=== PATIENT | male | born 1940 | race Caucasian/White ===

== ENCOUNTER 2016-10-03 08:15 | Inpatient (IN) | payer OTHER, MEDICARE ==
[2016-10-03 08:26] VITALS: BMI 28.1
--- NOTE | 2016-10-03 08:32 | PDOC ---
History of Present Illness - General History Source: Patient, Spouse () Exam Limitations: No Limitations - History of Present Illness Initial Comments: 10/03/16 08:43 The patient is a 75 year old male with significant past medical history of hypertension, hyperlipidemia, GERD, a-fib (on Coumadin), and alzheimer's who presents to the emergency department accompanied by his with chest pain for the last several days. Per patients he got up this morning to go to the bathroom when he suddenly felt dizzy. He denies any LOC. The patient has also been complaining of chest pain for the last several days. He describes the pain as pressure which is intermittent in nature. He currently does not have any chest pain. He reports some associated intermittent SOB. He denies any cough or runny nose. He denies palpitations. He denies any recent illness, fevers, or chills. PMD: Dr. Melchor <Savanah Lovett - Last Filed: 10/03/16 08:43> <Ashley Jensen - Last Filed: 10/03/16 13:45> - General Chief Complaint: Chest Pain Stated Complaint: CHEST PAIN Time Seen by Provider: 10/03/16 08:31 Past History <Savanah Lovett - Last Filed: 10/03/16 08:43> - Past Medical History Anemia: No Asthma: No Cancer: No Cardiac Disorders: Yes (ATRIAL FIBRILLATION) CVA: No COPD: No Dementia: (SOME MEMORY LOSS) GI Disorders: Yes (GERD; HH; HX OF SIGMOID COLON CANCER) Disorders: No (bph) HTN: Yes Hypercholesterolemia: Yes Seizures: No Thyroid Disease: No - Surgical History Abdominal Surgery: Yes (INGUINAL HERNIA) Cardiac Surgery: Yes (CARDIAC CATH.) - Psycho/Social/Smoking Cessation Hx Anxiety: No Suicidal Ideation: No Smoking History: Former smoker Have you smoked in the past 12 months: No Number of Cigarettes Smoked Daily: 5 If you are a former smoker, when did you quit?: 50 YRS Information on smoking cessation initiated: No Hx Alcohol Use: No Drug/Substance Use Hx: No Substance Use Type: None Hx Substance Use Treatment: No <Aslhey Jensen - Last Filed: 10/03/16 13:45> - Past Medical History Allergies/Adverse Reactions: Allergies Allergy/AdvReac Type Severity Reaction Status Date / Time No Known Drug Allergies Allergy Verified 06/11/16 12:02 Home Medications: Ambulatory Orders Amlodipine/Valsartan/Hcthiazid [Exforge Hct 5-160-25 mg Tab] 0 each PO ASDIR Calcium Carbonate [Calcium] 1,000 mg PO DAILY 10/03/16 Citalopram Hydrobromide [Celexa -] 40 mg PO DAILY 10/03/16 Donepezil HCl [Aricept -] 5 mg PO HS 10/03/16 Memantine HCl [Namenda Xr] 21 mg PO DAILY 10/03/16 Multivit-Min/FA/Lycopen/Lutein [Centrum Silver Tablet] 1 each PO DAILY 10/03/16 [place]-3 Acid Ethyl Esters [Lovaza] 2 gm PO BID 10/03/16 Pantoprazole Sodium [Protonix -] 40 mg PO BID 10/03/16 Pramipexole Di-HCl [Mirapex] 0.25 mg PO HS 10/03/16 Rivastigmine [Exelon Patch 9.5 mg/24 Hours] 1 each TD DAILY 10/03/16 Tamsulosin HCl [Flomax] 0.4 mg PO HS 10/03/16 Ubidecarenone [Co Q-10] 0 mg PO DAILY 10/03/16 Warfarin Na [Coumadin] 5 mg PO MOWEFR 10/03/16 Warfarin Sodium [Coumadin] 7.5 mg PO SUTUTHSA 10/03/16 Review of Systems - Review of Systems Able to Perform ROS?: Yes Comments:: 10/03/16 08:43 GENERAL/CONSTITUTIONAL: No fever or chills. No weakness. HEAD, EYES, EARS, NOSE AND THROAT: No change in vision. No ear pain or discharge. No sore throat. CARDIOVASCULAR: +Chest pain, +SOB. RESPIRATORY: No cough, wheezing, or hemoptysis. GASTROINTESTINAL: No nausea, vomiting, diarrhea or constipation. GENITOURINARY: No dysuria, frequency, or change in urination. MUSCULOSKELETAL: No joint or muscle swelling or pain. No neck or back pain. SKIN: No rash NEUROLOGIC: +Dizziness. No headache, vertigo, loss of consciousness, or change in strength/sensation. ENDOCRINE: No increased thirst. No abnormal weight change. HEMATOLOGIC/LYMPHATIC: No anemia, easy bleeding, or history of blood clots. ALLERGIC/IMMUNOLOGIC: No hives or skin allergy. <Savanah Lovett - Last Filed: 10/03/16 08:43> *Physical Exam - Vital Signs Last Vital Signs Temp Pulse Resp BP Pulse Ox 97.7 F 71 16 151/93 97 10/03/16 08:15 10/03/16 08:15 10/03/16 08:15 10/03/16 08:15 10/03/16 08:15 <Savanah Lovett - Last Filed: 10/03/16 08:43> - Vital Signs Last Vital Signs Temp Pulse Resp BP Pulse Ox 97.7 F 71 16 151/93 97 10/03/16 08:15 10/03/16 08:15 10/03/16 08:15 10/03/16 08:15 10/03/16 08:15 - Physical Exam Comments: GENERAL: Awake, alert, and fully oriented, in no acute distress HEAD: No signs of trauma EYES: PERRLA, EOMI, sclera anicteric, conjunctiva clear ENT: Auricles normal inspection, hearing grossly normal, nares patent, oropharynx clear without exudates. Moist mucosa NECK: Normal ROM, supple, no lymphadenopathy, JVD, or masses LUNGS: Breath sounds equal, clear to auscultation bilaterally. No wheezes, and no crackles HEART: Regular rate and rhythm, normal S1 and S2, no murmurs, rubs or gallops ABDOMEN: Soft, nontender, normoactive bowel sounds. No guarding, no rebound. No masses EXTREMITIES: Normal range of motion, no edema. No clubbing or cyanosis. No erythema, or tenderness. R lower leg with firm venous cord to medial surface. NEUROLOGICAL: Cranial nerves II through XII grossly intact. Normal speech, normal gait SKIN: Warm, Dry, normal turgor, no rashes. +Stasis changes to R lower leg. <Ashley Jensen - Last Filed: 10/03/16 13:45> Heart Score/ECG Review - History History: Highly suspicious - Electrocardiogram EKG: Normal - Age Age: >/= 65 - Risk Factors Risk Factors Heart Score: Yes Hx Hypercholesterolemia, Yes Hx Hypertension, Yes Positive family hx of cardiac disease Based on the list above the patient has:: >/=3 risk factors or Hx atherosclerotic disease - Troponin Troponin: </= normal limit - Score Heart Score - Total: 6 - ECG Impressions Comment:: EKG read 08:25- afib with ventricular rate 58 bpm <Ashley Jensen - Last Filed: 10/03/16 13:45> ED Treatment Course - LABORATORY CBC & Chemistry Diagram: 10/03/16 08:33 10/03/16 08:33 <Ashley Jensen - Last Filed: 10/03/16 13:45> Medical Decision Making - Medical Decision Making Pt with multiple cardiac risk factors, presenting with chest pain for past few days. Elevated CK and CK-MB. D/w Dr. Melchor, will admit to tele. <Ashley Jensen - Last Filed: 10/03/16 13:45> *DC/Admit/Observation/Transfer - Attestations Scribe Attestion: 10/03/16 08:44 Documentation prepared by Savanah Lovett, acting as medical staff director for Ashley Jensen MD. <Savanah Lovett - Last Filed: 10/03/16 08:43> - Discharge Dispostion Admit: Yes <Ashley Jensen - Last Filed: 10/03/16 13:45> Diagnosis at time of Disposition: Chest pain Qualifiers: Chest pain type: unspecified Qualified Code(s): R07.9 - Chest pain, unspecified - Discharge Dispostion Condition at time of disposition: Stable - Referrals
[2016-10-03 08:46] LABS: BASOPHIL 0.7 % (0-2.0); EOSINOPHIL 3.7 % (0-4.5); MCH 31.7 pg (25.7-33.7); MEAN CELL VOLUME 93.3 fl (80-96); MEAN PLT VOLUME 8.1 fl (7.5-11.1); NEUTROPHILS 46.3 % (42.8-82.8); PLATELET COUNT 158 K/MM3 (134-434); WHITE BLOOD COUNT 5.8 K/mm3 (4.0-10.0)
[2016-10-03 09:11] LABS: ALBUMIN 3.3 g/dl (3.4-5.0); ANION GAP 10 (8-16); BILIRUBIN,TOTAL 0.5 mg/dL (0.2-1.0); CALCIUM 8.1 mg/dL (8.5-10.1); CO2 27 mmol/L (21-32); GLUCOSE,RANDOM 80 mg/dL (74-106); SGOT/AST 45 U/L (15-37); SGPT/ALT 31 U/L (12-78); TOT PROT 6.7 g/dl (6.4-8.2)
[2016-10-03 09:14] LABS: ALK PHOS 50 U/L (45-117); TROPONIN I 0.03 ng/ml (0.00-0.05)
[2016-10-03 09:21] LABS: INR 2.5 (0.82-1.09)
[2016-10-03] MEDS ORDERED: PRAMIPEXOLE DIHYDROCHLORIDE 0.25 MG TABLET PO ONE (09:45)
[2016-10-03] MEDS ORDERED: POTASSIUM CHLORIDE TABS 20 MEQ TABLET.ER (FP) PO ONE ×2 (09:48→11:02)
--- NOTE | 2016-10-03 10:25 | EKG ---
Test Reason : Blood Pressure : / mmHG Vent. Rate : 058 BPM Atrial Rate : 072 BPM P-R Int : 000 ms QRS Dur : 098 ms QT Int : 444 ms P-R-T Axes : 000 021 -13 degrees QTc Int : 435 ms ATRIAL FIBRILLATION WITH SLOW VENTRICULAR RESPONSE ABNORMAL ECG WHEN COMPARED WITH ECG OF 11-JUN-2016 12:13, VENT. RATE HAS DECREASED Confirmed by VIKTORIA GARCIA MD ([id number]) on 10/03/2016 10:25:00 AM Referred By: Confirmed By:VIKTORIA GARCIA MD
--- NOTE | 2016-10-03 15:05 | CON.CARD ---
Consult Consult Specialty:: cardiology Reason for Consultation:: chest pain - History of Present Illness History of Present Illness: The patient is a 75 year old white male (natalie Cailin) with significant past medical history of CAD (non-obstructive coronary artery disease on coronary angiogram 08/2014), AF (on warfarin), hypertension, hyperlipidemia, inflammatory myopathy (neck extensor), GERD, and alzheimer's disease, who presents to the emergency department accompanied by his with chest pain for the last several days. Per patients , he got up this morning to go to the bathroom when he suddenly felt dizzy and held the left side of his chest. He denies any LOC. The patient has also been complaining of chest pain for the last several days. He describes the pain as pressure which is moderate and intermittent in nature. He currently does not have any chest pain. He reports some associated intermittent SOB. He denies any cough or runny nose. He denies palpitations. He denies any recent illness, fevers, or chills. PMD: Dr. Melchor Type Proof Reproducer: Dr. 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, Other (memory impairment) Cardio/Vascular: Yes: AFIB (on AC), HTN, Hyperlipdemia Pulmonary: No: COPD Renal/: No: Renal Failure Heme/Onc: No: Anemia Psych: Yes: Depression, Other (dementia) - Past Surgical History Additional Surgical History: coronary angiogram 08/2014 after positive stress MIBI: non-obstructive disease was noted (40%distal LAD) - Alcohol/Substance Use Hx Alcohol Use: No - Smoking History Smoking history: Former smoker Have you smoked in the past 12 months: No Aproximately how many cigarettes per day: 5 If you are a former smoker, when did you quit?: 50 YRS - Social History Usual Living Arrangement: With Spouse Home Medications - Allergies Allergies/Adverse Reactions: Allergies Allergy/AdvReac Type Severity Reaction Status Date / Time No Known Drug Allergies Allergy Verified 06/11/16 12:02 - Home Medications Home Medications: Ambulatory Orders Amlodipine/Valsartan/Hcthiazid [Exforge Hct 5-160-25 mg Tab] 0 each PO ASDIR Calcium Carbonate [Calcium] 1,000 mg PO DAILY 10/03/16 Citalopram Hydrobromide [Celexa -] 40 mg PO DAILY 10/03/16 Donepezil HCl [Aricept -] 5 mg PO HS 10/03/16 Memantine HCl [Namenda Xr] 21 mg PO DAILY 10/03/16 Multivit-Min/FA/Lycopen/Lutein [Centrum Silver Tablet] 1 each PO DAILY 10/03/16 [place]-3 Acid Ethyl Esters [Lovaza] 2 gm PO BID 10/03/16 Pantoprazole Sodium [Protonix -] 40 mg PO BID 10/03/16 Pramipexole Di-HCl [Mirapex] 0.25 mg PO HS 10/03/16 Rivastigmine [Exelon Patch 9.5 mg/24 Hours] 1 each TD DAILY 10/03/16 Tamsulosin HCl [Flomax] 0.4 mg PO HS 10/03/16 Ubidecarenone [Co Q-10] 0 mg PO DAILY 10/03/16 Warfarin Na [Coumadin] 5 mg PO MOWEFR 10/03/16 Warfarin Sodium [Coumadin] 7.5 mg PO SUTUTHSA 10/03/16 Family Disease History - Family Disease History Family History: Denies Review of Systems - Review of Systems Constitutional: reports: No Symptoms Eyes: reports: No Symptoms HENT: reports: No Symptoms Neck: reports: No Symptoms Cardiovascular: reports: Chest Pain, Shortness of Breath Respiratory: reports: SOB Gastrointestinal: reports: No Symptoms Genitourinary: reports: No Symptoms Breasts: reports: No Symptoms Reported Musculoskeletal: reports: Decreased ROM (neck), Muscle Weakness Integumentary: reports: No Symptoms Neurological: reports: Unsteady Gait, Other (neck) Endocrine: reports: No Symptoms Hematology/Lymphatic: reports: No Symptoms Psychiatric: reports: Other (dementia) - Risk Factors Known Risk Factors: Yes: Age, Gender, Hypercholesterolemia, Hypertension, Other (dementia) Vital Signs: Vital Signs Temperature 98.6 F 10/03/16 14:51 Pulse Rate 62 10/03/16 14:51 Respiratory Rate 18 10/03/16 14:51 Blood Pressure 91/53 10/03/16 14:51 O2 Sat by Pulse Oximetry (%) 95 10/03/16 14:51 Constitutional: Yes: Calm Eyes: Yes: WNL HENT: Yes: Other (weakness in neck) Neck: Yes: Decreased ROM Respiratory: Yes: WNL Gastrointestinal: Yes: Soft Renal/: No: Anuria Cardiovascular: Yes: Pulse Irregular JVD: No Carotid Bruit: No PMI: Non-Displaced Heart Sounds: Yes: S1 (varies in intensity), S2 Murmur: Yes: Systolic Murmur, Grade 2 Musculoskeletal: Yes: WNL Extremities: Yes: WNL, Cool Edema: No Peripheral Pulses WNL: Yes Integumentary: Yes: WNL Neurological: Yes: Alert Psychiatric: Yes: Other (dementia) - Other Data Labs, Other Data: INR, PTT INR 2.50 (0.82-1.09) H 10/03/16 08:49 Echo: Report Reviewed (2014: normal LVEF) Ejection Fraction %: LVEF > or = 40 % Imaging - Results Chest X-ray: Image Reviewed (no acute pathology) EKG: Image Reviewed (AF) Problem List - Problems (1) Chest pain Assessment/Plan: TNI negative x 1; f/u serially. EKG: AF Stress MIBI + for anterior ischemia 08/2014-->coronary angiogram, which showed non-obstructive disease (40% distal LAD). Consider ASA (though also on warfarin for AF);? statin; on triple-medication therapy for HTN. Code(s): R07.9 - CHEST PAIN, UNSPECIFIED Qualifiers: Chest pain type: unspecified Qualified Code(s): R07.9 - Chest pain, unspecified (2) Abdominal pain Code(s): R10.9 - UNSPECIFIED ABDOMINAL PAIN Qualifiers: Abdominal location: lower abdomen, unspecified Qualified Code(s): R10.30 - Lower abdominal pain, unspecified (3) Alzheimer's dementia Assessment/Plan: pt did not know why he was in hospital today; he does not know the date. His says his dementia has significantly worsened over the past 6 months. Code(s): G30.9 - ALZHEIMER'S DISEASE, UNSPECIFIED Qualifiers: Alzheimer's disease onset: unspecified onset Dementia behavioral disturbance: with behavioral disturbance Qualified Code(s): G30.8 - Other Alzheimer's disease; F02.80 - Dementia in other diseases classified elsewhere without behavioral disturbance (4) Atrial fibrillation Assessment/Plan: on wafarin (INR 2.5). He has apparently not required an AV conduction michael for HR control. He is on amlodiine/valsartan/HCTZ for HTN. Code(s): I48.91 - UNSPECIFIED ATRIAL FIBRILLATION (5) HTN (hypertension) Assessment/Plan: on ARB, HCTZ, and amlodipine. Code(s): I10 - ESSENTIAL (PRIMARY) HYPERTENSION (6) Hyperlipidemia Assessment/Plan: Was on atorvastatin in the past. Code(s): E78.5 - HYPERLIPIDEMIA, UNSPECIFIED (7) Isolated neck extensor myopathy Assessment/Plan: on Exelon. Code(s): G72.89 - OTHER SPECIFIED MYOPATHIES
[2016-10-03] MEDS ORDERED: WARFARIN NA 7.5 MG TABLET (FP) PO SCH (18:00)
[2016-10-03] MEDS: CITALOPRAM HYDROBROMIDE 20 MG TABLET (FP) PO SCH (18:12)
[2016-10-03 19:33] LABS: TROPONIN I 0.03 ng/ml (0.00-0.05)
--- NOTE | 2016-10-03 22:10 | HP ---
Admitting History and Physical - Primary Care Physician PCP: Bobby Melchor - Admission Chief Complaint: CP History of Present Illness: Pt. with left sided CP for couple of days, on and off, refused to come to ER or doctor ofiice ( per pt's ), todayagain with CP associated with dizziness, no SOB/ diaphoresis. Pt came to ER; he was admitted to Telemetry. 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) Cardiovascular: Yes: AFIB (on AC), HTN, Hyperlipdemia Psych: Yes: Depression Rheumatology: Yes: Other (Myositis- was on IVIG infusion) - Smoking History Smoking history: Former smoker Have you smoked in the past 12 months: No Aproximately how many cigarettes per day: 5 If you are a former smoker, when did you quit?: 50 YRS - Alcohol/Substance Use Hx Alcohol Use: No Home Medications - Allergies Allergies/Adverse Reactions: Allergies Allergy/AdvReac Type Severity Reaction Status Date / Time No Known Drug Allergies Allergy Verified 06/11/16 12:02 - Home Medications Home Medications: Ambulatory Orders Amlodipine/Valsartan/Hcthiazid [Exforge Hct 5-160-25 mg Tab] 0 each PO ASDIR Calcium Carbonate [Calcium] 1,000 mg PO DAILY 10/03/16 Citalopram Hydrobromide [Celexa -] 40 mg PO DAILY 10/03/16 Donepezil HCl [Aricept -] 5 mg PO HS 10/03/16 Memantine HCl [Namenda Xr] 21 mg PO DAILY 10/03/16 Multivit-Min/FA/Lycopen/Lutein [Centrum Silver Tablet] 1 each PO DAILY 10/03/16 [place]-3 Acid Ethyl Esters [Lovaza] 2 gm PO BID 10/03/16 Pantoprazole Sodium [Protonix -] 40 mg PO BID 10/03/16 Pramipexole Di-HCl [Mirapex] 0.25 mg PO HS 10/03/16 Rivastigmine [Exelon Patch 9.5 mg/24 Hours] 1 each TD DAILY 10/03/16 Tamsulosin HCl [Flomax] 0.4 mg PO HS 10/03/16 Ubidecarenone [Co Q-10] 0 mg PO DAILY 10/03/16 Warfarin Na [Coumadin] 5 mg PO MOWEFR 10/03/16 Warfarin Sodium [Coumadin] 7.5 mg PO SUTUTHSA 10/03/16 Review of Systems - Review of Systems Constitutional: denies: Chills, Fever, Loss of Appetite, Night Sweats Eyes: denies: Blurred Vision, Double Vision HENT: denies: Difficult Swallowing, Ear Discharge, Ear Pain, Nasal Congestion, Throat Pain Neck: reports: Decreased ROM (old), Pain on Movement (old) Cardiovascular: reports: Shortness of Breath. denies: Edema, Palpitations Respiratory: denies: Cough, Hemoptysis, SOB, Wheezing Gastrointestinal: denies: Abdominal Pain, Diarrhea, Nausea, Vomiting Genitourinary: denies: Burning, Discharge Musculoskeletal: denies: Back Pain, Extremity Pain Integumentary: denies: Eczema, Rash Neurological: denies: Change in LOC, Change in Speech, Numbness Endocrine: denies: Excessive Sweating, Intolerance to Cold Hematology/Lymphatic: reports: Easily Bruised, Excessive Bleeding Psychiatric: denies: Depression, Hallucinations Physical Examination Vital Signs: Vital Signs Temperature 98.0 F 10/03/16 17:00 Pulse Rate 70 10/03/16 17:00 Respiratory Rate 18 10/03/16 17:00 Blood Pressure 112/66 10/03/16 17:00 O2 Sat by Pulse Oximetry (%) 95 10/03/16 14:51 Constitutional: Yes: No Distress, Calm Eyes: Yes: Conjunctiva Clear, EOM Intact, PERRL HENT: Yes: Normocephalic. No: Hoarseness, Rhinnorhea Neck: Yes: Trachea Midline. No: Lymphadenopathy Cardiovascular: Yes: Regular Rate and Rhythm, S1, S2 Respiratory: Yes: Regular, CTA Bilaterally, Rales Gastrointestinal: Yes: Normal Bowel Sounds, Soft. No: Hepatomegaly, Tenderness ...Rectal Exam: Yes: Deferred Musculoskeletal: No: Back Pain, Joint Stiffness, Joint Swelling Extremities: Yes: Cool. No: Cold, Erythema Edema: No Integumentary: No: Erythema, Rash Neurological: Yes: Alert, Oriented, Other (motor and sensory symmetric in UE/LE/ face) Psychiatric: Yes: Alert, Oriented Labs: reviewed Imaging - Results Chest X-ray: Report Reviewed Problem List - Problems (1) Chest pain Assessment/Plan: Admit to Telemetry Cardio consult Serial CE Check TSH in AM Code(s): R07.9 - CHEST PAIN, UNSPECIFIED Qualifiers: Chest pain type: unspecified Qualified Code(s): R07.9 - Chest pain, unspecified (2) Atrial fibrillation Assessment/Plan: on AC f/u INR Code(s): I48.91 - UNSPECIFIED ATRIAL FIBRILLATION (3) HTN (hypertension) Assessment/Plan: cont meds Code(s): I10 - ESSENTIAL (PRIMARY) HYPERTENSION (4) Hyperlipidemia Assessment/Plan: check LP in AM Code(s): E78.5 - HYPERLIPIDEMIA, UNSPECIFIED
[2016-10-03] MEDS: PRAMIPEXOLE DIHYDROCHLORIDE 0.25 MG TABLET PO SCH (22:42)
[2016-10-03] MEDS: TAMSULOSIN HCL 0.4 MG CAP.ER.24H (FP) PO SCH (22:42)
[2016-10-03] MEDS: DONEPEZIL HCL 5 MG TABLET (FP) PO SCH (22:42)
[2016-10-03] MEDS: PANTOPRAZOLE 40 MG TABLET (FP) PO SCH (22:42)
[2016-10-04 07:21] LABS: MCH 31.9 pg (25.7-33.7); MCHC 34.4 g/dl (32.0-35.9); MEAN CELL VOLUME 92.8 fl (80-96); MEAN PLT VOLUME 8.8 fl (7.5-11.1); PLATELET COUNT 153 K/MM3 (134-434); WHITE BLOOD COUNT 6.1 K/mm3 (4.0-10.0)
[2016-10-04] MEDS ORDERED: AMLODIPINE PO SCH (08:00)
[2016-10-04] MEDS ORDERED: [UNRECOGNIZED DRUG - OTHER] PO SCH (08:00)
[2016-10-04] MEDS ORDERED: VALSARTAN PO SCH (08:00)
[2016-10-04] MEDS ORDERED: HCTHIAZID PO SCH (08:00)
[2016-10-04 08:21] LABS: ALK PHOS 46 U/L (45-117); ANION GAP 11 (8-16); BILIRUBIN,TOTAL 0.4 mg/dL (0.2-1.0); CALCIUM 8.3 mg/dL (8.5-10.1); CO2 26 mmol/L (21-32); CREATININE 0.9 mg/dL (0.7-1.3); GLUCOSE,RANDOM 80 mg/dL (74-106); SGOT/AST 36 U/L (15-37); SGPT/ALT 28 U/L (12-78); TOT PROT 5.9 g/dl (6.4-8.2)
[2016-10-04 09:26] LABS: CHOLESTEROL 115 mg/dL (50-200); MAGNESIUM 2.1 mg/dL (1.8-2.4)
[2016-10-04] MEDS ORDERED: PT OWN MED DRAWER 7, Y5N ONE ×2 (09:32→22:23)
[2016-10-04] MEDS ORDERED: PATIENT'S OWN MEDICATION (NON-FORMULARY) (Memantine Hcl [Namenda Xr] 21 MG) PO SCH (10:00)
[2016-10-04] MEDS: VALSARTAN 160 MG TABLET (UD) PO SCH (10:33)
[2016-10-04] MEDS: CITALOPRAM HYDROBROMIDE 20 MG TABLET (FP) PO SCH (10:34)
[2016-10-04] MEDS: CALCIUM (OYSTER SHELL) 500 MG TABLET (FP) PO SCH (10:34)
[2016-10-04] MEDS: amLODIPine BESYLATE 5 MG TABLET (FP) PO SCH (10:34)
[2016-10-04] MEDS: PANTOPRAZOLE 40 MG TABLET (FP) PO SCH ×2 (10:34→22:23)
[2016-10-04] MEDS: HYDROCHLOROTHIAZIDE 25 MG TABLET (FP) PO SCH (10:34)
--- NOTE | 2016-10-04 11:13 | PN ---
Progress Note, Physician History of Present Illness: The patient is a 75 year old white male (natalie Simeon) with significant past medical history of CAD (non-obstructive coronary artery disease on coronary angiogram 08/2014), AF (on warfarin), hypertension, hyperlipidemia, inflammatory myopathy (neck extensor), GERD, and alzheimer's disease, who presents to the emergency department accompanied by his with chest pain for the last several days. Per patients , he got up this morning to go to the bathroom when he suddenly felt dizzy and held the left side of his chest. He denies any LOC. The patient has also been complaining of chest pain for the last several days. He describes the pain as pressure which is moderate and intermittent in nature. He currently does not have any chest pain. He reports some associated intermittent SOB. He denies any cough or runny nose. He denies palpitations. He denies any recent illness, fevers, or chills. - Current Medication List Current Medications: Active Medications Amlodipine Besylate (Norvasc -) 5 mg PO DAILY [facility] Last Admin: 10/04/16 10:34 Dose: 5 mg Calcium Carbonate (Os-Surya 500mg -) 1,000 mg PO DAILY [facility] Last Admin: 10/04/16 10:34 Dose: 1,000 mg Citalopram Hydrobromide (Celexa -) 40 mg PO DAILY [facility] Last Admin: 10/04/16 10:34 Dose: 40 mg Donepezil HCl (Aricept -) 5 mg PO [facility] Last Admin: 10/03/16 22:42 Dose: 5 mg Hydrochlorothiazide (Hctz -) 25 mg PO DAILY [facility] Last Admin: 10/04/16 10:34 Dose: 25 mg Non-Formulary Medication (Memantine Hcl [Namenda Xr]) 21 mg PO DAILY [facility] Pantoprazole Sodium (Protonix -) 40 mg PO BID [facility] Last Admin: 10/04/16 10:34 Dose: 40 mg Pramipexole Dihydrochloride (Mirapex -) 0.25 mg PO [facility] Last Admin: 10/03/16 22:42 Dose: 0.25 mg Rivastigmine (Exelon Patch 9.5 Mg/24 Hours -) 1 each TD DAILY [facility] Tamsulosin HCl (Flomax -) 0.4 mg PO [facility] Last Admin: 10/03/16 22:42 Dose: 0.4 mg Valsartan (Diovan -) 160 mg PO DAILY [facility] Last Admin: 10/04/16 10:33 Dose: 160 mg Warfarin Sodium (Coumadin -) 5 mg PO [email or web address] [facility] Warfarin Sodium (Coumadin -) 7.5 mg PO [email or web address] [facility] Last Admin: 10/03/16 18:12 Dose: 7.5 mg - Objective Vital Signs: Vital Signs Temperature 98 F 10/04/16 06:06 Pulse Rate 68 10/04/16 06:06 Respiratory Rate 20 10/04/16 06:06 Blood Pressure 100/64 10/04/16 06:06 O2 Sat by Pulse Oximetry (%) 95 10/03/16 22:00 Eyes: Yes: WNL, Conjunctiva Clear, EOM Intact HENT: Yes: WNL, Atraumatic, Normocephalic Neck: Yes: WNL, Supple, Trachea Midline Cardiovascular: Yes: WNL, Regular Rate and Rhythm Respiratory: Yes: WNL, Regular, CTA Bilaterally Gastrointestinal: Yes: WNL, Normal Bowel Sounds Genitourinary: Yes: WNL Musculoskeletal: Yes: WNL Extremities: Yes: WNL Edema: No Integumentary: Yes: WNL Neurological: Yes: WNL, Alert, Oriented ...Motor Strength: WNL Psychiatric: Yes: WNL Labs: CBC, BMP 10/04/16 05:35 10/04/16 05:35 INR, PTT INR 2.50 (0.82-1.09) H 10/03/16 08:49 Assessment/Plan - Problems (1) Chest pain Assessment/Plan: TNI negative x 1; f/u serially. EKG: AF Stress MIBI + for anterior ischemia 08/2014-->coronary angiogram, which showed non-obstructive disease (40% distal LAD). Consider ASA (though also on warfarin for AF);? statin; on triple-medication therapy for HTN. Stable for discharge from cardiac point of view. Code(s): R07.9 - CHEST PAIN, UNSPECIFIED Qualifiers: Chest pain type: unspecified Qualified Code(s): R07.9 - Chest pain, unspecified (2) Abdominal pain Code(s): R10.9 - UNSPECIFIED ABDOMINAL PAIN Qualifiers: Abdominal location: lower abdomen, unspecified Qualified Code(s): R10.30 - Lower abdominal pain, unspecified (3) Alzheimer's dementia Assessment/Plan: pt did not know why he was in hospital today; he does not know the date. His says his dementia has significantly worsened over the past 6 months. Code(s): G30.9 - ALZHEIMER'S DISEASE, UNSPECIFIED Qualifiers: Alzheimer's disease onset: unspecified onset Dementia behavioral disturbance: with behavioral disturbance Qualified Code(s): G30.8 - Other Alzheimer's disease; F02.80 - Dementia in other diseases classified elsewhere without behavioral disturbance (4) Atrial fibrillation Assessment/Plan: on wafarin (INR 2.5). He has apparently not required an AV conduction michael for HR control. He is on amlodiine/valsartan/HCTZ for HTN. Code(s): I48.91 - UNSPECIFIED ATRIAL FIBRILLATION (5) HTN (hypertension) Assessment/Plan: on ARB, HCTZ, and amlodipine. Code(s): I10 - ESSENTIAL (PRIMARY) HYPERTENSION (6) Hyperlipidemia Assessment/Plan: Was on atorvastatin in the past. Code(s): E78.5 - HYPERLIPIDEMIA, UNSPECIFIED (7) Isolated neck extensor myopathy Assessment/Plan: on Exelon. Code(s): G72.89 - OTHER SPECIFIED MYOPATHIES
--- NOTE | 2016-10-04 12:23 | PN ---
Progress Note, Physician History of Present Illness: No CP, palp., SOB, dizziness since yesterday. - Current Medication List Current Medications: Active Medications Amlodipine Besylate (Norvasc -) 5 mg PO DAILY [facility] Last Admin: 10/04/16 10:34 Dose: 5 mg Calcium Carbonate (Os-Surya 500mg -) 1,000 mg PO DAILY [facility] Last Admin: 10/04/16 10:34 Dose: 1,000 mg Citalopram Hydrobromide (Celexa -) 40 mg PO DAILY [facility] Last Admin: 10/04/16 10:34 Dose: 40 mg Donepezil HCl (Aricept -) 5 mg PO HS [facility] Last Admin: 10/03/16 22:42 Dose: 5 mg Hydrochlorothiazide (Hctz -) 25 mg PO DAILY [facility] Last Admin: 10/04/16 10:34 Dose: 25 mg Non-Formulary Medication (Memantine Hcl [Namenda Xr]) 21 mg PO DAILY [facility] Pantoprazole Sodium (Protonix -) 40 mg PO BID [facility] Last Admin: 10/04/16 10:34 Dose: 40 mg Pramipexole Dihydrochloride (Mirapex -) 0.25 mg PO HS [facility] Last Admin: 10/03/16 22:42 Dose: 0.25 mg Rivastigmine (Exelon Patch 9.5 Mg/24 Hours -) 1 each TD DAILY [facility] Tamsulosin HCl (Flomax -) 0.4 mg PO HS [facility] Last Admin: 10/03/16 22:42 Dose: 0.4 mg Valsartan (Diovan -) 160 mg PO DAILY [facility] Last Admin: 10/04/16 10:33 Dose: 160 mg Warfarin Sodium (Coumadin -) 5 mg PO [email or web address] [facility] Warfarin Sodium (Coumadin -) 7.5 mg PO [email or web address] [facility] Last Admin: 10/03/16 18:12 Dose: 7.5 mg - Objective Vital Signs: Vital Signs Temperature 98 F 10/04/16 06:06 Pulse Rate 68 10/04/16 06:06 Respiratory Rate 20 10/04/16 06:06 Blood Pressure 100/64 10/04/16 06:06 O2 Sat by Pulse Oximetry (%) 95 10/03/16 22:00 Constitutional: Yes: No Distress, Calm Cardiovascular: Yes: Regular Rate and Rhythm, S1, S2 Respiratory: Yes: Regular, CTA Bilaterally. No: Rales Gastrointestinal: Yes: Normal Bowel Sounds, Soft. No: Palpable Mass, Tenderness Edema: No Neurological: Yes: Alert, Oriented, Other (symmetric motor and sensory in UE/ LE /face) Labs: CBC, BMP 10/04/16 05:35 10/04/16 05:35 INR, PTT INR 2.50 (0.82-1.09) H 10/03/16 08:49 Problem List - Problems (1) Chest pain Assessment/Plan: Admit to Telemetry Cardio consult appreciated Hx/o non-obstructive CAD, s/p cath Serial CE- negative Code(s): R07.9 - CHEST PAIN, UNSPECIFIED Qualifiers: Chest pain type: unspecified Qualified Code(s): R07.9 - Chest pain, unspecified (2) Atrial fibrillation Assessment/Plan: on AC f/u INR Code(s): I48.91 - UNSPECIFIED ATRIAL FIBRILLATION (3) HTN (hypertension) Assessment/Plan: cont meds Code(s): I10 - ESSENTIAL (PRIMARY) HYPERTENSION (4) Hyperlipidemia Assessment/Plan: check LP in AM Code(s): E78.5 - HYPERLIPIDEMIA, UNSPECIFIED Assessment/Plan To f/u with Cardio after ECHO regarding further care. Case was d/w pt.'s nurse.
[2016-10-04] MEDS: RIVASTIGMINE 9.5 MG/24 HOURS TRANSDERMAL PATCH TD SCH (12:48)
[2016-10-04 13:12] LABS: INR 2.42 (0.82-1.09); PROTHROMBIN TIME (PATIENT) 27.1 SEC (9.98-11.88)
[2016-10-04 14:52] LABS: LDL CHOLESTEROL (ONLY SJRH) 62 mg/dL (5-100)
[2016-10-04 15:03] LABS: FREE T4 1.13 ng/dl (0.76-1.16); THYROID STIMULATING HORMONE 1.97 uIU/ml (0.358-3.74)
[2016-10-04] MEDS ORDERED: WARFARIN NA 5 MG TABLET (UD) PO SCH (18:00)
[2016-10-04] MEDS: DONEPEZIL HCL 5 MG TABLET (FP) PO SCH (22:23)
[2016-10-04] MEDS: TAMSULOSIN HCL 0.4 MG CAP.ER.24H (FP) PO SCH (22:23)
[2016-10-04] MEDS: PRAMIPEXOLE DIHYDROCHLORIDE 0.25 MG TABLET PO SCH (22:23)
[2016-10-05 09:16] LABS: INR 2.69 (0.82-1.09); PROTHROMBIN TIME (PATIENT) 30.2 SEC (9.98-11.88)
[2016-10-05] MEDS: CITALOPRAM HYDROBROMIDE 20 MG TABLET (FP) PO SCH (09:38)
[2016-10-05] MEDS: VALSARTAN 160 MG TABLET (UD) PO SCH (09:39)
[2016-10-05] MEDS: CALCIUM (OYSTER SHELL) 500 MG TABLET (FP) PO SCH (09:39)
[2016-10-05] MEDS: PANTOPRAZOLE 40 MG TABLET (FP) PO SCH (09:39)
[2016-10-05] MEDS: HYDROCHLOROTHIAZIDE 25 MG TABLET (FP) PO SCH (09:39)
[2016-10-05] MEDS: amLODIPine BESYLATE 5 MG TABLET (FP) PO SCH (09:40)
[2016-10-05] MEDS: RIVASTIGMINE 9.5 MG/24 HOURS TRANSDERMAL PATCH TD SCH (09:40)
--- NOTE | 2016-10-05 09:54 | PN ---
Progress Note, Physician Chief Complaint: Pt, with at bedside, denies chest discomfort. His , however, corrects him, saying he sometimes c/o sharp chest pain, even recently. History of Present Illness: The patient is a 75 year old white male (natalie Simeon) with significant past medical history of CAD (non-obstructive coronary artery disease on coronary angiogram 08/2014), AF (on warfarin), hypertension, hyperlipidemia, inflammatory myopathy (neck extensor), GERD, and alzheimer's disease, who presents to the emergency department accompanied by his with chest pain for the last several days. Per patients , he got up this morning to go to the bathroom when he suddenly felt dizzy and held the left side of his chest. He denies any LOC. The patient has also been complaining of chest pain for the last several days. He describes the pain as pressure which is moderate and intermittent in nature. He currently does not have any chest pain. He reports some associated intermittent SOB. He denies any cough or runny nose. He denies palpitations. He denies any recent illness, fevers, or chills. PMD: Dr. Melchor Artillery Specialist: Dr. Solis - Current Medication List Current Medications: Active Medications Amlodipine Besylate (Norvasc -) 5 mg PO DAILY [facility] Last Admin: 10/05/16 09:40 Dose: 5 mg Calcium Carbonate (Os-Surya 500mg -) 1,000 mg PO DAILY [facility] Last Admin: 10/05/16 09:39 Dose: 1,000 mg Citalopram Hydrobromide (Celexa -) 40 mg PO DAILY [facility] Last Admin: 10/05/16 09:38 Dose: 40 mg Donepezil HCl (Aricept -) 5 mg PO [facility] Last Admin: 10/04/16 22:23 Dose: 5 mg Hydrochlorothiazide (Hctz -) 25 mg PO DAILY [facility] Last Admin: 10/05/16 09:39 Dose: 25 mg Non-Formulary Medication (Memantine Hcl [Namenda Xr]) 21 mg PO DAILY [facility] Pantoprazole Sodium (Protonix -) 40 mg PO BID [facility] Last Admin: 10/05/16 09:39 Dose: 40 mg Pramipexole Dihydrochloride (Mirapex -) 0.25 mg PO [facility] Last Admin: 10/04/16 22:23 Dose: 0.25 mg Rivastigmine (Exelon Patch 9.5 Mg/24 Hours -) 1 each TD DAILY [facility] Last Admin: 10/05/16 09:40 Dose: 1 each Tamsulosin HCl (Flomax -) 0.4 mg PO HS [facility] Last Admin: 10/04/16 22:23 Dose: 0.4 mg Valsartan (Diovan -) 160 mg PO DAILY [facility] Last Admin: 10/05/16 09:39 Dose: 160 mg Warfarin Sodium (Coumadin -) 5 mg PO [email or web address] [facility] Last Admin: 10/04/16 17:34 Dose: 5 mg Warfarin Sodium (Coumadin -) 7.5 mg PO [email or web address] [facility] Last Admin: 10/03/16 18:12 Dose: 7.5 mg - Objective Vital Signs: Vital Signs Temperature 98 F 10/05/16 07:01 Pulse Rate 68 10/05/16 07:01 Respiratory Rate 20 10/05/16 07:01 Blood Pressure 126/70 10/05/16 07:01 O2 Sat by Pulse Oximetry (%) 96 10/04/16 22:00 Constitutional: Yes: No Distress Eyes: Yes: WNL HENT: Yes: WNL Neck: Yes: Decreased ROM Cardiovascular: Yes: Pulse Irregular Respiratory: Yes: Regular Gastrointestinal: Yes: Soft ...Rectal Exam: Yes: Deferred Genitourinary: No: Anuria Breast(s): Yes: WNL Musculoskeletal: Yes: Muscle Weakness Extremities: Yes: Cool Edema: No Peripheral Pulses WNL: Yes Integumentary: Yes: WNL Neurological: Yes: Weakness Psychiatric: Yes: Other (dementia) Labs: CBC, BMP 10/04/16 05:35 10/04/16 05:35 INR, PTT INR 2.69 (0.82-1.09) H 10/05/16 08:53 Abnormal Lab Results 10/05/16 08:53 INR 2.69 H - ....Imaging Ultrasound: Report Reviewed (ECHO: normal LVEF; mild biatrial enlargement; mild MR; moderateTR) Problem List - Problems (1) Chest pain Assessment/Plan: Atypical presentation. TNI 0.03 x 3. EKG: AF with period of slow ventricular response. TFTs WNL; not on AV conduction blockers. Stress MIBI + for anterior ischemia 08/2014-->coronary angiogram, which showed non-obstructive disease (40% distal LAD). Consider ASA (though also on warfarin for AF);? statin; on triple-medication therapy for HTN. Code(s): R07.9 - CHEST PAIN, UNSPECIFIED Qualifiers: Chest pain type: unspecified Qualified Code(s): R07.9 - Chest pain, unspecified (2) Abdominal pain Code(s): R10.9 - UNSPECIFIED ABDOMINAL PAIN Qualifiers: Abdominal location: lower abdomen, unspecified Qualified Code(s): R10.30 - Lower abdominal pain, unspecified (3) Alzheimer's dementia Assessment/Plan: pt did not know why he was in hospital today; he does not know the date. His says his dementia has significantly worsened over the past 6 months. Code(s): G30.9 - ALZHEIMER'S DISEASE, UNSPECIFIED Qualifiers: Alzheimer's disease onset: unspecified onset Dementia behavioral disturbance: with behavioral disturbance Qualified Code(s): G30.8 - Other Alzheimer's disease; F02.80 - Dementia in other diseases classified elsewhere without behavioral disturbance (4) Atrial fibrillation Assessment/Plan: on wafarin (INR 2.5). He has apparently not required an AV conduction michael for HR control; it is noted that he has periods of slow ventricular respone (longest pause 2.8 seconds ); HR at rest today 60 bpm, with fair chronotropic response on walking in hallway. He is on amlodiine/valsartan/HCTZ for HTN. From a cardiac standpoint, pt may be followed as an outpatient. Code(s): I48.91 - UNSPECIFIED ATRIAL FIBRILLATION (5) HTN (hypertension) Code(s): I10 - ESSENTIAL (PRIMARY) HYPERTENSION (6) Hyperlipidemia Code(s): E78.5 - HYPERLIPIDEMIA, UNSPECIFIED (7) Isolated neck extensor myopathy Code(s): G72.89 - OTHER SPECIFIED MYOPATHIES
[2016-10-05 13:49] VITALS: TEMP 98.1
[2016-10-05 15:20] VITALS: BP 97/53; PULSE 75
--- NOTE | 2016-10-05 16:03 | EKG ---
Test Reason : Blood Pressure : / mmHG Vent. Rate : 060 BPM Atrial Rate : 066 BPM P-R Int : 000 ms QRS Dur : 100 ms QT Int : 430 ms P-R-T Axes : 000 028 -04 degrees QTc Int : 430 ms ATRIAL FIBRILLATION ABNORMAL ECG WHEN COMPARED WITH ECG OF 03-OCT-2016 08:19, NO SIGNIFICANT CHANGE WAS FOUND Confirmed by ABEL GIBSON MD ([id number]) on 10/05/2016 4:03:51 PM Referred By: POLA CARBAJAL Confirmed By:ABEL GIBSON MD
--- NOTE | 2016-10-05 16:08 | DS ---
Physical Examination Vital Signs: Vital Signs Temperature 98.1 F 10/05/16 08:00 Pulse Rate 75 10/05/16 14:19 Respiratory Rate 20 10/05/16 14:19 Blood Pressure 97/53 10/05/16 14:19 O2 Sat by Pulse Oximetry (%) 98 10/05/16 08:00 Findings/Remarks: Pt w/o CP, dizziness, SOB, Palp. Constitutional: Yes: No Distress, Calm Cardiovascular: Yes: Pulse Irregular, S1, S2 Respiratory: Yes: Regular, CTA Bilaterally. No: Rales Gastrointestinal: Yes: Normal Bowel Sounds, Soft. No: Palpable Mass, Tenderness Edema: No Neurological: Yes: Alert, Oriented Labs: CBC, BMP 10/04/16 05:35 10/04/16 05:35 Discharge Summary Reason For Visit: CHEST PAIN Current Active Problems Chest pain (Acute) Isolated neck extensor myopathy (Acute) Hospital Course: Pt came to ER c/o CP. Pt was admitted to Telemetry and monitored for Arrythmia. Pt TRENT by CE. Pt was seen by Cardio Dr. Solis/ [place]). It was noticed that pt has less than 3 seconds asymptomatic pauses- reviewed with Dr. Reveles. Pt to be DC'ed home with outpatient f/u. Condition: Fair - Instructions Referrals: Bobby Melchor MD [Primary Care Provider] - (next week) Noel Solis MD [Staff Physician] - (in 1-2 weeks) - Home Medications Comprehensive Discharge Medication List: Ambulatory Orders Amlodipine/Valsartan/Hcthiazid [Exforge Hct 5-160-25 mg Tab] 0 each PO [facility] Calcium Carbonate [Calcium] 1,000 mg PO DAILY 10/03/16 Citalopram Hydrobromide [Celexa -] 40 mg PO DAILY 10/03/16 Donepezil HCl [Aricept -] 5 mg PO HS 10/03/16 Memantine HCl [Namenda Xr] 21 mg PO DAILY 10/03/16 Multivit-Min/FA/Lycopen/Lutein [Centrum Silver Tablet] 1 each PO DAILY 10/03/16 [place]-3 Acid Ethyl Esters [Lovaza] 2 gm PO BID 10/03/16 Pantoprazole Sodium [Protonix -] 40 mg PO BID 10/03/16 Pramipexole Di-HCl [Mirapex] 0.25 mg PO HS 10/03/16 Rivastigmine [Exelon Patch 9.5 mg/24 Hours -] 1 each TD DAILY 10/03/16 Tamsulosin HCl [Flomax -] 0.4 mg PO HS 10/03/16 Ubidecarenone [Co Q-10] 0 mg PO DAILY 10/03/16 Warfarin Na [Coumadin -] 5 mg PO MOWEFR 10/03/16 Warfarin Sodium [Coumadin] 7.5 mg PO SUTUTHSA 10/03/16
== END 2016-10-05 17:31 | disposition home or self-care (01) | DRG 313 ==
LOC: JER 08:15 → JERBED 10:04 → J4W 14:29
PROVIDERS: ADMIT Specialist; ATTEND Specialist
DX: R07.89 Other chest pain (principal); E78.5 Hyperlipidemia, unspecified; I10 Essential (primary) hypertension; I48.91 Unspecified atrial fibrillation; K21.9 Gastro-esophageal reflux disease without esophagitis; G30.8 Other Alzheimer's disease; F02.80 Dementia in other diseases classified elsewhere, unspecified severity, without behavioral disturbance, psychotic disturbance, mood disturbance, and anxiety; Z79.01 Long term (current) use of anticoagulants; N40.0 Benign prostatic hyperplasia without lower urinary tract symptoms; K40.90 Unilateral inguinal hernia, without obstruction or gangrene, not specified as recurrent; I25.10 Atherosclerotic heart disease of native coronary artery without angina pectoris; Z95.5 Presence of coronary angioplasty implant and graft; R10.30 Lower abdominal pain, unspecified; G72.89 Other specified myopathies; Z87.891 Personal history of nicotine dependence; Z85.038 Personal history of other malignant neoplasm of large intestine
CPT/HCPCS: 36415; 71010-TC; 80053; 80061; 82550; 82553; 83721; 83735; 84439; 84443; 84484; 85025; 85027; 85610; 93005; 93010; 93306-TC; 99284-25

== ENCOUNTER 2016-10-08 13:21 | Inpatient (IN) | payer OTHER, MEDICARE ==
--- NOTE | 2016-10-08 13:39 | PDOC ---
History of Present Illness <Michael Sánchez - Last Filed: 10/08/16 16:22> - General History Source: Patient Exam Limitations: No Limitations - History of Present Illness Initial Comments: 10/08/16 14:40 The patient is a 75 year old male with significant past medical history of hypertension, hyperlipidemia, GERD, a-fib (on Coumadin), and alzheimer's who presents to the emergency department with chest pain and low BP. Patient notes that he developed left sided chest pain that radiates across entire chest. As per the patient has been having low BP with low HR. He was recently admitted for similar symptoms. As per , had an ECHO done and was seen by Dr. Reveles during his recent admission and she reports that he was told he may need a pacemaker in the near future. Patient was discharged home and was not doing well outpatient. PMD: Dr. Bobby Melchor Cardiology - Dr Solis <Nuha Jain - Last Filed: 10/08/16 16:29> - General Chief Complaint: Pain Stated Complaint: abd pain Time Seen by Provider: 10/08/16 13:37 Past History - Past Medical History Anemia: No Asthma: No Cancer: No Cardiac Disorders: Yes (ATRIAL FIBRILLATION) CVA: No COPD: No Dementia: (SOME MEMORY LOSS) GI Disorders: Yes (GERD; HH; HX OF SIGMOID COLON CANCER) Disorders: No (bph) HTN: Yes Hypercholesterolemia: Yes Seizures: No Thyroid Disease: No - Surgical History Abdominal Surgery: Yes (INGUINAL HERNIA) Cardiac Surgery: Yes (CARDIAC CATH.) - Psycho/Social/Smoking Cessation Hx Anxiety: No Suicidal Ideation: No Smoking History: Former smoker Have you smoked in the past 12 months: No Number of Cigarettes Smoked Daily: 5 If you are a former smoker, when did you quit?: 50 YRS Hx Alcohol Use: No Drug/Substance Use Hx: No Substance Use Type: None Hx Substance Use Treatment: No <Michael Sánchez - Last Filed: 10/08/16 16:22> <Nuha Jain - Last Filed: 10/08/16 16:29> - Past Medical History Allergies/Adverse Reactions: Allergies Allergy/AdvReac Type Severity Reaction Status Date / Time No Known Drug Allergies Allergy Verified 10/08/16 14:20 Home Medications: Ambulatory Orders Amlodipine/Valsartan/Hcthiazid [Exforge Hct 5-160-25 mg Tab] 1 each PO BID 10/03 Calcium Carbonate [Calcium] 1,000 mg PO DAILY 10/03/16 Citalopram Hydrobromide [Celexa -] 40 mg PO DAILY 10/03/16 Memantine HCl [Namenda Xr] 21 mg PO DAILY 10/03/16 Multivit-Min/FA/Lycopen/Lutein [Centrum Silver Tablet] 1 each PO DAILY 10/03/16 [place]-3 Acid Ethyl Esters [Lovaza] 2 gm PO BID 10/03/16 Pantoprazole Sodium [Protonix -] 40 mg PO BID 10/03/16 Pramipexole Di-HCl [Mirapex] 0.25 mg PO HS 10/03/16 Rivastigmine [Exelon Patch 9.5 mg/24 Hours -] 1 each TD DAILY 10/03/16 Tamsulosin HCl [Flomax -] 0.4 mg PO HS 10/03/16 Ubidecarenone [Co Q-10] 0 mg PO DAILY 10/03/16 Warfarin Na [Coumadin -] 5 mg PO MOWEFR 10/03/16 Warfarin Sodium [Coumadin] 7.5 mg PO SUTUTHSA 10/03/16 Review of Systems - Review of Systems Able to Perform ROS?: Yes Comments:: 10/08/16 14:41 GENERAL/CONSTITUTIONAL: No fever or chills. No weakness. HEAD, EYES, EARS, NOSE AND THROAT: No change in vision. No ear pain or discharge. No sore throat. CARDIOVASCULAR: +chest pain. No shortness of breath. RESPIRATORY: No cough, wheezing, or hemoptysis. GASTROINTESTINAL: No nausea, vomiting, diarrhea or constipation. GENITOURINARY: No dysuria, frequency, or change in urination. MUSCULOSKELETAL: No joint or muscle swelling or pain. No neck or back pain. SKIN: No rash NEUROLOGIC: No headache, vertigo, loss of consciousness, or change in strength/ sensation. ENDOCRINE: No increased thirst. No abnormal weight change. HEMATOLOGIC/LYMPHATIC: No anemia, easy bleeding, or history of blood clots. ALLERGIC/IMMUNOLOGIC: No hives or skin allergy. <Nuha Jain - Last Filed: 10/08/16 16:29> *Physical Exam - Vital Signs Last Vital Signs Temp Pulse Resp BP Pulse Ox 97.4 F L 67 18 117/79 98 10/08/16 13:31 10/08/16 13:31 10/08/16 13:31 10/08/16 13:31 10/08/16 13:31 - Physical Exam Comments: 10/08/16 14:41 GENERAL: Awake, alert, and fully oriented, in no acute distress HEAD: No signs of trauma EYES: PERRLA, EOMI, sclera anicteric, conjunctiva clear ENT: Auricles normal inspection, hearing grossly normal, nares patent, oropharynx clear without exudates. Moist mucosa NECK: Normal ROM, supple, no lymphadenopathy, JVD, or masses LUNGS: Breath sounds equal, clear to auscultation bilaterally. No wheezes, and no crackles HEART: Regular rate and rhythm, normal S1 and S2, no murmurs, rubs or gallops ABDOMEN: Soft, nontender, normoactive bowel sounds. No guarding, no rebound. No masses EXTREMITIES: Normal range of motion, no edema. No clubbing or cyanosis. No cords, erythema, or tenderness NEUROLOGICAL: Cranial nerves II through XII grossly intact. Normal speech. SKIN: Warm, Dry, normal turgor, no rashes or lesions noted. <Nuha Jain - Last Filed: 10/08/16 16:29> Heart Score/ECG Review #1 10/08/16 14:42 ECG was reviewed by Dr. Sánchez Impression: atrial fibrillation Cannot rule out anterior infarct vent rate 63 bpm <Nuha Jain - Last Filed: 10/08/16 16:29> ED Treatment Course - LABORATORY CBC & Chemistry Diagram: 10/08/16 14:10 10/08/16 14:10 <Michael Sánchez - Last Filed: 10/08/16 16:22> - LABORATORY CBC & Chemistry Diagram: 10/08/16 14:10 10/08/16 14:10 - ADDITIONAL ORDERS Additional order review: 10/08/16 14:10 RBC 4.48 MCV 93.1 MCHC 33.6 RDW 13.9 MPV 8.1 Neutrophils % 47.7 Lymphocytes % 41.2 H Monocytes % 7.6 Eosinophils % 2.5 Basophils % 1.0 <Nuha Jain - Last Filed: 10/08/16 16:29> Medical Decision Making - Medical Decision Making 10/08/16 14:44 75 year old male with significant past medical history of hypertension, hyperlipidemia, GERD, a-fib (on Coumadin), and alzheimer's who presents to the emergency department with chest pain and low BP. Will order labs and EKG. Will reassess after the results are back. 10/08/16 15:10 CRX is normal. 10/08/16 15:19 A call was placed to Dr. Reveles. Awaiting a call back. 10/08/16 15:[address] Ramirez 10/08/16 15:41 A call was placed to Dr. Bobby Melchor. Awaiting a call back. 10/08/16 16:17 A second call was placed to Dr. Bobby Melchor at his service. Awaiting a call back. 10/08/16 16:[address] Melchor. <Nuha Jain - Last Filed: 10/08/16 16:29> *DC/Admit/Observation/Transfer - Discharge Dispostion Admit: Yes - Attestations Physician Attestion: 10/08/16 13:38 I, Dr. Michael Sánchez, attest that this document has been prepared under my direction and personally reviewed by me in its entirety. I further attest, that it accurately reflects all work, treatment, procedures and medical decision -making performed by me. <Michael Sánchez - Last Filed: 10/08/16 16:22> - Attestations Scribe Attestion: 10/08/16 14:43 Documentation prepared by ANDREW Foreman, acting as director biomedical engineering for Michael Sánchez MD/DO. <Nuha Jain - Last Filed: 10/08/16 16:29> Diagnosis at time of Disposition: Bradycardia Hypotension Qualifiers: Hypotension type: unspecified hypotension type Qualified Code(s): I95.9 - Hypotension, unspecified - Discharge Dispostion Condition at time of disposition: Improved
[2016-10-08 14:21] VITALS: BMI 28.1
[2016-10-08 14:32] LABS: EOSINOPHIL 2.5 % (0-4.5); MCH 31.3 pg (25.7-33.7); MCHC 33.6 g/dl (32.0-35.9); MEAN CELL VOLUME 93.1 fl (80-96); MEAN PLT VOLUME 8.1 fl (7.5-11.1); NEUTROPHILS 47.7 % (42.8-82.8); PLATELET COUNT 161 K/MM3 (134-434); RDW 13.9 % (11.9-15.9); WHITE BLOOD COUNT 5.3 K/mm3 (4.0-10.0)
[2016-10-08 14:43] LABS: INR 2.23 (0.82-1.09); PROTHROMBIN TIME (PATIENT) 24.9 SEC (9.98-11.88)
[2016-10-08 14:52] LABS: ALBUMIN 3.3 g/dl (3.4-5.0); ANION GAP 8 (8-16); BILIRUBIN,TOTAL 0.9 mg/dL (0.2-1.0); CALCIUM 8.5 mg/dL (8.5-10.1); CO2 29 mmol/L (21-32); CREATININE 0.9 mg/dL (0.7-1.3); GLUCOSE,RANDOM 83 mg/dL (74-106); SGOT/AST 28 U/L (15-37); SGPT/ALT 28 U/L (12-78); TOT PROT 6.4 g/dl (6.4-8.2)
[2016-10-08 14:59] LABS: ALK PHOS 55 U/L (45-117); TROPONIN I 0.02 ng/ml (0.00-0.05)
[2016-10-08] MEDS ORDERED: WARFARIN NA 7.5 MG TABLET (FP) PO SCH (19:30)
[2016-10-08 21:06] LABS: TROPONIN I 0.02 ng/ml (0.00-0.05)
[2016-10-08] MEDS: PRAMIPEXOLE DIHYDROCHLORIDE 0.25 MG TABLET PO SCH (22:37)
[2016-10-08] MEDS: PANTOPRAZOLE 40 MG TABLET (FP) PO SCH (22:37)
[2016-10-08] MEDS: TAMSULOSIN HCL 0.4 MG CAP.ER.24H (FP) PO SCH (22:37)
--- NOTE | 2016-10-09 00:33 | EKG ---
Test Reason : Blood Pressure : / mmHG Vent. Rate : 063 BPM Atrial Rate : 060 BPM P-R Int : 000 ms QRS Dur : 102 ms QT Int : 422 ms P-R-T Axes : 000 021 -03 degrees QTc Int : 431 ms ATRIAL FIBRILLATION CANNOT RULE OUT ANTERIOR INFARCT , AGE UNDETERMINED ABNORMAL ECG WHEN COMPARED WITH ECG OF 05-OCT-2016 10:08, NO SIGNIFICANT CHANGE WAS FOUND Confirmed by VIKTORIA GARCIA MD ([id number]) on 10/09/2016 12:33:12 AM Referred By: Confirmed By:VIKTORIA GARCIA MD
[2016-10-09 07:28] LABS: INR 2.21 (0.82-1.09); PROTHROMBIN TIME (PATIENT) 24.7 SEC (9.98-11.88)
--- NOTE | 2016-10-09 08:18 | CON.CARD ---
Consult Consult Specialty:: Cardiology Referred by:: Dr. Melchor Reason for Consultation:: Bradycardia, chest pain, possible need for PPM - History of Present Illness Chief Complaint: lightheadedness, chest pain History of Present Illness: 75 year old man with a history of HTN, HLD, CAD-non-obs on cath 08/2014, AFib on coumadin, alzheimers, myositis, admitted with c/o bradycardia, low BP, chest pain at home. Concern was raised for possible need for PPM. Pt. seen and examined today in nad. pts at bedside. no overnight events. no new complaints. denies any chest pain since admission. no sob, palpitations, pnd, orthopnea, or LE edema. he does have intermittent lightheadedness, no syncope. 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: Yes: Dementia, Other (memory impairment) Cardio/Vascular: Yes: AFIB (on AC), CAD, HTN, Hyperlipdemia Psych: Yes: Depression, Other (dementia) Rheumatology: Yes: Other (Myositis- was on IVIG infusion) - Alcohol/Substance Use Hx Alcohol Use: No - Smoking History Smoking history: Former smoker Have you smoked in the past 12 months: No Aproximately how many cigarettes per day: 5 If you are a former smoker, when did you quit?: 50 YRS - Social History Usual Living Arrangement: With Spouse ADL: Family Assistance History of Recent Travel: No Home Medications - Allergies Allergies/Adverse Reactions: Allergies Allergy/AdvReac Type Severity Reaction Status Date / Time No Known Drug Allergies Allergy Verified 10/08/16 14:20 - Home Medications Home Medications: Ambulatory Orders Amlodipine/Valsartan/Hcthiazid [Exforge Hct 5-160-25 mg Tab] 1 each PO BID 10/03 Calcium Carbonate [Calcium] 1,000 mg PO DAILY 10/03/16 Citalopram Hydrobromide [Celexa -] 40 mg PO DAILY 10/03/16 Memantine HCl [Namenda Xr] 21 mg PO DAILY 10/03/16 Multivit-Min/FA/Lycopen/Lutein [Centrum Silver Tablet] 1 each PO DAILY 10/03/16 [place]-3 Acid Ethyl Esters [Lovaza] 2 gm PO BID 10/03/16 Pantoprazole Sodium [Protonix -] 40 mg PO BID 10/03/16 Pramipexole Di-HCl [Mirapex] 0.25 mg PO HS 10/03/16 Rivastigmine [Exelon Patch 9.5 mg/24 Hours -] 1 each TD DAILY 10/03/16 Tamsulosin HCl [Flomax -] 0.4 mg PO HS 10/03/16 Ubidecarenone [Co Q-10] 0 mg PO DAILY 10/03/16 Warfarin Na [Coumadin -] 5 mg PO MOWEFR 10/03/16 Warfarin Sodium [Coumadin] 7.5 mg PO SUTUTHSA 10/03/16 Lipitor 10 mg PO HS 10/08/16 Family Disease History - Family Disease History Family History: Denies Review of Systems - Review of Systems Constitutional: reports: Weakness. denies: No Symptoms, Chills, Diaphoresis, Fever, Lethargy, Loss of Appetite, Malaise, Night Sweats, Unintentional Wgt. Loss, Other Eyes: denies: No Symptoms, Blind Spots, Blurred Vision, Double Vision, Eye Pain , Floaters, Photophobia, Recent Change in Vision, Other HENT: denies: No Symptoms, Difficult Swallowing, Ear Discharge, Ear Pain, Epistaxis, Gingival Bleeding, Hearing Loss, Mouth Swelling, Nasal Congestion, Ocular Prosthesis, Throat Pain, Toothache, Ringing in Ears, Other Neck: denies: No Symptoms, Decreased ROM, Lumps, Pain on Movement, Stiffness, Swollen Glands, Tenderness, Other Cardiovascular: reports: Chest Pain, Shortness of Breath. denies: No Symptoms, Edema, Palpitations, Other Respiratory: reports: SOB, SOB on Exertion. denies: No Symptoms, Cough, Exercise Intolerance, Hemoptysis, Orthopnea, PND, Snoring, Wheezing, Other Gastrointestinal: denies: No Symptoms, Abdominal Pain, Bloating, Constipation, Diarrhea, Dysphagia, Indigestion, Melena, Nausea, Rectal Bleeding, Vomiting, Vomiting Blood, Other Genitourinary: denies: No Symptoms, Burning, Discharge, Dysuria, Flank Pain, Frequency, Hematuria, Incontinence, Lesions, Menses, Pain, Testicular Mass, Testicular Pain, Testicular Swelling, Urgency, Vaginal Bleeding, Other Breasts: denies: No Symptoms Reported, See HPI, Breast Implants, Discharge from Nipple, Lumps, Pain, Skin Changes, Other Musculoskeletal: reports: Muscle Weakness. denies: No Symptoms, Back Pain, Crepitus, Decreased ROM, Extremity Pain, Joint Pain, Joint Swelling, Muscle Pain , Muscle Cramps, Other Integumentary: denies: No Symptoms, Blister, Bruising, Change in Color, Eczema, Erythema, Incision, Lesions, Lump, Pallor, Pruritis, Rash, Wound, Other Neurological: reports: Dizziness, Weakness. denies: No Symptoms, Change in LOC , Change in Speech, Confusion, Headache, Incoordination, Numbness, Parasthesia, Pre-Existing Deficit, Seizure, Syncope, Tremors, Unsteady Gait, Other Endocrine: denies: No Symptoms, Excessive Sweating, Flushing, Increased Hunger, Increased Thirst, Intolerance to Cold, Intolerance to Heat, Unexplained Weight Gain, Unexplained Weight Loss, Other Hematology/Lymphatic: denies: No Symptoms, Easily Bruised, Excessive Bleeding, Swollen Glands, Other Psychiatric: denies: No Symptoms, Altered Sleep Pattern, Anxiety, Depression, Hallucinations, Panic, Paranoia, Suicidal, Other - Risk Factors Known Risk Factors: Yes: Hypercholesterolemia, Hypertension Vital Signs: Vital Signs Temperature 97.6 F 10/09/16 05:29 Pulse Rate 67 10/09/16 05:29 Respiratory Rate 18 10/09/16 05:29 Blood Pressure 126/87 10/09/16 05:29 O2 Sat by Pulse Oximetry (%) 97 10/08/16 22:20 Constitutional: Yes: Well Nourished, No Distress, Calm Eyes: Yes: WNL, Conjunctiva Clear, EOM Intact, PERRL HENT: Yes: WNL, Atraumatic, Normocephalic Neck: Yes: WNL, Supple, Trachea Midline Respiratory: Yes: WNL, Regular, CTA Bilaterally. No: Rales, Rhonchi, Wheezes Gastrointestinal: Yes: WNL, Normal Bowel Sounds, Soft. No: Distention, Tenderness Renal/: Yes: WNL Cardiovascular: Yes: Pulse Irregular. No: Bradycardia, Tachycardia, Gallop, Rub , Varicosities JVD: No Carotid Bruit: No PMI: Non-Displaced Heart Sounds: Yes: S1, S2. No: Split S2, S3, S4, Clicks, Gallop, Rub, Bruit Murmur: No: Systolic Murmur, Diastolic Murmur Musculoskeletal: Yes: Muscle Weakness Extremities: Yes: WNL Edema: No Peripheral Pulses WNL: Yes Peripheral Pulses: 2+ Left Doralis Pedis, 2+ Right Dorsalis Pedis Integumentary: Yes: WNL Neurological: Yes: Alert, Oriented Psychiatric: Yes: Alert, Oriented - Other Data Labs, Other Data: INR, PTT INR 2.21 (0.82-1.09) H 10/09/16 05:35 Troponin, BNP 10/08/16 19:30 Troponin I 0.02 Troponin, BNP 10/08/16 19:30 Troponin I 0.02 ekg-10/08 Afib 63bpm, poor R progression, nonspecific St abnl Echo: Report Reviewed Prior Cardiac Procedures: Cardiac Catheterization Imaging - Results Chest X-ray: Report Reviewed, Image Reviewed EKG: Report Reviewed, Image Reviewed Other: Report Reviewed, Image Reviewed (tele-AFib, HR 50s, short insignificant pauses) Problem List - Problems (1) Bradycardia Code(s): R00.1 - BRADYCARDIA, UNSPECIFIED (2) Hypotension Code(s): I95.9 - HYPOTENSION, UNSPECIFIED Qualifiers: Hypotension type: unspecified hypotension type Qualified Code(s): I95.9 - Hypotension, unspecified (3) Chest pain Code(s): R07.9 - CHEST PAIN, UNSPECIFIED Qualifiers: Chest pain type: unspecified Qualified Code(s): R07.9 - Chest pain, unspecified (4) Atrial fibrillation Code(s): I48.91 - UNSPECIFIED ATRIAL FIBRILLATION (5) HTN (hypertension) Code(s): I10 - ESSENTIAL (PRIMARY) HYPERTENSION (6) Hyperlipidemia Code(s): E78.5 - HYPERLIPIDEMIA, UNSPECIFIED (7) CAD (coronary artery disease) Code(s): I25.10 - ATHSCL HEART DISEASE OF [place] CORONARY ARTERY W/O ANG PCTRS Assessment/Plan 75 year old man with a history of HTN, HLD, CAD-non-obs on cath 08/2014, AFib on coumadin, alzheimers, myositis, admitted with c/o bradycardia, low BP, chest pain at home. Concern was raised for possible need for PPM. Bradycardia-admitted for concern for need for PPM -pt has not displayed significant bradycardia on telemetry overnight that would be an absolute indication for PPM -no long pauses -would cont to monitor on tele for another 24 hours -would evaluate his neurologic medications as rivastigmine and namenda may contribute to bradycardia -avoid AV kranthi blockers -Pulmonary to evaluate as pt had NATALI testing as outpatient, results unavailable currently, which may contribute to bradycardia -if possible attempt to evaluate chronotropic competency with walking in the hallway -will further evaluate during admission for need for PPM Chest pain-atypical, chronic -cardiac cath 08/2014 showed non-obstructive CAD -cardiac enzymes wnl -no ischemia on ekg -consider ASA with caution as pt on coumadin HTN-adequately controlled -cont norvasc for now
[2016-10-09] MEDS: CALCIUM (OYSTER SHELL) 500 MG TABLET (FP) PO SCH (09:58)
[2016-10-09] MEDS: CITALOPRAM HYDROBROMIDE 20 MG TABLET (FP) PO SCH (09:58)
[2016-10-09] MEDS: PANTOPRAZOLE 40 MG TABLET (FP) PO SCH ×2 (09:59→21:41)
[2016-10-09] MEDS ORDERED: amLODIPine BESYLATE 5 MG TABLET (FP) PO SCH (10:00)
[2016-10-09] MEDS ORDERED: VALSARTAN 160 MG TABLET (UD) PO SCH (10:00)
--- NOTE | 2016-10-09 12:53 | HP ---
Admitting History and Physical - Primary Care Physician PCP: Bobby Melchor - Admission Chief Complaint: CP. Dizziness History of Present Illness: Pt recently DC from Hospital (telemetry) the day before yesterday he felt weak and dizzy ( at home in PM his SBP upper 70's and lower 80's) but he didn't want to come to ER, yestrday he developed L sided CP and continued to feel dizzy, came to ER, admitted for monitoring on Telemetry. Pt. now w/o CP, dizziness. Info from Pt. and ( at bedside). History Source: Patient, Family Member - Past Medical History REPRESENTATIVE: Yes: Dementia, Other (memory impairment) Cardiovascular: Yes: AFIB (on AC), CAD (non - obstructive), HTN, Hyperlipdemia Psych: Yes: Depression, Other (dementia) Rheumatology: Yes: Other (Myositis- was on IVIG infusion) - Smoking History Smoking history: Former smoker Have you smoked in the past 12 months: No Aproximately how many cigarettes per day: 5 If you are a former smoker, when did you quit?: 50 YRS - Alcohol/Substance Use Hx Alcohol Use: No - Social History ADL: Family Assistance History of Recent Travel: No Home Medications - Allergies Allergies/Adverse Reactions: Allergies Allergy/AdvReac Type Severity Reaction Status Date / Time No Known Drug Allergies Allergy Verified 10/08/16 14:20 - Home Medications Home Medications: Ambulatory Orders RX: Amlodipine/Valsartan/Hcthiazid [Exforge Hct 5-160-25 mg Tab] 1 each PO BID 10/03/16 RX: Calcium Carbonate [Calcium] 1,000 mg PO DAILY 10/03/16 RX: Citalopram Hydrobromide [Celexa -] 40 mg PO DAILY 10/03/16 RX: Memantine HCl [Namenda Xr] 21 mg PO DAILY 10/03/16 RX: Multivit-Min/FA/Lycopen/Lutein [Centrum Silver Tablet] 1 each PO DAILY 10/03 RX: [place]-3 Acid Ethyl Esters [Lovaza] 2 gm PO BID 10/03/16 RX: Pantoprazole Sodium [Protonix -] 40 mg PO BID 10/03/16 RX: Pramipexole Di-HCl [Mirapex] 0.25 mg PO HS 10/03/16 RX: Rivastigmine [Exelon Patch 9.5 mg/24 Hours -] 1 each TD DAILY 10/03/16 RX: Tamsulosin HCl [Flomax -] 0.4 mg PO HS 10/03/16 RX: Ubidecarenone [Co Q-10] 0 mg PO DAILY 10/03/16 RX: Warfarin Na [Coumadin -] 5 mg PO MOWEFR 10/03/16 RX: Warfarin Sodium [Coumadin] 7.5 mg PO SUTUTHSA 10/03/16 Lipitor 10 mg PO HS 10/08/16 Review of Systems - Review of Systems Constitutional: denies: Chills, Fever Eyes: denies: Blurred Vision, Recent Change in Vision HENT: denies: Difficult Swallowing, Ear Discharge, Ear Pain, Throat Pain Neck: reports: Stiffness, Tenderness Cardiovascular: denies: Chest Pain (now), Edema, Palpitations, Shortness of Breath Respiratory: denies: Cough, Hemoptysis, SOB, SOB on Exertion, Wheezing Gastrointestinal: denies: Abdominal Pain, Diarrhea, Nausea, Vomiting Genitourinary: denies: Burning, Discharge, Dysuria Musculoskeletal: denies: Back Pain, Extremity Pain, Joint Swelling Integumentary: denies: Eczema, Erythema, Rash Neurological: denies: Change in LOC, Change in Speech, Confusion, Dizziness Endocrine: denies: Excessive Sweating, Intolerance to Cold Hematology/Lymphatic: denies: Easily Bruised, Excessive Bleeding Psychiatric: denies: Anxiety, Depression Physical Examination Vital Signs: Vital Signs Temperature 98.2 F 10/09/16 10:00 Pulse Rate 62 10/09/16 10:00 Respiratory Rate 20 10/09/16 10:00 Blood Pressure 99/54 10/09/16 12:23 O2 Sat by Pulse Oximetry (%) 97 10/08/16 22:20 Constitutional: Yes: No Distress, Calm Eyes: Yes: Conjunctiva Clear, EOM Intact, PERRL HENT: Yes: Normocephalic. No: Epistaxis, Hoarseness, Thrush Neck: Yes: Trachea Midline. No: Lymphadenopathy Cardiovascular: Yes: Pulse Irregular, S1, S2 Respiratory: Yes: Regular, CTA Bilaterally. No: Rales Gastrointestinal: Yes: Normal Bowel Sounds, Soft. No: Palpable Mass, Tenderness ...Rectal Exam: Yes: Deferred Musculoskeletal: No: Back Pain, Joint Swelling Extremities: No: Cold, Cool, Cyanosis Edema: No Integumentary: No: Bruising, Erythema, Rash Neurological: Yes: Other (motor and sensory symmetric in UE/ LE/ face). 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 To monitor. 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
[2016-10-09] MEDS ORDERED: VALSARTAN 80 MG TABLET (UD) PO SCH (13:03)
[2016-10-09 13:13] LABS: CALCIUM 8.3 mg/dL (8.5-10.1); CREATININE 0.9 mg/dL (0.7-1.3)
--- NOTE | 2016-10-09 15:46 | CON.PULM ---
Consult Consult Specialty:: PULM/CCM Referred by:: GERA Reason for Consultation:: OSAS / Bradycardia - History of Present Illness Chief Complaint: Left sided CP History of Present Illness: 75 M, well known from the outpatient setting. NPSG on 07/26/17 : Mild OSAS with an RDI of 5 events per hour and mild O2 desaturation to 82%. 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 His also gives a history consistent with REM Sleep Behavior D/O, but this was not noted on his NPSG. On overnight cardiac monitoring during the NPSG, there were episodes of bradycardia or pauses. Only PVCs were noted. Patient is currently being evaluated by a Neurologist at [facility] for possible Movement Disorder. 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, Other (memory impairment) Cardio/Vascular: Yes: AFIB (on AC), CAD (non - obstructive), HTN, Hyperlipdemia Psych: Yes: Depression, Other (dementia) Rheumatology: Yes: Other (Myositis- was on IVIG infusion) - Alcohol/Substance Use Hx Alcohol Use: No - Smoking History Smoking history: Former smoker Have you smoked in the past 12 months: No Aproximately how many cigarettes per day: 5 If you are a former smoker, when did you quit?: 50 YRS - Social History Usual Living Arrangement: With Spouse ADL: Family Assistance History of Recent Travel: No Home Medications - Allergies Allergies/Adverse Reactions: Allergies Allergy/AdvReac Type Severity Reaction Status Date / Time No Known Drug Allergies Allergy Verified 10/08/16 14:20 - Home Medications Home Medications: Ambulatory Orders Amlodipine/Valsartan/Hcthiazid [Exforge Hct 5-160-25 mg Tab] 1 each PO BID 10/03 Calcium Carbonate [Calcium] 1,000 mg PO DAILY 10/03/16 Citalopram Hydrobromide [Celexa -] 40 mg PO DAILY 10/03/16 Memantine HCl [Namenda Xr] 21 mg PO DAILY 10/03/16 Multivit-Min/FA/Lycopen/Lutein [Centrum Silver Tablet] 1 each PO DAILY 10/03/16 [place]-3 Acid Ethyl Esters [Lovaza] 2 gm PO BID 10/03/16 Pantoprazole Sodium [Protonix -] 40 mg PO BID 10/03/16 Pramipexole Di-HCl [Mirapex] 0.25 mg PO HS 10/03/16 Rivastigmine [Exelon Patch 9.5 mg/24 Hours -] 1 each TD DAILY 10/03/16 Tamsulosin HCl [Flomax -] 0.4 mg PO HS 10/03/16 Ubidecarenone [Co Q-10] 0 mg PO DAILY 10/03/16 Warfarin Na [Coumadin -] 5 mg PO MOWEFR 10/03/16 Warfarin Sodium [Coumadin] 7.5 mg PO SUTUTHSA 10/03/16 Lipitor 10 mg PO HS 10/08/16 Physical Exam Vital Sings: Vital Signs Temperature 98.2 F 10/09/16 10:00 Pulse Rate 77 10/09/16 14:00 Respiratory Rate 20 10/09/16 14:00 Blood Pressure 93/56 10/09/16 14:00 O2 Sat by Pulse Oximetry (%) 96 10/09/16 09:00 Constitutional: Yes: Well Nourished, No Distress, Calm Eyes: Yes: Conjunctiva Clear, EOM Intact HENT: Yes: Atraumatic, Normocephalic Neck: Yes: Supple, Trachea Midline Cardiovascular: Yes: Bradycardia Respiratory: Yes: CTA Bilaterally. No: Accessory Muscle Use, Rales, Rhonchi, Stridor, Tachypnea, Wheezes ...Inspection: Yes: WNL ...Clubbing: No Gastrointestinal: Yes: Normal Bowel Sounds, Soft Renal/: Yes: WNL Musculoskeletal: Yes: WNL Extremities: Yes: WNL Edema: No Peripheral Pulses WNL: Yes Integumentary: Yes: WNL Neurological: Yes: WNL, Alert, Oriented ...Motor Strength: WNL Psychiatric: Yes: WNL, Alert, Oriented Labs: CBC, BMP 10/09/16 12:45 Imaging - Results Chest X-ray: Report Reviewed, Image Reviewed Problem List - Problems (1) Bradycardia Code(s): R00.1 - BRADYCARDIA, UNSPECIFIED (2) Dizziness Code(s): R42 - DIZZINESS AND GIDDINESS (3) Chest pain Code(s): R07.9 - CHEST PAIN, UNSPECIFIED Qualifiers: Chest pain type: unspecified Qualified Code(s): R07.9 - Chest pain, unspecified (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 - OTHER SPECIFIED MYOPATHIES (5) Alzheimer's dementia Code(s): G30.9 - ALZHEIMER'S DISEASE, UNSPECIFIED Qualifiers: Alzheimer's disease onset: unspecified onset Dementia behavioral disturbance: with behavioral disturbance Qualified Code(s): G30.8 - Other Alzheimer's disease; F02.80 - Dementia in other diseases classified elsewhere without behavioral disturbance (6) Atrial fibrillation Code(s): I48.91 - UNSPECIFIED ATRIAL FIBRILLATION (7) HTN (hypertension) Code(s): I10 - ESSENTIAL (PRIMARY) HYPERTENSION (8) Hyperlipidemia Code(s): E78.5 - HYPERLIPIDEMIA, UNSPECIFIED (9) Sleep apnea Code(s): G47.30 - SLEEP APNEA, UNSPECIFIED Assessment/Plan There were no episodes of Bradycardia or heart blocks on overnight cardiac monitoring on NPSG. Only occasional PVCs were noted. O2 as needed Cardiac workup ongoing Patient will be scheduled for CPAP titration once stable. Would investigate other causes of Bradycardia since this was not observed on the night of Sleep testing.; Will need to address PLMD after discharge. Patient will have further Neurologic workup at [facility] once stable Will follow. Dr Bautista
[2016-10-09] MEDS: PATIENT'S OWN MEDICATION (NON-FORMULARY) (Memantine Hcl [Namenda Xr] 21 MG) PO SCH (17:40)
[2016-10-09] MEDS ORDERED: WARFARIN NA 5 MG TABLET (UD) PO SCH (18:00)
[2016-10-09] MEDS: TAMSULOSIN HCL 0.4 MG CAP.ER.24H (FP) PO SCH (21:41)
[2016-10-09] MEDS: PRAMIPEXOLE DIHYDROCHLORIDE 0.25 MG TABLET PO SCH (21:41)
[2016-10-10] MEDS ORDERED: ACETAMINOPHEN 325 MG TABLET (FP) PO PRN (00:46)
[2016-10-10 07:46] LABS: INR 2.82 (0.82-1.09); PROTHROMBIN TIME (PATIENT) 31.7 SEC (9.98-11.88)
[2016-10-10 08:11] LABS: CALCIUM 8.6 mg/dL (8.5-10.1); CREATININE 0.9 mg/dL (0.7-1.3)
[2016-10-10] MEDS ORDERED: RIVASTIGMINE 9.5 MG/24 HOURS TRANSDERMAL PATCH TD SCH (10:00)
--- NOTE | 2016-10-10 10:45 | DS ---
Physical Examination Vital Signs: Vital Signs Temperature 98 F 10/10/16 05:21 Pulse Rate 68 10/10/16 05:21 Respiratory Rate 18 10/10/16 05:21 Blood Pressure 126/78 10/10/16 05:21 O2 Sat by Pulse Oximetry (%) 96 10/09/16 21:00 Findings/Remarks: Pt w/o CP, palp, dizziness, SOB. Pt. had L leg pain, from knee down, last night , now better ( pt states that had this pain before) Constitutional: Yes: No Distress, Calm Cardiovascular: Yes: Pulse Irregular, S1, S2 Respiratory: Yes: Regular, CTA Bilaterally. No: Rales Gastrointestinal: Yes: Normal Bowel Sounds, Soft. No: Palpable Mass, Tenderness Musculoskeletal: No: Joint Swelling, Muscle Pain, Muscle Weakness Edema: No Neurological: Yes: Alert, Oriented Labs: CBC, BMP 10/10/16 05:35 Discharge Summary Reason For Visit: BRADYCARDIA/HYPOTENSION Current Active Problems Bradycardia (Acute) CAD (coronary artery disease) (Acute) Dizziness (Acute) Hypotension (Acute) Sleep apnea (Acute) Procedures: Principal: CXR Other Procedures: Knee XR. Tib/fib. XR Hospital Course: Pt came to ER with CP and dizziness. Pt. was admitted to telemetry, serial CE were negative. Pt. was seen by cardio, considered that CP was not cardiac in nature, no significant arrythmia to explained dizziness. Pt.'s BP was noticed to be low, anti HTN meds were adjusted ( decrease in dose- both pt. and pt's are aware of the change and the need to monitor BP at home three time a day.). Case was reviewed today with Dr. Reveles; no cardiac causes for CP and dizziness, pt. can be DC'ed home today with f/u in the office. Pt. to be DC 'ed pt home today. Instructions for BP monitoring and parameters were given to pt.'s , all questions were answered. Condition: Improved - Instructions Diet, Activity, Other Instructions: Low salt, Low cholesterol. To monitor BP at home three time a day. Call my office for SBP 160 or higher. Call my office for DBP 100 or higher. Referrals: Bobby Melchor MD [Staff Physician] - (This week) Noel Solis MD [Staff Physician] - (within 1 week) - Home Medications Comprehensive Discharge Medication List: Ambulatory Orders RX: Amlodipine/Valsartan/Hcthiazid [Exforge Hct 5-160-25 mg Tab] 1 each PO BID 10/03/16 RX: Calcium Carbonate [Calcium] 1,000 mg PO DAILY 10/03/16 RX: Citalopram Hydrobromide [Celexa -] 40 mg PO DAILY 10/03/16 RX: Memantine HCl [Namenda Xr] 21 mg PO DAILY 10/03/16 RX: Multivit-Min/FA/Lycopen/Lutein [Centrum Silver Tablet] 1 each PO DAILY 10/03 RX: [place]-3 Acid Ethyl Esters [Lovaza] 2 gm PO BID 10/03/16 RX: Pantoprazole Sodium [Protonix -] 40 mg PO BID 10/03/16 RX: Pramipexole Di-HCl [Mirapex] 0.25 mg PO HS 10/03/16 RX: Rivastigmine [Exelon Patch 9.5 mg/24 Hours -] 1 each TD DAILY 10/03/16 RX: Tamsulosin HCl [Flomax -] 0.4 mg PO HS 10/03/16 RX: Ubidecarenone [Co Q-10] 0 mg PO DAILY 10/03/16 RX: Warfarin Na [Coumadin -] 5 mg PO MOWEFR 10/03/16 RX: Warfarin Sodium [Coumadin] 7.5 mg PO SUTUTHSA 10/03/16 Lipitor 10 mg PO HS 10/08/16
[2016-10-10] MEDS: CITALOPRAM HYDROBROMIDE 20 MG TABLET (FP) PO SCH (10:49)
[2016-10-10] MEDS: CALCIUM (OYSTER SHELL) 500 MG TABLET (FP) PO SCH (10:50)
[2016-10-10] MEDS: PANTOPRAZOLE 40 MG TABLET (FP) PO SCH (10:51)
[2016-10-10] MEDS: PATIENT'S OWN MEDICATION (NON-FORMULARY) (Memantine Hcl [Namenda Xr] 21 MG) PO SCH (10:51)
[2016-10-10 11:06] VITALS: BP 125/73; PULSE 62; TEMP 98.2
[2016-10-10] MEDS ORDERED: ATORVASTATIN CA 10 MG TABLET (FP) PO SCH (22:00)
[2016-10-10] MEDS ORDERED: OMEGA-3 ACID ETHYL ESTERS (FATTY-ACIDS) 1 GM CAPSULE (FP) PO SCH (22:00)
[2016-10-11] MEDS ORDERED: MULTIVITAMINS THER W-MINERALS COMBO TABLET (FP) PO SCH (10:00)
== END 2016-10-10 11:41 | disposition home or self-care (01) | DRG 310 ==
LOC: JER 13:21 → JERBED 16:23 → UNDOADMIN 16:49 → JERBED 16:49 → J4W 19:02 → JERBED 19:02
PROVIDERS: ADMIT Specialist; ATTEND Specialist
DX: R00.1 Bradycardia, unspecified (principal); I10 Essential (primary) hypertension; E78.5 Hyperlipidemia, unspecified; K21.9 Gastro-esophageal reflux disease without esophagitis; I48.91 Unspecified atrial fibrillation; N40.0 Benign prostatic hyperplasia without lower urinary tract symptoms; K40.90 Unilateral inguinal hernia, without obstruction or gangrene, not specified as recurrent; I25.10 Atherosclerotic heart disease of native coronary artery without angina pectoris; G30.9 Alzheimer's disease, unspecified; F02.80 Dementia in other diseases classified elsewhere, unspecified severity, without behavioral disturbance, psychotic disturbance, mood disturbance, and anxiety; F32.89 Other specified depressive episodes; M60.88 Other myositis, other site; G72.89 Other specified myopathies; G47.30 Sleep apnea, unspecified; R42 Dizziness and giddiness; Z79.01 Long term (current) use of anticoagulants; Z87.891 Personal history of nicotine dependence
CPT/HCPCS: 36415; 71010-TC; 73560-TC-LT; 73590-TC-LT; 80048; 80053; 82550; 82553; 83690; 83735; 84484; 85025; 85610; 93005; 93010; 99285-25

== ENCOUNTER 2016-11-21 08:20 | Emergency (ER) | payer OTHER, MEDICARE ==
[2016-11-21 08:31] VITALS: BP 122/76; PULSE 91; TEMP 97.5; BMI 28.1
--- NOTE | 2016-11-21 09:12 | PDOC ---
History of Present Illness - General Chief Complaint: Pain Stated Complaint: FALL/ RT SHOUDER MILD PAIN Time Seen by Provider: 11/21/16 09:09 History Source: Patient Exam Limitations: No Limitations - History of Present Illness Initial Comments: CHIEF COMPLAINT: 76 y/o male on coumadin c/o right shoulder/chest wall pain s/ p fall this morning. HISTORY OF PRESENT ILLNESS: Patient's states he was getting into a cab this morning when he slipped and fell. She states she watched him land on his right side/arm. The patient states he has some right sided pain. The patient denies head trauma, LOC, neck pain, n/v/d, CP, SOB, cough, hemoptysis, decreased ROM of right arm, numbness/tingling in right arm. Vital signs on arrival are within normal limits. REVIEW OF SYSTEMS: GENERAL/CONSTITUTIONAL: No fever/chills. No weakness. No weight change. HEAD, EYES, EARS, NOSE AND THROAT: No change in vision. No ear pain or discharge. No sore throat. MUSCULOSKELETAL: +right shoulder and chest wall pain. SKIN: No rash or easy bruising. NEUROLOGIC: No headache, vertigo, loss of consciousness, or loss of sensation. PHYSICAL EXAM: VITAL_SIGNS: within normal limits GENERAL_APPEARANCE: alert, cooperative, no obvious discomfort. HEAD: No hematomas. No signs of trauma. No abrasions. No battles signs. EYES: No raccoon eyes. CHEST WALL: No reproducible pain with palpation of chest wall. No obvious contusions or abrasions. No deformities or crepitus to ribs. No flail chest. MENTAL_STATUS: speech clear, oriented X 3, responds appropriately to questions. NEURO: motor intact and sensory intact in injured extremity. EXTREMITIES: good pulse in injured extremity. Full flexion, extension, internal and external rotation of right arm/shoulder without pain. No TTP of right AC joint. No deformities, TTP or tenting of right scapula. SKIN: warm, dry, good color. Past History - Past Medical History Allergies/Adverse Reactions: Allergies Allergy/AdvReac Type Severity Reaction Status Date / Time No Known Drug Allergies Allergy Verified 11/21/16 08:25 Home Medications: Ambulatory Orders Calcium Carbonate [Calcium] 1,000 mg PO DAILY 10/03/16 Citalopram Hydrobromide [Celexa -] 40 mg PO DAILY 10/03/16 Memantine HCl [Namenda Xr] 21 mg PO DAILY 10/03/16 Multivit-Min/FA/Lycopen/Lutein [Centrum Silver Tablet] 1 each PO DAILY 10/03/16 [place]-3 Acid Ethyl Esters [Lovaza] 2 gm PO BID 10/03/16 Pantoprazole Sodium [Protonix -] 40 mg PO BID 10/03/16 Pramipexole Di-HCl [Mirapex] 0.25 mg PO HS 10/03/16 Rivastigmine [Exelon Patch 9.5 mg/24 Hours -] 1 each TD DAILY 10/03/16 Tamsulosin HCl [Flomax -] 0.4 mg PO HS 10/03/16 Ubidecarenone [Co Q-10] 0 mg PO DAILY 10/03/16 Warfarin Na [Coumadin -] 5 mg PO MOWEFR 10/03/16 Warfarin Sodium [Coumadin] 7.5 mg PO SUTUTHSA 10/03/16 Lipitor 10 mg PO HS 10/08/16 Acetaminophen [Tylenol .Regular Strength -] 650 mg PO Q6H PRN #0 tablet Valsartan [Diovan] 80 mg PO DAILY #30 tablet 10/10/16 Anemia: No Asthma: No Cancer: No Cardiac Disorders: Yes (ATRIAL FIBRILLATION) CVA: No COPD: No Dementia: (SOME MEMORY LOSS) GI Disorders: Yes (GERD; HH; HX OF SIGMOID COLON CANCER) Disorders: (bph) HTN: Yes Hypercholesterolemia: Yes Seizures: No Thyroid Disease: No - Surgical History Abdominal Surgery: Yes (INGUINAL HERNIA) Cardiac Surgery: Yes (CARDIAC CATH.) - Psycho/Social/Smoking Cessation Hx Anxiety: No Suicidal Ideation: No Smoking History: Former smoker Have you smoked in the past 12 months: No Number of Cigarettes Smoked Daily: 5 If you are a former smoker, when did you quit?: 50 YRS Information on smoking cessation initiated: No Hx Alcohol Use: No Drug/Substance Use Hx: No Substance Use Type: None Hx Substance Use Treatment: No *Physical Exam - Vital Signs Last Vital Signs Temp Pulse Resp BP Pulse Ox 97.5 F L 91 H 19 122/76 95 11/21/16 08:25 11/21/16 08:25 11/21/16 08:25 11/21/16 08:25 11/21/16 08:25 Medical Decision Making - Medical Decision Making A/P: 76 y/o male with right shoulder pain s/p slip and fall this morning. No obvious injury to arm, shoulder or ribs. The patient is refusing all pain medication, stating he feels well. Will discharge to home with instructions to take tylenol for pain and ice the affected area. Instructed the aptient to return to the ER immediately with any worsening or concerning symptoms, including chest pain or shortness of breath. The patient verbalizes understanding of all instructions, has no further questions and is awaiting discharge. *DC/Admit/Observation/Transfer Diagnosis at time of Disposition: Shoulder pain, right Qualifiers: Chronicity: acute Qualified Code(s): M25.511 - Pain in right shoulder Fall Qualifiers: Encounter type: initial encounter Qualified Code(s): W19.XXXA - Unspecified fall, initial encounter - Discharge Dispostion Disposition: HOME Condition at time of disposition: Good - Referrals Referrals: Bobby Melchor MD [Primary Care Provider] - Call tomorrow - Patient Instructions Printed Discharge Instructions: How to Prevent Falls, DI for Shoulder Pain, How To Perform RICE (Rest, Ice, Compress, Elevate) Additional Instructions: Discharge Instructions: -Take tylenol for pain if needed -Follow RICE instructions -Return to the ER with any worsening or concerning symptoms, including SOB or chest pain
== END 2016-11-21 16:35 | disposition home or self-care (01) ==
LOC: JERFT 08:20
DX: S49.81XA Other specified injuries of right shoulder and upper arm, initial encounter (principal); V48.4XXA Person boarding or alighting a car injured in noncollision transport accident, initial encounter; Y92.414 Local residential or business street as the place of occurrence of the external cause; Y93.89 Activity, other specified; Y99.8 Other external cause status; I48.91 Unspecified atrial fibrillation; Z79.01 Long term (current) use of anticoagulants; I10 Essential (primary) hypertension; E78.00 Pure hypercholesterolemia, unspecified; F03.90 Unspecified dementia, unspecified severity, without behavioral disturbance, psychotic disturbance, mood disturbance, and anxiety; F06.8 Other specified mental disorders due to known physiological condition; N40.0 Benign prostatic hyperplasia without lower urinary tract symptoms
CPT/HCPCS: 99281-25

== ENCOUNTER 2018-06-28 10:50 | Inpatient (IN) | payer OTHER, MEDICARE ==
--- NOTE | 2018-06-28 10:59 | PDOC ---
History of Present Illness - General Stated Complaint: Urinary Problem Time Seen by Provider: 06/28/18 10:58 History Source: Patient, Family () Exam Limitations: Dementia - History of Present Illness Initial Comments: 06/28/18 12:25 Mr. Dawkins is a 77 yo M with a hx of Alzheimer's, newly diagnosed ALS ([address] Cr), HLD, HTN, afib (on warfarin), and dysphagia presents to the emergency department with urinary retention for the past 3 days with associative LLQ and LUQ pain. The patient has dementia and most of the history was derived from the . Per the , the patient has had difficulty voiding with "less than one cup of urine over the last 24 hours". The patient complains of pain in the suprapubic region that comes and goes. Currently, the patient is asymptomatic. The states that his urine has been foul smelling, but denies seeing blood. She endorses him having constipation over the course of the 3 days. He had circumcision procedure in 2014 and right inguinal hernia repair in 2004. Pmhx: Refer to above Shx: Refer to above Meds: warfarin, tamsulosin, exelon, losartan, pantoprazole, citalopram, prampexole Allergies: NKDA Social: Denies tobacco, alcohol, and substance abuse PMD: Dr. Melchor Past History - Past Medical History Allergies/Adverse Reactions: Allergies Allergy/AdvReac Type Severity Reaction Status Date / Time No Known Drug Allergies Allergy Verified 06/28/18 11:19 Home Medications: Ambulatory Orders Calcium Carbonate [Calcium] 1,000 mg PO DAILY 10/03/16 Memantine HCl [Namenda Xr] 21 mg PO DAILY 10/03/16 Multivit-Min/FA/Lycopen/Lutein [Centrum Silver Tablet] 1 each PO DAILY 10/03/16 [place]-3 Acid Ethyl Esters [Lovaza] 2 gm PO BID 10/03/16 Pantoprazole Sodium [Protonix -] 40 mg PO BID 10/03/16 Pramipexole Di-HCl [Mirapex] 0.25 mg PO HS 10/03/16 Tamsulosin HCl [Flomax -] 0.4 mg PO HS 10/03/16 Lipitor 10 mg PO HS 10/08/16 Citalopram Hydrobromide [Celexa -] 40 mg PO DAILY tablet 03/22/18 Losartan Potassium [Cozaar -] 50 mg PO DAILY tablet 03/22/18 Nystatin/Triamcinolone Top Cr [Mycolog II -] 1 applic TP BID 14 Days applic MDD 2 03/22/18 Fluticasone Prop 0.05% Nasal [Flonase -] 1 - 2 spray NS BID 06/28/18 Rivastigmine [Exelon] 1 each TD DAILY 06/28/18 Warfarin Na [Coumadin -] 7.5 mg PO SUTUTHFRSA 06/28/18 Anemia: No Asthma: No Cancer: No Cardiac Disorders: Yes (ATRIAL FIBRILLATION) CVA: No COPD: No Dementia: (SOME MEMORY LOSS) GI Disorders: Yes (GERD; HH; HX OF SIGMOID COLON CANCER) Disorders: (bph) HTN: Yes Hypercholesterolemia: Yes Seizures: No Thyroid Disease: No - Surgical History Abdominal Surgery: Yes (INGUINAL HERNIA) Cardiac Surgery: Yes (CARDIAC CATH.) - Suicide/Smoking/Psychosocial Hx Smoking History: Former smoker Have you smoked in the past 12 months: No Number of Cigarettes Smoked Daily: 5 If you are a former smoker, when did you quit?: 50 years ago Hx Alcohol Use: No Drug/Substance Use Hx: No Substance Use Type: None Hx Substance Use Treatment: No Review of Systems - Review of Systems Able to Perform ROS?: No (dementia) Comments:: 06/28/18 21:10 Patient has dementia, thus ROS was limited. Patient denied the following: fever , chills, nausea, vomiting, visual changes, nausea, vomiting, chest pain, SOB, abdominal pain, dysuria, hematuria, melena, diarrhea, leg pain/swelling, unexpected weight loss/gain. Endorses constipation. Is the patient limited Lithuanian proficient: No *Physical Exam - Physical Exam General Appearance: Yes: Nourished, Appropriately Dressed, Thin. No: Apparent Distress HEENT: positive: EOMI, SANIYA Neck: positive: Trachea midline. negative: Tender Respiratory/Chest: positive: Lungs Clear, Normal Breath Sounds. negative: Chest Tender, Respiratory Distress, Accessory Muscle Use, Rhonchi, Stridor, Wheezing Cardiovascular: positive: Regular Rate, S1, S2, Systolic Murmur (grade 1), Irregularly Irregular Gastrointestinal/Abdominal: positive: Normal Bowel Sounds, Tender (epigastric region), Flat, Soft. negative: Pulsatile Mass, Guarding, Rebound, Hernia, Mass Male Genitalia: positive: normal genitalia. negative: discharge, testicular tenderness, testicular mass, epididymus tender, inguinal hernia Lymphatic: negative: Adenopathy Musculoskeletal: positive: Normal Inspection. negative: CVA Tenderness Extremity: positive: Normal Capillary Refill, Normal Inspection, Normal Range of Motion. negative: Tender Integumentary: positive: Normal Color, Dry, Warm Neurologic: positive: Alert, Normal Mood/Affect Heart Score/ECG Review - History History: Moderately suspicious - Electrocardiogram EKG: Non specific repolarization disturbance - Age Age: >/= 65 - Risk Factors Risk Factors Heart Score: Yes Hx Hypercholesterolemia, Yes Hx Hypertension Based on the list above the patient has:: 1-2 risk factors - Troponin Troponin: </= normal limit - Score Heart Score - Total: 5 - ECG Intrepretation Comment:: Initial EKG was done at 11:21 AM. It showed the followin bpm, QRS of 90 ms , QTc of 442 ms. Atrial fibrillation with PVC. No ST elevations or depressions. Inverted T wave in lead III. he patient began experiencing chest pain at approximately 12:30 pm. Likely Q wave in lead III. The 2nd EKG read as the following: ventricular rate: 84 bpm, QRS 90 ms, QTc 451 ms. New T wave inversion in V2 and V3 that was not present in the previous EKG. ED Treatment Course - LABORATORY CBC & Chemistry Diagram: 06/28/18 11:50 06/28/18 11:50 Medical Decision Making - Medical Decision Making Mr. Dawkins is a 77 yo M with a hx of Alzheimer's, newly diagnosed ALS ([address] Cr), HLD, HTN, afib (on warfarin), and dysphagia presents to the emergency department with urinary retention for the past 3 days with associative LLQ and LUQ pain. Initial vitals: Initial Vital Signs Pulse Resp BP Pulse Ox 88 18 138/82 97 06/28/18 11:20 06/28/18 11:20 06/28/18 11:20 06/28/18 11:20 ddx: neurogenic bladder vs BPH vs obstructive oliguria vs cystitis Work up: Laboratory Results - last 24 hr 06/28/18 06/28/18 06/28/18 11:50 11:50 11:50 WBC 5.3 RBC 4.61 Hgb 15.3 Hct 44.4 MCV 96.3 H MCH 33.2 MCHC 34.5 RDW 13.6 Plt Count 155 MPV 9.0 Absolute Neuts (auto) 3.3 Neutrophils % 61.8 Lymphocytes % 28.4 Monocytes % 7.5 Eosinophils % 1.8 Basophils % 0.5 Nucleated RBC % 0 PT with INR 25.60 H INR 2.15 H PTT (Actin FS) 34.3 Sodium 140 Potassium 3.7 Chloride 98 Carbon Dioxide 34 H Anion Gap 8 BUN 19 H Creatinine 0.7 Creat Clearance w eGFR > 60 Random Glucose 80 Calcium 8.7 Total Bilirubin 0.7 AST 18 ALT 18 Alkaline Phosphatase 50 Creatine Kinase Troponin I Total Protein 6.1 L Albumin 3.3 L 06/28/18 12:33 WBC RBC Hgb Hct MCV MCH MCHC RDW Plt Count MPV Absolute Neuts (auto) Neutrophils % Lymphocytes % Monocytes % Eosinophils % Basophils % Nucleated RBC % PT with INR INR PTT (Actin FS) Sodium Potassium Chloride Carbon Dioxide Anion Gap BUN Creatinine Creat Clearance w eGFR Random Glucose Calcium Total Bilirubin AST ALT Alkaline Phosphatase Creatine Kinase 95 Troponin I < 0.02 Total Protein Albumin A POCUS was done to assess volume status of the bladder. It was approximated to be 300 cc with dimensions of 8.6 cm x 8 cm x 6.4 cm. A naik was placed and it was shown to have a total of approximately 300 cc in the naik bladder. The patient tolerated the naik procedure well. Given that he has recent dx of ALS with early urine retention, possibly a neurogenic bladder. 06/28/18 12:56 At approximately 12:30 pm, the patient's stated the patient started having left chest wall pain. An EKG was performed and showed new T wave inversions in V2 and V3 that were not present on initial EKG at 11:21 am. Patient was given 300 mg of aspirin suppository (has previous dysphagia) and now on tele monitoring. Dr. Melchor (Bobby) was called and agreed to admit the patient to tele. Dr. Reveles was called and awaiting call back. Dr. Solis called back and sees the patient regularly on outpatient basis. He is aware of the admission. Dr. Melchor was paged for admission. Patient was accepted for admission. 2nd troponin was negative. Patient was reassessed and did not have active chest pain. He was started on maintenance fluids of 122 cc/hr of 0.9% NS. Dispo: Admit to tele 06/28/18 21:22 *DC/Admit/Observation/Transfer Diagnosis at time of Disposition: ACS (acute coronary syndrome) Chest pain Qualifiers: Chest pain type: unspecified Qualified Code(s): R07.9 - Chest pain, unspecified - Referrals - Patient Instructions - Post Discharge Activity
[2018-06-28 11:23] VITALS: BMI 28.1
[2018-06-28 12:19] LABS: BASO % 0.5 % (0-2.0); EOS % 1.8 % (0-4.5); HEMATOCRIT 44.4 % (35.4-49); HEMOGLOBIN 15.3 GM/dL (11.7-16.9); LYMPH % 28.4 % (8-40); MCH 33.2 pg (25.7-33.7); MCHC 34.5 g/dl (32.0-35.9); MEAN CELL VOLUME 96.3 fl (80-96); MONO % 7.5 % (3.8-10.2); NEUT % 61.8 % (42.8-82.8); PLATELET COUNT 155 K/MM3 (134-434); RBC 4.61 M/mm3 (4.00-5.60); RDW 13.6 % (11.9-15.9); WHITE BLOOD COUNT 5.3 K/mm3 (4.0-10.0)
[2018-06-28 12:35] LABS: INR 2.15 (0.83-1.09); PROTHROMBIN TIME (PATIENT) 25.6 SEC (9.7-13.0)
[2018-06-28 12:37] LABS: ACTIVATED PTT 34.3 SECONDS (25.2-36.5)
[2018-06-28] MEDS ORDERED: ASPIRIN 300 MG SUPP.RECT PR ONE (12:41)
[2018-06-28 12:52] LABS: ALBUMIN 3.3 g/dl (3.4-5.0); ALK PHOS 50 U/L (45-117); ANION GAP 8 MMOL/L (8-16); BILIRUBIN,TOTAL 0.7 mg/dL (0.2-1); BLOOD UREA NITROGEN 19 mg/dL (7-18); CALCIUM 8.7 mg/dL (8.5-10.1); CHLORIDE 98 mmol/L (98-107); CO2 34 mmol/L (21-32); CREATININE 0.7 mg/dL (0.55-1.3); GLUCOSE,RANDOM 80 mg/dL (74-106); POTASSIUM 3.7 mmol/L (3.5-5.1); SGOT/AST 18 U/L (15-37); SGPT/ALT 18 U/L (13-61); SODIUM 140 mmol/L (136-145); TOT PROT 6.1 g/dl (6.4-8.2)
[2018-06-28] MEDS ORDERED: ASPIRIN 325 MG TABLET ONE (12:54)
[2018-06-28] MEDS ORDERED: ASPIRIN 300 MG SUPP.RECT RC ONE (13:00)
--- NOTE | 2018-06-28 13:04 | PDOC ---
Attending Attestation - HPI HPI: 06/28/18 13:19 The patient is a 77 year old female, with a significant past medical history of recent diagnosis of ALS (Dr. Cr), Alzheimer, AFib (on warfarin), dyslipidemia, hypertension, who presents to the emergency department with new onset of decreased urinary output and a few days of suprapubic pain with urination. He reports his last urination was 7PM yesterday. The patients also reports his LBM was small and hard yesterday. The patient denies chest pain, shortness of breath, headache and dizziness. The patient denies fever, chills, nausea, vomit, diarrhea. The patient denies hematuria. Allergies: NKDA Surgical Hx; R inguinal hernia repair (2004), circumcision Social history: Denies ETOH and Tobacco - Physicial Exam PE: 06/28/18 13:19 A complete review of 10 out of 10 review of systems is taken and is negative apart from what is previously mentioned below and in the HPI. Vitals: Triage vital signs reviewed General Appearance: No acute distress, well nourished, well developed Head: Atraumatic Eyes: Pupils equal reactive round, extraocular movement intact Neck: Supple; No nuchal rigidity Chest Wall: Nontender Cardiac: Regular rate and rhythm, no murmurs, no rubs, no gallops Lungs: Clear to auscultation bilateral, good air movement bilaterally Abdomen: Soft, nondistended, normal bowel sounds, nontender to palpation Genitourinary: Deferred to Dr. Singh Rectal: Exam deferred Extremities: Full range of motion to all extremities, no cyanosis, clubbing, or edema Skin: Warm and dry, no rashes or lesions, no rash, no petechiae Neuro: AOX3; Cranial Nerves 2-12 grossly intact, Strength intact to all extremities, Sensation intact to all extremities, gait normal Psych: Normal mood, normal affect - Medical Decision Making 06/28/18 13:19 Documentation prepared by Katt Guerrero, acting as medical clerk for Waylon Santacruz MD <Katt Guerrero - Last Filed: 06/28/18 13:19> - Resident Resident Name: Negro Singh - ED Attending Attestation I have performed the following: I have examined & evaluated the patient, The case was reviewed & discussed with the resident, I agree w/resident's findings & plan, Exceptions are as noted - Medical Decision Making 77 years old past medical history significant for Alzheimer's dementia new diagnosis of ALS presents emergency Department with urinary retention. History Limited by dementia While here in the emergency department began complaining of very nonspecific chest discomfort which quickly resolved EKG ordered patient denied any diaphoresis radiation or dyspnea EKG after chest pain demonstrates new T-wave inversions V2 V3 Aspirin ordered Troponin pending Given new acute EKG changes T-wave inversions in the context of chest pain and new acute urinary retention likely progression of patient's ALS we'll admit to medicine with cardiology consultation for further management. 06/28/18 15:04 <Waylon Santacruz - Last Filed: 06/28/18 15:05> Heart Score/ECG Review - History History: Slightly suspicious - Electrocardiogram EKG: Non specific repolarization disturbance - Age Age: >/= 65 - Risk Factors Based on the list above the patient has:: No risk factors known - ECG Impressions Comment:: 06/28/18 14:06 EKG performed at 1121 and 1237 EKG at 1237 demonstrates septal T-wave inversions no ST elevations new from EKG performed at 1121 which demonstrated A. fib with upright T waves. <Waylon Santacruz - Last Filed: 06/28/18 15:05>
--- NOTE | 2018-06-28 13:39 | EKG ---
Test Reason : Blood Pressure : / mmHG Vent. Rate : 084 BPM Atrial Rate : 107 BPM P-R Int : 000 ms QRS Dur : 090 ms QT Int : 382 ms P-R-T Axes : 000 -14 -08 degrees QTc Int : 451 ms ATRIAL FIBRILLATION INFERIOR INFARCT (CITED ON OR BEFORE 28-JUN-2018) T WAVE ABNORMALITY, CONSIDER ANTERIOR ISCHEMIA ABNORMAL ECG WHEN COMPARED WITH ECG OF 28-JUN-2018 11:20, NO SIGNIFICANT CHANGE WAS FOUND Confirmed by KENZIE TAVERAS MD ([id number]) on 06/28/2018 1:39:23 PM Referred By: Confirmed By:KENZIE TAVERAS MD
[2018-06-28 14:27] LABS: URINE APPEARANCE SLCLOUDY; URINE BILIRUBIN NEGATIVE (<2.0 mg/dL); URINE COLOR AMBER; URINE GLUCOSE (UA) NEGATIVE (NEGATIVE); URINE KETONE TRACE (NEGATIVE); URINE LEUK ESTERASE NEGATIVE (NEGATIVE); URINE NITRITE NEGATIVE (NEGATIVE); URINE PROTEIN NEGATIVE (NEGATIVE); URINE UROBILINOGEN NEGATIVE mg/dL (0.2-1.0)
--- NOTE | 2018-06-28 19:02 | CON.CARD ---
Consult Consult Specialty:: cardiology Reason for Consultation:: EKG changes; r/o acute coronary syndrome - History of Present Illness Chief Complaint: Pt is smiling (his , at bedside, says this is because he is nervous); he is disoriented x 3 History of Present Illness: Mr. Dawkins is a 77 yo white man with a hx of advanced Alzheimer's disease, newly diagnosed ALS ([address] Cr), HLD (LDL 153 mg/dL in 2018), HTN, AF (on warfarin), and dysphagia presents to the emergency department with urinary retention for the past 3 days with associative LLQ and LUQ pain. The patient has dementia and most of the history was derived from the . 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 Esophageal dysmotility), Other (colon polyp excised 2004) Hepatobiliary: Yes: Other (fatty liver) Renal/: Yes: BPH Psych: Yes: Depression, Other (dementia) Musculoskeletal: Yes: Chronic low back pain (required epidural injections) Rheumatology: Yes: Other (Myositis- was on IVIG infusion) - Past Surgical History Past Surgical History: Yes: Colectomy (sigmoid colectomy for intramucosal cancer 2001), Colonoscopy, Hernia Repair (recurrent RIH repair), Upper Endoscopy - Alcohol/Substance Use Hx Alcohol Use: No History of Substance Use: reports: None - Smoking History Smoking history: Former smoker Have you smoked in the past 12 months: No Aproximately how many cigarettes per day: 5 If you are a former smoker, when did you quit?: 50 years ago - Social History Usual Living Arrangement: With Spouse ADL: Family Assistance History of Recent Travel: No Home Medications - Allergies Allergies/Adverse Reactions: Allergies Allergy/AdvReac Type Severity Reaction Status Date / Time No Known Drug Allergies Allergy Verified 06/28/18 11:19 - Home Medications Home Medications: Ambulatory Orders Calcium Carbonate [Calcium] 1,000 mg PO DAILY 10/03/16 Memantine HCl [Namenda Xr] 21 mg PO DAILY 10/03/16 Multivit-Min/FA/Lycopen/Lutein [Centrum Silver Tablet] 1 each PO DAILY 10/03/16 [place]-3 Acid Ethyl Esters [Lovaza] 2 gm PO BID 10/03/16 Pantoprazole Sodium [Protonix -] 40 mg PO BID 10/03/16 Pramipexole Di-HCl [Mirapex] 0.25 mg PO HS 10/03/16 Tamsulosin HCl [Flomax -] 0.4 mg PO HS 10/03/16 Ubidecarenone [Co Q-10] 0 mg PO DAILY 10/03/16 Lipitor 10 mg PO HS 10/08/16 Citalopram Hydrobromide [Celexa -] 40 mg PO DAILY tablet 03/22/18 Cyclobenzaprine HCl [Flexeril -] 5 mg PO DAILY tablet 03/22/18 Losartan Potassium [Cozaar -] 50 mg PO DAILY tablet 03/22/18 Nystatin/Triamcinolone Top Cr [Mycolog II -] 1 applic TP BID 14 Days applic MDD 2 03/22/18 Polyethylene Glycol 3350 [Miralax 119 gm Btl -] 17 gm PO BID bottle 03/22/18 Warfarin Na [Coumadin -] 7.5 mg PO DAILY@1800 tablet 03/22/18 Family Disease History - Family Disease History Family Disease History: Heart Disease: Father ( [place]), Other: Mother ( in a fire) Review of Systems Unable to obtain ROS, reason: dementia - Risk Factors Known Risk Factors: Yes: Age, Hypercholesterolemia, Hypertension, Physical Inactivity, Other (AF; diastolic CHF) Vital Signs: Vital Signs Temperature 98.4 F 06/28/18 18:00 Pulse Rate 93 H 06/28/18 18:00 Respiratory Rate 20 06/28/18 18:00 Blood Pressure 153/77 06/28/18 18:00 O2 Sat by Pulse Oximetry (%) 97 06/28/18 17:03 Constitutional: Yes: Anxious Eyes: Yes: WNL HENT: Yes: WNL Respiratory: Yes: Regular, Diminished (Left base) Gastrointestinal: Yes: WNL Renal/: Yes: Anuria JVD: No Carotid Bruit: No PMI: Non-Displaced Heart Sounds: Yes: S1 (varies in intensity), S2 Murmur: Yes: Systolic Murmur, Grade 1 Musculoskeletal: Yes: Muscle Weakness Extremities: Yes: WNL Edema: No Peripheral Pulses WNL: Yes Integumentary: Yes: WNL Neurological: Yes: Confusion, Weakness Psychiatric: Yes: Other (dementia) - Other Data Labs, Other Data: CBC, BMP 06/28/18 11:50 06/28/18 11:50 INR, PTT INR 2.15 (0.83-1.09) H 06/28/18 11:50 Troponin, BNP 06/28/18 06/28/18 12:33 16:20 Troponin I < 0.02 < 0.02 Troponin, BNP 06/28/18 06/28/18 12:33 16:20 Troponin I < 0.02 < 0.02 Abnormal Lab Results 06/28/18 06/28/18 06/28/18 11:50 11:50 11:50 MCV 96.3 H PT with INR 25.60 H INR 2.15 H Carbon Dioxide 34 H BUN 19 H Total Protein 6.1 L Albumin 3.3 L Urine Ketones 06/28/18 14:00 MCV PT with INR INR Carbon Dioxide BUN Total Protein Albumin Urine Ketones Trace H Echo: Report Reviewed (normal LVEF; moderate LVH; moderate LAE) Ejection Fraction %: LVEF > or = 40 % Imaging - Results Chest X-ray: Image Reviewed (left basal pleural fluid) Problem List - Problems (1) EKG abnormalities Assessment/Plan: R/o anterior wall ischemia vs lead misplacement. TNI < 0.02; f/u serially. Start statin (LDL 153 mg/dL earlier this year). 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 AV conduction michael for HR control (beta michael may be used, unless hx bronchial asthma, in which case diltiazem may be started). Code(s): I48.91 - UNSPECIFIED ATRIAL FIBRILLATION (4) HTN (hypertension) Assessment/Plan: On losartan. Consider starting AV conduction michael (e.g. metoprolol or diltiazem) for BP and HR (AF) control. Code(s): I10 - ESSENTIAL (PRIMARY) HYPERTENSION (5) Hyperlipidemia Assessment/Plan: LDL 153 mg/dL; start statin. Code(s): E78.5 - HYPERLIPIDEMIA, UNSPECIFIED (6) Dementia Assessment/Plan: On Namenda. Code(s): F03.90 - UNSPECIFIED DEMENTIA WITHOUT BEHAVIORAL DISTURBANCE
--- NOTE | 2018-06-28 20:06 | HP ---
Admitting History and Physical - Primary Care Physician PCP: Bobby Melchor - Admission Chief Complaint: Not able to urinate. History of Present Illness: Pt with significant Hx/o Alzheimer Dementia, ALS (recent diagnosis) was brought to ER by his secondary to low UO and no output since yesterday. Pt's states that she is giving him plenty of fluids. In ER Schultz was palced ( 300 ml urine was drained) While in ER pt c/o CP; ECG showed new T wave inversion in V2 and V3. Pt was admitted to Telemetry for cardioac monitoring. 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 Esophageal dysmotility), Other (colon polyp excised 2004) Hepatobiliary: Yes: Other (fatty liver) Renal/: Yes: BPH Psych: Yes: Depression, Other (dementia) Musculoskeletal: Yes: Chronic low back pain (required epidural injections) Rheumatology: Yes: Other (myositis, s/p IVIG infusion) - Past Surgical History Past Surgical History: Yes: Colectomy (sigmoid colectomy for intramucosal cancer 2001), Colonoscopy, Hernia Repair (recurrent RIH repair), Upper Endoscopy - Smoking History Smoking history: Former smoker Have you smoked in the past 12 months: No Aproximately how many cigarettes per day: 5 If you are a former smoker, when did you quit?: 50 years ago - Alcohol/Substance Use Hx Alcohol Use: No History of Substance Use: reports: None - Social History ADL: Family Assistance History of Recent Travel: No Home Medications - Allergies Allergies/Adverse Reactions: Allergies Allergy/AdvReac Type Severity Reaction Status Date / Time No Known Drug Allergies Allergy Verified 06/28/18 11:19 - Home Medications Home Medications: Ambulatory Orders Calcium Carbonate [Calcium] 1,000 mg PO DAILY 10/03/16 Memantine HCl [Namenda Xr] 21 mg PO DAILY 10/03/16 Multivit-Min/FA/Lycopen/Lutein [Centrum Silver Tablet] 1 each PO DAILY 10/03/16 [place]-3 Acid Ethyl Esters [Lovaza] 2 gm PO BID 10/03/16 Pantoprazole Sodium [Protonix -] 40 mg PO BID 10/03/16 Pramipexole Di-HCl [Mirapex] 0.25 mg PO HS 10/03/16 Tamsulosin HCl [Flomax -] 0.4 mg PO HS 10/03/16 Lipitor 10 mg PO HS 10/08/16 Citalopram Hydrobromide [Celexa -] 40 mg PO DAILY tablet 03/22/18 Losartan Potassium [Cozaar -] 50 mg PO DAILY tablet 03/22/18 Nystatin/Triamcinolone Top Cr [Mycolog II -] 1 applic TP BID 14 Days applic MDD 2 03/22/18 Fluticasone Prop 0.05% Nasal [Flonase -] 1 - 2 spray NS BID 06/28/18 Rivastigmine [Exelon] 1 each TD DAILY 06/28/18 Warfarin Na [Coumadin -] 7.5 mg PO SUTUTHFRSA 06/28/18 Family Disease History - Family Disease History Family Disease History: Heart Disease: Father ( [place]), Other: Mother ( in a fire) Review of Systems - Review of Systems Constitutional: denies: Chills, Fever Eyes: denies: Blurred Vision, Double Vision HENT: denies: Difficult Swallowing, Ear Discharge, Ear Pain, Mouth Swelling, Nasal Congestion, Throat Pain Neck: denies: Decreased ROM, Pain on Movement Cardiovascular: denies: Chest Pain, Edema Respiratory: denies: Cough, SOB Gastrointestinal: denies: Abdominal Pain, Diarrhea, Vomiting Genitourinary: denies: Burning, Discharge Neurological: denies: Change in Speech, Numbness, Tremors Endocrine: denies: Excessive Sweating, Intolerance to Cold Hematology/Lymphatic: denies: Easily Bruised, Excessive Bleeding Psychiatric: denies: Anxiety, Depression Physical Examination Vital Signs: Vital Signs Temperature 98.4 F 06/28/18 18:00 Pulse Rate 93 H 06/28/18 18:00 Respiratory Rate 20 06/28/18 18:00 Blood Pressure 153/77 06/28/18 18:00 O2 Sat by Pulse Oximetry (%) 97 06/28/18 17:03 Constitutional: Yes: No Distress, Calm Eyes: Yes: Conjunctiva Clear, EOM Intact, PERRL HENT: Yes: Normocephalic, Thrush. No: Drooling Neck: Yes: Trachea Midline. No: Lymphadenopathy Cardiovascular: Yes: Regular Rate and Rhythm, S1, S2 Respiratory: Yes: Regular, CTA Bilaterally. No: Rales Gastrointestinal: Yes: Normal Bowel Sounds, Soft. No: Hepatomegaly ...Rectal Exam: Yes: Deferred Renal/: No: CVA Tenderness - Left, CVA Tenderness - Right Musculoskeletal: No: Back Pain, Joint Swelling Edema: Yes Neurological: Yes: Alert, Oriented, Other (symmetric sensory exam is symmmetric in UE/LE/fave) Psychiatric: Yes: Alert, Oriented Labs: CBC, BMP 06/28/18 11:50 06/28/18 11:50 Imaging - Results Chest X-ray: Report Reviewed EKG: Report Reviewed Problem List - Problems (1) ALS (amyotrophic lateral sclerosis) Code(s): G12.21 - AMYOTROPHIC LATERAL SCLEROSIS (2) Chest pain Code(s): R07.9 - CHEST PAIN, UNSPECIFIED Qualifiers: Chest pain type: unspecified Qualified Code(s): R07.9 - Chest pain, unspecified (3) Dementia Code(s): F03.90 - UNSPECIFIED DEMENTIA WITHOUT BEHAVIORAL DISTURBANCE (4) EKG abnormalities Code(s): R94.31 - ABNORMAL ELECTROCARDIOGRAM [ECG] [EKG] Assessment/Plan admit to [facility] Cardio consult Pt's care was reviewed with pt's ; all questions were answered. AM labs
[2018-06-28] MEDS: PANTOPRAZOLE 40 MG TABLET (FP) PO SCH (22:21)
[2018-06-28] MEDS: WARFARIN NA 7.5 MG TABLET (FP) PO SCH (22:21)
[2018-06-28] MEDS: PRAMIPEXOLE DIHYDROCHLORIDE 0.25 MG TABLET PO SCH (22:22)
[2018-06-28] MEDS: TAMSULOSIN HCL 0.4 MG CAP PO SCH (22:22)
[2018-06-28] MEDS: OMEGA-3 ACID ETHYL ESTERS (FATTY-ACIDS) 1 GM CAPSULE (FP) PO SCH (22:22)
[2018-06-28] MEDS: FLUTICASONE PROP 0.05% 16 GM NASAL SPRAY NS SCH (22:22)
[2018-06-28] MEDS: ATORVASTATIN CA 40 MG TABLET (FP) PO SCH (22:22)
[2018-06-28] MEDS: SODIUM CHLORIDE 1,000 ML IV SCH (22:43)
[2018-06-29 07:48] LABS: HEMATOCRIT 43.8 % (35.4-49); HEMOGLOBIN 14.5 GM/dL (11.7-16.9); MCH 31.9 pg (25.7-33.7); MCHC 33.1 g/dl (32.0-35.9); MEAN CELL VOLUME 96.3 fl (80-96); MEAN PLT VOLUME 8.9 fl (7.5-11.1); PLATELET COUNT 135 K/MM3 (134-434); RBC 4.55 M/mm3 (4.00-5.60); RDW 13.6 % (11.9-15.9); WHITE BLOOD COUNT 6.5 K/mm3 (4.0-10.0)
[2018-06-29 08:00] LABS: INR 2.78 (0.83-1.09); PROTHROMBIN TIME (PATIENT) 33.1 SEC (9.7-13.0)
[2018-06-29 08:32] LABS: ANION GAP 9 MMOL/L (8-16); BLOOD UREA NITROGEN 12 mg/dL (7-18); CALCIUM 8.1 mg/dL (8.5-10.1); CHLORIDE 101 mmol/L (98-107); CO2 33 mmol/L (21-32); CREATININE 0.5 mg/dL (0.55-1.3); GLUCOSE,RANDOM 73 mg/dL (74-106); MAGNESIUM 1.9 mg/dL (1.8-2.4); POTASSIUM 3.2 mmol/L (3.5-5.1); SODIUM 143 mmol/L (136-145)
--- NOTE | 2018-06-29 09:03 | PN ---
Progress Note, Physician History of Present Illness: Mr. Dawkins is a 77 yo white man with a hx of advanced Alzheimer's disease, newly diagnosed ALS ([address] Cr), HLD (LDL 153 mg/dL in 2018), HTN, AF (on warfarin), and dysphagia presents to the emergency department with urinary retention for the past 3 days with associative LLQ and LUQ pain. The patient has dementia and most of the history was derived from the . - Current Medication List Current Medications: Active Medications Atorvastatin Calcium (Lipitor -) 40 mg PO HS [facility] Last Admin: 06/28/18 22:22 Dose: 40 mg Calcium Carbonate (Os-Surya 500mg -) 1,000 mg PO DAILY [facility] Citalopram Hydrobromide (Celexa -) 40 mg PO DAILY [facility] Fluticasone Propionate (Flonase -) 1 spray NS BID [facility] Last Admin: 06/28/18 22:22 Dose: 1 spray Sodium Chloride (Normal Saline -) 1,000 mls @ 122 mls/hr IV ASDIR [facility] Last Admin: 06/28/18 22:43 Dose: 122 mls/hr Losartan Potassium (Cozaar -) 50 mg PO DAILY [facility] Non-Formulary Medication (Rivastigmine [Exelon]) 1 each TD DAILY [facility] Non-Formulary Medication (Memantine Hcl [Namenda Xr]) 21 mg PO DAILY [facility] [id number] Ethyl Esters (Lovaza -) 2 gm PO BID [facility] Last Admin: 06/28/18 22:22 Dose: 2 gm Pantoprazole Sodium (Protonix -) 40 mg PO BID [facility] Last Admin: 06/28/18 22:21 Dose: 40 mg Pramipexole Dihydrochloride (Mirapex -) 0.25 mg PO HS [facility] Last Admin: 06/28/18 22:22 Dose: 0.25 mg Tamsulosin HCl (Flomax -) 0.4 mg PO HS [facility] Last Admin: 06/28/18 22:22 Dose: 0.4 mg Warfarin Sodium (Coumadin -) 7.5 mg PO [email or web address] [facility] Last Admin: 06/28/18 22:21 Dose: 7.5 mg - Objective Vital Signs: Vital Signs Temperature 98.6 F 06/28/18 22:00 Pulse Rate 77 06/29/18 06:00 Respiratory Rate 20 06/29/18 06:00 Blood Pressure 142/95 06/29/18 06:00 O2 Sat by Pulse Oximetry (%) 96 06/28/18 21:00 Eyes: Yes: WNL, Conjunctiva Clear, EOM Intact HENT: Yes: WNL, Atraumatic, Normocephalic Neck: Yes: WNL, Supple, Trachea Midline Cardiovascular: Yes: WNL, Regular Rate and Rhythm Respiratory: Yes: WNL, Regular, CTA Bilaterally Gastrointestinal: Yes: WNL, Normal Bowel Sounds Genitourinary: Yes: WNL Musculoskeletal: Yes: WNL Extremities: Yes: WNL Edema: No Integumentary: Yes: WNL Neurological: Yes: WNL, Alert, Oriented ...Motor Strength: WNL Psychiatric: Yes: WNL Labs: CBC, BMP 06/29/18 06:50 06/29/18 06:50 INR, PTT INR 2.78 (0.83-1.09) H 06/29/18 06:50 Problem List - Problems (1) ACS (acute coronary syndrome) Code(s): I24.9 - ACUTE ISCHEMIC HEART DISEASE, UNSPECIFIED (2) ALS (amyotrophic lateral sclerosis) Code(s): G12.21 - AMYOTROPHIC LATERAL SCLEROSIS (3) Chest pain Code(s): R07.9 - CHEST PAIN, UNSPECIFIED Qualifiers: Chest pain type: unspecified Qualified Code(s): R07.9 - Chest pain, unspecified (4) Dementia Code(s): F03.90 - UNSPECIFIED DEMENTIA WITHOUT BEHAVIORAL DISTURBANCE (5) EKG abnormalities Code(s): R94.31 - ABNORMAL ELECTROCARDIOGRAM [ECG] [EKG] (6) Abdominal pain Code(s): R10.9 - UNSPECIFIED ABDOMINAL PAIN Qualifiers: Abdominal location: lower abdomen, unspecified Qualified Code(s): R10.30 - Lower abdominal pain, unspecified (7) Abnormal cardiac enzyme level Code(s): R74.8 - ABNORMAL LEVELS OF OTHER SERUM ENZYMES (8) Abnormal head CT Code(s): R93.0 - ABNORMAL FINDINGS ON DX IMAGING OF SKULL AND HEAD, NEC (9) Abnormal liver function tests Code(s): R94.5 - ABNORMAL RESULTS OF LIVER FUNCTION STUDIES (10) Altered mental status Code(s): R41.82 - ALTERED MENTAL STATUS, UNSPECIFIED (11) Barretts esophagus Code(s): K22.70 - REGALADO'S ESOPHAGUS WITHOUT DYSPLASIA Qualifiers: Regalado's esophagus type: without dysplasia Qualified Code(s): K22.70 - Regalado's esophagus without dysplasia (12) Bradycardia Code(s): R00.1 - BRADYCARDIA, UNSPECIFIED (13) CAD (coronary artery disease) Code(s): I25.10 - ATHSCL HEART DISEASE OF [place] CORONARY ARTERY W/O ANG PCTRS (14) Colon polyp Code(s): K63.5 - POLYP OF COLON (15) Confusion Code(s): R41.0 - DISORIENTATION, UNSPECIFIED (16) Constipation Code(s): K59.00 - CONSTIPATION, UNSPECIFIED Qualifiers: Constipation type: slow transit constipation Qualified Code(s): K59.01 - Slow transit constipation (17) Dizziness Code(s): R42 - DIZZINESS AND GIDDINESS (18) Dysphagia Code(s): R13.10 - DYSPHAGIA, UNSPECIFIED Qualifiers: Dysphagia type: oropharyngeal phase Qualified Code(s): R13.12 - Dysphagia, oropharyngeal phase (19) Fall Code(s): W19.XXXA - UNSPECIFIED FALL, INITIAL ENCOUNTER Qualifiers: Encounter type: initial encounter Qualified Code(s): W19.XXXA - Unspecified fall, initial encounter (20) Fatty liver Code(s): K76.0 - FATTY (CHANGE OF) LIVER, NOT ELSEWHERE CLASSIFIED (21) Gallbladder dilatation Code(s): K82.8 - OTHER SPECIFIED DISEASES OF GALLBLADDER (22) Hiatal hernia with GERD and esophagitis Code(s): K44.9 - DIAPHRAGMATIC HERNIA WITHOUT OBSTRUCTION OR GANGRENE; K21.0 - GASTRO-ESOPHAGEAL REFLUX DISEASE WITH ESOPHAGITIS (23) History of colon cancer Code(s): Z85.038 - PERSONAL HISTORY OF MALIGNANT NEOPLASM OF LARGE INTESTINE (24) Hypokalemia Code(s): E87.6 - HYPOKALEMIA (25) Hypotension Code(s): I95.9 - HYPOTENSION, UNSPECIFIED Qualifiers: Hypotension type: unspecified hypotension type Qualified Code(s): I95.9 - Hypotension, unspecified (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): 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 - OTHER SPECIFIED MYOPATHIES (27) Myositis Code(s): M60.9 - MYOSITIS, UNSPECIFIED Qualifiers: Myositis type: other type Laterality: unspecified laterality (28) Polymyositis Code(s): M33.20 - POLYMYOSITIS, ORGAN INVOLVEMENT UNSPECIFIED (29) Shoulder pain, right Code(s): M25.511 - PAIN IN RIGHT SHOULDER Qualifiers: Chronicity: acute Qualified Code(s): M25.511 - Pain in right shoulder (30) Sleep apnea Code(s): G47.30 - SLEEP APNEA, UNSPECIFIED (31) Subtherapeutic anticoagulation Code(s): Z51.81 - ENCOUNTER FOR THERAPEUTIC DRUG LEVEL MONITORING; Z79.01 - BET TAKER (CURRENT) USE OF ANTICOAGULANTS (32) Tremor Code(s): R25.1 - TREMOR, UNSPECIFIED (33) Weakness generalized Code(s): R53.1 - WEAKNESS (34) Atrial fibrillation Code(s): I48.91 - UNSPECIFIED ATRIAL FIBRILLATION (35) HTN (hypertension) Code(s): I10 - ESSENTIAL (PRIMARY) HYPERTENSION (36) Hyperlipidemia Code(s): E78.5 - HYPERLIPIDEMIA, UNSPECIFIED Assessment/Plan - Problems (1) EKG abnormalities Assessment/Plan: R/o anterior wall ischemia vs lead misplacement. TNI < 0.02; f/u serially. Start statin (LDL 153 mg/dL earlier this year). 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 AV conduction michael for HR control (beta michael may be used, unless hx bronchial asthma, in which case diltiazem may be started). Code(s): I48.91 - UNSPECIFIED ATRIAL FIBRILLATION (4) HTN (hypertension) Assessment/Plan: On losartan. Consider starting AV conduction michael (e.g. metoprolol or diltiazem) for BP and HR (AF) control. Code(s): I10 - ESSENTIAL (PRIMARY) HYPERTENSION (5) Hyperlipidemia Assessment/Plan: LDL 153 mg/dL; start statin. Code(s): E78.5 - HYPERLIPIDEMIA, UNSPECIFIED (6) Dementia Assessment/Plan: On Namenda. Code(s): F03.90 - UNSPECIFIED DEMENTIA WITHOUT BEHAVIORAL DISTURBANCE
[2018-06-29] MEDS: OMEGA-3 ACID ETHYL ESTERS (FATTY-ACIDS) 1 GM CAPSULE (FP) PO SCH ×2 (09:31→22:13)
[2018-06-29] MEDS: CALCIUM (OYSTER SHELL) 500 MG TABLET (FP) PO SCH (09:32)
[2018-06-29] MEDS: PANTOPRAZOLE 40 MG TABLET (FP) PO SCH ×2 (09:32→22:13)
[2018-06-29] MEDS: FLUTICASONE PROP 0.05% 16 GM NASAL SPRAY NS SCH ×2 (09:32→22:13)
[2018-06-29] MEDS: LOSARTAN POTASSIUM 50 MG TABLET (FP) PO SCH (09:32)
[2018-06-29] MEDS: CITALOPRAM HYDROBROMIDE 20 MG TABLET (FP) PO SCH (09:32)
[2018-06-29] MEDS ORDERED: PATIENT'S OWN MEDICATION (NON-FORMULARY) (Memantine Hcl [Namenda Xr] 21 MG) PO SCH ×2 (10:00→14:30)
[2018-06-29] MEDS ORDERED: POTASSIUM CHLORIDE TABS 20 MEQ TABLET.ER (FP) PO ONE (12:30)
[2018-06-29] MEDS ORDERED: BISACODYL 10 MG SUPP.RECT RC ONE (15:06)
--- NOTE | 2018-06-29 15:10 | PN ---
Progress Note, Physician History of Present Illness: Pt w/o SOB, CP, palpitations, abd pain + constipation - Current Medication List Current Medications: Active Medications Atorvastatin Calcium (Lipitor -) 40 mg PO HS [facility] Last Admin: 06/28/18 22:22 Dose: 40 mg Calcium Carbonate (Os-Surya 500mg -) 1,000 mg PO DAILY [facility] Last Admin: 06/29/18 09:32 Dose: 1,000 mg Citalopram Hydrobromide (Celexa -) 40 mg PO DAILY [facility] Last Admin: 06/29/18 09:32 Dose: 40 mg Fluticasone Propionate (Flonase -) 1 spray NS BID [facility] Last Admin: 06/29/18 09:32 Dose: 1 spray Sodium Chloride (Normal Saline -) 1,000 mls @ 122 mls/hr IV ASDIR [facility] Last Admin: 06/28/18 22:43 Dose: 122 mls/hr Losartan Potassium (Cozaar -) 50 mg PO DAILY [facility] Last Admin: 06/29/18 09:32 Dose: 50 mg Patient's Own Medication ( Rivastigmine [Exelon ] 13.3mg/24hr Patch) 1 each TD DAILY [facility] Non-Formulary Medication (Memantine Hcl [Namenda Xr]) 0 mg PO DAILY [facility] [id number] Ethyl Esters (Lovaza -) 2 gm PO BID [facility] Last Admin: 06/29/18 09:31 Dose: 2 gm Pantoprazole Sodium (Protonix -) 40 mg PO BID [facility] Last Admin: 06/29/18 09:32 Dose: 40 mg Pramipexole Dihydrochloride (Mirapex -) 0.25 mg PO [facility] Last Admin: 06/28/18 22:22 Dose: 0.25 mg Tamsulosin HCl (Flomax -) 0.4 mg PO [facility] Last Admin: 06/28/18 22:22 Dose: 0.4 mg Warfarin Sodium (Coumadin -) 7.5 mg PO [email or web address] [facility] Last Admin: 06/28/18 22:21 Dose: 7.5 mg - Objective Vital Signs: Vital Signs Temperature 98.2 F 06/29/18 14:53 Pulse Rate 92 H 06/29/18 14:53 Respiratory Rate 18 06/29/18 14:53 Blood Pressure 138/67 06/29/18 14:53 O2 Sat by Pulse Oximetry (%) 96 06/29/18 09:00 Constitutional: Yes: No Distress, Calm Cardiovascular: Yes: Regular Rate and Rhythm, S1, S2 Respiratory: Yes: Regular, CTA Bilaterally. No: Rales Gastrointestinal: Yes: Normal Bowel Sounds, Soft. No: Tenderness Edema: No Neurological: Yes: Alert, Oriented Labs: CBC, BMP 06/29/18 06:50 06/29/18 06:50 INR, PTT INR 2.78 (0.83-1.09) H 06/29/18 06:50 Problem List - Problems (1) ALS (amyotrophic lateral sclerosis) Code(s): G12.21 - AMYOTROPHIC LATERAL SCLEROSIS (2) Chest pain Code(s): R07.9 - CHEST PAIN, UNSPECIFIED Qualifiers: Chest pain type: unspecified Qualified Code(s): R07.9 - Chest pain, unspecified (3) Dementia Code(s): F03.90 - UNSPECIFIED DEMENTIA WITHOUT BEHAVIORAL DISTURBANCE (4) EKG abnormalities Code(s): R94.31 - ABNORMAL ELECTROCARDIOGRAM [ECG] [EKG] (5) CAD (coronary artery disease) Code(s): I25.10 - ATHSCL HEART DISEASE OF [place] CORONARY ARTERY W/O ANG PCTRS (6) Hypokalemia Code(s): E87.6 - HYPOKALEMIA Assessment/Plan Pt is admitted to Telemetry Cardio consult is appreciated Replete K; monitor K and Mg Dulcolax suppository; start Colace AM labs
[2018-06-29] MEDS: PATIENT'S OWN MEDICATION (NON-FORMULARY) (Memantine Hcl [Namenda Xr] 0 MG) PO SCH (15:15)
[2018-06-29] MEDS: RIVASTIGMINE 13.3 MG/24 HR TD SCH (15:16)
[2018-06-29] MEDS ORDERED: PT OWN MED DRAWER 7, Y5N ONE (15:34)
[2018-06-29] MEDS: SODIUM CHLORIDE 1,000 ML IV SCH (17:03)
[2018-06-29] MEDS: WARFARIN NA 7.5 MG TABLET (FP) PO SCH (17:04)
[2018-06-29] MEDS: ATORVASTATIN CA 40 MG TABLET (FP) PO SCH (22:13)
[2018-06-29] MEDS: PRAMIPEXOLE DIHYDROCHLORIDE 0.25 MG TABLET PO SCH (22:13)
[2018-06-29] MEDS: TAMSULOSIN HCL 0.4 MG CAP PO SCH (22:13)
[2018-06-30 07:41] LABS: ANION GAP 8 MMOL/L (8-16); BLOOD UREA NITROGEN 7 mg/dL (7-18); CALCIUM 7.6 mg/dL (8.5-10.1); CHLORIDE 104 mmol/L (98-107); CO2 32 mmol/L (21-32); CREATININE 0.4 mg/dL (0.55-1.3); GLUCOSE,RANDOM 85 mg/dL (74-106); MAGNESIUM 1.6 mg/dL (1.8-2.4); PHOSPHOROUS 2.5 mg/dL (2.5-4.9); POTASSIUM 3.2 mmol/L (3.5-5.1); SODIUM 145 mmol/L (136-145)
--- NOTE | 2018-06-30 08:58 | PN ---
Progress Note, Physician History of Present Illness: Mr. Dawkins is a 77 yo white man with a hx of advanced Alzheimer's disease, newly diagnosed ALS ([address] Cr), HLD (LDL 153 mg/dL in 2018), HTN, AF (on warfarin), and dysphagia presents to the emergency department with urinary retention for the past 3 days with associative LLQ and LUQ pain. The patient has dementia and most of the history was derived from the . - Current Medication List Current Medications: Active Medications Atorvastatin Calcium (Lipitor -) 40 mg PO HS [facility] Last Admin: 06/29/18 22:13 Dose: 40 mg Calcium Carbonate (Os-Surya 500mg -) 1,000 mg PO DAILY [facility] Last Admin: 06/29/18 09:32 Dose: 1,000 mg Citalopram Hydrobromide (Celexa -) 40 mg PO DAILY [facility] Last Admin: 06/29/18 09:32 Dose: 40 mg Docusate Sodium (Colace -) 200 mg PO DAILY [facility] Fluticasone Propionate (Flonase -) 1 spray NS BID [facility] Last Admin: 06/29/18 22:13 Dose: 1 spray Sodium Chloride (Normal Saline -) 1,000 mls @ 122 mls/hr IV ASDIR [facility] Last Admin: 06/29/18 17:03 Dose: 122 mls/hr Losartan Potassium (Cozaar -) 50 mg PO DAILY [facility] Last Admin: 06/29/18 09:32 Dose: 50 mg Patient's Own Medication ( Rivastigmine [Exelon ] 13.3mg/24hr Patch) 1 each TD DAILY [facility] Last Admin: 06/29/18 15:16 Dose: 1 each Non-Formulary Medication (Memantine Hcl [Namenda Xr]) 0 mg PO DAILY [facility] Last Admin: 06/29/18 15:15 Dose: 21 mg [id number] Ethyl Esters (Lovaza -) 2 gm PO BID [facility] Last Admin: 06/29/18 22:13 Dose: 2 gm Pantoprazole Sodium (Protonix -) 40 mg PO BID [facility] Last Admin: 06/29/18 22:13 Dose: 40 mg Pramipexole Dihydrochloride (Mirapex -) 0.25 mg PO HS [facility] Last Admin: 06/29/18 22:13 Dose: 0.25 mg Tamsulosin HCl (Flomax -) 0.4 mg PO HS [facility] Last Admin: 06/29/18 22:13 Dose: 0.4 mg Warfarin Sodium (Coumadin -) 7.5 mg PO [email or web address] [facility] Last Admin: 06/29/18 17:04 Dose: 7.5 mg - Objective Vital Signs: Vital Signs Temperature 98.0 F 06/30/18 06:39 Pulse Rate 90 06/30/18 06:39 Respiratory Rate 20 06/30/18 06:39 Blood Pressure 161/96 06/30/18 06:39 O2 Sat by Pulse Oximetry (%) 98 06/29/18 21:00 Eyes: Yes: WNL, Conjunctiva Clear, EOM Intact HENT: Yes: WNL, Atraumatic, Normocephalic Neck: Yes: WNL, Supple, Trachea Midline Cardiovascular: Yes: Pulse Irregular, S1, S2 Respiratory: Yes: WNL, Regular, CTA Bilaterally Gastrointestinal: Yes: WNL, Normal Bowel Sounds Genitourinary: Yes: WNL Musculoskeletal: Yes: WNL Extremities: Yes: WNL Edema: No Integumentary: Yes: WNL Neurological: Yes: WNL, Alert, Oriented ...Motor Strength: WNL Psychiatric: Yes: WNL Labs: CBC, BMP 06/29/18 06:50 06/30/18 05:20 INR, PTT INR 2.78 (0.83-1.09) H 06/29/18 06:50 Problem List - Problems (1) ACS (acute coronary syndrome) Code(s): I24.9 - ACUTE ISCHEMIC HEART DISEASE, UNSPECIFIED (2) ALS (amyotrophic lateral sclerosis) Code(s): G12.21 - AMYOTROPHIC LATERAL SCLEROSIS (3) Chest pain Code(s): R07.9 - CHEST PAIN, UNSPECIFIED Qualifiers: Chest pain type: unspecified Qualified Code(s): R07.9 - Chest pain, unspecified (4) Dementia Code(s): F03.90 - UNSPECIFIED DEMENTIA WITHOUT BEHAVIORAL DISTURBANCE (5) EKG abnormalities Code(s): R94.31 - ABNORMAL ELECTROCARDIOGRAM [ECG] [EKG] (6) Abdominal pain Code(s): R10.9 - UNSPECIFIED ABDOMINAL PAIN Qualifiers: Abdominal location: lower abdomen, unspecified Qualified Code(s): R10.30 - Lower abdominal pain, unspecified (7) Abnormal cardiac enzyme level Code(s): R74.8 - ABNORMAL LEVELS OF OTHER SERUM ENZYMES (8) Abnormal head CT Code(s): R93.0 - ABNORMAL FINDINGS ON DX IMAGING OF SKULL AND HEAD, NEC (9) Abnormal liver function tests Code(s): R94.5 - ABNORMAL RESULTS OF LIVER FUNCTION STUDIES (10) Altered mental status Code(s): R41.82 - ALTERED MENTAL STATUS, UNSPECIFIED (11) Barretts esophagus Code(s): K22.70 - REGALADO'S ESOPHAGUS WITHOUT DYSPLASIA Qualifiers: Regalado's esophagus type: without dysplasia Qualified Code(s): K22.70 - Regalado's esophagus without dysplasia (12) Bradycardia Code(s): R00.1 - BRADYCARDIA, UNSPECIFIED (13) CAD (coronary artery disease) Code(s): I25.10 - ATHSCL HEART DISEASE OF [place] CORONARY ARTERY W/O ANG PCTRS (14) Colon polyp Code(s): K63.5 - POLYP OF COLON (15) Confusion Code(s): R41.0 - DISORIENTATION, UNSPECIFIED (16) Constipation Code(s): K59.00 - CONSTIPATION, UNSPECIFIED Qualifiers: Constipation type: slow transit constipation Qualified Code(s): K59.01 - Slow transit constipation (17) Dizziness Code(s): R42 - DIZZINESS AND GIDDINESS (18) Dysphagia Code(s): R13.10 - DYSPHAGIA, UNSPECIFIED Qualifiers: Dysphagia type: oropharyngeal phase Qualified Code(s): R13.12 - Dysphagia, oropharyngeal phase (19) Fall Code(s): W19.XXXA - UNSPECIFIED FALL, INITIAL ENCOUNTER Qualifiers: Encounter type: initial encounter Qualified Code(s): W19.XXXA - Unspecified fall, initial encounter (20) Fatty liver Code(s): K76.0 - FATTY (CHANGE OF) LIVER, NOT ELSEWHERE CLASSIFIED (21) Gallbladder dilatation Code(s): K82.8 - OTHER SPECIFIED DISEASES OF GALLBLADDER (22) Hiatal hernia with GERD and esophagitis Code(s): K44.9 - DIAPHRAGMATIC HERNIA WITHOUT OBSTRUCTION OR GANGRENE; K21.0 - GASTRO-ESOPHAGEAL REFLUX DISEASE WITH ESOPHAGITIS (23) History of colon cancer Code(s): Z85.038 - PERSONAL HISTORY OF MALIGNANT NEOPLASM OF LARGE INTESTINE (24) Hypokalemia Code(s): E87.6 - HYPOKALEMIA (25) Hypotension Code(s): I95.9 - HYPOTENSION, UNSPECIFIED Qualifiers: Hypotension type: unspecified hypotension type Qualified Code(s): I95.9 - Hypotension, unspecified (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): G72.89 - OTHER SPECIFIED MYOPATHIES (27) Myositis Code(s): M60.9 - MYOSITIS, UNSPECIFIED Qualifiers: Myositis type: other type Laterality: unspecified laterality (28) Polymyositis Code(s): M33.20 - POLYMYOSITIS, ORGAN INVOLVEMENT UNSPECIFIED (29) Shoulder pain, right Code(s): M25.511 - PAIN IN RIGHT SHOULDER Qualifiers: Chronicity: acute Qualified Code(s): M25.511 - Pain in right shoulder (30) Sleep apnea Code(s): G47.30 - SLEEP APNEA, UNSPECIFIED (31) Subtherapeutic anticoagulation Code(s): Z51.81 - ENCOUNTER FOR THERAPEUTIC DRUG LEVEL MONITORING; Z79.01 - HASH SLINGER (CURRENT) USE OF ANTICOAGULANTS (32) Tremor Code(s): R25.1 - TREMOR, UNSPECIFIED (33) Weakness generalized Code(s): R53.1 - WEAKNESS (34) Atrial fibrillation Code(s): I48.91 - UNSPECIFIED ATRIAL FIBRILLATION (35) HTN (hypertension) Code(s): I10 - ESSENTIAL (PRIMARY) HYPERTENSION (36) Hyperlipidemia Code(s): E78.5 - HYPERLIPIDEMIA, UNSPECIFIED Assessment/Plan - Problems (1) EKG abnormalities Assessment/Plan: ekg stable - r/o mi neg no cp will d/c telemetry Start statin (LDL 153 mg/dL earlier this year). 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 AV conduction michael for HR control (beta michael may be used, unless hx bronchial asthma, in which case diltiazem may be started). Code(s): I48.91 - UNSPECIFIED ATRIAL FIBRILLATION (4) HTN (hypertension) Assessment/Plan: On losartan. Consider starting AV conduction michael (e.g. metoprolol or diltiazem) for BP and HR (AF) control. Code(s): I10 - ESSENTIAL (PRIMARY) HYPERTENSION (5) Hyperlipidemia Assessment/Plan: LDL 153 mg/dL; start statin. Code(s): E78.5 - HYPERLIPIDEMIA, UNSPECIFIED (6) Dementia Assessment/Plan: On Namenda. Code(s): F03.90 - UNSPECIFIED DEMENTIA WITHOUT BEHAVIORAL DISTURBANCE
[2018-06-30] MEDS: PATIENT'S OWN MEDICATION (NON-FORMULARY) (Memantine Hcl [Namenda Xr] 0 MG) PO SCH (10:19)
[2018-06-30] MEDS: RIVASTIGMINE 13.3 MG/24 HR TD SCH (10:19)
[2018-06-30] MEDS: CALCIUM (OYSTER SHELL) 500 MG TABLET (FP) PO SCH (10:20)
[2018-06-30] MEDS: DOCUSATE SODIUM 100 MG CAPSULE (FP) PO SCH (10:20)
[2018-06-30] MEDS: OMEGA-3 ACID ETHYL ESTERS (FATTY-ACIDS) 1 GM CAPSULE (FP) PO SCH ×2 (10:20→22:08)
[2018-06-30] MEDS: FLUTICASONE PROP 0.05% 16 GM NASAL SPRAY NS SCH ×2 (10:20→22:07)
[2018-06-30] MEDS: PANTOPRAZOLE 40 MG TABLET (FP) PO SCH ×2 (10:20→22:07)
[2018-06-30] MEDS: LOSARTAN POTASSIUM 50 MG TABLET (FP) PO SCH (10:21)
[2018-06-30] MEDS: CITALOPRAM HYDROBROMIDE 20 MG TABLET (FP) PO SCH (10:21)
[2018-06-30] MEDS ORDERED: SODIUM CHLORIDE 1,000 ML IV SCH (10:57)
--- NOTE | 2018-06-30 10:57 | PN ---
Progress Note, Physician History of Present Illness: Pt w/o SOB, CP, palpitations, abd pain Pt had BM yesterday, after Dulcolax suppository - Current Medication List Current Medications: Active Medications Atorvastatin Calcium (Lipitor -) 40 mg PO HS [facility] Last Admin: 06/29/18 22:13 Dose: 40 mg Calcium Carbonate (Os-Surya 500mg -) 1,000 mg PO DAILY [facility] Last Admin: 06/30/18 10:20 Dose: 1,000 mg Citalopram Hydrobromide (Celexa -) 40 mg PO DAILY [facility] Last Admin: 06/30/18 10:21 Dose: 40 mg Docusate Sodium (Colace -) 200 mg PO DAILY [facility] Last Admin: 06/30/18 10:20 Dose: 200 mg Fluticasone Propionate (Flonase -) 1 spray NS BID [facility] Last Admin: 06/30/18 10:20 Dose: 1 spray Sodium Chloride (Normal Saline -) 1,000 mls @ 122 mls/hr IV ASDIR [facility] Last Admin: 06/29/18 17:03 Dose: 122 mls/hr Losartan Potassium (Cozaar -) 50 mg PO DAILY [facility] Last Admin: 06/30/18 10:21 Dose: 50 mg Magnesium Sulfate (Magnesium Sulfate) 2 gm IVPB ONCE ONE Stop: 06/30/18 10:55 Patient's Own Medication ( Rivastigmine [Exelon ] 13.3mg/24hr Patch) 1 each TD DAILY [facility] Last Admin: 06/30/18 10:19 Dose: 1 each Non-Formulary Medication (Memantine Hcl [Namenda Xr]) 0 mg PO DAILY [facility] Last Admin: 06/30/18 10:19 Dose: 21 mg Unfgf-2-Hzvf Ethyl Esters (Lovaza -) 2 gm PO BID [facility] Last Admin: 06/30/18 10:20 Dose: 2 gm Pantoprazole Sodium (Protonix -) 40 mg PO BID [facility] Last Admin: 06/30/18 10:20 Dose: 40 mg Potassium Chloride (K-Dur -) 40 meq PO ONCE ONE Stop: 06/30/18 10:55 Pramipexole Dihydrochloride (Mirapex -) 0.25 mg PO HS [facility] Last Admin: 06/29/18 22:13 Dose: 0.25 mg Tamsulosin HCl (Flomax -) 0.4 mg PO HS [facility] Last Admin: 06/29/18 22:13 Dose: 0.4 mg Warfarin Sodium (Coumadin -) 7.5 mg PO SuTuThFrSa@1800 [facility] Last Admin: 06/29/18 17:04 Dose: 7.5 mg - Objective Vital Signs: Vital Signs Temperature 98 F 06/30/18 10:08 Pulse Rate 92 H 06/30/18 10:08 Respiratory Rate 18 06/30/18 10:08 Blood Pressure 146/94 06/30/18 10:08 O2 Sat by Pulse Oximetry (%) 98 06/29/18 21:00 Constitutional: Yes: No Distress, Calm Cardiovascular: Yes: Regular Rate and Rhythm, S1, S2 Respiratory: Yes: Regular, CTA Bilaterally. No: Rales Gastrointestinal: Yes: Normal Bowel Sounds, Soft. No: Tenderness Edema: No Neurological: Yes: Alert, Oriented Labs: CBC, BMP 06/29/18 06:50 06/30/18 05:20 INR, PTT INR 2.78 (0.83-1.09) H 06/29/18 06:50 Problem List - Problems (1) ALS (amyotrophic lateral sclerosis) Code(s): G12.21 - AMYOTROPHIC LATERAL SCLEROSIS (2) Chest pain Code(s): R07.9 - CHEST PAIN, UNSPECIFIED Qualifiers: Chest pain type: unspecified Qualified Code(s): R07.9 - Chest pain, unspecified (3) Dementia Code(s): F03.90 - UNSPECIFIED DEMENTIA WITHOUT BEHAVIORAL DISTURBANCE (4) EKG abnormalities Code(s): R94.31 - ABNORMAL ELECTROCARDIOGRAM [ECG] [EKG] (5) CAD (coronary artery disease) Code(s): I25.10 - ATHSCL HEART DISEASE OF [place] CORONARY ARTERY W/O ANG PCTRS (6) Hypokalemia Code(s): E87.6 - HYPOKALEMIA (7) Hypomagnesemia Code(s): E83.42 - HYPOMAGNESEMIA Assessment/Plan Pt is admitted to Telemetry Cardio consult is appreciated Replete K; replete Mg; to monitor K and Mg started on Colace AM labs Decrease IVF DC Schultz and monitor UO. Case was d/w pt's and his nurse.
[2018-06-30] MEDS ORDERED: MAGNESIUM SULF 50% (8.12 MEQ/2 ML-1 GM VIAL) IVPB ONE (11:00)
[2018-06-30] MEDS ORDERED: POTASSIUM CHLORIDE TABS 20 MEQ TABLET.ER (FP) PO ONE (11:15)
[2018-06-30] MEDS ORDERED: PT OWN MED DRAWER 7, Y5N ONE ×2 (11:55→21:22)
[2018-06-30 12:01] LABS: PROTHROMBIN TIME (PATIENT) 56.9 SEC (9.7-13.0)
[2018-06-30 12:19] LABS: INR 4.75 (0.83-1.09)
[2018-06-30] MEDS: WARFARIN NA 7.5 MG TABLET (FP) PO SCH (17:23)
--- NOTE | 2018-06-30 19:06 | EKG ---
Test Reason : Blood Pressure : / mmHG Vent. Rate : 090 BPM Atrial Rate : 136 BPM P-R Int : 000 ms QRS Dur : 098 ms QT Int : 366 ms P-R-T Axes : 000 -17 -08 degrees QTc Int : 447 ms ATRIAL FIBRILLATION WITH PREMATURE VENTRICULAR OR ABERRANTLY CONDUCTED COMPLEXES INFERIOR INFARCT (CITED ON OR BEFORE 28-JUN-2018) ABNORMAL ECG WHEN COMPARED WITH ECG OF 28-JUN-2018 12:37, NO SIGNIFICANT CHANGE WAS FOUND Confirmed by VIKTORIA GARCIA MD ([id number]) on 06/30/2018 7:06:06 PM Referred By: Richard PARKINSON Confirmed By:VIKTORIA GARCIA MD
[2018-06-30] MEDS: TAMSULOSIN HCL 0.4 MG CAP PO SCH (22:07)
[2018-06-30] MEDS: ATORVASTATIN CA 40 MG TABLET (FP) PO SCH (22:07)
[2018-06-30] MEDS: PRAMIPEXOLE DIHYDROCHLORIDE 0.25 MG TABLET PO SCH (22:08)
[2018-07-01 06:52] LABS: ANION GAP 6 MMOL/L (8-16); BLOOD UREA NITROGEN 7 mg/dL (7-18); CALCIUM 8.2 mg/dL (8.5-10.1); CHLORIDE 100 mmol/L (98-107); CO2 34 mmol/L (21-32); CREATININE 0.5 mg/dL (0.55-1.3); GLUCOSE,RANDOM 92 mg/dL (74-106); MAGNESIUM 2.2 mg/dL (1.8-2.4); POTASSIUM 3.6 mmol/L (3.5-5.1); SODIUM 140 mmol/L (136-145)
[2018-07-01 06:57] LABS: HEMATOCRIT 44.6 % (35.4-49); HEMOGLOBIN 14.9 GM/dL (11.7-16.9); MCH 32.3 pg (25.7-33.7); MCHC 33.4 g/dl (32.0-35.9); MEAN CELL VOLUME 96.8 fl (80-96); MEAN PLT VOLUME 9.7 fl (7.5-11.1); PLATELET COUNT 130 K/MM3 (134-434); RBC 4.61 M/mm3 (4.00-5.60); RDW 13.9 % (11.9-15.9); WHITE BLOOD COUNT 7.8 K/mm3 (4.0-10.0)
[2018-07-01 07:40] LABS: INR 3.54 (0.83-1.09); PROTHROMBIN TIME (PATIENT) 42.3 SEC (9.7-13.0)
[2018-07-01] MEDS ORDERED: PT OWN MED DRAWER 7, Y5N ONE ×2 (09:09→15:13)
[2018-07-01] MEDS: FLUTICASONE PROP 0.05% 16 GM NASAL SPRAY NS SCH ×2 (09:46→21:38)
[2018-07-01] MEDS: PANTOPRAZOLE 40 MG TABLET (FP) PO SCH ×2 (09:46→21:36)
[2018-07-01] MEDS: DOCUSATE SODIUM 100 MG CAPSULE (FP) PO SCH (09:47)
[2018-07-01] MEDS: OMEGA-3 ACID ETHYL ESTERS (FATTY-ACIDS) 1 GM CAPSULE (FP) PO SCH ×2 (09:47→21:37)
[2018-07-01] MEDS: CALCIUM (OYSTER SHELL) 500 MG TABLET (FP) PO SCH (09:47)
[2018-07-01] MEDS: CITALOPRAM HYDROBROMIDE 20 MG TABLET (FP) PO SCH (09:47)
[2018-07-01] MEDS: LOSARTAN POTASSIUM 50 MG TABLET (FP) PO SCH (09:47)
[2018-07-01] MEDS: PATIENT'S OWN MEDICATION (NON-FORMULARY) (Memantine Hcl [Namenda Xr] 0 MG) PO SCH (09:48)
[2018-07-01] MEDS: RIVASTIGMINE 13.3 MG/24 HR TD SCH (09:49)
--- NOTE | 2018-07-01 13:28 | PN ---
Progress Note, Physician History of Present Illness: Mr. Dawkins is a 77 yo white man with a hx of advanced Alzheimer's disease, newly diagnosed ALS ([address] Cr), HLD (LDL 153 mg/dL in 2018), HTN, AF (on warfarin), and dysphagia presents to the emergency department with urinary retention for the past 3 days with associative LLQ and LUQ pain. The patient has dementia and most of the history was derived from the . - Current Medication List Current Medications: Active Medications Atorvastatin Calcium (Lipitor -) 40 mg PO HS [facility] Last Admin: 06/30/18 22:07 Dose: 40 mg Calcium Carbonate (Os-Surya 500mg -) 1,000 mg PO DAILY [facility] Last Admin: 07/01/18 09:47 Dose: 1,000 mg Citalopram Hydrobromide (Celexa -) 40 mg PO DAILY [facility] Last Admin: 07/01/18 09:47 Dose: 40 mg Docusate Sodium (Colace -) 200 mg PO DAILY [facility] Last Admin: 07/01/18 09:47 Dose: 200 mg Fluticasone Propionate (Flonase -) 1 spray NS BID [facility] Last Admin: 07/01/18 09:46 Dose: 1 spray Sodium Chloride (Normal Saline -) 1,000 mls @ 50 mls/hr IV ASDIR [facility] Last Admin: 06/30/18 11:38 Dose: 50 mls/hr Losartan Potassium (Cozaar -) 50 mg PO DAILY [facility] Last Admin: 07/01/18 09:47 Dose: 50 mg Patient's Own Medication ( Rivastigmine [Exelon ] 13.3mg/24hr Patch) 1 each TD DAILY [facility] Last Admin: 07/01/18 09:49 Dose: 1 each Non-Formulary Medication (Memantine Hcl [Namenda Xr]) 0 mg PO DAILY [facility] Last Admin: 07/01/18 09:48 Dose: 21 mg Rhxht-4-Rvms Ethyl Esters (Lovaza -) 2 gm PO BID [facility] Last Admin: 07/01/18 09:47 Dose: 2 gm Pantoprazole Sodium (Protonix -) 40 mg PO BID [facility] Last Admin: 07/01/18 09:46 Dose: 40 mg Pramipexole Dihydrochloride (Mirapex -) 0.25 mg PO HS [facility] Last Admin: 06/30/18 22:08 Dose: 0.25 mg Tamsulosin HCl (Flomax -) 0.4 mg PO HS [facility] Last Admin: 06/30/18 22:07 Dose: 0.4 mg Warfarin Sodium (Coumadin -) 7.5 mg PO SuTuThFrSa@1800 [facility] Last Admin: 06/30/18 17:23 Dose: Not Given - Objective Vital Signs: Vital Signs Temperature 97.4 F L 07/01/18 06:00 Pulse Rate 89 07/01/18 06:00 Respiratory Rate 20 07/01/18 09:00 Blood Pressure 125/76 07/01/18 06:00 O2 Sat by Pulse Oximetry (%) 93 L 07/01/18 09:00 Eyes: Yes: WNL, Conjunctiva Clear, EOM Intact HENT: Yes: WNL, Atraumatic, Normocephalic Neck: Yes: WNL, Supple, Trachea Midline Cardiovascular: Yes: WNL, Regular Rate and Rhythm Respiratory: Yes: WNL, Regular, CTA Bilaterally Gastrointestinal: Yes: WNL, Normal Bowel Sounds Genitourinary: Yes: WNL Musculoskeletal: Yes: WNL Extremities: Yes: WNL Edema: No Integumentary: Yes: WNL Neurological: Yes: WNL, Alert, Oriented ...Motor Strength: WNL Psychiatric: Yes: WNL Labs: CBC, BMP 07/01/18 05:30 07/01/18 05:30 INR, PTT INR 3.54 (0.83-1.09) H 07/01/18 05:30 Problem List - Problems (1) ACS (acute coronary syndrome) Code(s): I24.9 - ACUTE ISCHEMIC HEART DISEASE, UNSPECIFIED (2) ALS (amyotrophic lateral sclerosis) Code(s): G12.21 - AMYOTROPHIC LATERAL SCLEROSIS (3) Chest pain Code(s): R07.9 - CHEST PAIN, UNSPECIFIED Qualifiers: Chest pain type: unspecified Qualified Code(s): R07.9 - Chest pain, unspecified (4) Dementia Code(s): F03.90 - UNSPECIFIED DEMENTIA WITHOUT BEHAVIORAL DISTURBANCE (5) EKG abnormalities Code(s): R94.31 - ABNORMAL ELECTROCARDIOGRAM [ECG] [EKG] (6) Abdominal pain Code(s): R10.9 - UNSPECIFIED ABDOMINAL PAIN Qualifiers: Abdominal location: lower abdomen, unspecified Qualified Code(s): R10.30 - Lower abdominal pain, unspecified (7) Abnormal cardiac enzyme level Code(s): R74.8 - ABNORMAL LEVELS OF OTHER SERUM ENZYMES (8) Abnormal head CT Code(s): R93.0 - ABNORMAL FINDINGS ON DX IMAGING OF SKULL AND HEAD, NEC (9) Abnormal liver function tests Code(s): R94.5 - ABNORMAL RESULTS OF LIVER FUNCTION STUDIES (10) Altered mental status Code(s): R41.82 - ALTERED MENTAL STATUS, UNSPECIFIED (11) Barretts esophagus Code(s): K22.70 - REGALADO'S ESOPHAGUS WITHOUT DYSPLASIA Qualifiers: Regalado's esophagus type: without dysplasia Qualified Code(s): K22.70 - Regalado's esophagus without dysplasia (12) Bradycardia Code(s): R00.1 - BRADYCARDIA, UNSPECIFIED (13) CAD (coronary artery disease) Code(s): I25.10 - ATHSCL HEART DISEASE OF [place] CORONARY ARTERY W/O ANG PCTRS (14) Colon polyp Code(s): K63.5 - POLYP OF COLON (15) Confusion Code(s): R41.0 - DISORIENTATION, UNSPECIFIED (16) Constipation Code(s): K59.00 - CONSTIPATION, UNSPECIFIED Qualifiers: Constipation type: slow transit constipation Qualified Code(s): K59.01 - Slow transit constipation (17) Dizziness Code(s): R42 - DIZZINESS AND GIDDINESS (18) Dysphagia Code(s): R13.10 - DYSPHAGIA, UNSPECIFIED Qualifiers: Dysphagia type: oropharyngeal phase Qualified Code(s): R13.12 - Dysphagia, oropharyngeal phase (19) Fall Code(s): W19.XXXA - UNSPECIFIED FALL, INITIAL ENCOUNTER Qualifiers: Encounter type: initial encounter Qualified Code(s): W19.XXXA - Unspecified fall, initial encounter (20) Fatty liver Code(s): K76.0 - FATTY (CHANGE OF) LIVER, NOT ELSEWHERE CLASSIFIED (21) Gallbladder dilatation Code(s): K82.8 - OTHER SPECIFIED DISEASES OF [place]ALL[place] (22) Hiatal hernia with GERD and esophagitis Code(s): K44.9 - DIAPHRAGMATIC HERNIA WITHOUT OBSTRUCTION OR GANGRENE; K21.0 - GASTRO-ESOPHAGEAL REFLUX DISEASE WITH ESOPHAGITIS (23) History of colon cancer Code(s): Z85.038 - PERSONAL HISTORY OF MALIGNANT NEOPLASM OF LARGE INTESTINE (24) Hypokalemia Code(s): E87.6 - HYPOKALEMIA (25) Hypotension Code(s): I95.9 - HYPOTENSION, UNSPECIFIED Qualifiers: Hypotension type: unspecified hypotension type Qualified Code(s): I95.9 - Hypotension, unspecified (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): 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 - OTHER SPECIFIED MYOPATHIES (27) Myositis Code(s): M60.9 - MYOSITIS, UNSPECIFIED Qualifiers: Myositis type: other type Laterality: unspecified laterality (28) Polymyositis Code(s): M33.20 - POLYMYOSITIS, ORGAN INVOLVEMENT UNSPECIFIED (29) Shoulder pain, right Code(s): M25.511 - PAIN IN RIGHT SHOULDER Qualifiers: Chronicity: acute Qualified Code(s): M25.511 - Pain in right shoulder (30) Sleep apnea Code(s): G47.30 - SLEEP APNEA, UNSPECIFIED (31) Subtherapeutic anticoagulation Code(s): Z51.81 - ENCOUNTER FOR THERAPEUTIC DRUG LEVEL MONITORING; Z79.01 - ENROBING MACHINE CORDER (CURRENT) USE OF ANTICOAGULANTS (32) Tremor Code(s): R25.1 - TREMOR, UNSPECIFIED (33) Weakness generalized Code(s): R53.1 - WEAKNESS (34) Atrial fibrillation Code(s): I48.91 - UNSPECIFIED ATRIAL FIBRILLATION (35) HTN (hypertension) Code(s): I10 - ESSENTIAL (PRIMARY) HYPERTENSION (36) Hyperlipidemia Code(s): E78.5 - HYPERLIPIDEMIA, UNSPECIFIED Assessment/Plan - Problems (1) EKG abnormalities Assessment/Plan: ekg stable - r/o mi neg no cp will d/c telemetry Start statin (LDL 153 mg/dL earlier this year). Code(s): R94.31 - ABNORMAL ELECTROCARDIOGRAM [ECG] [EKG] (2) Isolated neck extensor myopathy Code(s): G72.89 - OTHER SPECIFIED MYOPATHIES (3) Atrial fibrillation Assessment/Plan: On warfarin; INR level elevated AV conduction michael for HR control (beta michael may be used, unless hx bronchial asthma, in which case diltiazem may be started). Code(s): I48.91 - UNSPECIFIED ATRIAL FIBRILLATION (4) HTN (hypertension) Assessment/Plan: On losartan. Consider starting AV conduction michael (e.g. metoprolol or diltiazem) for BP and HR (AF) control. Code(s): I10 - ESSENTIAL (PRIMARY) HYPERTENSION (5) Hyperlipidemia Assessment/Plan: LDL 153 mg/dL; start statin. Code(s): E78.5 - HYPERLIPIDEMIA, UNSPECIFIED (6) Dementia Assessment/Plan: On Namenda. Code(s): F03.90 - UNSPECIFIED DEMENTIA WITHOUT BEHAVIORAL DISTURBANCE
[2018-07-01] MEDS: PRAMIPEXOLE DIHYDROCHLORIDE 0.25 MG TABLET PO SCH (21:37)
[2018-07-01] MEDS: ATORVASTATIN CA 40 MG TABLET (FP) PO SCH (21:37)
[2018-07-01] MEDS: TAMSULOSIN HCL 0.4 MG CAP PO SCH (21:41)
--- NOTE | 2018-07-01 23:07 | PN ---
Progress Note, Physician History of Present Illness: Pt with AMS, able to stay awake to 5-10 seconds, weak, decrease voice stregth; his is at bedside , states that he is the best from the whole morning; Pt w/o SOB, CP, palpitations, abd pain - Current Medication List Current Medications: Active Medications Atorvastatin Calcium (Lipitor -) 40 mg PO HS [facility] Last Admin: 07/01/18 21:37 Dose: 40 mg Calcium Carbonate (Os-Surya 500mg -) 1,000 mg PO DAILY [facility] Last Admin: 07/01/18 09:47 Dose: 1,000 mg Citalopram Hydrobromide (Celexa -) 40 mg PO DAILY [facility] Last Admin: 07/01/18 09:47 Dose: 40 mg Docusate Sodium (Colace -) 200 mg PO DAILY [facility] Last Admin: 07/01/18 09:47 Dose: 200 mg Fluticasone Propionate (Flonase -) 1 spray NS BID [facility] Last Admin: 07/01/18 21:38 Dose: 1 spray Losartan Potassium (Cozaar -) 50 mg PO DAILY [facility] Last Admin: 07/01/18 09:47 Dose: 50 mg Patient's Own Medication ( Rivastigmine [Exelon ] 13.3mg/24hr Patch) 1 each TD DAILY [facility] Last Admin: 07/01/18 09:49 Dose: 1 each Non-Formulary Medication (Memantine Hcl [Namenda Xr]) 0 mg PO DAILY [facility] Last Admin: 07/01/18 09:48 Dose: 21 mg Uwelo-0-Bymx Ethyl Esters (Lovaza -) 2 gm PO BID [facility] Last Admin: 07/01/18 21:37 Dose: 2 gm Pantoprazole Sodium (Protonix -) 40 mg PO BID [facility] Last Admin: 07/01/18 21:36 Dose: 40 mg Pramipexole Dihydrochloride (Mirapex -) 0.25 mg PO HS [facility] Last Admin: 07/01/18 21:37 Dose: 0.25 mg Tamsulosin HCl (Flomax -) 0.4 mg PO HS [facility] Last Admin: 07/01/18 21:41 Dose: 0.4 mg Warfarin Sodium (Coumadin -) 7.5 mg PO SuTuThFrSa@1800 [facility] Last Admin: 06/30/18 17:23 Dose: Not Given - Objective Vital Signs: Vital Signs Temperature 98.1 F 07/01/18 21:27 Pulse Rate 86 07/01/18 21:27 Respiratory Rate 20 07/01/18 21:27 Blood Pressure 151/86 07/01/18 21:27 O2 Sat by Pulse Oximetry (%) 93 L 07/01/18 21:00 Constitutional: Yes: No Distress, Calm Cardiovascular: Yes: Regular Rate and Rhythm, S1, S2 Respiratory: Yes: Regular, CTA Bilaterally. No: Rales Gastrointestinal: Yes: Normal Bowel Sounds, Soft. No: Tenderness Edema: No Neurological: Yes: Alert, Oriented, Other (motor ans senbsory examination is symmetric in UE/ LE/ face.) Labs: CBC, BMP 07/01/18 05:30 07/01/18 05:30 INR, PTT INR 3.54 (0.83-1.09) H 07/01/18 05:30 Problem List - Problems (1) ALS (amyotrophic lateral sclerosis) Code(s): G12.21 - AMYOTROPHIC LATERAL SCLEROSIS (2) Chest pain Code(s): R07.9 - CHEST PAIN, UNSPECIFIED Qualifiers: Chest pain type: unspecified Qualified Code(s): R07.9 - Chest pain, unspecified (3) Dementia Code(s): F03.90 - UNSPECIFIED DEMENTIA WITHOUT BEHAVIORAL DISTURBANCE (4) EKG abnormalities Code(s): R94.31 - ABNORMAL ELECTROCARDIOGRAM [ECG] [EKG] (5) CAD (coronary artery disease) Code(s): I25.10 - ATHSCL HEART DISEASE OF [place] CORONARY ARTERY W/O ANG PCTRS (6) Hypokalemia Code(s): E87.6 - HYPOKALEMIA (7) Hypomagnesemia Code(s): E83.42 - HYPOMAGNESEMIA (8) Altered mental status Assessment/Plan: unclear if this is secondary to pt's decreased sleep to r/o stroke; Neoro examination or neuro event; to obtain Head CT scan Code(s): R41.82 - ALTERED MENTAL STATUS, UNSPECIFIED Assessment/Plan Pt is admitted to Telemetry Cardio consult is appreciated K and Mgwere repleted; to monitor K and Mg started on Colace AM labs Decrease IVF DC Schultz and monitor UO. Case was d/w his nurse Case was d/w pt's .
[2018-07-02 06:43] LABS: HEMATOCRIT 43.6 % (35.4-49); HEMOGLOBIN 14.3 GM/dL (11.7-16.9); MCH 31.5 pg (25.7-33.7); MCHC 32.8 g/dl (32.0-35.9); MEAN PLT VOLUME 9.2 fl (7.5-11.1); PLATELET COUNT 130 K/MM3 (134-434); RBC 4.54 M/mm3 (4.00-5.60); RDW 13.6 % (11.9-15.9); WHITE BLOOD COUNT 5.9 K/mm3 (4.0-10.0)
[2018-07-02 06:45] LABS: INR 2.59 (0.83-1.09); PROTHROMBIN TIME (PATIENT) 30.9 SEC (9.7-13.0)
[2018-07-02 06:58] LABS: ANION GAP 5 MMOL/L (8-16); BLOOD UREA NITROGEN 12 mg/dL (7-18); CALCIUM 8.3 mg/dL (8.5-10.1); CHLORIDE 99 mmol/L (98-107); CO2 36 mmol/L (21-32); CREATININE 0.5 mg/dL (0.55-1.3); GLUCOSE,RANDOM 83 mg/dL (74-106); MAGNESIUM 2.1 mg/dL (1.8-2.4); POTASSIUM 3.8 mmol/L (3.5-5.1); SODIUM 140 mmol/L (136-145)
[2018-07-02] MEDS ORDERED: PT OWN MED DRAWER 7, Y5N ONE ×4 (09:38→15:15)
[2018-07-02] MEDS ORDERED: BISACODYL 10 MG SUPP.RECT RC ONE (09:45)
[2018-07-02] MEDS: LOSARTAN POTASSIUM 50 MG TABLET (FP) PO SCH (09:53)
[2018-07-02] MEDS: CALCIUM (OYSTER SHELL) 500 MG TABLET (FP) PO SCH (09:53)
[2018-07-02] MEDS: CITALOPRAM HYDROBROMIDE 20 MG TABLET (FP) PO SCH (09:53)
[2018-07-02] MEDS: OMEGA-3 ACID ETHYL ESTERS (FATTY-ACIDS) 1 GM CAPSULE (FP) PO SCH (09:53)
[2018-07-02] MEDS: PATIENT'S OWN MEDICATION (NON-FORMULARY) (Memantine Hcl [Namenda Xr] 0 MG) PO SCH (09:54)
[2018-07-02] MEDS: DOCUSATE SODIUM 100 MG CAPSULE (FP) PO SCH (09:54)
[2018-07-02] MEDS: FLUTICASONE PROP 0.05% 16 GM NASAL SPRAY NS SCH (09:54)
[2018-07-02] MEDS: RIVASTIGMINE 13.3 MG/24 HR TD SCH (09:55)
[2018-07-02] MEDS: PANTOPRAZOLE 40 MG TABLET (FP) PO SCH (09:55)
--- NOTE | 2018-07-02 11:17 | PN ---
Progress Note, Physician History of Present Illness: Pt is back to himself, his (at bedside) states that the previous night pt didn't sleep at all and fell a sleep around 6 AM and slept most part of the day yesterday; last night pt had a good night sleep. Pt w/o SOB, CP, palpitations, abd pain, no motor weakness. - Current Medication List Current Medications: Active Medications Atorvastatin Calcium (Lipitor -) 40 mg PO HS [facility] Last Admin: 07/01/18 21:37 Dose: 40 mg Calcium Carbonate (Os-Surya 500mg -) 1,000 mg PO DAILY [facility] Last Admin: 07/02/18 09:53 Dose: 1,000 mg Citalopram Hydrobromide (Celexa -) 40 mg PO DAILY [facility] Last Admin: 07/02/18 09:53 Dose: 40 mg Docusate Sodium (Colace -) 200 mg PO DAILY [facility] Last Admin: 07/02/18 09:54 Dose: 200 mg Fluticasone Propionate (Flonase -) 1 spray NS BID [facility] Last Admin: 07/02/18 09:54 Dose: 1 spray Losartan Potassium (Cozaar -) 50 mg PO DAILY [facility] Last Admin: 07/02/18 09:53 Dose: 50 mg Patient's Own Medication ( Rivastigmine [Exelon ] 13.3mg/24hr Patch) 1 each TD DAILY [facility] Last Admin: 07/02/18 09:55 Dose: 1 each Non-Formulary Medication (Memantine Hcl [Namenda Xr]) 0 mg PO DAILY [facility] Last Admin: 07/02/18 09:54 Dose: 21 mg Fekej-3-Grun Ethyl Esters (Lovaza -) 2 gm PO BID [facility] Last Admin: 07/02/18 09:53 Dose: 2 gm Pantoprazole Sodium (Protonix -) 40 mg PO BID [facility] Last Admin: 07/02/18 09:55 Dose: 40 mg Pramipexole Dihydrochloride (Mirapex -) 0.25 mg PO HS [facility] Last Admin: 07/01/18 21:37 Dose: 0.25 mg Tamsulosin HCl (Flomax -) 0.4 mg PO HS [facility] Last Admin: 07/01/18 21:41 Dose: 0.4 mg Warfarin Sodium (Coumadin -) 7.5 mg PO SuTuThFrSa@1800 [facility] Last Admin: 11/11/18 17:23 Dose: Not Given - Objective Vital Signs: Vital Signs Temperature 97.5 F L 07/02/18 05:36 Pulse Rate 94 H 07/02/18 05:36 Respiratory Rate 18 07/02/18 09:00 Blood Pressure 135/85 07/02/18 05:36 O2 Sat by Pulse Oximetry (%) 94 L 07/02/18 09:00 Constitutional: Yes: No Distress, Calm Cardiovascular: Yes: Regular Rate and Rhythm, S1, S2 Respiratory: Yes: Regular, CTA Bilaterally. No: Rales Gastrointestinal: Yes: Normal Bowel Sounds, Soft. No: Tenderness Edema: No Neurological: Yes: Alert, Oriented, Other (symmettric motor ansd sensory evaluation of UE, LE, face.) Psychiatric: Yes: Alert, Oriented Labs: CBC, BMP 07/02/18 05:30 07/02/18 05:30 INR, PTT INR 2.59 (0.83-1.09) H 07/02/18 05:30 Problem List - Problems (1) ALS (amyotrophic lateral sclerosis) Code(s): G12.21 - AMYOTROPHIC LATERAL SCLEROSIS (2) Chest pain Code(s): R07.9 - CHEST PAIN, UNSPECIFIED Qualifiers: Chest pain type: unspecified Qualified Code(s): R07.9 - Chest pain, unspecified (3) Dementia Code(s): F03.90 - UNSPECIFIED DEMENTIA WITHOUT BEHAVIORAL DISTURBANCE (4) EKG abnormalities Code(s): R94.31 - ABNORMAL ELECTROCARDIOGRAM [ECG] [EKG] (5) CAD (coronary artery disease) Code(s): I25.10 - ATHSCL HEART DISEASE OF [place] CORONARY ARTERY W/O ANG PCTRS (6) Hypokalemia Code(s): E87.6 - HYPOKALEMIA (7) Hypomagnesemia Code(s): E83.42 - HYPOMAGNESEMIA (8) Altered mental status Code(s): R41.82 - ALTERED MENTAL STATUS, UNSPECIFIED Assessment/Plan Pt is admitted to Telemetry Cardio consult and f/u is appreciated; case was d/w Dr. Reveles: pt is stable form cardiac point of view and can be transfered to regular floor or DC. K and Mg were repleted, now normal. To DC pt home with office f/u. Case was d/w his nurse Case was d/w pt's .
--- NOTE | 2018-07-02 13:52 | PN ---
Progress Note, Physician Chief Complaint: Pt's is at beside; he is smiling, and denies having any problems. History of Present Illness: Mr. Dawkins is a 77 yo white man with a hx of advanced Alzheimer's disease, newly diagnosed ALS ([address] Cr), HLD (LDL 153 mg/dL in 2018), HTN, AF (on warfarin), and dysphagia presents to the emergency department with urinary retention for the past 3 days with associative LLQ and LUQ pain. The patient has dementia and most of the history was derived from the . - Current Medication List Current Medications: Active Medications Atorvastatin Calcium (Lipitor -) 40 mg PO HS [facility] Last Admin: 07/01/18 21:37 Dose: 40 mg Calcium Carbonate (Os-Surya 500mg -) 1,000 mg PO DAILY [facility] Last Admin: 07/02/18 09:53 Dose: 1,000 mg Citalopram Hydrobromide (Celexa -) 40 mg PO DAILY [facility] Last Admin: 07/02/18 09:53 Dose: 40 mg Docusate Sodium (Colace -) 200 mg PO DAILY [facility] Last Admin: 07/02/18 09:54 Dose: 200 mg Fluticasone Propionate (Flonase -) 1 spray NS BID [facility] Last Admin: 07/02/18 09:54 Dose: 1 spray Losartan Potassium (Cozaar -) 50 mg PO DAILY [facility] Last Admin: 07/02/18 09:53 Dose: 50 mg Patient's Own Medication ( Rivastigmine [Exelon ] 13.3mg/24hr Patch) 1 each TD DAILY [facility] Last Admin: 07/02/18 09:55 Dose: 1 each Non-Formulary Medication (Memantine Hcl [Namenda Xr]) 0 mg PO DAILY [facility] Last Admin: 07/02/18 09:54 Dose: 21 mg Ocrzb-0-Cysc Ethyl Esters (Lovaza -) 2 gm PO BID [facility] Last Admin: 07/02/18 09:53 Dose: 2 gm Pantoprazole Sodium (Protonix -) 40 mg PO BID [facility] Last Admin: 07/02/18 09:55 Dose: 40 mg Pramipexole Dihydrochloride (Mirapex -) 0.25 mg PO HS [facility] Last Admin: 07/01/18 21:37 Dose: 0.25 mg Tamsulosin HCl (Flomax -) 0.4 mg PO HS [facility] Last Admin: 07/01/18 21:41 Dose: 0.4 mg Warfarin Sodium (Coumadin -) 7.5 mg PO SuTuThFrSa@1800 [facility] Last Admin: 06/30/18 17:23 Dose: Not Given - Objective Vital Signs: Vital Signs Temperature 97.5 F L 07/02/18 05:36 Pulse Rate 94 H 07/02/18 05:36 Respiratory Rate 18 07/02/18 09:00 Blood Pressure 135/85 07/02/18 05:36 O2 Sat by Pulse Oximetry (%) 94 L 07/02/18 09:00 Labs: CBC, BMP 07/02/18 05:30 07/02/18 05:30 INR, PTT INR 2.59 (0.83-1.09) H 07/02/18 05:30 Problem List - Problems (1) EKG abnormalities Assessment/Plan: R/o anterior wall ischemia vs lead misplacement. TNI < 0.02; f/u serially. Started statin (LDL 153 mg/dL earlier this year). 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 AV conduction michael for HR control (beta michael may be used, unless hx bronchial asthma, in which case diltiazem may be started). From cardiac standpoint, pt may be followed as an outpatient. Code(s): I48.91 - UNSPECIFIED ATRIAL FIBRILLATION (4) HTN (hypertension) Assessment/Plan: On losartan. Consider starting AV conduction michael (e.g. metoprolol or diltiazem) for BP and HR (AF) control. Code(s): I10 - ESSENTIAL (PRIMARY) HYPERTENSION (5) Hyperlipidemia Code(s): E78.5 - HYPERLIPIDEMIA, UNSPECIFIED (6) Dementia Code(s): F03.90 - UNSPECIFIED DEMENTIA WITHOUT BEHAVIORAL DISTURBANCE
--- NOTE | 2018-07-02 14:41 | DS ---
Physical Examination Vital Signs: Vital Signs Temperature 97.5 F L 07/02/18 05:36 Pulse Rate 94 H 07/02/18 05:36 Respiratory Rate 18 07/02/18 09:00 Blood Pressure 135/85 07/02/18 05:36 O2 Sat by Pulse Oximetry (%) 94 L 07/02/18 09:00 Findings/Remarks: See today progress note for HPI , PE. Labs: CBC, BMP 07/02/18 05:30 07/02/18 05:30 Discharge Summary Reason For Visit: RETENTION OF URINE Current Active Problems ACS (acute coronary syndrome) (Acute) ALS (amyotrophic lateral sclerosis) (Acute) Chest pain (Acute) Dementia (Acute) EKG abnormalities (Acute) Hypomagnesemia (Acute) Procedures: Principal: Head CT scan Hospital Course: Pr came to ER for lack of urination,Schultz was placed, drained 300 ml; while in ER he c/o CP, Ekg showed changes; pt was admitted to Telemetry, R/O HI. Pt with low K andMg, both replaced; pt also with constipation, resolved with Dulcolax suppositorey; pt also with episode of sleepiness (probable due to lack of night sleep), had negative for acute event Head CT scan. Pt was seen by cardiology, Dr. Reveles/ [place], was cleared for DC. Pt to go home with outpatient f /u. Condition: Improved - Instructions Referrals: Bobby Melchor MD [Primary Care Provider] - (within a week) Kvng Reveles MD [Staff Physician] - (1-2 weeks) Disposition: HOME - Home Medications Comprehensive Discharge Medication List: Ambulatory Orders see DC instructions
[2018-07-02 15:11] VITALS: BP 132/64; PULSE 102; TEMP 97.8
== END 2018-07-02 17:38 | disposition home or self-care (01) | DRG 313 ==
LOC: JER 10:50 → JERBED 12:46 → J4W 15:35
PROVIDERS: ADMIT Specialist; ATTEND Specialist
DX: R07.9 Chest pain, unspecified (principal); G12.21 Amyotrophic lateral sclerosis; I48.91 Unspecified atrial fibrillation; Z79.01 Long term (current) use of anticoagulants; I10 Essential (primary) hypertension; R13.10 Dysphagia, unspecified; G30.9 Alzheimer's disease, unspecified; F02.80 Dementia in other diseases classified elsewhere, unspecified severity, without behavioral disturbance, psychotic disturbance, mood disturbance, and anxiety; R94.31 Abnormal electrocardiogram [ECG] [EKG]; K76.0 Fatty (change of) liver, not elsewhere classified; E78.5 Hyperlipidemia, unspecified; K59.00 Constipation, unspecified; E87.6 Hypokalemia; E83.42 Hypomagnesemia; R41.82 Altered mental status, unspecified
CPT/HCPCS: 36415; 70450-TC; 71045-TC-FY; 80048; 80053; 81003; 82550; 83735; 84100; 84484; 85025; 85027; 85610; 85730; 87086; 93005; 93010; 99285-25; J7030

== ENCOUNTER 2018-07-04 14:08 | Inpatient (IN) | payer OTHER, MEDICARE ==
--- NOTE | 2018-07-04 14:37 | PDOC ---
History of Present Illness - General Chief Complaint: Pain Stated Complaint: ABD PAIN Time Seen by Provider: 07/04/18 14:33 History Source: Patient, Spouse () Exam Limitations: Dementia (history from ) - History of Present Illness Initial Comments: Pt is a 77 yo M, with PMH of Alzheimer's ds, ALS, A-fib (on coumadin), HTN ( controlled with losartan 25 mg) and HLD, who is presenting with complaints of LUQ abdominal pain since this AM. Pt states he awoke from sleep with LUQ pain, and attempted to relieve the pain with a BM, which did not help. Pt was recently admitted earlier in the week for urinary retention, which was relieved with Schultz catheter placement. Pt has baseline dementia, but can answer questions appropriately, and his is also at bedside. He has been having 1 normal BM per day since his last admission. Pt denies any fevers/chills, headache, vision changes, chest pain, palpitations, SOB, nausea/vomiting, urinary symptoms, diarrhea/constipation, or leg swelling. Pt denies any cigarette, alcohol, or drug use. Pt denies any recent travel or sick contacts. 07/11/18 17:01 Past History - Travel Traveled outside of the country in the last 30 days: No Close contact w/someone who was outside of country & ill: No - Past Medical History Allergies/Adverse Reactions: Allergies Allergy/AdvReac Type Severity Reaction Status Date / Time No Known Drug Allergies Allergy Verified 07/04/18 14:34 Home Medications: Ambulatory Orders Calcium Carbonate [Calcium] 1,000 mg PO DAILY 10/03/16 Memantine HCl [Namenda Xr] 21 mg PO DAILY 10/03/16 Multivit-Min/FA/Lycopen/Lutein [Centrum Silver Tablet] 1 each PO DAILY 10/03/16 [place]-3 Acid Ethyl Esters [Lovaza] 2 gm PO BID 10/03/16 Pantoprazole Sodium [Protonix -] 40 mg PO BID 10/03/16 Pramipexole Di-HCl [Mirapex] 0.25 mg PO HS 10/03/16 Tamsulosin HCl [Flomax -] 0.4 mg PO HS 10/03/16 Citalopram Hydrobromide [Celexa -] 40 mg PO DAILY tablet 03/22/18 Losartan Potassium [Cozaar -] 50 mg PO DAILY tablet 03/22/18 Nystatin/Triamcinolone Top Cr [Mycolog II -] 1 applic TP BID 14 Days applic MDD 2 03/22/18 Fluticasone Prop 0.05% Nasal [Flonase -] 1 - 2 spray NS BID 06/28/18 Rivastigmine [Exelon] 1 each TD DAILY 06/28/18 Warfarin Na [Coumadin -] 7.5 mg PO SUTUTHFRSA 06/28/18 Bisacodyl Suppository [Dulcolax Suppository -] 10 mg RC DAILY PRN 30 Days #30 supp.rect MDD 1 07/02/18 Atorvastatin Ca [Lipitor] 10 mg PO HS 07/05/18 Docusate Sodium [Colace] 200 mg PO PRN 07/05/18 Anemia: No Asthma: No Cancer: No Cardiac Disorders: Yes (ATRIAL FIBRILLATION) CVA: No COPD: No CHF: No Dementia: (SOME MEMORY LOSS) GI Disorders: Yes (GERD; HH; HX OF SIGMOID COLON CANCER) Disorders: (bph) HTN: Yes Hypercholesterolemia: Yes Seizures: No Thyroid Disease: No - Surgical History Abdominal Surgery: Yes (INGUINAL HERNIA) Cardiac Surgery: Yes (CARDIAC CATH.) - Suicide/Smoking/Psychosocial Hx Smoking History: Never smoked Have you smoked in the past 12 months: No Number of Cigarettes Smoked Daily: 5 If you are a former smoker, when did you quit?: 50 years ago Information on smoking cessation initiated: No Hx Alcohol Use: No Drug/Substance Use Hx: No Substance Use Type: None Hx Substance Use Treatment: No Review of Systems - Review of Systems Able to Perform ROS?: Yes (dementia) Is the patient limited Estonian proficient: Yes Constitutional: Yes: Weight Stable. No: Chills, Diaphoresis, Fever, Loss of Appetite, Weakness HEENTM: No: Blurred Vision, Double Vision, Throat Pain, Throat Swelling, Difficulty Swallowing Respiratory: No: Cough, Orthopnea, Shortness of Breath Cardiac (ROS): No: Chest Pain, Edema, Irregular Heart Rate, Lightheadedness, Palpitations, Syncope, Chest Tightness ABD/GI: Yes: Abdominal cramping. No: Abdominal Distended, Blood Streaked Bowels , Constipated, Diarrhea, Nausea, Poor Appetite, Poor Fluid Intake, Rectal Bleeding, Vomiting : No: Burning, Dysuria, Frequency, Hematuria, Incontinence, Pain, Urgency Musculoskeletal: No: Back Pain, Joint Pain Integumentary: No: Bruising, Rash Neurological: No: Headache, Numbness, Tremors, Weakness, Unsteady Gait, Ataxia, Dizziness Psychiatric: No: Sleep Pattern Change, Change in Appetite Endocrine: No: Increased Urine, Change in Weight Hematologic/Lymphatic: No: Anemia, Blood Clots, Easy Bleeding, Easy Bruising All Other Systems: Reviewed and Negative *Physical Exam - Vital Signs Last Vital Signs Temp Pulse Resp BP Pulse Ox 99.1 F 86 16 151/90 100 07/04/18 14:28 07/04/18 14:28 07/04/18 14:28 07/04/18 14:28 07/04/18 14:28 - Physical Exam General Appearance: Yes: Nourished, Appropriately Dressed. No: Apparent Distress (pt appears in mild discomfort, but NAD, vitals stable) HEENT: positive: EOMI, SANIYA, Normal ENT Inspection, Normal Voice, Symmetrical, Pharynx Normal, Hearing Grossly Normal. negative: Scleral Icterus (R), Scleral Icterus (L), Pharyngeal Erythema, Tonsillar Exudate, Tonsillar Erythema, Rhinorrhea Neck: positive: Trachea midline, Normal Thyroid, Supple. negative: Tender, Rigid, Lymphadenopathy (R), Lymphadenopathy (L) Respiratory/Chest: positive: Lungs Clear, Normal Breath Sounds. negative: Chest Tender, Respiratory Distress, Accessory Muscle Use, Crackles, Wheezing Cardiovascular: positive: Regular Rate, S1, S2. negative: Regular Rhythm (A-fib , rate controlled), Edema, JVD, Murmur Gastrointestinal/Abdominal: positive: Normal Bowel Sounds, Tender (LUQ tenderness to palpation), Flat, Soft. negative: Organomegaly, Pulsatile Mass, Distended, Guarding, Rebound Rectal Exam: positive: deferred Lymphatic: negative: Adenopathy, Tenderness Musculoskeletal: positive: Normal Inspection. negative: CVA Tenderness Extremity: positive: Normal Capillary Refill, Normal Inspection, Normal Range of Motion, Pelvis Stable. negative: Tender, Pedal Edema Integumentary: positive: Normal Color, Dry, Warm. 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 negative: Fully Oriented (oriented to person only , pt at baseline) Heart Score/ECG Review - History History: Slightly suspicious - Electrocardiogram EKG: Non specific repolarization disturbance (A-fib, rate controlled) - Age Age: >/= 65 - Risk Factors Risk Factors Heart Score: Yes Hx Hypercholesterolemia, Yes Hx Hypertension Based on the list above the patient has:: 1-2 risk factors - Troponin Troponin: </= normal limit - Score Heart Score - Total: 4 ED Treatment Course - LABORATORY CBC & Chemistry Diagram: 07/07/18 07:30 07/11/18 07:30 Medical Decision Making - Medical Decision Making Pt was seen at bedside, also will be seen by attending Dr. Corral. Pt presenting with complaints of LUQ abdominal pain since this AM. Pt states he awoke from sleep with LUQ pain, and attempted to relieve the pain with a BM, which did not help. Pt was recently admitted earlier in the week for urinary retention, which was relieved with Schultz catheter placement. Pt has PMH of Alzheimer's ds, ALS, A-fib (on coumadin), HTN (controlled with losartan 25 mg) and HLD. Pt has baseline dementia, but can answer questions appropriately, and his is also at bedside. He has been having 1 normal BM per day since his last admission. Pt denies any fevers/chills, headache, vision changes, chest pain, palpitations, SOB, nausea/vomiting, urinary symptoms, diarrhea/ constipation, or leg swelling. PE showed mild LUQ tenderness on exam, no rebound no guarding. No CVA tenderness. Considering ischemic colitis vs diverticulitis/colitis vs pancreatitis. Low suspicion for AAA as pt has stable vitals, no radiation of pain to back. Ordered work-up including CBC, CMP, troponin, ECG, lactic. Provided 1 g IV ofirmev and 1 L NS bolus for improvement of dehydration and pain. Will continue to reassess pt and monitor for symptomatic improvement. 07/04/18 15:04 CBC and CMP generally WNL for pt. Trop =.02 Lactic = 0.9 ECG showed active A-fib (pt on anti-coagulation), HR 89, no ST segment changes 07/04/18 17:06 INR 2.48 (therapeutic, w/n pt baseline) Will send pt for CT abd/pelvis with IV contrast only, to r/o colitis/ diverticulitis. Providing 2 mg IV morphine for pain, as 1 g ofirmev did not relieve pain. 07/04/18 17:07 Chest x-ray read: Single AP view the chest is been submitted. Since 06/28/2018, there are increased atelectatic changes at the right base with some atelectatic change and fluid at the right base. No free air is visualized. Correlation recommended. 07/04/18 17:28 Pt provided urine, UA sent. 07/04/18 17:30 UA: urobilinogen 4.0, trace ketones. 07/04/18 17:57 [id number] CT/ABDOMEN & PELVIS CT WITH CONTR Abdomen and pelvis CT (with contrast) Clinical information left upper quadrant pain; evaluate for colitis/ diverticulitis Multiplanar imaging was performed following the intravenous administration of nonionic contrast. As requested enteric contrast was not administered. No evidence of pneumoperitoneum, abscess, free intraperitoneal fluid or bowel obstruction. A small amount of air is seen within the urinary bladder lumen. The remainder of the abdomen and pelvis demonstrate no definite interval change in comparison to a prior CT study of 03/17/2018. A surgical anastomosis is seen within the sigmoid colon. Mild gallbladder overdistention is noted without associated wall edema or pericholecystic fluid which could be on the basis of biliary dyskinesia. No obvious radiopaque gallbladder calculus is noted. There is no definite biliary tract dilatation. The liver, spleen, pancreas, adrenal glands and kidneys demonstrate no discrete abnormality. No aortic aneurysm is seen. There is no obvious lymphadenopathy. No CT evidence of acute colitis, diverticulitis or appendicitis. Evaluation of the stomach is limited due to lack of distention an intraluminal contrast. No gross noncontrast small bowel pathology is seen. Mild to moderate prostate enlargement. The visualized osseous structures appear diffusely demineralized. Impression: A small amount of air is seen within the urinary bladder lumen - ? recent catheterization. This appearance may also be noted in the setting of fistula formation or gas- forming infection. Correlate clinically. The remainder of the abdomen/pelvis demonstrates no obvious interval change in comparison to a prior study of 03/17/2018. No CT evidence of acute diverticulitis or colitis. A surgical anastomosis is seen along the sigmoid colon. Mild gallbladder overdistention. The exam partially imaged lower chest. Note is again made of bibasilar consolidation, left more than right, which is probably on the basis of atelectasis. Superimposed infiltrate would be difficult to exclude on the basis of imaging only. Correlate clinically. Note is again made of a small left pleural effusion. 07/04/18 18:57 Pt IV infiltrated and did not receive morphine administration. Ordered 2 mg IV morphine, as pt states pain is not improved. Will reassess for pain. 07/04/18 19:17 Placed additional IV line, pt receiving morphine. Will reassess pain level. 07/04/18 19:44 Pt states "pain about the same," but is easily consoled by his . No focal tenderness on abdominal exam. Will try GI cocktail (30 mg PO maalox and viscous lidocaine) and have pt eat to see if pain improves. 07/04/18 20:29 Pt pain did not improve after GI cocktail. Paging Dr. Melchor team to see if they can admit pt at this time. Also spoke to hospitalist team who will admit if [facility] team is not accepting at this time. 07/04/18 22:03 Dr. Melchor will admit pt. Admission order placed. Pt vitals remained stable while in the department, and pt and pts agreeable with the plan for admission. 07/04/18 22:08 07/11/18 14:18 07/11/18 16:51 *DC/Admit/Observation/Transfer Diagnosis at time of Disposition: LUQ abdominal pain, Gallbladder dilatation, ALS (amyotrophic lateral sclerosis) Atrial fibrillation Qualifiers: Atrial fibrillation type: chronic Qualified Code(s): I48.2 - Chronic atrial fibrillation - Discharge Dispostion Condition at time of disposition: Stable Decision to Admit order: Yes - Referrals - Patient Instructions - Post Discharge Activity
--- NOTE | 2018-07-04 14:39 | PDOC ---
Attending Attestation - Resident Resident Name: Grace Dee - HPI HPI: 07/08/18 22:32 Pt presents to the ED complaining of L sided abdominal pain that started two days ago. Denies nausea, vomiting or fever. Able to take PO. - Physicial Exam PE: 07/08/18 22:34 agree with resident exam. Abdomen is soft and non distended with mild diffuse left sided tenderness without guarding or rebound 07/08/18 22:36 - Medical Decision Making 07/08/18 22:36 Pt presents to the eD complaining of abdominal pain of uncertain etiology. Will check labs and CT abdomen pelvis to evaluate for intraabdominal pathology.
[2018-07-04] MEDS ORDERED: SODIUM CHLORIDE 1,000 ML IV STA (15:01)
[2018-07-04] MEDS ORDERED: ACETAMINOPHEN 1000 MG/100 ML VIAL (NON FORMULARY) IVPB ONE ×2 (15:01→23:26)
[2018-07-04] MEDS ORDERED: ACETAMINOPHEN INJECTION 100 ML IVPB ONE ×2 (15:31→23:34)
[2018-07-04 15:55] LABS: BASO % 0.4 % (0-2.0); EOS % 0.9 % (0-4.5); HEMATOCRIT 44.2 % (35.4-49); HEMOGLOBIN 15.1 GM/dL (11.7-16.9); MCH 32.6 pg (25.7-33.7); MCHC 34.1 g/dl (32.0-35.9); MEAN CELL VOLUME 95.4 fl (80-96); MEAN PLT VOLUME 9.3 fl (7.5-11.1); MONO % 7.4 % (3.8-10.2); NEUT % 67.3 % (42.8-82.8); PLATELET COUNT 150 K/MM3 (134-434); RBC 4.64 M/mm3 (4.00-5.60); RDW 13.8 % (11.9-15.9); WHITE BLOOD COUNT 5.4 K/mm3 (4.0-10.0)
[2018-07-04 16:50] LABS: ALBUMIN 3.3 g/dl (3.4-5.0); ALK PHOS 52 U/L (45-117); ANION GAP 7 MMOL/L (8-16); BILIRUBIN,TOTAL 0.6 mg/dL (0.2-1); BLOOD UREA NITROGEN 11 mg/dL (7-18); CALCIUM 8.6 mg/dL (8.5-10.1); CHLORIDE 101 mmol/L (98-107); CO2 34 mmol/L (21-32); CREATININE 0.5 mg/dL (0.55-1.3); GLUCOSE,RANDOM 82 mg/dL (74-106); LIPASE 128 U/L (73-393); MAGNESIUM 1.9 mg/dL (1.8-2.4); SGOT/AST 28 U/L (15-37); SGPT/ALT 21 U/L (13-61); SODIUM 143 mmol/L (136-145); TOT PROT 6.3 g/dl (6.4-8.2)
[2018-07-04 16:53] LABS: POTASSIUM 4.1 mmol/L (3.5-5.1)
[2018-07-04 17:03] LABS: INR 2.48 (0.83-1.09); PROTHROMBIN TIME (PATIENT) 29.5 SEC (9.7-13.0)
[2018-07-04] MEDS ORDERED: morphine CARPU-JECT 4 MG/1 ML DISP.SYRIN IVPUSH ONE ×2 (17:05→19:17)
[2018-07-04 17:06] LABS: ACTIVATED PTT 37.8 SECONDS (25.2-36.5)
[2018-07-04 17:38] LABS: URINE APPEARANCE SLCLOUDY; URINE BILIRUBIN NEGATIVE (<2.0 mg/dL); URINE COLOR YELLOW; URINE GLUCOSE (UA) NEGATIVE (NEGATIVE); URINE KETONE TRACE (NEGATIVE); URINE LEUK ESTERASE NEGATIVE (NEGATIVE); URINE NITRITE NEGATIVE (NEGATIVE); URINE PROTEIN NEGATIVE (NEGATIVE); URINE UROBILINOGEN 4.0 E.U/dl mg/dL (0.2-1.0)
[2018-07-04] MEDS ORDERED: morphine SULFATE 4 MG/ML VIAL ONE ×2 (18:55→19:47)
[2018-07-04] MEDS ORDERED: LIDOCAINE VISCOUS 2% ORAL/TOP 20 ML UNIT-DOSE CUP MM ONE (20:32)
[2018-07-04] MEDS ORDERED: MAG HYDROX/AL HYDROX/SIMETH 30 ML UNIT-DOSE CUP PO ONE (20:37)
[2018-07-04] MEDS ORDERED: LIDOCAINE VISCOUS 2% ORAL/TOP 20 ML UNIT-DOSE CUP ONE (20:46)
[2018-07-04] MEDS ORDERED: MAG HYDROX/AL HYDROX/SIMETH 30 ML UNIT-DOSE CUP ONE (20:46)
[2018-07-05 07:07] LABS: HEMATOCRIT 47.5 % (35.4-49); HEMOGLOBIN 15.5 GM/dL (11.7-16.9); MCH 31.5 pg (25.7-33.7); MCHC 32.7 g/dl (32.0-35.9); MEAN CELL VOLUME 96.1 fl (80-96); PLATELET COUNT 138 K/MM3 (134-434); RBC 4.94 M/mm3 (4.00-5.60); RDW 13.9 % (11.9-15.9)
[2018-07-05 07:11] LABS: INR 2.97 (0.83-1.09); PROTHROMBIN TIME (PATIENT) 35.4 SEC (9.7-13.0)
[2018-07-05 07:28] LABS: ALBUMIN 3.3 g/dl (3.4-5.0); ALK PHOS 55 U/L (45-117); ANION GAP 7 MMOL/L (8-16); BILIRUBIN,TOTAL 0.6 mg/dL (0.2-1); BLOOD UREA NITROGEN 9 mg/dL (7-18); CALCIUM 8.6 mg/dL (8.5-10.1); CHLORIDE 101 mmol/L (98-107); CO2 33 mmol/L (21-32); CREATININE 0.5 mg/dL (0.55-1.3); GLUCOSE,RANDOM 82 mg/dL (74-106); SGOT/AST 23 U/L (15-37); SGPT/ALT 21 U/L (13-61); SODIUM 140 mmol/L (136-145); TOT PROT 6.3 g/dl (6.4-8.2)
--- NOTE | 2018-07-05 08:48 | EKG ---
Test Reason : Blood Pressure : / mmHG Vent. Rate : 091 BPM Atrial Rate : 102 BPM P-R Int : 000 ms QRS Dur : 098 ms QT Int : 388 ms P-R-T Axes : 000 -05 003 degrees QTc Int : 477 ms ATRIAL FIBRILLATION CANNOT RULE OUT ANTERIOR INFARCT , AGE UNDETERMINED NONSPECIFIC ST ABNORMALITY ABNORMAL ECG WHEN COMPARED WITH ECG OF 04-JUL-2018 15:32, NO SIGNIFICANT CHANGE WAS FOUND Confirmed by KENZIE TAVERAS MD ([id number]) on 07/05/2018 8:47:42 AM Referred By: Confirmed By:KENZIE TAVERAS MD
--- NOTE | 2018-07-05 08:51 | EKG ---
Test Reason : Blood Pressure : / mmHG Vent. Rate : 082 BPM Atrial Rate : 078 BPM P-R Int : 000 ms QRS Dur : 092 ms QT Int : 390 ms P-R-T Axes : 000 -14 000 degrees QTc Int : 455 ms POOR DATA QUALITY, INTERPRETATION MAY BE ADVERSELY AFFECTED ATRIAL FIBRILLATION NONSPECIFIC ST ABNORMALITY Confirmed by KENZIE TAVERAS MD ([id number]) on 07/05/2018 8:51:16 AM Referred By: Confirmed By:KENZIE TAVERAS MD
[2018-07-05] MEDS ORDERED: morphine CARPU-JECT 2 MG/1 ML DISP.SYRIN IVPUSH ONE (09:37)
[2018-07-05] MEDS ORDERED: morphine SULFATE 4 MG/ML VIAL ONE (09:39)
[2018-07-05] MEDS ORDERED: POTASSIUM CHLORIDE TABS 20 MEQ TABLET.ER (FP) PO ONE ×2 (11:15→11:27)
[2018-07-05] MEDS: FLUTICASONE PROP 0.05% 16 GM NASAL SPRAY NS SCH ×2 (11:26→21:46)
[2018-07-05] MEDS: LOSARTAN POTASSIUM 50 MG TABLET (FP) PO SCH (11:26)
[2018-07-05] MEDS: CITALOPRAM HYDROBROMIDE 20 MG TABLET (FP) PO SCH (11:26)
[2018-07-05] MEDS ORDERED: KCL 10 MEQ IVPB 10 MEQ/100 ML INFUS.BAG IVPB ONE ×2 (11:47→13:28)
[2018-07-05] MEDS: KCL 10 MEQ IVPB 10 MEQ/100 ML INFUS.BAG IVPB SCH ×2 (11:54→14:10)
[2018-07-05] MEDS ORDERED: MORPHINE SULFATE 2 MG/ML VIAL IVPUSH PRN (14:25)
[2018-07-05 15:24] VITALS: BMI 24.7
--- NOTE | 2018-07-05 15:50 | CON.GI ---
Consult Consult Specialty:: Gastroenterology Referred by:: Dr Melchor Reason for Consultation:: Abdominal pain - History of Present Illness Chief Complaint: Abdominal pain History of Present Illness: 77M with ALS and OMS has been writing with pain and c/o left sided abdominal discomfort according to his and safety admin assistant,Shirin. He was hospitalized on with urinary retention managed with a temporary Schultz catheter. He was having this pain at that time but it was not as severe as it became yesterday. She describes having to manually extract hard jagged stools despite giving him Colace. She has been chopping his foods and has been trying to feed him vegetables. I last saw him during a consultation in 03/06 when a PEG was being considered. At that time he carried a diagnosis of polymyositis diagnosed at [place] and was being maintained in IVIG and steroids. He was previously followed by Dr Tequila Garcia She last performed an EGD in 10/06 for Regalado's esophagus with GERD, a hiatal hernia and gastritis. She last performed a colonoscopy in 06/03 when a small transverse colon polyp was removed. 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 Esophageal dysmotility), Other (colon polyp excised 2004) Hepatobiliary: Yes: Other (fatty liver) Renal/: Yes: BPH Psych: Yes: Depression, Other (dementia) Musculoskeletal: Yes: Chronic low back pain (required epidural injections) Rheumatology: Yes: Other (myositis, s/p IVIG infusion) - Past Surgical History Past Surgical History: Yes: Colectomy (sigmoid colectomy for intramucosal cancer 2001), Colonoscopy, Hernia Repair (recurrent RIH repair), Upper Endoscopy - Alcohol/Substance Use Hx Alcohol Use: Yes (drank alcohol liberally in the past) History of Substance Use: reports: None - Smoking History Smoking history: Former smoker Have you smoked in the past 12 months: No Aproximately how many cigarettes per day: 5 If you are a former smoker, when did you quit?: 50 years ago - Social History Usual Living Arrangement: With Spouse ADL: Family Assistance Place of : Other ([place]) History of Recent Travel: No Home Medications - Allergies Allergies/Adverse Reactions: Allergies Allergy/AdvReac Type Severity Reaction Status Date / Time No Known Drug Allergies Allergy Verified 07/04/18 14:34 - Home Medications Home Medications: Ambulatory Orders Calcium Carbonate [Calcium] 1,000 mg PO DAILY 10/03/16 Memantine HCl [Namenda Xr] 21 mg PO DAILY 10/03/16 Multivit-Min/FA/Lycopen/Lutein [Centrum Silver Tablet] 1 each PO DAILY 10/03/16 [place]-3 Acid Ethyl Esters [Lovaza] 2 gm PO BID 10/03/16 Pantoprazole Sodium [Protonix -] 40 mg PO BID 10/03/16 Pramipexole Di-HCl [Mirapex] 0.25 mg PO HS 10/03/16 Tamsulosin HCl [Flomax -] 0.4 mg PO HS 10/03/16 Citalopram Hydrobromide [Celexa -] 40 mg PO DAILY tablet 03/22/18 Losartan Potassium [Cozaar -] 50 mg PO DAILY tablet 03/22/18 Nystatin/Triamcinolone Top Cr [Mycolog II -] 1 applic TP BID 14 Days applic MDD 2 03/22/18 Fluticasone Prop 0.05% Nasal [Flonase -] 1 - 2 spray NS BID 06/28/18 Rivastigmine [Exelon] 1 each TD DAILY 06/28/18 Warfarin Na [Coumadin -] 7.5 mg PO SUTUTHFRSA 06/28/18 Bisacodyl Suppository [Dulcolax Suppository -] 10 mg RC DAILY PRN 30 Days #30 supp.rect MDD 1 07/02/18 Atorvastatin Ca [Lipitor] 10 mg PO HS 07/05/18 Docusate Sodium [Colace] 200 mg PO PRN 07/05/18 Family Disease History - Family Disease History Family Disease History: Heart Disease: Father ( [place]), Other: Mother ( in a fire) Review of Systems Unable to obtain ROS, reason: OMS Physical Exam-GI Vital Signs: Vital Signs Temperature 98.0 F 07/05/18 14:00 Pulse Rate 87 07/05/18 14:00 Respiratory Rate 18 07/05/18 14:00 Blood Pressure 138/87 07/05/18 14:00 O2 Sat by Pulse Oximetry (%) 96 07/05/18 15:10 CBC,CMP WBC 6.0 K/mm3 (4.0-10.0) 07/05/18 06:30 RBC 4.94 M/mm3 (4.00-5.60) 07/05/18 06:30 Hgb 15.5 GM/dL (11.7-16.9) 07/05/18 06:30 Hct 47.5 % (35.4-49) 07/05/18 06:30 MCV 96.1 fl (80-96) H 07/05/18 06:30 MCH 31.5 pg (25.7-33.7) 07/05/18 06:30 MCHC 32.7 g/dl (32.0-35.9) 07/05/18 06:30 RDW 13.9 % (11.9-15.9) 07/05/18 06:30 Plt Count 138 K/MM3 (134-434) 07/05/18 06:30 MPV 9.0 fl (7.5-11.1) 07/05/18 06:30 Absolute Neuts (auto) 3.6 K/mm3 (1.5-8.0) 07/04/18 15:45 Neutrophils % 67.3 % (42.8-82.8) 07/04/18 15:45 Lymphocytes % 24.0 % (8-40) 07/04/18 15:45 Monocytes % 7.4 % (3.8-10.2) 07/04/18 15:45 Eosinophils % 0.9 % (0-4.5) 07/04/18 15:45 Basophils % 0.4 % (0-2.0) 07/04/18 15:45 Nucleated RBC % 0 % (0-0) 07/04/18 15:45 Sodium 140 mmol/L (136-145) 07/05/18 06:30 Potassium 3.0 mmol/L (3.5-5.1) L 07/05/18 06:30 Chloride 101 mmol/L (98-107) 07/05/18 06:30 Carbon Dioxide 33 mmol/L (21-32) H 07/05/18 06:30 Anion Gap 7 MMOL/L (8-16) L 07/05/18 06:30 BUN 9 mg/dL (7-18) 07/05/18 06:30 Creatinine 0.5 mg/dL (0.55-1.3) L 07/05/18 06:30 Creat Clearance w eGFR > 60 (>60) 07/05/18 06:30 Random Glucose 82 mg/dL (74-106) 07/05/18 06:30 Lactic Acid 0.9 mmol/L (0.4-2.0) 07/04/18 15:47 Calcium 8.6 mg/dL (8.5-10.1) 07/05/18 06:30 Magnesium 1.9 mg/dL (1.8-2.4) 07/04/18 15:05 Total Bilirubin 0.6 mg/dL (0.2-1) 07/05/18 06:30 AST 23 U/L (15-37) 07/05/18 06:30 ALT 21 U/L (13-61) 07/05/18 06:30 Alkaline Phosphatase 55 U/L (45-117) 07/05/18 06:30 Troponin I 0.02 ng/ml (0.00-0.05) 07/04/18 15:05 Total Protein 6.3 g/dl (6.4-8.2) L 07/05/18 06:30 Albumin 3.3 g/dl (3.4-5.0) L 07/05/18 06:30 Lipase 128 U/L (73-393) 07/04/18 15:05 Current Medications Generic Name Dose Route Start Last Admin Trade Name Freq PRN Reason Stop Dose Admin Citalopram Hydrobromide 40 mg 07/05/18 10:00 07/05/18 11:26 Celexa - PO 40 mg DAILY ENRICO Administration Fluticasone Propionate 1 spray 07/05/18 10:00 07/05/18 11:26 Flonase - NS 1 spr BID ENRICO Administration Sodium Chloride 1,000 mls @ 75 mls/hr 07/05/18 14:30 Normal Saline - IV ASDIR ENRICO Losartan Potassium 50 mg 07/05/18 10:00 07/05/18 11:26 Cozaar - PO 50 mg DAILY ENRICO Administration Morphine Sulfate 2 mg 07/05/18 14:25 Morphine Sulfate IVPUSH Q4H PRN PAIN LEVEL 4 - 6 Constitutional: Yes: Calm Eyes: Yes: Conjunctiva Clear HENT: Yes: Atraumatic Neck: Yes: Supple Cardiovascular: Yes: Regular Rate and Rhythm Respiratory: Yes: CTA Bilaterally Gastrointestinal Inspection: Yes: Scars (healed oblique LLQ and RIH inicsions) ...Auscultate: Yes: Hypoactive Bowel Sounds ...Palpate: Yes: Soft, Other (stool filled bowels loops LLQ) ...Rectal Exam: Yes: Deferred, Guaiac Negative (high hard fecal impaction, g neg , no masses) Edema: No Neurological: Yes: Confusion Labs: CBC, BMP 07/05/18 06:30 07/05/18 06:30 INR, PTT INR 2.97 (0.83-1.09) H 07/05/18 06:30 Imaging - Results Cat Scan: Report Reviewed (Ike Trejo Name: [facility] DEPARTMENT OF RADIOLOGY Phys: Grace Fabian RESIDENT : 1940 Age: 77 Sex: M [facility] Acct: [id number] Loc: [address] Exam Date: 07/04/18 Status: ELINA [place]aut[place] [id number] Unit Number: [id number] EXAM#: TYPE/EXAM: RESULT: [id number] CT/ABDOMEN PELVIS CT WITH CONTR Abdomen and pelvis CT (with contrast) Clinical information left upper quadrant pain; evaluate for colitis/diverticulitis Multiplanar imaging was performed following the intravenous administration of nonionic contrast. As requested enteric contrast was not administered. No evidence of pneumoperitoneum, abscess, free intraperitoneal fluid or bowel obstruction. A small amount of air is seen within the urinary bladder lumen. The remainder of the abdomen and pelvis demonstrate no definite interval change in comparison to a prior CT study of . A surgical anastomosis is seen within the sigmoid colon. Mild gallbladder overdistention is noted without associated wall edema or pericholecystic fluid which could be on the basis of biliary dyskinesia. No obvious radiopaque gallbladder calculus is noted. There is no definite biliary tract dilatation. The liver, spleen, pancreas, adrenal glands and kidneys demonstrate no discrete abnormality. No aortic aneurysm is seen. There is no obvious lymphadenopathy. No CT evidence of acute colitis, diverticulitis or appendicitis. Evaluation of the stomach is limited due to lack of distention an intraluminal contrast. No gross noncontrast small bowel pathology is seen. Mild to moderate prostate enlargement. The visualized osseous structures appear diffusely demineralized. Impression: A small amount of air is seen within the urinary bladder lumen - ? recent catheterization. This appearance may also be noted in the setting of fistula formation or gas-forming infection. Correlate clinically. The remainder of the abdomen/pelvis demonstrates no obvious interval change in comparison to a prior study of 03/17/2018. No CT evidence of acute diverticulitis or colitis. A surgical anastomosis is seen along the sigmoid colon. Mild gallbladder overdistention. The exam partially imaged lower chest. Note is again made of bibasilar consolidation, left more than right, which is probably on the basis of atelectasis. Superimposed infiltrate would be difficult to exclude on the basis of imaging only. Correlate clinically. Note is again made of a small left pleural effusion. Reported By: Richardson Cisneros MD 07/04/181852 GRACE FABIAN Technologist: Antonia Leslie Transcribed Date/Time: 07/04/181852 Cargoman: Richardson Cisneros Printed Date/Time: By: Signed by: Richardson Cisneros Signed on: 2017 18:55) Problem List - Problems (1) LUQ abdominal pain Assessment/Plan: I believe that Leo's pain is intestinal colic related to passage of hard fecaliths. I will order Miralax RTID to lavage his impaction. I have discussed a Miralax regimen at home with his Shirin. I do not believe that his GB is the source of pain Code(s): R10.12 - LEFT UPPER QUADRANT PAIN (2) Fecal impaction of colon Code(s): K56.41 - FECAL IMPACTION (3) ALS (amyotrophic lateral sclerosis) Code(s): G12.21 - AMYOTROPHIC LATERAL SCLEROSIS (4) Gallbladder dilatation Code(s): K82.8 - OTHER SPECIFIED DISEASES OF GALLBLADDER (5) Atrial fibrillation Code(s): I48.91 - UNSPECIFIED ATRIAL FIBRILLATION Qualifiers: Atrial fibrillation type: chronic Qualified Code(s): I48.2 - Chronic atrial fibrillation (6) Barretts esophagus Code(s): K22.70 - REGALADO'S ESOPHAGUS WITHOUT DYSPLASIA Qualifiers: Regalado's esophagus type: without dysplasia Qualified Code(s): K22.70 - Regalado's esophagus without dysplasia (7) Dementia Code(s): F03.90 - UNSPECIFIED DEMENTIA WITHOUT BEHAVIORAL DISTURBANCE (8) History of colon cancer Code(s): Z85.038 - PERSONAL HISTORY OF MALIGNANT NEOPLASM OF LARGE INTESTINE Assessment/Plan Pain due to fecal impaction Miralax TID Dr Mcgill will be covering this weekend
[2018-07-05] MEDS: SODIUM CHLORIDE 1,000 ML IV SCH (16:43)
--- NOTE | 2018-07-05 19:08 | HP ---
Admitting History and Physical - Primary Care Physician PCP: Bobby Melchor - Admission Chief Complaint: Left side abdominal pain History of Present Illness: Pt c/o left side abdominal pain for 1-2 days, getting worse. 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 Pt was seen in AM in ER. 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 Esophageal dysmotility), Other (colon polyp excised 2004) Hepatobiliary: Yes: Other (fatty liver) Renal/: Yes: BPH Psych: Yes: Depression, Other (dementia) Musculoskeletal: Yes: Chronic low back pain (required epidural injections) Rheumatology: Yes: Other (myositis, s/p IVIG infusion) - Past Surgical History Past Surgical History: Yes: Colectomy (sigmoid colectomy for intramucosal cancer 2001), Colonoscopy, Hernia Repair (recurrent RIH repair), Upper Endoscopy - Smoking History Smoking history: Former smoker Have you smoked in the past 12 months: No Aproximately how many cigarettes per day: 5 If you are a former smoker, when did you quit?: 50 years ago - Alcohol/Substance Use Hx Alcohol Use: Yes (drank alcohol liberally in the past) History of Substance Use: reports: None - Social History ADL: Family Assistance History of Recent Travel: No Home Medications - Allergies Allergies/Adverse Reactions: Allergies Allergy/AdvReac Type Severity Reaction Status Date / Time No Known Drug Allergies Allergy Verified 07/04/18 14:34 - Home Medications Home Medications: Ambulatory Orders Calcium Carbonate [Calcium] 1,000 mg PO DAILY 10/03/16 Memantine HCl [Namenda Xr] 21 mg PO DAILY 10/03/16 Multivit-Min/FA/Lycopen/Lutein [Centrum Silver Tablet] 1 each PO DAILY 10/03/16 [place]-3 Acid Ethyl Esters [Lovaza] 2 gm PO BID 10/03/16 Pantoprazole Sodium [Protonix -] 40 mg PO BID 10/03/16 Pramipexole Di-HCl [Mirapex] 0.25 mg PO HS 10/03/16 Tamsulosin HCl [Flomax -] 0.4 mg PO HS 10/03/16 Citalopram Hydrobromide [Celexa -] 40 mg PO DAILY tablet 03/22/18 Losartan Potassium [Cozaar -] 50 mg PO DAILY tablet 03/22/18 Nystatin/Triamcinolone Top Cr [Mycolog II -] 1 applic TP BID 14 Days applic MDD 2 03/22/18 Fluticasone Prop 0.05% Nasal [Flonase -] 1 - 2 spray NS BID 06/28/18 Rivastigmine [Exelon] 1 each TD DAILY 06/28/18 Warfarin Na [Coumadin -] 7.5 mg PO SUTUTHFRSA 06/28/18 Bisacodyl Suppository [Dulcolax Suppository -] 10 mg RC DAILY PRN 30 Days #30 supp.rect MDD 1 07/02/18 Atorvastatin Ca [Lipitor] 10 mg PO HS 07/05/18 Docusate Sodium [Colace] 200 mg PO PRN 07/05/18 Family Disease History - Family Disease History Family Disease History: Heart Disease: Father ( [place]), Other: Mother ( in a fire) Review of Systems - Review of Systems Constitutional: denies: Chills, Fever Eyes: denies: Blurred Vision, Double Vision HENT: denies: Difficult Swallowing, Ear Discharge, Ear Pain, Nasal Congestion, Throat Pain Neck: reports: Pain on Movement (old), Stiffness (old) Cardiovascular: denies: Chest Pain, Edema, Palpitations Respiratory: denies: Cough, SOB Gastrointestinal: denies: Constipation, Diarrhea, Nausea, Vomiting Genitourinary: denies: Burning, Discharge Musculoskeletal: denies: Back Pain, Extremity Pain Integumentary: denies: Bruising, Rash Neurological: denies: Change in LOC, Change in Speech, Confusion, Dizziness Endocrine: denies: Excessive Sweating, Intolerance to Cold Hematology/Lymphatic: denies: Easily Bruised, Excessive Bleeding Psychiatric: denies: Anxiety, Depression Physical Examination Vital Signs: Vital Signs Temperature 98.7 F 07/05/18 15:10 Pulse Rate 92 H 07/05/18 15:10 Respiratory Rate 20 07/05/18 15:10 Blood Pressure 160/103 H 07/05/18 15:10 O2 Sat by Pulse Oximetry (%) 96 07/05/18 15:10 Constitutional: Yes: No Distress, Calm Eyes: Yes: Conjunctiva Clear, EOM Intact HENT: No: Drooling, Epistaxis, Rhinnorhea Neck: Yes: Trachea Midline. No: Lymphadenopathy Cardiovascular: Yes: Regular Rate and Rhythm, S1, S2 Respiratory: Yes: Regular, CTA Bilaterally. No: Rales Gastrointestinal: Yes: Normal Bowel Sounds, Soft, Tenderness, Epigastrium, Other (no LLQ or lower abdominal pain with palpation). No: Ascites, Distention , Palpable Mass, Pulsatile Mass, Tenderness, Rebound ...Rectal Exam: Yes: Deferred Edema: No Neurological: Yes: Alert, Oriented, Other (symmetric motor and sensory examination of UE, LE, face) Psychiatric: Yes: Alert, Oriented Labs: CBC, BMP 07/05/18 06:30 07/05/18 06:30 Imaging - Results X-ray: Report Reviewed Cat Scan: Report Reviewed Problem List - Problems (1) Abdominal pain Code(s): R10.9 - UNSPECIFIED ABDOMINAL PAIN Qualifiers: Abdominal location: lower abdomen, unspecified Qualified Code(s): R10.30 - Lower abdominal pain, unspecified (2) Gallbladder dilatation Code(s): K82.8 - OTHER SPECIFIED DISEASES OF GALLBLADDER (3) Hypokalemia Code(s): E87.6 - HYPOKALEMIA (4) History of colon cancer Code(s): Z85.038 - PERSONAL HISTORY OF MALIGNANT NEOPLASM OF LARGE INTESTINE (5) ALS (amyotrophic lateral sclerosis) Code(s): G12.21 - AMYOTROPHIC LATERAL SCLEROSIS (6) Atrial fibrillation Code(s): I48.91 - UNSPECIFIED ATRIAL FIBRILLATION Qualifiers: Atrial fibrillation type: chronic Qualified Code(s): I48.2 - Chronic atrial fibrillation (7) Dementia Code(s): F03.90 - UNSPECIFIED DEMENTIA WITHOUT BEHAVIORAL DISTURBANCE (8) Hyperlipidemia Code(s): E78.5 - HYPERLIPIDEMIA, UNSPECIFIED Assessment/Plan Unclear etiology of abd pain (regular BM per his , with epigastric pain and no LLQ pain per my examination). PPI GI consult Replete K; f/u K and Magnesium level IVF AM labs. DVT proph
[2018-07-05] MEDS: WARFARIN NA 7.5 MG TABLET (FP) PO SCH (20:15)
[2018-07-05] MEDS ORDERED: PT OWN MED DRAWER 7, Y5N ONE (21:30)
[2018-07-05] MEDS: OMEGA-3 ACID ETHYL ESTERS (FATTY-ACIDS) 1 GM CAPSULE (FP) PO SCH (21:43)
[2018-07-05] MEDS: ATORVASTATIN CA 10 MG TABLET (FP) PO SCH (21:43)
[2018-07-05] MEDS: TAMSULOSIN HCL 0.4 MG CAP PO SCH (21:43)
[2018-07-05] MEDS: PRAMIPEXOLE DIHYDROCHLORIDE 0.25 MG TABLET PO SCH (21:43)
[2018-07-05] MEDS: PANTOPRAZOLE 40 MG TABLET (FP) PO SCH (21:43)
[2018-07-05] MEDS: POLYETHYLENE GLYCOL 3350 119 GM BTL PO SCH (21:45)
[2018-07-06] MEDS: POLYETHYLENE GLYCOL 3350 119 GM BTL PO SCH ×4 (06:12→21:18)
[2018-07-06] MEDS: SODIUM CHLORIDE 1,000 ML IV SCH ×3 (07:12→21:17)
[2018-07-06 07:51] LABS: BASO % 0.6 % (0-2.0); EOS % 3.4 % (0-4.5); HEMATOCRIT 46.6 % (35.4-49); HEMOGLOBIN 15.2 GM/dL (11.7-16.9); LYMPH % 29.4 % (8-40); MCH 31.2 pg (25.7-33.7); MCHC 32.7 g/dl (32.0-35.9); MEAN CELL VOLUME 95.5 fl (80-96); MEAN PLT VOLUME 9.1 fl (7.5-11.1); NEUT % 59.6 % (42.8-82.8); PLATELET COUNT 129 K/MM3 (134-434); RBC 4.88 M/mm3 (4.00-5.60); RDW 13.8 % (11.9-15.9); WHITE BLOOD COUNT 5.7 K/mm3 (4.0-10.0)
[2018-07-06 08:10] LABS: ANION GAP 6 MMOL/L (8-16); BLOOD UREA NITROGEN 8 mg/dL (7-18); CALCIUM 8.3 mg/dL (8.5-10.1); CHLORIDE 101 mmol/L (98-107); CO2 33 mmol/L (21-32); CREATININE 0.5 mg/dL (0.55-1.3); GLUCOSE,RANDOM 88 mg/dL (74-106); POTASSIUM 3.3 mmol/L (3.5-5.1); SODIUM 141 mmol/L (136-145)
[2018-07-06 08:43] LABS: MAGNESIUM 1.9 mg/dL (1.8-2.4)
[2018-07-06] MEDS ORDERED: PT OWN MED DRAWER 7, Y5N ONE ×2 (09:17→20:56)
[2018-07-06] MEDS: PANTOPRAZOLE 40 MG TABLET (FP) PO SCH ×2 (09:22→21:18)
[2018-07-06] MEDS: CITALOPRAM HYDROBROMIDE 20 MG TABLET (FP) PO SCH (09:22)
[2018-07-06] MEDS: RIVASTIGMINE TD SCH (09:22)
[2018-07-06] MEDS: PATIENT'S OWN MEDICATION (NON-FORMULARY) (Memantine Hcl [Namenda Xr] 0 MG) PO SCH (09:23)
[2018-07-06] MEDS: LOSARTAN POTASSIUM 50 MG TABLET (FP) PO SCH (09:23)
[2018-07-06] MEDS: DOCUSATE SODIUM 100 MG CAPSULE (FP) PO SCH (09:23)
[2018-07-06] MEDS: OMEGA-3 ACID ETHYL ESTERS (FATTY-ACIDS) 1 GM CAPSULE (FP) PO SCH ×2 (09:23→21:18)
[2018-07-06] MEDS: FLUTICASONE PROP 0.05% 16 GM NASAL SPRAY NS SCH ×2 (09:25→21:18)
--- NOTE | 2018-07-06 14:36 | PN ---
Progress Note, Physician History of Present Illness: Pt w/o abd pain now but had left side abd pain earlier; no nausea, no vomitting , no BM. His (at bedside) tells me that his pain is coming back after couples of hours of morphine; she also states that pt didn't drink much fluid so far. Pt w/on SOB, CP, palpitations - Current Medication List Current Medications: Active Medications Atorvastatin Calcium (Lipitor -) 10 mg PO HS [facility] Last Admin: 07/05/18 21:43 Dose: 10 mg Citalopram Hydrobromide (Celexa -) 40 mg PO DAILY [facility] Last Admin: 07/06/18 09:22 Dose: 40 mg Docusate Sodium (Colace -) 200 mg PO DAILY [facility] Last Admin: 07/06/18 09:23 Dose: 200 mg Fluticasone Propionate (Flonase -) 1 spray NS BID [facility] Last Admin: 07/06/18 09:25 Dose: 1 spr Sodium Chloride (Normal Saline -) 1,000 mls @ 75 mls/hr IV ASDIR [facility] Last Admin: 07/06/18 07:12 Dose: 75 mls/hr Losartan Potassium (Cozaar -) 50 mg PO DAILY [facility] Last Admin: 07/06/18 09:23 Dose: 50 mg Morphine Sulfate (Morphine Sulfate) 2 mg IVPUSH Q4H PRN PRN Reason: PAIN LEVEL 4 - 6 Non-Formulary Medication (Memantine Hcl [Namenda Xr]) 0 mg PO DAILY [facility] Last Admin: 07/06/18 09:23 Dose: 21 mg Patient's Own Medication ( Rivastigmine [Exelon ] 13.3mg Pach 1 each TD DAILY [facility] Last Admin: 07/06/18 09:22 Dose: 1 each [id number] Ethyl Esters (Lovaza -) 2 gm PO BID [facility] Last Admin: 07/06/18 09:23 Dose: 2 gm Pantoprazole Sodium (Protonix -) 40 mg PO BID [facility] Last Admin: 07/06/18 09:22 Dose: 40 mg Polyethylene Glycol (Miralax (For Daily Use) -) 17 gm PO TID [facility] Last Admin: 07/06/18 14:19 Dose: Not Given Potassium Chloride (K-Dur -) 40 meq PO ONCE ONE Stop: 07/06/18 15:01 Pramipexole Dihydrochloride (Mirapex -) 0.[address] [facility] Last Admin: 07/05/18 21:43 Dose: 0.25 mg Tamsulosin HCl (Flomax -) 0.[address] [facility] Last Admin: 07/05/18 21:43 Dose: 0.4 mg Warfarin Sodium (Coumadin -) 7.5 mg PO [id number] [facility] Last Admin: 07/05/18 20:15 Dose: 7.5 mg - Objective Vital Signs: Vital Signs Temperature 97.9 F 07/06/18 09:50 Pulse Rate 88 07/06/18 09:50 Respiratory Rate 21 H 07/06/18 09:50 Blood Pressure 162/89 07/06/18 09:50 O2 Sat by Pulse Oximetry (%) 94 L 07/05/18 21:00 Constitutional: Yes: No Distress, Calm Cardiovascular: Yes: Pulse Irregular, S1, S2 Respiratory: Yes: Regular, CTA Bilaterally. No: Rales Gastrointestinal: Yes: Normal Bowel Sounds, Soft. No: Tenderness Edema: No Neurological: Yes: Alert, Oriented Labs: CBC, BMP 07/06/18 06:30 07/06/18 06:30 INR, PTT INR 2.97 (0.83-1.09) H 07/05/18 06:30 Problem List - Problems (1) Abdominal pain Code(s): R10.9 - UNSPECIFIED ABDOMINAL PAIN Qualifiers: Abdominal location: lower abdomen, unspecified Qualified Code(s): R10.30 - Lower abdominal pain, unspecified (2) Gallbladder dilatation Code(s): K82.8 - OTHER SPECIFIED DISEASES OF GALLBLADDER (3) Hypokalemia Code(s): E87.6 - HYPOKALEMIA (4) History of colon cancer Code(s): Z85.038 - PERSONAL HISTORY OF MALIGNANT NEOPLASM OF LARGE INTESTINE (5) ALS (amyotrophic lateral sclerosis) Code(s): G12.21 - AMYOTROPHIC LATERAL SCLEROSIS (6) Atrial fibrillation Code(s): I48.91 - UNSPECIFIED ATRIAL FIBRILLATION Qualifiers: Atrial fibrillation type: chronic Qualified Code(s): I48.2 - Chronic atrial fibrillation (7) Dementia Code(s): F03.90 - UNSPECIFIED DEMENTIA WITHOUT BEHAVIORAL DISTURBANCE (8) Hyperlipidemia Code(s): E78.5 - HYPERLIPIDEMIA, UNSPECIFIED Assessment/Plan Pt on MIralax TID, so far no BM. PPI GI consult is appreciated Replete K; f/u K and Magnesium level IVF AM labs. DVT proph -pt on chronic AC; to f/u INR. Case was d/w his nurse.
[2018-07-06] MEDS ORDERED: BISACODYL 10 MG SUPP.RECT PR PRN (14:53)
[2018-07-06] MEDS ORDERED: POTASSIUM CHLORIDE TABS 20 MEQ TABLET.ER (FP) PO ONE (15:00)
[2018-07-06] MEDS ORDERED: LOSARTAN POTASSIUM 25 MG TABLET PO ONE (15:03)
[2018-07-06 16:37] LABS: PROTHROMBIN TIME (PATIENT) 51.7 SEC (9.7-13.0)
[2018-07-06 16:44] LABS: INR 4.32 (0.83-1.09)
[2018-07-06] MEDS: WARFARIN NA 7.5 MG TABLET (FP) PO SCH (17:02)
[2018-07-06] MEDS: TAMSULOSIN HCL 0.4 MG CAP PO SCH (21:17)
[2018-07-06] MEDS: PRAMIPEXOLE DIHYDROCHLORIDE 0.25 MG TABLET PO SCH (21:17)
[2018-07-06] MEDS: ATORVASTATIN CA 10 MG TABLET (FP) PO SCH (21:18)
[2018-07-07] MEDS: POLYETHYLENE GLYCOL 3350 119 GM BTL PO SCH ×3 (06:17→21:03)
[2018-07-07 08:05] LABS: HEMATOCRIT 46.1 % (35.4-49); MCH 31.4 pg (25.7-33.7); MCHC 32.5 g/dl (32.0-35.9); MEAN CELL VOLUME 96.5 fl (80-96); PLATELET COUNT 144 K/MM3 (134-434); RBC 4.78 M/mm3 (4.00-5.60); WHITE BLOOD COUNT 4.9 K/mm3 (4.0-10.0)
[2018-07-07 08:41] LABS: PROTHROMBIN TIME (PATIENT) 49.6 SEC (9.7-13.0)
[2018-07-07 08:48] LABS: ALBUMIN 3.1 g/dl (3.4-5.0); ALK PHOS 51 U/L (45-117); ANION GAP 8 MMOL/L (8-16); BILIRUBIN,TOTAL 0.5 mg/dL (0.2-1); BLOOD UREA NITROGEN 8 mg/dL (7-18); CALCIUM 8.5 mg/dL (8.5-10.1); CHLORIDE 104 mmol/L (98-107); CO2 32 mmol/L (21-32); CREATININE 0.5 mg/dL (0.55-1.3); GLUCOSE,RANDOM 106 mg/dL (74-106); POTASSIUM 3.4 mmol/L (3.5-5.1); SGOT/AST 26 U/L (15-37); SGPT/ALT 22 U/L (13-61); SODIUM 143 mmol/L (136-145); TOT PROT 6.1 g/dl (6.4-8.2)
[2018-07-07 09:00] LABS: INR 4.14 (0.83-1.09)
[2018-07-07] MEDS ORDERED: PT OWN MED DRAWER 7, Y5N ONE (09:45)
[2018-07-07] MEDS: PATIENT'S OWN MEDICATION (NON-FORMULARY) (Memantine Hcl [Namenda Xr] 0 MG) PO SCH (09:46)
[2018-07-07] MEDS: RIVASTIGMINE TD SCH (09:47)
[2018-07-07] MEDS: FLUTICASONE PROP 0.05% 16 GM NASAL SPRAY NS SCH ×2 (09:48→21:03)
[2018-07-07] MEDS: LOSARTAN POTASSIUM 50 MG TABLET (FP) PO SCH (09:49)
[2018-07-07] MEDS: CITALOPRAM HYDROBROMIDE 20 MG TABLET (FP) PO SCH (09:49)
[2018-07-07] MEDS: DOCUSATE SODIUM 100 MG CAPSULE (FP) PO SCH (09:49)
[2018-07-07] MEDS: OMEGA-3 ACID ETHYL ESTERS (FATTY-ACIDS) 1 GM CAPSULE (FP) PO SCH ×2 (09:49→21:03)
[2018-07-07] MEDS: PANTOPRAZOLE 40 MG TABLET (FP) PO SCH ×2 (09:49→21:03)
[2018-07-07] MEDS ORDERED: POTASSIUM CHLORIDE TABS 20 MEQ TABLET.ER (FP) PO ONE (12:02)
--- NOTE | 2018-07-07 12:02 | PN ---
Progress Note, Physician History of Present Illness: Pt w/o abd pain on and off; no nausea, no vomitting; pt had 3 BMs since last night. Pt's refused to allow Morphine per pain because she is affraid that pt would become constipated (I spoke with her yesterday, at bedside, about the role of Miralax and Morphine). Pt's nephew is at bedside. Pt w/on SOB, CP, palpitations, dizziness. - Current Medication List Current Medications: Active Medications Atorvastatin Calcium (Lipitor -) 10 mg PO HS [facility] Last Admin: 07/06/18 21:18 Dose: 10 mg Bisacodyl (Dulcolax Suppository -) 10 mg ME PRN PRN PRN Reason: CONSTIPATION Citalopram Hydrobromide (Celexa -) 40 mg PO DAILY [facility] Last Admin: 07/07/18 09:49 Dose: 40 mg Docusate Sodium (Colace -) 200 mg PO DAILY [facility] Last Admin: 07/07/18 09:49 Dose: 200 mg Fluticasone Propionate (Flonase -) 1 spray NS BID [facility] Last Admin: 07/07/18 09:48 Dose: 1 spr Sodium Chloride (Normal Saline -) 1,000 mls @ 50 mls/hr IV ASDIR [facility] Last Admin: 07/06/18 21:17 Dose: 50 mls/hr Losartan Potassium (Cozaar -) 50 mg PO DAILY [facility] Last Admin: 07/07/18 09:49 Dose: 50 mg Morphine Sulfate (Morphine Sulfate) 2 mg IVPUSH Q3H PRN PRN Reason: PAIN LEVEL 4 - 6 Non-Formulary Medication (Memantine Hcl [Namenda Xr]) 0 mg PO DAILY [facility] Last Admin: 07/07/18 09:46 Dose: 1 mg Patient's Own Medication ( Rivastigmine [Exelon ] 13.3mg Pach 1 each TD DAILY [facility] Last Admin: 07/07/18 09:47 Dose: 1 each Arfwm-9-Odoc Ethyl Esters (Lovaza -) 2 gm PO BID [facility] Last Admin: 07/07/18 09:49 Dose: 2 gm Pantoprazole Sodium (Protonix -) 40 mg PO BID [facility] Last Admin: 07/07/18 09:49 Dose: 40 mg Polyethylene Glycol (Miralax (For Daily Use) -) 17 gm PO TID [facility] Last Admin: 11/18/18 06:17 Dose: 17 gm Pramipexole Dihydrochloride (Mirapex -) 0.25 mg PO [facility] Last Admin: 07/06/18 21:17 Dose: 0.25 mg Tamsulosin HCl (Flomax -) 0.4 mg PO [facility] Last Admin: 07/06/18 21:17 Dose: 0.4 mg Warfarin Sodium (Coumadin -) 7.5 mg PO [email or web address] [facility] Last Admin: 07/06/18 17:02 Dose: Not Given - Objective Vital Signs: Vital Signs Temperature 98.3 F 07/06/18 18:00 Pulse Rate 74 07/06/18 18:00 Respiratory Rate 20 07/06/18 18:00 Blood Pressure 118/74 07/06/18 18:00 O2 Sat by Pulse Oximetry (%) 95 07/06/18 22:00 Constitutional: Yes: No Distress, Calm Cardiovascular: Yes: Regular Rate and Rhythm, S1, S2 Respiratory: Yes: Regular, CTA Bilaterally. No: Rales Gastrointestinal: Yes: Normal Bowel Sounds, Soft, Tenderness (in lower abdomen) . No: Tenderness, Rebound Edema: No Neurological: Yes: Alert, Oriented (to persones) Labs: CBC, BMP 07/07/18 07:30 07/07/18 07:30 INR, PTT INR 4.14 (0.83-1.09) H* 07/07/18 07:30 Problem List - Problems (1) Abdominal pain Code(s): R10.9 - UNSPECIFIED ABDOMINAL PAIN Qualifiers: Abdominal location: lower abdomen, unspecified Qualified Code(s): R10.30 - Lower abdominal pain, unspecified (2) Gallbladder dilatation Code(s): K82.8 - OTHER SPECIFIED DISEASES OF GALLBLADDER (3) Hypokalemia Code(s): E87.6 - HYPOKALEMIA (4) History of colon cancer Code(s): Z85.038 - PERSONAL HISTORY OF MALIGNANT NEOPLASM OF LARGE INTESTINE (5) ALS (amyotrophic lateral sclerosis) Code(s): G12.21 - AMYOTROPHIC LATERAL SCLEROSIS (6) Atrial fibrillation Code(s): I48.91 - UNSPECIFIED ATRIAL FIBRILLATION Qualifiers: Atrial fibrillation type: chronic Qualified Code(s): I48.2 - Chronic atrial fibrillation (7) Dementia Code(s): F03.90 - UNSPECIFIED DEMENTIA WITHOUT BEHAVIORAL DISTURBANCE (8) Hyperlipidemia Code(s): E78.5 - HYPERLIPIDEMIA, UNSPECIFIED (9) Fecal impaction of colon Code(s): K56.41 - FECAL IMPACTION (10) Supratherapeutic INR Code(s): R79.1 - ABNORMAL COAGULATION PROFILE Assessment/Plan Pt on MIralax TID. Tylenol ( for mild pain) or Morphine ( for moderate to severe pain) for pain; it was reviewed with pt's and nephew; all questions were answered. PPI GI consult is appreciated Mariano murphy. To f/u K and Magnesium level AM labs. DVT proph -pt on chronic AC. Supratherapeutic INR, Coumadin is on hold; to f/u INR. Case was d/w his nurse.
[2018-07-07] MEDS: MORPHINE SULFATE 2 MG/ML VIAL IVPUSH PRN ×2 (14:21→21:02)
[2018-07-07] MEDS: WARFARIN NA 7.5 MG TABLET (FP) PO SCH (17:11)
[2018-07-07] MEDS: SODIUM CHLORIDE 1,000 ML IV SCH ×2 (20:00→20:29)
[2018-07-07] MEDS: PRAMIPEXOLE DIHYDROCHLORIDE 0.25 MG TABLET PO SCH (21:03)
[2018-07-07] MEDS: TAMSULOSIN HCL 0.4 MG CAP PO SCH (21:03)
[2018-07-07] MEDS: ATORVASTATIN CA 10 MG TABLET (FP) PO SCH (21:03)
[2018-07-08] MEDS: POLYETHYLENE GLYCOL 3350 119 GM BTL PO SCH ×2 (05:39→14:33)
[2018-07-08 07:53] LABS: INR 2.51 (0.83-1.09); PROTHROMBIN TIME (PATIENT) 29.9 SEC (9.7-13.0)
[2018-07-08 09:00] LABS: ANION GAP 8 MMOL/L (8-16); BLOOD UREA NITROGEN 8 mg/dL (7-18); CALCIUM 8.6 mg/dL (8.5-10.1); CHLORIDE 104 mmol/L (98-107); CO2 30 mmol/L (21-32); CREATININE 0.5 mg/dL (0.55-1.3); GLUCOSE,RANDOM 81 mg/dL (74-106); MAGNESIUM 1.9 mg/dL (1.8-2.4); POTASSIUM 3.5 mmol/L (3.5-5.1); SODIUM 142 mmol/L (136-145)
[2018-07-08] MEDS: MORPHINE SULFATE 2 MG/ML VIAL IVPUSH PRN (10:37)
[2018-07-08] MEDS: PATIENT'S OWN MEDICATION (NON-FORMULARY) (Memantine Hcl [Namenda Xr] 0 MG) PO SCH (10:40)
[2018-07-08] MEDS: OMEGA-3 ACID ETHYL ESTERS (FATTY-ACIDS) 1 GM CAPSULE (FP) PO SCH ×2 (10:46→21:24)
[2018-07-08] MEDS: PANTOPRAZOLE 40 MG TABLET (FP) PO SCH ×2 (10:46→21:24)
[2018-07-08] MEDS: DOCUSATE SODIUM 100 MG CAPSULE (FP) PO SCH (10:46)
[2018-07-08] MEDS: CITALOPRAM HYDROBROMIDE 20 MG TABLET (FP) PO SCH (10:46)
[2018-07-08] MEDS: LOSARTAN POTASSIUM 50 MG TABLET (FP) PO SCH (10:46)
[2018-07-08] MEDS: RIVASTIGMINE TD SCH (10:46)
[2018-07-08] MEDS: FLUTICASONE PROP 0.05% 16 GM NASAL SPRAY NS SCH ×2 (10:47→21:25)
--- NOTE | 2018-07-08 14:35 | PN ---
GI Progress Note Subjective: GI Peter : Having loose BMs with Miralax but continues to have intermittent abdominal pain. NO pain at present - Objective Vital Signs: Vital Signs Temperature 97.2 F L 07/08/18 14:09 Pulse Rate 87 07/08/18 14:09 Respiratory Rate 20 07/08/18 10:00 Blood Pressure 106/59 L 07/08/18 14:09 O2 Sat by Pulse Oximetry (%) 95 07/06/18 22:00 Laboratory Tests 07/06/18 07/07/18 07/07/18 06:30 07:30 07:30 Hgb 15.0 BUN Creatinine C-Reactive Protein 0.4 H Albumin 3.1 L 07/08/18 06:30 Hgb BUN 8 Creatinine 0.5 L C-Reactive Protein Albumin Constitutional: Calm Eyes: Yes: Conjunctiva Clear ...Auscultate: Yes: Hypoactive Bowel Sounds ...Palpate: Yes: Soft, Other (nontender) Labs: CBC, BMP 07/07/18 07:30 07/08/18 06:30 INR, PTT INR 2.51 (0.83-1.09) H 07/08/18 06:30 Assessment/Plan Fecal impaction resolved but pain persists. No clear cut etiology. CRP is normal Decrease Miralax to once a day Problem List - Problems (1) LUQ abdominal pain Code(s): R10.12 - LEFT UPPER QUADRANT PAIN (2) Fecal impaction of colon Code(s): K56.41 - FECAL IMPACTION (3) ALS (amyotrophic lateral sclerosis) Code(s): G12.21 - AMYOTROPHIC LATERAL SCLEROSIS (4) Gallbladder dilatation Code(s): K82.8 - OTHER SPECIFIED DISEASES OF GALLBLADDER (5) Atrial fibrillation Code(s): I48.91 - UNSPECIFIED ATRIAL FIBRILLATION Qualifiers: Atrial fibrillation type: chronic Qualified Code(s): I48.2 - Chronic atrial fibrillation (6) Barretts esophagus Code(s): K22.70 - REGALADO'S ESOPHAGUS WITHOUT DYSPLASIA Qualifiers: Regalado's esophagus type: without dysplasia Qualified Code(s): K22.70 - Regalado's esophagus without dysplasia (7) Dementia Code(s): F03.90 - UNSPECIFIED DEMENTIA WITHOUT BEHAVIORAL DISTURBANCE (8) History of colon cancer Code(s): Z85.038 - PERSONAL HISTORY OF MALIGNANT NEOPLASM OF LARGE INTESTINE
[2018-07-08] MEDS: SODIUM CHLORIDE 1,000 ML IV SCH (15:16)
--- NOTE | 2018-07-08 18:37 | PN ---
Progress Note, Physician History of Present Illness: Pt w/o abd pain on and off; no nausea, no vomiting. Pt w/on SOB, CP, palpitations, dizziness. - Current Medication List Current Medications: Active Medications Atorvastatin Calcium (Lipitor -) 10 mg PO HS [facility] Last Admin: 07/07/18 21:03 Dose: 10 mg Bisacodyl (Dulcolax Suppository -) 10 mg ID PRN PRN PRN Reason: CONSTIPATION Citalopram Hydrobromide (Celexa -) 40 mg PO DAILY [facility] Last Admin: 07/08/18 10:46 Dose: 40 mg Docusate Sodium (Colace -) 200 mg PO DAILY [facility] Last Admin: 07/08/18 10:46 Dose: 200 mg Fluticasone Propionate (Flonase -) 1 spray NS BID [facility] Last Admin: 07/08/18 10:47 Dose: 1 spr Sodium Chloride (Normal Saline -) 1,000 mls @ 50 mls/hr IV ASDIR [facility] Last Admin: 07/08/18 15:16 Dose: 50 mls/hr Losartan Potassium (Cozaar -) 50 mg PO DAILY [facility] Last Admin: 07/08/18 10:46 Dose: 50 mg Morphine Sulfate (Morphine Sulfate) 2 mg IVPUSH Q3H PRN PRN Reason: PAIN LEVEL 4 - 6 Last Admin: 07/08/18 10:37 Dose: 2 mg Non-Formulary Medication (Memantine Hcl [Namenda Xr]) 0 mg PO DAILY [facility] Last Admin: 07/08/18 10:40 Dose: 1 mg Patient's Own Medication ( Rivastigmine [Exelon ] 13.3mg Pach 1 each TD DAILY [facility] Last Admin: 07/08/18 10:46 Dose: 1 each Sdsrh-3-Mfmg Ethyl Esters (Lovaza -) 2 gm PO BID [facility] Last Admin: 07/08/18 10:46 Dose: 2 gm Pantoprazole Sodium (Protonix -) 40 mg PO BID [facility] Last Admin: 07/08/18 10:46 Dose: 40 mg Polyethylene Glycol (Miralax (For Daily Use) -) 17 gm PO DAILY [facility] Pramipexole Dihydrochloride (Mirapex -) 0.25 mg PO HS [facility] Last Admin: 07/07/18 21:03 Dose: 0.25 mg Tamsulosin HCl (Flomax -) 0.4 mg PO HS [facility] Last Admin: 07/07/18 21:03 Dose: 0.4 mg Warfarin Sodium (Coumadin -) 7.5 mg PO [email or web address] [facility] Last Admin: 07/07/18 17:11 Dose: Not Given - Objective Vital Signs: Vital Signs Temperature 97.2 F L 07/08/18 14:09 Pulse Rate 87 07/08/18 14:09 Respiratory Rate 20 07/08/18 10:00 Blood Pressure 106/59 L 07/08/18 14:09 O2 Sat by Pulse Oximetry (%) 95 07/06/18 22:00 Constitutional: Yes: No Distress, Calm Cardiovascular: Yes: Regular Rate and Rhythm, S1, S2 Respiratory: Yes: Regular, CTA Bilaterally. No: Rales Gastrointestinal: Yes: Normal Bowel Sounds, Soft, Tenderness (mild in left) Edema: No Neurological: Yes: Alert, Oriented Labs: CBC, BMP 07/07/18 07:30 07/08/18 06:30 INR, PTT INR 2.51 (0.83-1.09) H 07/08/18 06:30 Problem List - Problems (1) Abdominal pain Code(s): R10.9 - UNSPECIFIED ABDOMINAL PAIN Qualifiers: Abdominal location: lower abdomen, unspecified Qualified Code(s): R10.30 - Lower abdominal pain, unspecified (2) Gallbladder dilatation Code(s): K82.8 - OTHER SPECIFIED DISEASES OF GALLBLADDER (3) Hypokalemia Code(s): E87.6 - HYPOKALEMIA (4) History of colon cancer Code(s): Z85.038 - PERSONAL HISTORY OF MALIGNANT NEOPLASM OF LARGE INTESTINE (5) ALS (amyotrophic lateral sclerosis) Code(s): G12.21 - AMYOTROPHIC LATERAL SCLEROSIS (6) Atrial fibrillation Code(s): I48.91 - UNSPECIFIED ATRIAL FIBRILLATION Qualifiers: Atrial fibrillation type: chronic Qualified Code(s): I48.2 - Chronic atrial fibrillation (7) Dementia Code(s): F03.90 - UNSPECIFIED DEMENTIA WITHOUT BEHAVIORAL DISTURBANCE (8) Hyperlipidemia Code(s): E78.5 - HYPERLIPIDEMIA, UNSPECIFIED (9) Fecal impaction of colon Code(s): K56.41 - FECAL IMPACTION (10) Supratherapeutic INR Code(s): R79.1 - ABNORMAL COAGULATION PROFILE Assessment/Plan Pt on Miralax QD- changed today Tylenol ( for mild pain) or Morphine ( for moderate to severe pain) for pain; it was reviewed with pt's ; all questions were answered. PPI GI consult and f/u is appreciated To f/u K and Magnesium level AM labs. DVT proph -pt on chronic AC. Case was d/w his nurse.
[2018-07-08] MEDS ORDERED: PT OWN MED DRAWER 7, Y5N ONE (21:03)
[2018-07-08] MEDS: ATORVASTATIN CA 10 MG TABLET (FP) PO SCH (21:25)
[2018-07-08] MEDS: TAMSULOSIN HCL 0.4 MG CAP PO SCH (21:25)
[2018-07-08] MEDS: PRAMIPEXOLE DIHYDROCHLORIDE 0.25 MG TABLET PO SCH (21:30)
[2018-07-09] MEDS: MORPHINE SULFATE 2 MG/ML VIAL IVPUSH PRN ×2 (07:27→16:44)
[2018-07-09 08:04] LABS: ANION GAP 10 MMOL/L (8-16); BLOOD UREA NITROGEN 9 mg/dL (7-18); CALCIUM 8.3 mg/dL (8.5-10.1); CHLORIDE 101 mmol/L (98-107); CO2 31 mmol/L (21-32); CREATININE 0.6 mg/dL (0.55-1.3); GLUCOSE,RANDOM 77 mg/dL (74-106); MAGNESIUM 1.8 mg/dL (1.8-2.4); POTASSIUM 3.5 mmol/L (3.5-5.1); SODIUM 142 mmol/L (136-145)
[2018-07-09] MEDS: PANTOPRAZOLE 40 MG TABLET (FP) PO SCH ×2 (10:25→21:08)
[2018-07-09] MEDS: RIVASTIGMINE TD SCH (10:25)
[2018-07-09] MEDS: FLUTICASONE PROP 0.05% 16 GM NASAL SPRAY NS SCH ×2 (10:25→21:08)
[2018-07-09] MEDS: OMEGA-3 ACID ETHYL ESTERS (FATTY-ACIDS) 1 GM CAPSULE (FP) PO SCH ×2 (10:25→21:08)
[2018-07-09] MEDS: LOSARTAN POTASSIUM 50 MG TABLET (FP) PO SCH (10:25)
[2018-07-09] MEDS: CITALOPRAM HYDROBROMIDE 20 MG TABLET (FP) PO SCH (10:25)
[2018-07-09] MEDS: DOCUSATE SODIUM 100 MG CAPSULE (FP) PO SCH (10:25)
[2018-07-09] MEDS: PATIENT'S OWN MEDICATION (NON-FORMULARY) (Memantine Hcl [Namenda Xr] 0 MG) PO SCH (10:26)
[2018-07-09] MEDS: POLYETHYLENE GLYCOL 3350 119 GM BTL PO SCH (10:26)
[2018-07-09] MEDS: SODIUM CHLORIDE 1,000 ML IV SCH (11:51)
[2018-07-09] MEDS ORDERED: POTASSIUM CHLORIDE TABS 20 MEQ TABLET.ER (FP) PO ONE (13:10)
[2018-07-09 14:09] LABS: INR 1.5 (0.83-1.09); PROTHROMBIN TIME (PATIENT) 17.8 SEC (9.7-13.0)
[2018-07-09] MEDS: MAGNESIUM OXIDE 400 MG TABLET (FP) PO SCH (14:11)
[2018-07-09] MEDS ORDERED: PT OWN MED DRAWER 7, Y5N ONE ×2 (15:36→20:43)
[2018-07-09] MEDS: WARFARIN NA 7.5 MG TABLET (FP) PO SCH (17:19)
[2018-07-09] MEDS ORDERED: WARFARIN NA 2.5 MG TABLET (FP) PO ONE (18:07)
--- NOTE | 2018-07-09 18:11 | PN ---
Progress Note, Physician History of Present Illness: Pt w/o abd pain on and off, better today; no nausea, no vomiting. Pt w/on SOB, CP, palpitations, dizziness. Per his pt is eating better, had two BMs today. - Current Medication List Current Medications: Active Medications Atorvastatin Calcium (Lipitor -) 10 mg PO HS [facility] Last Admin: 07/08/18 21:25 Dose: 10 mg Bisacodyl (Dulcolax Suppository -) 10 mg [place] PRN PRN PRN Reason: CONSTIPATION Citalopram Hydrobromide (Celexa -) 40 mg PO DAILY [facility] Last Admin: 07/09/18 10:25 Dose: 40 mg Docusate Sodium (Colace -) 200 mg PO DAILY [facility] Last Admin: 07/09/18 10:25 Dose: 200 mg Fluticasone Propionate (Flonase -) 1 spray NS BID [facility] Last Admin: 07/09/18 10:25 Dose: 1 spr Sodium Chloride (Normal Saline -) 1,000 mls @ 50 mls/hr IV ASDIR [facility] Last Admin: 07/09/18 11:51 Dose: 50 mls/hr Losartan Potassium (Cozaar -) 50 mg PO DAILY [facility] Last Admin: 07/09/18 10:25 Dose: 50 mg Magnesium Oxide (Mag-Ox -) 400 mg PO DAILY [facility] Last Admin: 07/09/18 14:11 Dose: 400 mg Morphine Sulfate (Morphine Sulfate) 2 mg IVPUSH Q3H PRN PRN Reason: PAIN LEVEL 4 - 6 Last Admin: 07/09/18 16:44 Dose: 2 mg Non-Formulary Medication (Memantine Hcl [Namenda Xr]) 0 mg PO DAILY [facility] Last Admin: 07/09/18 10:26 Dose: 1 mg Patient's Own Medication ( Rivastigmine [Exelon ] 13.3mg Pach 1 each TD DAILY [facility] Last Admin: 07/09/18 10:25 Dose: 1 each Gfzwj-5-Hqsj Ethyl Esters (Lovaza -) 2 gm PO BID [facility] Last Admin: 07/09/18 10:25 Dose: 2 gm Pantoprazole Sodium (Protonix -) 40 mg PO BID [facility] Last Admin: 07/09/18 10:25 Dose: 40 mg Polyethylene Glycol (Miralax (For Daily Use) -) 17 gm PO DAILY [facility] Last Admin: 07/09/18 10:26 Dose: 17 gm Pramipexole Dihydrochloride (Mirapex -) 0.25 mg PO [facility] Last Admin: 07/08/18 21:30 Dose: 0.25 mg Tamsulosin HCl (Flomax -) 0.4 mg PO HS [facility] Last Admin: 07/08/18 21:25 Dose: 0.4 mg Warfarin Sodium (Coumadin -) 7.5 mg PO [email or web address] [facility] Last Admin: 07/09/18 17:19 Dose: 7.5 mg Warfarin Sodium (Coumadin -) 2.5 mg PO NOW ONE Stop: 07/09/18 18:08 - Objective Vital Signs: Vital Signs Temperature 98.3 F 07/09/18 14:20 Pulse Rate 85 07/09/18 14:20 Respiratory Rate 20 07/09/18 10:00 Blood Pressure 143/78 07/09/18 14:20 O2 Sat by Pulse Oximetry (%) 95 07/06/18 22:00 Constitutional: Yes: No Distress, Calm Cardiovascular: Yes: Regular Rate and Rhythm, S1, S2 Respiratory: Yes: Regular, CTA Bilaterally. No: Rales Gastrointestinal: Yes: Normal Bowel Sounds, Soft. No: Tenderness Edema: No Neurological: Yes: Alert, Oriented Labs: CBC, BMP 07/07/18 07:30 07/09/18 06:30 INR, PTT INR 1.50 (0.83-1.09) H 07/09/18 13:20 Problem List - Problems (1) Abdominal pain Code(s): R10.9 - UNSPECIFIED ABDOMINAL PAIN Qualifiers: Abdominal location: lower abdomen, unspecified Qualified Code(s): R10.30 - Lower abdominal pain, unspecified (2) Gallbladder dilatation Code(s): K82.8 - OTHER SPECIFIED DISEASES OF GALLBLADDER (3) Hypokalemia Code(s): E87.6 - HYPOKALEMIA (4) History of colon cancer Code(s): Z85.038 - PERSONAL HISTORY OF MALIGNANT NEOPLASM OF LARGE INTESTINE (5) ALS (amyotrophic lateral sclerosis) Code(s): G12.21 - AMYOTROPHIC LATERAL SCLEROSIS (6) Atrial fibrillation Code(s): I48.91 - UNSPECIFIED ATRIAL FIBRILLATION Qualifiers: Atrial fibrillation type: chronic Qualified Code(s): I48.2 - Chronic atrial fibrillation (7) Dementia Code(s): F03.90 - UNSPECIFIED DEMENTIA WITHOUT BEHAVIORAL DISTURBANCE (8) Hyperlipidemia Code(s): E78.5 - HYPERLIPIDEMIA, UNSPECIFIED (9) Fecal impaction of colon Code(s): K56.41 - FECAL IMPACTION (10) Supratherapeutic INR Code(s): R79.1 - ABNORMAL COAGULATION PROFILE (11) Subtherapeutic international normalized ratio (INR) Assessment/Plan: extra Coumadin tonight; INR in AM. Code(s): R79.1 - ABNORMAL COAGULATION PROFILE Assessment/Plan Pt on Miralax QD Tylenol ( for mild pain) or Morphine ( for moderate to severe pain) for pain; it was reviewed with pt's ; all questions were answered. PPI GI consult and f/u is appreciated To f/u K and Magnesium level; K-Dur and Mag oxide was added AM labs. DVT proph -pt on chronic AC. Case was d/w his nurse.
[2018-07-09] MEDS: PRAMIPEXOLE DIHYDROCHLORIDE 0.25 MG TABLET PO SCH (21:08)
[2018-07-09] MEDS: TAMSULOSIN HCL 0.4 MG CAP PO SCH (21:08)
[2018-07-09] MEDS: ATORVASTATIN CA 10 MG TABLET (FP) PO SCH (21:08)
--- NOTE | 2018-07-09 22:48 | PN ---
GI Progress Note Subjective: Gi NOte: Lenny is asleep and I didn't wake him. Shirin reports that he required morphine for pain twice today. He did have a BM and did eat for her - Objective Vital Signs: Vital Signs Temperature 98.1 F 07/09/18 18:00 Pulse Rate 86 07/09/18 18:00 Respiratory Rate 18 07/09/18 18:00 Blood Pressure 157/83 07/09/18 18:00 O2 Sat by Pulse Oximetry (%) 95 07/06/18 22:00 Labs: CBC, BMP 07/07/18 07:30 07/09/18 06:30 INR, PTT INR 1.50 (0.83-1.09) H 07/09/18 13:20 Assessment/Plan Fecal impaction resolved. Continue Miralax Source of pain unclear. Would consider pain consultation or perhaps a mood elevator Problem List - Problems (1) LUQ abdominal pain Code(s): R10.12 - LEFT UPPER QUADRANT PAIN (2) Fecal impaction of colon Code(s): K56.41 - FECAL IMPACTION (3) ALS (amyotrophic lateral sclerosis) Code(s): G12.21 - AMYOTROPHIC LATERAL SCLEROSIS (4) Gallbladder dilatation Code(s): K82.8 - OTHER SPECIFIED DISEASES OF GALLBLADDER (5) Atrial fibrillation Code(s): I48.91 - UNSPECIFIED ATRIAL FIBRILLATION Qualifiers: Atrial fibrillation type: chronic Qualified Code(s): I48.2 - Chronic atrial fibrillation (6) Barretts esophagus Code(s): K22.70 - REGALADO'S ESOPHAGUS WITHOUT DYSPLASIA Qualifiers: Regalado's esophagus type: without dysplasia Qualified Code(s): K22.70 - Regalado's esophagus without dysplasia (7) Dementia Code(s): F03.90 - UNSPECIFIED DEMENTIA WITHOUT BEHAVIORAL DISTURBANCE (8) History of colon cancer Code(s): Z85.038 - PERSONAL HISTORY OF MALIGNANT NEOPLASM OF LARGE INTESTINE
[2018-07-10] MEDS: SODIUM CHLORIDE 1,000 ML IV SCH (06:42)
[2018-07-10 09:22] LABS: ANION GAP 8 MMOL/L (8-16); BLOOD UREA NITROGEN 8 mg/dL (7-18); CALCIUM 8.4 mg/dL (8.5-10.1); CHLORIDE 101 mmol/L (98-107); CO2 31 mmol/L (21-32); CREATININE 0.4 mg/dL (0.55-1.3); GLUCOSE,RANDOM 80 mg/dL (74-106); POTASSIUM 3.4 mmol/L (3.5-5.1); SODIUM 140 mmol/L (136-145)
[2018-07-10 10:05] LABS: INR 1.6 (0.83-1.09)
[2018-07-10] MEDS: MAGNESIUM OXIDE 400 MG TABLET (FP) PO SCH (10:24)
[2018-07-10] MEDS: FLUTICASONE PROP 0.05% 16 GM NASAL SPRAY NS SCH ×2 (10:24→21:22)
[2018-07-10] MEDS: CITALOPRAM HYDROBROMIDE 20 MG TABLET (FP) PO SCH (10:24)
[2018-07-10] MEDS: PANTOPRAZOLE 40 MG TABLET (FP) PO SCH ×2 (10:25→21:22)
[2018-07-10] MEDS: RIVASTIGMINE TD SCH (10:25)
[2018-07-10] MEDS: OMEGA-3 ACID ETHYL ESTERS (FATTY-ACIDS) 1 GM CAPSULE (FP) PO SCH ×2 (10:25→21:22)
[2018-07-10] MEDS: LOSARTAN POTASSIUM 50 MG TABLET (FP) PO SCH (10:25)
[2018-07-10] MEDS: DOCUSATE SODIUM 100 MG CAPSULE (FP) PO SCH (10:25)
[2018-07-10] MEDS: PATIENT'S OWN MEDICATION (NON-FORMULARY) (Memantine Hcl [Namenda Xr] 0 MG) PO SCH (10:26)
[2018-07-10] MEDS: POLYETHYLENE GLYCOL 3350 119 GM BTL PO SCH (10:40)
[2018-07-10] MEDS ORDERED: POTASSIUM CHLORIDE TABS 20 MEQ TABLET.ER (FP) PO ONE (11:35)
--- NOTE | 2018-07-10 11:37 | PN ---
Progress Note, Physician History of Present Illness: Pt w/o abd pain on and off, better today; no nausea, no vomiting. Pt w/on SOB, CP, palpitations, dizziness. Per his pt is eating better; pt had to liquid BM today, Miralax was held this AM - Current Medication List Current Medications: Active Medications Atorvastatin Calcium (Lipitor -) 10 mg PO HS [facility] Last Admin: 07/09/18 21:08 Dose: 10 mg Bisacodyl (Dulcolax Suppository -) 10 mg [place] PRN PRN PRN Reason: CONSTIPATION Citalopram Hydrobromide (Celexa -) 40 mg PO DAILY [facility] Last Admin: 07/10/18 10:24 Dose: 40 mg Docusate Sodium (Colace -) 200 mg PO DAILY [facility] Last Admin: 07/10/18 10:25 Dose: 200 mg Fluticasone Propionate (Flonase -) 1 spray NS BID [facility] Last Admin: 07/10/18 10:24 Dose: 1 spr Sodium Chloride (Normal Saline -) 1,000 mls @ 50 mls/hr IV ASDIR [facility] Last Admin: 07/10/18 06:42 Dose: 50 mls/hr Losartan Potassium (Cozaar -) 50 mg PO DAILY [facility] Last Admin: 07/10/18 10:25 Dose: 50 mg Magnesium Oxide (Mag-Ox -) 400 mg PO DAILY [facility] Last Admin: 07/10/18 10:24 Dose: 400 mg Morphine Sulfate (Morphine Sulfate) 2 mg IVPUSH Q3H PRN PRN Reason: PAIN LEVEL 4 - 6 Last Admin: 07/09/18 16:44 Dose: 2 mg Non-Formulary Medication (Memantine Hcl [Namenda Xr]) 0 mg PO DAILY [facility] Last Admin: 07/10/18 10:26 Dose: 1 mg Patient's Own Medication ( Rivastigmine [Exelon ] 13.3mg Pach 1 each TD DAILY [facility] Last Admin: 07/10/18 10:25 Dose: 1 each Ryioz-9-Wltr Ethyl Esters (Lovaza -) 2 gm PO BID [facility] Last Admin: 07/10/18 10:25 Dose: 2 gm Pantoprazole Sodium (Protonix -) 40 mg PO BID [facility] Last Admin: 07/10/18 10:25 Dose: 40 mg Polyethylene Glycol (Miralax (For Daily Use) -) 17 gm PO DAILY [facility] Last Admin: 07/10/18 10:40 Dose: Not Given Potassium Chloride (K-Dur -) 20 meq PO ONCE ONE Stop: 07/10/18 11:36 Pramipexole Dihydrochloride (Mirapex -) 0.25 mg PO [facility] Last Admin: 07/09/18 21:08 Dose: 0.25 mg Tamsulosin HCl (Flomax -) 0.4 mg PO [facility] Last Admin: 07/09/18 21:08 Dose: 0.4 mg Warfarin Sodium (Coumadin -) 7.5 mg PO [email or web address] [facility] Last Admin: 07/09/18 17:19 Dose: 7.5 mg Warfarin Sodium (Coumadin -) 2 mg PO ONCE@1800 ONE Stop: 07/10/18 18:01 - Objective Vital Signs: Vital Signs Temperature 97.6 F 07/10/18 09:07 Pulse Rate 96 H 07/10/18 09:07 Respiratory Rate 20 07/10/18 09:07 Blood Pressure 105/66 07/10/18 09:07 O2 Sat by Pulse Oximetry (%) 97 07/09/18 22:00 Constitutional: Yes: No Distress, Calm Cardiovascular: Yes: Regular Rate and Rhythm, S1, S2 Respiratory: Yes: Regular, CTA Bilaterally Gastrointestinal: Yes: Normal Bowel Sounds, Soft, Tenderness (mild in lower abd) Edema: No Neurological: Yes: Alert, Oriented Labs: CBC, BMP 07/07/18 07:30 07/10/18 06:50 INR, PTT INR 1.60 (0.83-1.09) H 07/10/18 09:00 Problem List - Problems (1) Abdominal pain Code(s): R10.9 - UNSPECIFIED ABDOMINAL PAIN Qualifiers: Abdominal location: lower abdomen, unspecified Qualified Code(s): R10.30 - Lower abdominal pain, unspecified (2) Gallbladder dilatation Code(s): K82.8 - OTHER SPECIFIED DISEASES OF GALLBLADDER (3) Hypokalemia Code(s): E87.6 - HYPOKALEMIA (4) History of colon cancer Code(s): Z85.038 - PERSONAL HISTORY OF MALIGNANT NEOPLASM OF LARGE INTESTINE (5) ALS (amyotrophic lateral sclerosis) Code(s): G12.21 - AMYOTROPHIC LATERAL SCLEROSIS (6) Atrial fibrillation Code(s): I48.91 - UNSPECIFIED ATRIAL FIBRILLATION Qualifiers: Atrial fibrillation type: chronic Qualified Code(s): I48.2 - Chronic atrial fibrillation (7) Dementia Code(s): F03.90 - UNSPECIFIED DEMENTIA WITHOUT BEHAVIORAL DISTURBANCE (8) Hyperlipidemia Code(s): E78.5 - HYPERLIPIDEMIA, UNSPECIFIED (9) Fecal impaction of colon Code(s): K56.41 - FECAL IMPACTION (10) Supratherapeutic INR Code(s): R79.1 - ABNORMAL COAGULATION PROFILE (11) Subtherapeutic international normalized ratio (INR) Code(s): R79.1 - ABNORMAL COAGULATION PROFILE Assessment/Plan Pt on Miralax QD -held today Tylenol ( for mild pain) or Morphine ( for moderate to severe pain) for pain; it was reviewed with pt's ; all questions were answered. PPI. Trial of Simethicone. GI consult and f/u is appreciated K is low today, to give extra K-Dur To f/u K and Magnesium level; pt is on daily K-Dur and Mag oxide. INR still low; extra Coumadin tonight; to monitor INR AM labs. DVT proph -pt on chronic AC. Case was d/w his nurse.
[2018-07-10] MEDS ORDERED: SIMETHICONE 80 MG TAB.CHEW (FP) PO SCH (14:00)
[2018-07-10] MEDS: ALPRAZolam 0.25 MG TABLET PO PRN (15:45)
[2018-07-10] MEDS: SIMETHICONE 80 MG TAB.CHEW (FP) PO SCH (16:47)
[2018-07-10] MEDS ORDERED: WARFARIN NA 2 MG TABLET (UD) PO ONE (18:00)
[2018-07-10] MEDS ORDERED: PT OWN MED DRAWER 7, Y5N ONE (21:02)
[2018-07-10] MEDS: PRAMIPEXOLE DIHYDROCHLORIDE 0.25 MG TABLET PO SCH (21:22)
[2018-07-10] MEDS: ATORVASTATIN CA 10 MG TABLET (FP) PO SCH (21:22)
[2018-07-10] MEDS: TAMSULOSIN HCL 0.4 MG CAP PO SCH (21:22)
[2018-07-10] MEDS ORDERED: ALPRAZolam 0.25 MG TABLET PO SCH (22:00)
[2018-07-11] MEDS: SODIUM CHLORIDE 1,000 ML IV SCH (04:20)
[2018-07-11] MEDS: SIMETHICONE 80 MG TAB.CHEW (FP) PO SCH ×3 (06:18→17:04)
[2018-07-11] MEDS ORDERED: INSULIN (NOVOLOG) ASPART 100 UNITS/ML 10ML VIAL ONE (07:00)
[2018-07-11 08:33] LABS: ANION GAP 5 MMOL/L (8-16); BLOOD UREA NITROGEN 9 mg/dL (7-18); CHLORIDE 100 mmol/L (98-107); CO2 37 mmol/L (21-32); CREATININE 0.5 mg/dL (0.55-1.3); GLUCOSE,RANDOM 82 mg/dL (74-106); MAGNESIUM 1.8 mg/dL (1.8-2.4); POTASSIUM 3.6 mmol/L (3.5-5.1); SODIUM 142 mmol/L (136-145)
[2018-07-11 08:36] LABS: INR 2.04 (0.83-1.09); PROTHROMBIN TIME (PATIENT) 24.2 SEC (9.7-13.0)
[2018-07-11] MEDS: PATIENT'S OWN MEDICATION (NON-FORMULARY) (Memantine Hcl [Namenda Xr] 0 MG) PO SCH (11:02)
[2018-07-11] MEDS: FLUTICASONE PROP 0.05% 16 GM NASAL SPRAY NS SCH ×2 (11:02→21:22)
[2018-07-11] MEDS: DOCUSATE SODIUM 100 MG CAPSULE (FP) PO SCH (11:03)
[2018-07-11] MEDS: PANTOPRAZOLE 40 MG TABLET (FP) PO SCH ×2 (11:03→21:21)
[2018-07-11] MEDS: LOSARTAN POTASSIUM 50 MG TABLET (FP) PO SCH (11:03)
[2018-07-11] MEDS: MAGNESIUM OXIDE 400 MG TABLET (FP) PO SCH (11:03)
[2018-07-11] MEDS: RIVASTIGMINE TD SCH (11:03)
[2018-07-11] MEDS: CITALOPRAM HYDROBROMIDE 20 MG TABLET (FP) PO SCH (11:03)
[2018-07-11] MEDS: OMEGA-3 ACID ETHYL ESTERS (FATTY-ACIDS) 1 GM CAPSULE (FP) PO SCH ×2 (11:04→21:21)
[2018-07-11] MEDS: POLYETHYLENE GLYCOL 3350 119 GM BTL PO SCH (11:04)
--- NOTE | 2018-07-11 11:11 | PN ---
Progress Note, Physician History of Present Illness: Pt w/o abd pain today; no nausea, no vomiting, no BM today. Pt w/on SOB, CP, palpitations, dizziness. Pt with nose bleed this AM, after picking at it; now stopped. - Current Medication List Current Medications: Active Medications Alprazolam (Xanax -) 0.25 mg PO BID PRN PRN Reason: ANIXETY Last Admin: 07/10/18 15:45 Dose: 0.25 mg Atorvastatin Calcium (Lipitor -) 10 mg PO HS [facility] Last Admin: 07/10/18 21:22 Dose: 10 mg Bisacodyl (Dulcolax Suppository -) 10 mg [place] PRN PRN PRN Reason: CONSTIPATION Citalopram Hydrobromide (Celexa -) 40 mg PO DAILY [facility] Last Admin: 07/10/18 10:24 Dose: 40 mg Docusate Sodium (Colace -) 200 mg PO DAILY [facility] Last Admin: 07/10/18 10:25 Dose: 200 mg Fluticasone Propionate (Flonase -) 1 spray NS BID [facility] Last Admin: 07/10/18 21:22 Dose: 1 spr Sodium Chloride (Normal Saline -) 1,000 mls @ 50 mls/hr IV ASDIR [facility] Last Admin: 07/11/18 04:20 Dose: 50 mls/hr Losartan Potassium (Cozaar -) 50 mg PO DAILY [facility] Last Admin: 07/10/18 10:25 Dose: 50 mg Magnesium Oxide (Mag-Ox -) 400 mg PO DAILY [facility] Last Admin: 07/10/18 10:24 Dose: 400 mg Non-Formulary Medication (Memantine Hcl [Namenda Xr]) 0 mg PO DAILY [facility] Last Admin: 07/10/18 10:26 Dose: 1 mg Patient's Own Medication ( Rivastigmine [Exelon ] 13.3mg Pach 1 each TD DAILY [facility] Last Admin: 07/10/18 10:25 Dose: 1 each Iussk-9-Ubkq Ethyl Esters (Lovaza -) 2 gm PO BID [facility] Last Admin: 07/10/18 21:22 Dose: 2 gm Pantoprazole Sodium (Protonix -) 40 mg PO BID [facility] Last Admin: 07/10/18 21:22 Dose: 40 mg Polyethylene Glycol (Miralax (For Daily Use) -) 17 gm PO DAILY [facility] Last Admin: 07/10/18 10:40 Dose: Not Given Pramipexole Dihydrochloride (Mirapex -) 0.25 mg PO [facility] Last Admin: 07/10/18 21:22 Dose: 0.25 mg Simethicone (Mylicon -) 80 mg PO TIDAC [facility] Last Admin: 07/11/18 06:18 Dose: 80 mg Tamsulosin HCl (Flomax -) 0.4 mg PO [facility] Last Admin: 07/10/18 21:22 Dose: 0.4 mg - Objective Vital Signs: Vital Signs Temperature 97.6 F 07/11/18 07:47 Pulse Rate 61 07/11/18 07:47 Respiratory Rate 20 07/11/18 07:47 Blood Pressure 154/89 07/11/18 07:47 O2 Sat by Pulse Oximetry (%) 96 07/10/18 22:00 Constitutional: Yes: No Distress, Calm Cardiovascular: Yes: Regular Rate and Rhythm, S1, S2 Respiratory: Yes: Regular, CTA Bilaterally. No: Rales Gastrointestinal: Yes: Normal Bowel Sounds, Soft. No: Tenderness Integumentary: Yes: Other (maculo-papular rash on the back, no erythema, no calor, no oozing, no bleeding.) Neurological: Yes: Alert, Oriented Labs: CBC, BMP 07/07/18 07:30 07/11/18 07:30 INR, PTT INR 2.04 (0.83-1.09) H 07/11/18 07:30 Problem List - Problems (1) Abdominal pain Code(s): R10.9 - UNSPECIFIED ABDOMINAL PAIN Qualifiers: Abdominal location: lower abdomen, unspecified Qualified Code(s): R10.30 - Lower abdominal pain, unspecified (2) Gallbladder dilatation Code(s): K82.8 - OTHER SPECIFIED DISEASES OF GALLBLADDER (3) Hypokalemia Code(s): E87.6 - HYPOKALEMIA (4) History of colon cancer Code(s): Z85.038 - PERSONAL HISTORY OF MALIGNANT NEOPLASM OF LARGE INTESTINE (5) ALS (amyotrophic lateral sclerosis) Code(s): G12.21 - AMYOTROPHIC LATERAL SCLEROSIS (6) Atrial fibrillation Code(s): I48.91 - UNSPECIFIED ATRIAL FIBRILLATION Qualifiers: Atrial fibrillation type: chronic Qualified Code(s): I48.2 - Chronic atrial fibrillation (7) Dementia Code(s): F03.90 - UNSPECIFIED DEMENTIA WITHOUT BEHAVIORAL DISTURBANCE (8) Hyperlipidemia Code(s): E78.5 - HYPERLIPIDEMIA, UNSPECIFIED (9) Fecal impaction of colon Code(s): K56.41 - FECAL IMPACTION (10) Supratherapeutic INR Code(s): R79.1 - ABNORMAL COAGULATION PROFILE (11) Subtherapeutic international normalized ratio (INR) Code(s): R79.1 - ABNORMAL COAGULATION PROFILE (12) Nasal bleeding Assessment/Plan: likely mecanical. Code(s): R04.0 - EPISTAXIS Assessment/Plan Pt on Miralax QD Tylenol ( for mild pain) or Morphine ( for moderate to severe pain) for pain; it was reviewed with pt's ; all questions were answered. PPI. Trial of Simethicone. Start Nystatin powder. GI consult and f/u is appreciated K is better today; to monitor. To f/u K and Magnesium level; pt is on daily K-Dur and Mag oxide. INR w/io 2-3 range; to monitor INR. AM labs. DVT proph -pt on chronic AC. Case was d/w his nurse. Case was d/w pt's ; DC planning for tomorrow
--- NOTE | 2018-07-11 11:33 | PN ---
GI Progress Note Subjective: GI NOte: Pain free today. Eating better. Stools are loose so will stop colace and miralax temporarily - Objective Vital Signs: Vital Signs Temperature 97.6 F 07/11/18 07:47 Pulse Rate 61 07/11/18 07:47 Respiratory Rate 20 07/11/18 07:47 Blood Pressure 154/89 07/11/18 07:47 O2 Sat by Pulse Oximetry (%) 96 07/10/18 22:00 Constitutional: Calm ...Auscultate: Yes: Normoactive Bowel Sounds ...Palpate: Yes: Soft, Other (nontender) Labs: CBC, BMP 07/07/18 07:30 07/11/18 07:30 INR, PTT INR 2.04 (0.83-1.09) H 07/11/18 07:30 Assessment/Plan Fecal impaction resolved, now with diarrhea Hold miralax anbd colace Case discussed with Dr Melchor Problem List - Problems (1) LUQ abdominal pain Code(s): R10.12 - LEFT UPPER QUADRANT PAIN (2) Fecal impaction of colon Code(s): K56.41 - FECAL IMPACTION (3) ALS (amyotrophic lateral sclerosis) Code(s): G12.21 - AMYOTROPHIC LATERAL SCLEROSIS (4) Gallbladder dilatation Code(s): K82.8 - OTHER SPECIFIED DISEASES OF GALLBLADDER (5) Atrial fibrillation Code(s): I48.91 - UNSPECIFIED ATRIAL FIBRILLATION Qualifiers: Atrial fibrillation type: chronic Qualified Code(s): I48.2 - Chronic atrial fibrillation (6) Barretts esophagus Code(s): K22.70 - BOSWELL'S ESOPHAGUS WITHOUT DYSPLASIA Qualifiers: Boswell's esophagus type: without dysplasia Qualified Code(s): K22.70 - Boswell's esophagus without dysplasia (7) Dementia Code(s): F03.90 - UNSPECIFIED DEMENTIA WITHOUT BEHAVIORAL DISTURBANCE (8) History of colon cancer Code(s): Z85.038 - PERSONAL HISTORY OF MALIGNANT NEOPLASM OF LARGE INTESTINE
[2018-07-11] MEDS ORDERED: morphine CARPU-JECT 4 MG/1 ML DISP.SYRIN IVPUSH PRN (15:01)
[2018-07-11] MEDS ORDERED: morphine SULFATE 4 MG/ML VIAL IVPUSH PRN (15:03)
[2018-07-11] MEDS: ALPRAZolam 0.25 MG TABLET PO PRN (17:04)
[2018-07-11] MEDS: METOPROLOL TARTRATE 25 MG TABLET (FP) PO SCH (18:11)
[2018-07-11] MEDS: WARFARIN NA 7.5 MG TABLET (FP) PO SCH (18:24)
[2018-07-11] MEDS ORDERED: PT OWN MED DRAWER 7, Y5N ONE ×2 (20:53→22:07)
[2018-07-11] MEDS: PRAMIPEXOLE DIHYDROCHLORIDE 0.25 MG TABLET PO SCH (21:21)
[2018-07-11] MEDS: ATORVASTATIN CA 10 MG TABLET (FP) PO SCH (21:21)
[2018-07-11] MEDS: TAMSULOSIN HCL 0.4 MG CAP PO SCH (21:21)
[2018-07-12] MEDS: SODIUM CHLORIDE 1,000 ML IV SCH (00:06)
[2018-07-12] MEDS: SIMETHICONE 80 MG TAB.CHEW (FP) PO SCH ×3 (06:46→17:12)
[2018-07-12 08:37] LABS: ANION GAP 4 MMOL/L (8-16); BLOOD UREA NITROGEN 10 mg/dL (7-18); CHLORIDE 102 mmol/L (98-107); CO2 36 mmol/L (21-32); CREATININE 0.5 mg/dL (0.55-1.3); GLUCOSE,RANDOM 83 mg/dL (74-106); POTASSIUM 3.6 mmol/L (3.5-5.1); SODIUM 143 mmol/L (136-145)
[2018-07-12] MEDS: OMEGA-3 ACID ETHYL ESTERS (FATTY-ACIDS) 1 GM CAPSULE (FP) PO SCH ×2 (09:26→21:11)
[2018-07-12] MEDS: MAGNESIUM OXIDE 400 MG TABLET (FP) PO SCH (09:26)
[2018-07-12] MEDS: LACTOBACILLUS ACIDOPHILUS 1 TABLET PO SCH (09:26)
[2018-07-12] MEDS: METOPROLOL TARTRATE 25 MG TABLET (FP) PO SCH ×2 (09:26→21:11)
[2018-07-12] MEDS: LOSARTAN POTASSIUM 50 MG TABLET (FP) PO SCH (09:26)
[2018-07-12] MEDS: CITALOPRAM HYDROBROMIDE 20 MG TABLET (FP) PO SCH (09:26)
[2018-07-12] MEDS: PANTOPRAZOLE 40 MG TABLET (FP) PO SCH ×2 (09:26→21:11)
[2018-07-12] MEDS: FLUTICASONE PROP 0.05% 16 GM NASAL SPRAY NS SCH ×2 (09:27→21:11)
[2018-07-12] MEDS: PATIENT'S OWN MEDICATION (NON-FORMULARY) (Memantine Hcl [Namenda Xr] 0 MG) PO SCH (09:27)
[2018-07-12] MEDS: RIVASTIGMINE TD SCH (09:28)
[2018-07-12 09:50] LABS: INR 1.83 (0.83-1.09); PROTHROMBIN TIME (PATIENT) 21.7 SEC (9.7-13.0)
--- NOTE | 2018-07-12 10:01 | EKG ---
Test Reason : Blood Pressure : / mmHG Vent. Rate : 089 BPM Atrial Rate : 075 BPM P-R Int : 000 ms QRS Dur : 096 ms QT Int : 376 ms P-R-T Axes : 000 -17 -02 degrees QTc Int : 457 ms ATRIAL FIBRILLATION ABNORMAL ECG WHEN COMPARED WITH ECG OF 04-JUL-2018 23:32, NONSPECIFIC T WAVE ABNORMALITY HAS REPLACED INVERTED T WAVES IN ANTERIOR LEADS Confirmed by KENZIE TAVERAS MD ([id number]) on 07/12/2018 10:00:37 AM Referred By: Confirmed By:KENZIE TAVERAS MD
--- NOTE | 2018-07-12 10:04 | PN ---
GI Progress Note Subjective: GI NOte: No BM so far today. Ate breakfast. Required morphine for pain again yesterday. - Objective Vital Signs: Vital Signs Temperature 97.7 F 07/12/18 06:00 Pulse Rate 69 07/12/18 06:00 Respiratory Rate 20 07/11/18 21:00 Blood Pressure 120/81 07/12/18 06:00 O2 Sat by Pulse Oximetry (%) 96 07/11/18 21:00 Constitutional: No Distress ...Auscultate: Yes: Hypoactive Bowel Sounds ...Palpate: Yes: Soft, Other (nontender) Labs: CBC, BMP 07/12/18 07:00 INR, PTT INR 1.83 (0.83-1.09) H 07/12/18 07:00 Assessment/Plan Fecal impaction and diarrhea resolved Holding miralax and colace No GI objections to discharge Problem List - Problems (1) LUQ abdominal pain Code(s): R10.12 - LEFT UPPER QUADRANT PAIN (2) Fecal impaction of colon Code(s): K56.41 - FECAL IMPACTION (3) ALS (amyotrophic lateral sclerosis) Code(s): G12.21 - AMYOTROPHIC LATERAL SCLEROSIS (4) Gallbladder dilatation Code(s): K82.8 - OTHER SPECIFIED DISEASES OF GALLBLADDER (5) Atrial fibrillation Code(s): I48.91 - UNSPECIFIED ATRIAL FIBRILLATION Qualifiers: Atrial fibrillation type: chronic Qualified Code(s): I48.2 - Chronic atrial fibrillation (6) Barretts esophagus Code(s): K22.70 - REGALADO'S ESOPHAGUS WITHOUT DYSPLASIA Qualifiers: Regalado's esophagus type: without dysplasia Qualified Code(s): K22.70 - Regalado's esophagus without dysplasia (7) Dementia Code(s): F03.90 - UNSPECIFIED DEMENTIA WITHOUT BEHAVIORAL DISTURBANCE (8) History of colon cancer Code(s): Z85.038 - PERSONAL HISTORY OF MALIGNANT NEOPLASM OF LARGE INTESTINE
[2018-07-12 11:37] LABS: HEMOGLOBIN 14.3 GM/dL (11.7-16.9); MCHC 35.8 g/dl (32.0-35.9); MEAN CELL VOLUME 94.9 fl (80-96); MEAN PLT VOLUME 9.6 fl (7.5-11.1); PLATELET COUNT 134 K/MM3 (134-434); RBC 4.21 M/mm3 (4.00-5.60); RDW 14.5 % (11.9-15.9); WHITE BLOOD COUNT 5.1 K/mm3 (4.0-10.0)
--- NOTE | 2018-07-12 11:42 | PN ---
Progress Note, Physician History of Present Illness: Pt still c/o abd pain on and off; no nausea, no vomiting, no BM today; pt had soft BM yesterday. Pt w/o SOB, CP -now, palpitations, dizziness. Last night event was noticed (pt c'ed/o CP). Pt is anxious throughout the day, per his . - Current Medication List Current Medications: Active Medications Alprazolam (Xanax -) 0.25 mg PO BID PRN PRN Reason: ANIXETY Last Admin: 07/11/18 17:04 Dose: 0.25 mg Atorvastatin Calcium (Lipitor -) 10 mg PO HS [facility] Last Admin: 07/11/18 21:21 Dose: 10 mg Bisacodyl (Dulcolax Suppository -) 10 mg [place] PRN PRN PRN Reason: CONSTIPATION Citalopram Hydrobromide (Celexa -) 40 mg PO DAILY [facility] Last Admin: 07/12/18 09:26 Dose: 40 mg Fluticasone Propionate (Flonase -) 1 spray NS BID [facility] Last Admin: 07/12/18 09:27 Dose: 1 spr Sodium Chloride (Normal Saline -) 1,000 mls @ 50 mls/hr IV ASDIR [facility] Last Admin: 07/12/18 00:06 Dose: 50 mls/hr Lactobacillus Acidophilus (Bacid -) 1 tab PO DAILY [facility] Last Admin: 07/12/18 09:26 Dose: 1 tab Losartan Potassium (Cozaar -) 50 mg PO DAILY [facility] Last Admin: 07/12/18 09:26 Dose: 50 mg Magnesium Oxide (Mag-Ox -) 400 mg PO DAILY [facility] Last Admin: 07/12/18 09:26 Dose: 400 mg Metoprolol Tartrate (Lopressor -) 25 mg PO BID [facility] Last Admin: 07/12/18 09:26 Dose: 25 mg Morphine Sulfate (Morphine Sulfate) 2 mg IVPUSH Q3H PRN PRN Reason: PAIN LEVEL 5-10 Last Admin: 07/11/18 15:10 Dose: 2 mg Non-Formulary Medication (Memantine Hcl [Namenda Xr]) 0 mg PO DAILY [facility] Last Admin: 07/12/18 09:27 Dose: 1 mg Patient's Own Medication ( Rivastigmine [Exelon ] 13.3mg Pach 1 each TD DAILY [facility] Last Admin: 07/12/18 09:28 Dose: 1 each Emzcd-5-[id number] Ethyl Esters (Lovaza -) 2 gm PO BID [facility] Last Admin: 07/12/18 09:26 Dose: 2 gm Pantoprazole Sodium (Protonix -) 40 mg PO BID [facility] Last Admin: 07/12/18 09:26 Dose: 40 mg Pramipexole Dihydrochloride (Mirapex -) 0.25 mg PO HS [facility] Last Admin: 07/11/18 21:21 Dose: 0.25 mg Simethicone (Mylicon -) 80 mg PO TIDAC [facility] Last Admin: 07/12/18 10:37 Dose: 80 mg Tamsulosin HCl (Flomax -) 0.4 mg PO HS [facility] Last Admin: 07/11/18 21:21 Dose: 0.4 mg Warfarin Sodium (Coumadin -) 7.5 mg PO [email or web address]@1800 [facility] Last Admin: 07/11/18 18:24 Dose: 7.5 mg Warfarin Sodium (Coumadin -) 2.5 mg PO ONCE@1800 [facility] Stop: 07/12/18 18:01 - Objective Vital Signs: Vital Signs Temperature 97.7 F 07/12/18 06:00 Pulse Rate 69 07/12/18 06:00 Respiratory Rate 20 07/11/18 21:00 Blood Pressure 120/81 07/12/18 06:00 O2 Sat by Pulse Oximetry (%) 96 07/11/18 21:00 Constitutional: Yes: No Distress, Calm Cardiovascular: Yes: Regular Rate and Rhythm, S1, S2 Respiratory: Yes: Regular, CTA Bilaterally. No: Rales Gastrointestinal: Yes: Normal Bowel Sounds, Soft. No: Tenderness Edema: No Neurological: Yes: Alert, Oriented Labs: CBC, BMP 07/12/18 07:00 INR, PTT INR 1.83 (0.83-1.09) H 07/12/18 07:00 Problem List - Problems (1) Abdominal pain Code(s): R10.9 - UNSPECIFIED ABDOMINAL PAIN Qualifiers: Abdominal location: lower abdomen, unspecified Qualified Code(s): R10.30 - Lower abdominal pain, unspecified (2) Gallbladder dilatation Code(s): K82.8 - OTHER SPECIFIED DISEASES OF GALLBLADDER (3) Hypokalemia Code(s): E87.6 - HYPOKALEMIA (4) History of colon cancer Code(s): Z85.038 - PERSONAL HISTORY OF MALIGNANT NEOPLASM OF LARGE INTESTINE (5) ALS (amyotrophic lateral sclerosis) Code(s): G12.21 - AMYOTROPHIC LATERAL SCLEROSIS (6) Atrial fibrillation Code(s): I48.91 - UNSPECIFIED ATRIAL FIBRILLATION Qualifiers: Atrial fibrillation type: chronic Qualified Code(s): I48.2 - Chronic atrial fibrillation (7) Dementia Code(s): F03.90 - UNSPECIFIED DEMENTIA WITHOUT BEHAVIORAL DISTURBANCE (8) Hyperlipidemia Code(s): E78.5 - HYPERLIPIDEMIA, UNSPECIFIED (9) Fecal impaction of colon Code(s): K56.41 - FECAL IMPACTION (10) Supratherapeutic INR Code(s): R79.1 - ABNORMAL COAGULATION PROFILE (11) Subtherapeutic international normalized ratio (INR) Code(s): R79.1 - ABNORMAL COAGULATION PROFILE (12) Nasal bleeding Code(s): R04.0 - EPISTAXIS (13) Skin rash Assessment/Plan: on Nystatin powder Code(s): R21 - RASH AND OTHER NONSPECIFIC SKIN ERUPTION (14) Anxiety Code(s): F41.9 - ANXIETY DISORDER, UNSPECIFIED Assessment/Plan Pt on Miralax QD Tylenol ( for mild pain) or Morphine ( for moderate to severe pain) for pain; it was reviewed with pt's ; all questions were answered. PPI. Pt on Nystatin powder fro skin rash. Trial of Clonazepam 0.25 mg BID, for anxiety GI consult and f/u is appreciated K is better today; to monitor. To f/u K and Magnesium level; pt is on daily K-Dur and Mag oxide. INR w/io 2-3 range; to monitor INR. AM labs. DVT proph -pt on chronic AC. Case was d/w his nurse. Case was d/w pt's ; DC planning for tomorrow
[2018-07-12] MEDS: clonazePAM 0.5 MG TABLET PO PRN (11:46)
--- NOTE | 2018-07-12 13:29 | CON.CARD ---
Cardiology Consult (text) - Consultation Consultation Note: Cardiology Consult for [facility] Dictated IMP: Permanent AF Alzheimer's Dz ?ALS? Fecal Impaction Nonspecific epigastric pain, possible chest pain without sig ECG changes and negative TnIs REC: Do not suspect angina: symptoms probably referrable to anxiety and/or referred discomfort from constipation. 1. Check 3rd cardiac enzyme 4pm 2. To repeat echo and c/w previous 3. INR 2-3 for AF Do not anticipate any further diagnostic studies in this gentleman with advanced neurological illness. Thank you.
--- NOTE | 2018-07-12 14:09 | CONS ---
DATE OF CONSULTATION: 07/12/2018 HISTORY OF PRESENT ILLNESS: A consultation is requested by Dr. Melchor for evaluation of epigastric pain. Briefly the patient is a 77-year-old gentleman with advanced neurological illness including a diagnosis of Alzheimer disease and possible ALS made in February. The patient was admitted several days ago for fecal impaction and was seen by GI after presenting with nonspecific abdominal pain. Yesterday there was an episode of reported epigastric discomfort with radiation down on to the right side of the abdomen and also upwards towards the right side of the chest. The patient is a poor historian and cannot provide full history. When I ask him if he had chest pain he states, "Isn't that a shame?" His is at the bedside and states that she helps him walk with physical therapy in the home and with his limited activity he has never complained of anginal symptoms, shortness of breath or substernal chest pressure. Since that episode he has had 2 sets of cardiac enzymes, 1 last evening and 1 this morning, both of which are negative. His ECGs show atrial fibrillation with minor nonspecific T-wave changes that are nondiagnostic and nonspecific. He is comfortable in bed at this time with no acute distress. PAST MEDICAL HISTORY: Is as outlined above and includes permanent atrial fibrillation for which he is maintained on warfarin, hyperlipidemia, hypertension. ALLERGIES: He has no known drug allergies. MEDICATIONS: His active medications were reviewed and include alprazolam 0.25 mg p.o. b.i.d. p.r.n.; atorvastatin 10 mg p.o. at bedtime; bisacodyl 10 mg per rectum p.r.n.; citalopram 40 mg p.o. daily; clonazepam 0.25 p.o. b.i.d. p.r.n.; fluticasone nasal spray b.i.d.; losartan 50 mg p.o. daily; magnesium oxide 400 mg p.o. daily; metoprolol tartrate 25 mg p.o. b.i.d.; morphine sulfate 2 mg IV q.3 p.r.n.; memantine; [place]-3 fatty acids; pantoprazole 40 mg p.o. b.i.d.; pramipexole 0.25 mg p.o. at bedtime; tamsulosin 0.5 mg p.o. at bedtime; warfarin 7.5 mg p.o. Sunday, Sunday, , Sunday and Sunday. FAMILY HISTORY: Noncontributory. SOCIAL HISTORY: Nonsmoker. Lives with . PHYSICAL EXAMINATION:Vital Signs: Afebrile, 98.0, pulse 75 in atrial fibrillation, blood pressure 128/79, O2 saturation 97 on 2 L. Neck: No carotid bruits. Heart: S1, 2 are regular without murmurs. Chest: Clear without wheezing or rales. Abdomen: Soft, nontender. Extremities: With no pitting edema. Multiple ECGs were reviewed from July 04 showing atrial fibrillation with nonspecific minor T-wave variation which is nondiagnostic and nonspecific. LABORATORIES: White count 5.1, hematocrit 40, platelets 134. INR 1.8. Sodium 143, potassium 3.6, creatinine 0.5. CK and troponin are negative x2 sets with 1st set 93, down to 63 and TNI is 0.02 x2 sets. Chest x-ray on admission from July 04 showed atelectatic changes but no infiltrate and an abdominal CT scan from July 04 at 5:04 p.m. showed no diverticulitis, no evidence of pneumoperitoneum or abscess, previous surgical anastomosis in the sigmoid colon. IMPRESSION: 1. Permanent atrial fibrillation. 2. Alzheimer disease. 3. ? amyotrophic lateral sclerosis. 4. Fecal impaction. 5. Nonspecific episode of epigastric pain - possible chest pain without significant/ diagnostic electrocardiogram changes and negative troponins. RECOMMENDATION: I do not suspect that this was an anginal episode: His symptoms are probably referable to anxiety and/or referred discomfort from his chronic constipation issues. 1. Will check 3rd cardiac enzyme today at 4 p.m. to fully rule out OR. 2. To repeat echocardiogram and compare with previous from February. 3. Continue Coumadin for INR 2 to 3 for atrial fibrillation. I do not anticipate any further diagnostic cardiac studies in this pleasant gentleman with advanced neurological illness. Thank you for the consultation. KENZIE TAVERAS M.D. [id number]
[2018-07-12] MEDS: WARFARIN NA 7.5 MG TABLET (FP) PO SCH (17:13)
[2018-07-12] MEDS ORDERED: WARFARIN NA 2.5 MG TABLET (FP) PO ONE (18:00)
[2018-07-12] MEDS: ATORVASTATIN CA 10 MG TABLET (FP) PO SCH (21:11)
[2018-07-12] MEDS: TAMSULOSIN HCL 0.4 MG CAP PO SCH (21:11)
[2018-07-12] MEDS: PRAMIPEXOLE DIHYDROCHLORIDE 0.25 MG TABLET PO SCH (21:11)
[2018-07-13] MEDS: SIMETHICONE 80 MG TAB.CHEW (FP) PO SCH ×2 (06:25→10:27)
[2018-07-13 07:57] LABS: HEMATOCRIT 42.8 % (35.4-49); MCH 31.1 pg (25.7-33.7); MCHC 32.6 g/dl (32.0-35.9); MEAN CELL VOLUME 95.5 fl (80-96); MEAN PLT VOLUME 9.2 fl (7.5-11.1); PLATELET COUNT 141 K/MM3 (134-434); RBC 4.48 M/mm3 (4.00-5.60); RDW 14.1 % (11.9-15.9); WHITE BLOOD COUNT 6.2 K/mm3 (4.0-10.0)
[2018-07-13 08:19] LABS: INR 3.37 (0.83-1.09); PROTHROMBIN TIME (PATIENT) 40.3 SEC (9.7-13.0)
[2018-07-13 08:57] LABS: ANION GAP 7 MMOL/L (8-16); BLOOD UREA NITROGEN 12 mg/dL (7-18); CALCIUM 8.4 mg/dL (8.5-10.1); CHLORIDE 100 mmol/L (98-107); CO2 34 mmol/L (21-32); CREATININE 0.5 mg/dL (0.55-1.3); GLUCOSE,RANDOM 81 mg/dL (74-106); POTASSIUM 3.8 mmol/L (3.5-5.1); SODIUM 141 mmol/L (136-145)
[2018-07-13] MEDS: PATIENT'S OWN MEDICATION (NON-FORMULARY) (Memantine Hcl [Namenda Xr] 0 MG) PO SCH (09:57)
[2018-07-13] MEDS: RIVASTIGMINE TD SCH (09:57)
[2018-07-13] MEDS: OMEGA-3 ACID ETHYL ESTERS (FATTY-ACIDS) 1 GM CAPSULE (FP) PO SCH (09:57)
[2018-07-13] MEDS: FLUTICASONE PROP 0.05% 16 GM NASAL SPRAY NS SCH (09:57)
[2018-07-13] MEDS: LACTOBACILLUS ACIDOPHILUS 1 TABLET PO SCH (09:58)
[2018-07-13] MEDS: PANTOPRAZOLE 40 MG TABLET (FP) PO SCH (09:58)
[2018-07-13] MEDS: LOSARTAN POTASSIUM 50 MG TABLET (FP) PO SCH (09:58)
[2018-07-13] MEDS: MAGNESIUM OXIDE 400 MG TABLET (FP) PO SCH (09:58)
[2018-07-13] MEDS: CITALOPRAM HYDROBROMIDE 20 MG TABLET (FP) PO SCH (09:58)
[2018-07-13] MEDS: clonazePAM 0.5 MG TABLET PO PRN (09:58)
[2018-07-13] MEDS: METOPROLOL TARTRATE 25 MG TABLET (FP) PO SCH (09:58)
--- NOTE | 2018-07-13 10:05 | PN ---
Progress Note, Physician Chief Complaint: seen and examined at bedside- with him No further reports of chest pain Echo ordered, but could not be performed yesterday as it was after closure of cardiology lab. History of Present Illness: INR is slightly elevated today - Current Medication List Current Medications: Active Medications Alprazolam (Xanax -) 0.25 mg PO BID PRN PRN Reason: ANIXETY Last Admin: 07/11/18 17:04 Dose: 0.25 mg Atorvastatin Calcium (Lipitor -) 10 mg PO HS [facility] Last Admin: 07/12/18 21:11 Dose: 10 mg Bisacodyl (Dulcolax Suppository -) 10 mg [place] PRN PRN PRN Reason: CONSTIPATION Citalopram Hydrobromide (Celexa -) 40 mg PO DAILY [facility] Last Admin: 07/13/18 09:58 Dose: 40 mg Clonazepam (Klonopin -) 0.25 mg PO BID PRN PRN Reason: ANXIETY Last Admin: 07/13/18 09:58 Dose: 0.25 mg Fluticasone Propionate (Flonase -) 1 spray NS BID [facility] Last Admin: 07/13/18 09:57 Dose: 1 spr Lactobacillus Acidophilus (Bacid -) 1 tab PO DAILY [facility] Last Admin: 07/13/18 09:58 Dose: 1 tab Losartan Potassium (Cozaar -) 50 mg PO DAILY [facility] Last Admin: 07/13/18 09:58 Dose: 50 mg Magnesium Oxide (Mag-Ox -) 400 mg PO DAILY [facility] Last Admin: 07/13/18 09:58 Dose: 400 mg Metoprolol Tartrate (Lopressor -) 25 mg PO BID [facility] Last Admin: 07/13/18 09:58 Dose: 25 mg Morphine Sulfate (Morphine Sulfate) 2 mg IVPUSH Q3H PRN PRN Reason: PAIN LEVEL 5-10 Last Admin: 07/11/18 15:10 Dose: 2 mg Non-Formulary Medication (Memantine Hcl [Namenda Xr]) 0 mg PO DAILY [facility] Last Admin: 07/13/18 09:57 Dose: 1 mg Patient's Own Medication ( Rivastigmine [Exelon ] 13.3mg Pach 1 each TD DAILY [facility] Last Admin: 07/13/18 09:57 Dose: 1 each [id number]-7-[id number] Ethyl Esters (Lovaza -) 2 gm PO BID [facility] Last Admin: 11/24/18 09:57 Dose: 2 gm Pantoprazole Sodium (Protonix -) 40 mg PO BID [facility] Last Admin: 07/13/18 09:58 Dose: 40 mg Pramipexole Dihydrochloride (Mirapex -) 0.25 mg PO [facility] Last Admin: 07/12/18 21:11 Dose: 0.25 mg Simethicone (Mylicon -) 80 mg PO TIDAC [facility] Last Admin: 07/13/18 06:25 Dose: 80 mg Tamsulosin HCl (Flomax -) 0.4 mg PO [facility] Last Admin: 07/12/18 21:11 Dose: 0.4 mg Warfarin Sodium (Coumadin -) 7.5 mg PO [email or web address]@1800 [facility] Last Admin: 07/12/18 17:13 Dose: 7.5 mg - Objective Vital Signs: Vital Signs Temperature 98.2 F 07/12/18 19:27 Pulse Rate 63 07/12/18 19:27 Respiratory Rate 18 07/12/18 21:00 Blood Pressure 127/51 L 07/12/18 19:27 O2 Sat by Pulse Oximetry (%) 97 07/12/18 21:00 Constitutional: Yes: Calm Cardiovascular: Yes: Regular Rate and Rhythm Respiratory: Yes: CTA Bilaterally Gastrointestinal: Yes: Soft (nontender) Edema: No Labs: CBC, BMP 07/13/18 07:15 07/13/18 07:15 INR, PTT INR 3.37 (0.83-1.09) H 07/13/18 07:15 Laboratory Tests 07/11/18 07/12/18 07/12/18 18:40 07:00 16:15 WBC Hct Plt Count INR Potassium Creatine Kinase 93 63 68 Troponin I 0.02 0.02 0.02 07/13/18 07/13/18 07/13/18 07:15 07:15 07:15 WBC 6.2 Hct 42.8 Plt Count 141 INR 3.37 H Potassium 3.8 Creatine Kinase Troponin I Assessment/Plan IMP: Permanent AF Alzheimer's Dz ?ALS? Fecal Impaction Nonspecific epigastric pain, possible chest pain without sig ECG changes and negative TnIs REC: Do not suspect angina: symptoms probably referrable to anxiety and/or referred discomfort from constipation. 1. Serial cardiac enzymes negative. 2. To repeat echo and c/w previous: this can be done as an outpatient. 3. INR 2-3 for AF: needs dose adjusted, as per PMD. Do not plan any further inpatient diagnostic studies in this gentleman with advanced neurological illness.
[2018-07-13 11:11] VITALS: BP 136/95; PULSE 82; TEMP 97.9
--- NOTE | 2018-07-13 11:23 | DS ---
Physical Examination Vital Signs: Vital Signs Temperature 97.9 F 07/13/18 11:10 Pulse Rate 82 07/13/18 11:10 Respiratory Rate 20 07/13/18 11:10 Blood Pressure 136/95 07/13/18 11:10 O2 Sat by Pulse Oximetry (%) 94 L 07/13/18 10:00 Findings/Remarks: Pt w/o fever, CP, SOB, abd pain, nausea, vomitting. Pt had 1 BM today. Per his pt is relaxed, comfortable ( on Clonazepam), not sleepy. Constitutional: Yes: No Distress, Calm Cardiovascular: Yes: Regular Rate and Rhythm, S1, S2 Respiratory: Yes: Regular, CTA Bilaterally. No: Rales Gastrointestinal: Yes: Normal Bowel Sounds, Soft. No: Tenderness Edema: No Neurological: Yes: Alert, Oriented Labs: CBC, BMP 07/13/18 07:15 07/13/18 07:15 Discharge Summary Reason For Visit: LUQ PAIN Current Active Problems ALS (amyotrophic lateral sclerosis) (Acute) Anxiety (Acute) Fecal impaction of colon (Acute) Gallbladder dilatation (Acute) LUQ abdominal pain (Acute) Nasal bleeding (Acute) Skin rash (Acute) Subtherapeutic international normalized ratio (INR) (Acute) Supratherapeutic INR (Acute) Atrial fibrillation (Chronic) Hospital Course: Pt came to ER c/o abd pain. Pt was seen by GI (Dr. Raines), started on MIralax TID for fecal retention; pt with improvement in BM. Pt had on epispode of CP, seen by Cardio (Dr. Osborne, covering for Dr Woodson), negative CE, not consired to have ACS. Pt was still c/o abd pain on and off, later his told us that pt is very anxious; pt was started on Clonazepam with improvement in anxiety and abd pain. Pt to be DC'ed home on current meds and office f/u. Condition: Stable - Instructions Diet, Activity, Other Instructions: You were seen in the ER today for left upper abdominal pain. The results of your labs and imaging today were generally unchanged from your last visit. Please follow-up with your primary care doctor and GI doctor within 1-2 days to discuss your visit and make sure your symptoms have improved. Please return to the ER if you have any worsening pain, development of fevers or chills, loss of consciousness, inability to tolerate food or fluids, or any other concerns. Referrals: Bobby Melchor MD [Primary Care Provider] - (within one week) Noel Solis MD [Staff Physician] - (in 1-2 weeks) Fady Raines MD [Staff Physician] - (as needed) Disposition: HOME - Home Medications Comprehensive Discharge Medication List: Ambulatory Orders see Discharge instructions
--- NOTE | 2018-07-13 12:05 | EKG ---
Test Reason : Blood Pressure : / mmHG Vent. Rate : 063 BPM Atrial Rate : 071 BPM P-R Int : 000 ms QRS Dur : 094 ms QT Int : 402 ms P-R-T Axes : 000 028 041 degrees QTc Int : 411 ms ATRIAL FIBRILLATION ABNORMAL ECG WHEN COMPARED WITH ECG OF 11-JUL-2018 17:52, T WAVE INVERSION NO LONGER EVIDENT IN INFERIOR LEADS Confirmed by FELIX HAYES MD ([id number]) on 07/13/2018 12:05:00 PM Referred By: Confirmed By:FELIX HAYES MD
== END 2018-07-13 13:30 | disposition home or self-care (01) | DRG 389 ==
LOC: JER 14:08 → JERBED 07-05 00:12 → J6S 07-05 14:37
PROVIDERS: ADMIT Specialist; ATTEND Specialist
DX: K56.41 Fecal impaction (principal); J98.11 Atelectasis; G12.21 Amyotrophic lateral sclerosis; E46 Unspecified protein-calorie malnutrition; I10 Essential (primary) hypertension; G30.9 Alzheimer's disease, unspecified; F02.80 Dementia in other diseases classified elsewhere, unspecified severity, without behavioral disturbance, psychotic disturbance, mood disturbance, and anxiety; K21.9 Gastro-esophageal reflux disease without esophagitis; N40.0 Benign prostatic hyperplasia without lower urinary tract symptoms; E78.5 Hyperlipidemia, unspecified; K40.90 Unilateral inguinal hernia, without obstruction or gangrene, not specified as recurrent; K22.70 Barrett's esophagus without dysplasia; E87.6 Hypokalemia; M54.5 Low back pain; F32.9 Major depressive disorder, single episode, unspecified; K76.0 Fatty (change of) liver, not elsewhere classified; M60.9 Myositis, unspecified; K44.9 Diaphragmatic hernia without obstruction or gangrene; I25.10 Atherosclerotic heart disease of native coronary artery without angina pectoris; K82.8 Other specified diseases of gallbladder; I48.2 Chronic atrial fibrillation; R79.1 Abnormal coagulation profile; R10.30 Lower abdominal pain, unspecified; R04.0 Epistaxis; R21 Rash and other nonspecific skin eruption; F41.9 Anxiety disorder, unspecified; Z85.038 Personal history of other malignant neoplasm of large intestine; Z87.891 Personal history of nicotine dependence; Z79.01 Long term (current) use of anticoagulants; Z68.24 Body mass index [BMI] 24.0-24.9, adult
CPT/HCPCS: 36415; 71045-TC-FY; 74177-TC; 80048; 80053; 81003; 82550; 82962; 83605; 83690; 83735; 84484; 85025; 85027; 85610; 85730; 86140; 87086; 93005; 93010; 99285-25; J0131; J7030

== ENCOUNTER 2018-07-25 18:16 | Inpatient (IN) | payer OTHER, MEDICARE ==
--- NOTE | 2018-07-25 22:15 | PDOC ---
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 Yesterday, reports she was transferring him to his walker after dinner when he lost his footing and fell backwards onto his head and neck. No LOC. He was able to tolerate the pain last night in his neck and did not want to come to the ED. This morning the neck pain was worse and pt went to see Dr. Melchor. Dr. Melchor ordered a CTH and CT neck which revealed an acute C5 fracture. Dr. Melchor recommended pt come to the ED and requests G c/s Dr. Guan. The patient has no other complaints at the time other than neck pain. C-collar placed on evaluation. The patient denies chest pain, shortness of breath, headache and dizziness, palpitations prior to the fall or recently. Denies fevers, chills, abd pain, LE edema, weakness or numbness. Allergies: None Past surgical history: Cardiac cath, inguinal hernia Social History: No alcohol, tobacco or drug use reported PMD: Dr Bobby Melchor Past History - Past Medical History Allergies/Adverse Reactions: Allergies Allergy/AdvReac Type Severity Reaction Status Date / Time No Known Drug Allergies Allergy Verified 07/25/18 19:22 Home Medications: Ambulatory Orders Calcium Carbonate [Calcium] 1,000 mg PO DAILY 10/03/16 Memantine HCl [Namenda Xr] 21 mg PO DAILY 10/03/16 Multivit-Min/FA/Lycopen/Lutein [Centrum Silver Tablet] 1 each PO DAILY 10/03/16 [place]-3 Acid Ethyl Esters [Lovaza] 2 gm PO BID 10/03/16 Pantoprazole Sodium [Protonix -] 40 mg PO BID 10/03/16 Pramipexole Di-HCl [Mirapex] 0.25 mg PO HS 10/03/16 Tamsulosin HCl [Flomax -] 0.4 mg PO HS 10/03/16 Citalopram Hydrobromide [Celexa -] 40 mg PO DAILY tablet 03/22/18 Fluticasone Prop 0.05% Nasal [Flonase -] 1 - 2 spray NS BID 06/28/18 Rivastigmine [Exelon] 1 each TD DAILY 06/28/18 Warfarin Na [Coumadin -] 7.5 mg PO SUTUTHFRSA 06/28/18 Bisacodyl Suppository [Dulcolax Suppository -] 10 mg RC DAILY PRN 30 Days #30 supp.rect MDD 1 07/02/18 Atorvastatin Ca [Lipitor] 10 mg PO HS 07/05/18 Docusate Sodium [Colace] 200 mg PO PRN 07/05/18 Magnesium Oxide [Mag-Ox -] 400 mg PO DAILY #90 tablet MDD 1 07/13/18 Metoprolol Tartrate [Lopressor -] 25 mg PO BID #180 tablet MDD 2 07/13/18 clonazePAM [Klonopin -] 0.25 mg PO BID #30 tablet MDD 2 07/13/18 Losartan Potassium [Cozaar -] 25 mg PO DAILY 07/25/18 Anemia: No Asthma: No Cancer: No Cardiac Disorders: Yes (ATRIAL FIBRILLATION) CVA: No COPD: No CHF: No Dementia: (SOME MEMORY LOSS) GI Disorders: Yes (GERD; HH; HX OF SIGMOID COLON CANCER) Disorders: (bph) HTN: Yes Hypercholesterolemia: Yes Seizures: No Thyroid Disease: No - Surgical History Abdominal Surgery: Yes (INGUINAL HERNIA) Cardiac Surgery: Yes (CARDIAC CATH.) - Suicide/Smoking/Psychosocial Hx Smoking History: Never smoked Have you smoked in the past 12 months: No Number of Cigarettes Smoked Daily: 5 If you are a former smoker, when did you quit?: 50 years ago Hx Alcohol Use: No Drug/Substance Use Hx: No Substance Use Type: None Hx Substance Use Treatment: No Review of Systems - Review of Systems Comments:: 07/25/18 22:27 GENERAL/CONSTITUTIONAL: No fever or chills. No weakness. HEAD, EYES, EARS, NOSE AND THROAT: No change in vision. No ear pain or discharge. No sore throat. GASTROINTESTINAL: No nausea, vomiting, diarrhea or constipation. GENITOURINARY: No dysuria, frequency, or change in urination. CARDIOVASCULAR: No chest pain or shortness of breath. RESPIRATORY: No cough, wheezing, or hemoptysis. MUSCULOSKELETAL: (+) neck pain. No joint or muscle swelling or pain. SKIN: No rash NEUROLOGIC: No headache, vertigo, loss of consciousness, or change in strength/ sensation. ENDOCRINE: No increased thirst. No abnormal weight change. HEMATOLOGIC/LYMPHATIC: No anemia, easy bleeding, or history of blood clots. ALLERGIC/IMMUNOLOGIC: No hives or skin allergy. *Physical Exam - Vital Signs Last Vital Signs Temp Pulse Resp BP Pulse Ox 98.7 F 74 18 132/99 93 L 07/25/18 19:18 07/25/18 19:18 07/25/18 19:18 07/25/18 19:18 07/25/18 19:18 - Physical Exam Comments: 07/25/18 22:28 GENERAL: Awake, alert, oriented to name, in no acute distress HEAD: No signs of trauma EYES: PERRLA, EOMI, sclera anicteric, conjunctiva clear ENT: Auricles normal inspection, hearing grossly normal, nares patent, oropharynx clear without exudates. Moist mucosa NECK: c-collar in place LUNGS: Breath sounds equal, clear to auscultation bilaterally. No wheezes, and no crackles HEART: Regular rate and rhythm, normal S1 and S2, no murmurs, rubs or gallops ABDOMEN: Soft, nontender, normoactive bowel sounds. No guarding, no rebound. No masses EXTREMITIES: FROM, no edema. No cords, erythema, deformities or tenderness BACK: diffuse tenderness along thoracic and lumbar spine, although pt uncomfortable due to neck pain NEUROLOGICAL: Muted speech, cranial nerves intact. Global weakness 4/5 in all extremities SKIN: Warm, Dry, normal turgor, no rashes or lesions noted. Moderate Sedation - Procedure Monitoring Vital Signs: Procedure Monitoring Vital Signs Temperature 98.7 F 07/25/18 19:18 Pulse Rate 74 07/25/18 19:18 Respiratory Rate 18 07/25/18 19:18 Blood Pressure 132/99 07/25/18 19:18 O2 Sat by Pulse Oximetry (%) 93 L 07/25/18 19:18 Heart Score/ECG Review #1 07/25/18 22:18 Twelve-lead EKG was performed and reviewed by me. Atrial fibrillation, rate 76. Normal axis. No ST elevations. ED Treatment Course - LABORATORY CBC & Chemistry Diagram: 07/25/18 22:27 07/25/18 21:45 - RADIOLOGY Radiology Studies Ordered: Category Date Time Status CHEST PA & LAT [RAD] Stat Radiology 07/25/18 20:45 Ordered Medical Decision Making - Medical Decision Making 07/25/18 22:31 77yo M hx MMP including ALS, Afib on coumadin presents to the ED with acute C5 fracture on outpt CT. Pt in c-collar. No new neuro deficits. Labs also concerning for INR of 11. Will give vitamin K 2.5mg PO per ACCP guidelines. Diffuse throracic and lumbar back pain maybe due to neck pain, or due to other acute injury, will get CT spine imaging as well. Plan -labs -pain control -CT t/l spine -NSG c/s -vit k -admit 07/26/18 00:[address] Sheba Melchor, pt admitted to m/s Case discussed in detail with admitting physician including history, physical exam and ancillary studies. Admitting physician has assumed care for the patient, will follow all pending diagnostics and will complete the evaluation and treatment. *DC/Admit/Observation/Transfer Diagnosis at time of Disposition: Fall, Cervical spine fracture, Neck pain - Discharge Dispostion Condition at time of disposition: Stable Decision to Admit order: Yes - Referrals Referrals: Bobby Melchor MD [Primary Care Provider] - - Patient Instructions - Post Discharge Activity - Attestations Physician Attestion: 07/26/18 00:01 I, Dr. Cecilio Barroso MD, attest that this document has been prepared under my direction and personally reviewed by me in its entirety. I further attest, that it accurately reflects all work, treatment, procedures and medical decision -making performed by me.
[2018-07-25] MEDS ORDERED: ACETAMINOPHEN 1000 MG/100 ML VIAL (NON FORMULARY) IVPB ONE (22:17)
[2018-07-25] MEDS ORDERED: PHYTONADIONE 5 MG TABLET PO ONE (22:17)
[2018-07-25] MEDS ORDERED: PHYTONADIONE 5 MG TABLET ONE (22:20)
[2018-07-25] MEDS ORDERED: ACETAMINOPHEN INJECTION 100 ML IVPB ONE (22:21)
[2018-07-25 22:41] LABS: BASO % 0.5 % (0-2.0); EOS % 1.5 % (0-4.5); HEMATOCRIT 40.7 % (35.4-49); HEMOGLOBIN 14.2 GM/dL (11.7-16.9); LYMPH % 20.6 % (8-40); MCHC 34.9 g/dl (32.0-35.9); MEAN CELL VOLUME 94.5 fl (80-96); MEAN PLT VOLUME 9.4 fl (7.5-11.1); MONO % 9.1 % (3.8-10.2); NEUT % 68.3 % (42.8-82.8); PLATELET COUNT 147 K/MM3 (134-434); RBC 4.31 M/mm3 (4.00-5.60); RDW 14.7 % (11.9-15.9); WHITE BLOOD COUNT 6.8 K/mm3 (4.0-10.0)
[2018-07-25 22:57] LABS: ACTIVATED PTT 54.4 SECONDS (25.2-36.5)
[2018-07-25 23:05] LABS: PROTHROMBIN TIME (PATIENT) 132.8 SEC (9.7-13.0)
[2018-07-25 23:06] LABS: INR 10.9 (0.83-1.09)
[2018-07-25 23:27] LABS: ALBUMIN 3.2 g/dl (3.4-5.0); ALK PHOS 53 U/L (45-117); ANION GAP 6 MMOL/L (8-16); BILIRUBIN,TOTAL 0.4 mg/dL (0.2-1); BLOOD UREA NITROGEN 13 mg/dL (7-18); CALCIUM 8.6 mg/dL (8.5-10.1); CHLORIDE 96 mmol/L (98-107); CO2 37 mmol/L (21-32); CREATININE 0.7 mg/dL (0.55-1.3); GLUCOSE,RANDOM 85 mg/dL (74-106); POTASSIUM 3.6 mmol/L (3.5-5.1); SGOT/AST 24 U/L (15-37); SGPT/ALT 23 U/L (13-61); SODIUM 139 mmol/L (136-145); TOT PROT 5.9 g/dl (6.4-8.2)
[2018-07-25] MEDS ORDERED: SODIUM CHLORIDE 1,000 ML IV STA (23:57)
[2018-07-25] MEDS ORDERED: SODIUM CHLORIDE 0.9% 1000 ML INFUS.BAG IV ONE (23:59)
[2018-07-26] MEDS ORDERED: BISACODYL 10 MG SUPP.RECT RC PRN (00:02)
[2018-07-26] MEDS ORDERED: DOCUSATE SODIUM 100 MG CAPSULE (FP) PO PRN (00:15)
[2018-07-26] MEDS ORDERED: SODIUM CHLORIDE 500 ML IV ONE (04:00)
[2018-07-26] MEDS: MORPHINE SULFATE 2 MG/ML VIAL IVPUSH PRN ×2 (04:25→20:08)
[2018-07-26] MEDS: METOPROLOL TARTRATE 25 MG TABLET (FP) PO SCH ×2 (06:57→23:40)
[2018-07-26] MEDS: LOSARTAN POTASSIUM 25 MG TABLET PO SCH (06:57)
[2018-07-26] MEDS ORDERED: MORPHINE SULFATE 2 MG/ML VIAL IVPUSH ONE (07:00)
[2018-07-26 08:22] LABS: HEMATOCRIT 42.4 % (35.4-49); HEMOGLOBIN 13.9 GM/dL (11.7-16.9); MCH 31.1 pg (25.7-33.7); MCHC 32.8 g/dl (32.0-35.9); MEAN CELL VOLUME 94.9 fl (80-96); MEAN PLT VOLUME 9.4 fl (7.5-11.1); PLATELET COUNT 136 K/MM3 (134-434); RBC 4.47 M/mm3 (4.00-5.60); RDW 14.7 % (11.9-15.9); WHITE BLOOD COUNT 8.2 K/mm3 (4.0-10.0)
[2018-07-26 09:02] LABS: PROTHROMBIN TIME (PATIENT) 85.1 SEC (9.7-13.0)
[2018-07-26 09:11] LABS: ALBUMIN 3.4 g/dl (3.4-5.0); ALK PHOS 54 U/L (45-117); ANION GAP 10 MMOL/L (8-16); BILIRUBIN,TOTAL 0.8 mg/dL (0.2-1); BLOOD UREA NITROGEN 10 mg/dL (7-18); CALCIUM 8.4 mg/dL (8.5-10.1); CHLORIDE 99 mmol/L (98-107); CO2 33 mmol/L (21-32); CREATININE 0.6 mg/dL (0.55-1.3); GLUCOSE,RANDOM 68 mg/dL (74-106); POTASSIUM 3.5 mmol/L (3.5-5.1); SGOT/AST 23 U/L (15-37); SGPT/ALT 22 U/L (13-61); SODIUM 141 mmol/L (136-145)
--- NOTE | 2018-07-26 09:13 | PN ---
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 Fell backwards onto his head and neck. No LOC. c/o neck and R shoulder, and R forearm pain. PE; AF, VSS HEENT- NC/At; Neck- in [place] collar, uncomfortable, worse with extension ; Cor- Irreg; Lungs- CTA; Abd- benign; Ext- no sign of DVT CN- non-focal; Motor- weak B prox UE Deltoids/supraspinatus 2/5; distal UR 4/5; B LE 4 prox 4+ distal; Sensation- intact LT; DTR- hyporeflexic CT Head- moderate atrophy with moderate periventricular small vessel dz; no fx, no bleed CT C spine- extensive spondylosis and bridging osteophytes C4,5,6; fracture through anterior body/osteophyte C5 and slight widening of C5-6 disc space; no marked canal compromise C spine injury s/p mechanical fall MRI to assess canal better and to assess soft tissue/disc/ligamentous injury Rx for [place] collar or [place] collar
[2018-07-26] MEDS ORDERED: PT OWN MED DRAWER 7, Y5N ONE ×2 (09:22→21:19)
[2018-07-26] MEDS: CALCIUM (OYSTER SHELL) 500 MG TABLET (FP) PO SCH (09:24)
[2018-07-26] MEDS: clonazePAM 0.5 MG TABLET PO SCH ×2 (09:24→23:42)
[2018-07-26] MEDS: MAGNESIUM OXIDE 400 MG TABLET (FP) PO SCH (09:24)
[2018-07-26] MEDS: PANTOPRAZOLE 40 MG TABLET (FP) PO SCH ×2 (09:25→23:42)
[2018-07-26] MEDS: CITALOPRAM HYDROBROMIDE 20 MG TABLET (FP) PO SCH (09:25)
[2018-07-26] MEDS: FLUTICASONE PROP 0.05% 16 GM NASAL SPRAY NS SCH ×2 (09:25→23:40)
[2018-07-26] MEDS: OMEGA-3 ACID ETHYL ESTERS (FATTY-ACIDS) 1 GM CAPSULE (FP) PO SCH ×2 (09:26→23:40)
--- NOTE | 2018-07-26 09:32 | CONSULT ---
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 Day prior to admission, reported she was transferring him to his walker after dinner when he lost his footing and fell backwards onto his head and neck. No LOC. Next morning the neck pain was worse and pt went to see Dr. Melchor. Dr. Melchor ordered a CTH and CT neck which revealed reported acute C5 fracture. Dr. Melchor recommended pt come to the ED and requests NSG c/s Dr. Guan. NSGY note reviewed, recommended MRI. Patient in collar and looks stable. T and L spine CT reviewed. Some bulging in L spine with arthropathy but no significant pathology otherwise. Past History - Past Medical History Allergies/Adverse Reactions: Allergies Allergy/AdvReac Type Severity Reaction Status Date / Time No Known Drug Allergies Allergy Verified 07/25/18 19:22 Home Medications: Ambulatory Orders Calcium Carbonate [Calcium] 1,000 mg PO DAILY 10/03/16 Memantine HCl [Namenda Xr] 21 mg PO DAILY 10/03/16 Multivit-Min/FA/Lycopen/Lutein [Centrum Silver Tablet] 1 each PO DAILY 10/03/16 [place]-3 Acid Ethyl Esters [Lovaza] 2 gm PO BID 10/03/16 Pantoprazole Sodium [Protonix -] 40 mg PO BID 10/03/16 Pramipexole Di-HCl [Mirapex] 0.25 mg PO HS 10/03/16 Tamsulosin HCl [Flomax -] 0.4 mg PO HS 10/03/16 Citalopram Hydrobromide [Celexa -] 40 mg PO DAILY tablet 03/22/18 Fluticasone Prop 0.05% Nasal [Flonase -] 1 - 2 spray NS BID 06/28/18 Rivastigmine [Exelon] 1 each TD DAILY 06/28/18 Warfarin Na [Coumadin -] 7.5 mg PO SUTUTHFRSA 06/28/18 Bisacodyl Suppository [Dulcolax Suppository -] 10 mg RC DAILY PRN 30 Days #30 supp.rect MDD 1 07/02/18 Atorvastatin Ca [Lipitor] 10 mg PO HS 07/05/18 Docusate Sodium [Colace] 200 mg PO PRN 07/05/18 Magnesium Oxide [Mag-Ox -] 400 mg PO DAILY #90 tablet MDD 1 07/13/18 Metoprolol Tartrate [Lopressor -] 25 mg PO BID #180 tablet MDD 2 07/13/18 clonazePAM [Klonopin -] 0.25 mg PO BID #30 tablet MDD 2 07/13/18 Losartan Potassium [Cozaar -] 25 mg PO DAILY 07/25/18 Anemia: No Asthma: No Cancer: No Cardiac Disorders: Yes (ATRIAL FIBRILLATION) CVA: No COPD: No CHF: No Dementia: (SOME MEMORY LOSS) GI Disorders: Yes (GERD; HH; HX OF SIGMOID COLON CANCER) Disorders: (bph) HTN: Yes Hypercholesterolemia: Yes Seizures: No Thyroid Disease: No - Surgical History Abdominal Surgery: Yes (INGUINAL HERNIA) Cardiac Surgery: Yes (CARDIAC CATH.) - Suicide/Smoking/Psychosocial Hx Smoking History: Never smoked Have you smoked in the past 12 months: No Number of Cigarettes Smoked Daily: 5 If you are a former smoker, when did you quit?: 50 years ago Hx Alcohol Use: No Drug/Substance Use Hx: No Substance Use Type: None Hx Substance Use Treatment: No Review of Systems GENERAL/CONSTITUTIONAL: No fever or chills. No weakness. HEAD, EYES, EARS, NOSE AND THROAT: No change in vision. No ear pain or discharge. No sore throat. GASTROINTESTINAL: No nausea, vomiting, diarrhea or constipation. GENITOURINARY: No dysuria, frequency, or change in urination. CARDIOVASCULAR: No chest pain or shortness of breath. RESPIRATORY: No cough, wheezing, or hemoptysis. MUSCULOSKELETAL: (+) neck pain. No joint or muscle swelling or pain. SKIN: No rash NEUROLOGIC: No headache, vertigo, loss of consciousness, or change in strength/ sensation. ENDOCRINE: No increased thirst. No abnormal weight change. HEMATOLOGIC/LYMPHATIC: No anemia, easy bleeding, or history of blood clots. ALLERGIC/IMMUNOLOGIC: No hives or skin allergy. *Physical Exam Vital Signs Period Temp Pulse Resp BP Sys/Arguelles Pulse Ox Last 24 Hr 98.2 F-98.7 F 72-106 17-20 130-192/76-106 93-98 GENERAL: Awake, alert, oriented to name, in no acute distress HEAD: No signs of trauma EYES: PERRLA, EOMI, sclera anicteric, conjunctiva clear ENT: Auricles normal inspection, hearing grossly normal, nares patent, oropharynx clear without exudates. Moist mucosa NECK: c-collar in place LUNGS: Breath sounds equal, clear to auscultation bilaterally. No wheezes, and no crackles HEART: Regular rate and rhythm, normal S1 and S2, no murmurs, rubs or gallops ABDOMEN: Soft, nontender, normoactive bowel sounds. No guarding, no rebound. No masses EXTREMITIES: FROM, no edema. No cords, erythema, deformities or tenderness BACK: diffuse tenderness along thoracic and lumbar spine, although pt uncomfortable due to neck pain NEUROLOGICAL: Limited speech, cranial nerves intact. 4+/5 in UE, 5-/5 in LE, sensory intact diffusely, gait deferred SKIN: Warm, Dry, normal turgor, no rashes or lesions noted. CBCD WBC 8.2 K/mm3 (4.0-10.0) 07/26/18 06:15 RBC 4.47 M/mm3 (4.00-5.60) 07/26/18 06:15 Hgb 13.9 GM/dL (11.7-16.9) 07/26/18 06:15 Hct 42.4 % (35.4-49) 07/26/18 06:15 MCV 94.9 fl (80-96) 07/26/18 06:15 MCHC 32.8 g/dl (32.0-35.9) 07/26/18 06:15 RDW 14.7 % (11.9-15.9) 07/26/18 06:15 Plt Count 136 K/MM3 (134-434) 07/26/18 06:15 MPV 9.4 fl (7.5-11.1) 07/26/18 06:15 CMP Sodium 141 mmol/L (136-145) 07/26/18 06:15 Potassium 3.5 mmol/L (3.5-5.1) 07/26/18 06:15 Chloride 99 mmol/L (98-107) 07/26/18 06:15 Carbon Dioxide 33 mmol/L (21-32) H 07/26/18 06:15 Anion Gap 10 MMOL/L (8-16) 07/26/18 06:15 BUN 10 mg/dL (7-18) 07/26/18 06:15 Creatinine 0.6 mg/dL (0.55-1.3) 07/26/18 06:15 Creat Clearance w eGFR > 60 (>60) 07/26/18 06:15 Random Glucose 68 mg/dL (74-106) L 07/26/18 06:15 Calcium 8.4 mg/dL (8.5-10.1) L 07/26/18 06:15 Total Bilirubin 0.8 mg/dL (0.2-1) 07/26/18 06:15 AST 23 U/L (15-37) 07/26/18 06:15 ALT 22 U/L (13-61) 07/26/18 06:15 Alkaline Phosphatase 54 U/L (45-117) 07/26/18 06:15 Total Protein 6.0 g/dl (6.4-8.2) L 07/26/18 06:15 Albumin 3.4 g/dl (3.4-5.0) 07/26/18 06:15 Medical Decision Making 77 year old male presenting with family, with a significant past medical history of Alzheimer's dementia, 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 Day prior to admission, reported she was transferring him to his walker after dinner when he lost his footing and fell backwards onto his head and neck. No LOC. Next morning the neck pain was worse and pt went to see Dr. Melchor. Dr. Melchor ordered a CTH and CT neck which revealed reported acute C5 fracture. Dr. Melchor recommended pt come to the ED and requests NSG c/s Dr. Guan. NSGY note reviewed, recommended MRI. Patient in collar and looks stable. T and L spine CT reviewed. Some bulging in L spine with arthropathy but no significant pathology otherwise. Follow up Dr. Guan recommendation, continue collar. Defer to NSGY regarding risk/benefit of surgical intervention. No new focal deficits. Neurologically stable as compared to prior accident. Fall precautions needed, DVT ppx. Physical therapy, likely to require short term rehab.
[2018-07-26] MEDS ORDERED: PATIENT'S OWN MEDICATION (NON-FORMULARY) (Rivastigmine [Exelon] 1 EACH) TD SCH (10:00)
[2018-07-26] MEDS ORDERED: PATIENT'S OWN MEDICATION (NON-FORMULARY) (Memantine Hcl [Namenda Xr] 21 MG) PO SCH (10:00)
[2018-07-26 10:30] LABS: INR 7.07 (0.83-1.09)
[2018-07-26] MEDS ORDERED: ACETAMINOPHEN 500 MG TABLET (FP) PO PRN (10:56)
--- NOTE | 2018-07-26 10:59 | HP ---
Admitting History and Physical - Primary Care Physician PCP: Bobby Melchor - Admission Chief Complaint: Fall. Neck pain History of Present Illness: Pt with extremities weakness, arms more than legs, myosistis s/i IVIG infusions , new diagnosis of ALS, dementia, fell yesterday at home when tried to stand up on its own and his legs couldn't support him; later he came to my office for a scheduled visit and I sent his head and neck CT scan and INR. His neck CTscan was c/w C5 vertebral Fx and INR was evelated; pt received PO vit K in ER and was admitted fro further testing. This AM his is unhappy with that the neck collar bother the patient and couldn't sleep much. 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 Esophageal dysmotility), Other (colon polyp excised 2004) Hepatobiliary: Yes: Other (fatty liver) Renal/: Yes: BPH Psych: Yes: Depression, Other (dementia) Musculoskeletal: Yes: Chronic low back pain (required epidural injections) Rheumatology: Yes: Other (myositis, s/p IVIG infusion) - Past Surgical History Past Surgical History: Yes: Colectomy (sigmoid colectomy for intramucosal cancer 2001), Colonoscopy, Hernia Repair (recurrent RIH repair), Upper Endoscopy - Smoking History Smoking history: Never smoked Have you smoked in the past 12 months: No Aproximately how many cigarettes per day: 5 If you are a former smoker, when did you quit?: 50 years ago - Alcohol/Substance Use Hx Alcohol Use: No History of Substance Use: reports: None - Social History ADL: Family Assistance History of Recent Travel: No Home Medications - Allergies Allergies/Adverse Reactions: Allergies Allergy/AdvReac Type Severity Reaction Status Date / Time No Known Drug Allergies Allergy Verified 07/25/18 19:22 - Home Medications Home Medications: Ambulatory Orders Calcium Carbonate [Calcium] 1,000 mg PO DAILY 10/03/16 Memantine HCl [Namenda Xr] 21 mg PO DAILY 10/03/16 Multivit-Min/FA/Lycopen/Lutein [Centrum Silver Tablet] 1 each PO DAILY 10/03/16 [place]-3 Acid Ethyl Esters [Lovaza] 2 gm PO BID 10/03/16 Pantoprazole Sodium [Protonix -] 40 mg PO BID 10/03/16 Pramipexole Di-HCl [Mirapex] 0.25 mg PO HS 10/03/16 Tamsulosin HCl [Flomax -] 0.4 mg PO HS 10/03/16 Citalopram Hydrobromide [Celexa -] 40 mg PO DAILY tablet 03/22/18 Fluticasone Prop 0.05% Nasal [Flonase -] 1 - 2 spray NS BID 06/28/18 Rivastigmine [Exelon] 1 each TD DAILY 06/28/18 Warfarin Na [Coumadin -] 7.5 mg PO SUTUTHFRSA 06/28/18 Bisacodyl Suppository [Dulcolax Suppository -] 10 mg RC DAILY PRN 30 Days #30 supp.rect MDD 1 07/02/18 Atorvastatin Ca [Lipitor] 10 mg PO HS 07/05/18 Docusate Sodium [Colace] 200 mg PO PRN 07/05/18 Magnesium Oxide [Mag-Ox -] 400 mg PO DAILY #90 tablet MDD 1 07/13/18 Metoprolol Tartrate [Lopressor -] 25 mg PO BID #180 tablet MDD 2 07/13/18 clonazePAM [Klonopin -] 0.25 mg PO BID #30 tablet MDD 2 07/13/18 Losartan Potassium [Cozaar -] 25 mg PO DAILY 07/25/18 Family Disease History - Family Disease History Family Disease History: Heart Disease: Father ( [place]), Other: Mother ( in a fire) Review of Systems - Review of Systems Constitutional: denies: Chills, Fever Eyes: denies: Blurred Vision, Eye Pain HENT: denies: Nasal Congestion, Throat Pain Neck: reports: Pain on Movement, Tenderness Cardiovascular: denies: Chest Pain, Edema, Palpitations Respiratory: denies: Cough, SOB, Wheezing Gastrointestinal: denies: Abdominal Pain, Nausea, Vomiting Genitourinary: denies: Burning, Dysuria, Flank Pain Musculoskeletal: reports: Muscle Weakness (unchanged). denies: Back Pain Integumentary: denies: Bruising, Rash Neurological: denies: Change in Speech, Confusion (per his ), Weakness (new motor weakness -per his ) Hematology/Lymphatic: denies: Easily Bruised, Excessive Bleeding Psychiatric: reports: Anxiety (occasionally). denies: Altered Sleep Pattern Physical Examination Vital Signs: Vital Signs Temperature 98.2 F 07/26/18 02:55 Pulse Rate 106 H 07/26/18 06:25 Respiratory Rate 20 07/26/18 06:25 Blood Pressure 192/92 H 07/26/18 06:25 O2 Sat by Pulse Oximetry (%) 98 07/26/18 03:37 Findings/Remarks: pt at baseline Constitutional: Yes: No Distress, Calm, Other (pt with neck collar in place) Eyes: Yes: Conjunctiva Clear, EOM Intact HENT: No: Epistaxis, Rhinnorhea Neck: Yes: Trachea Midline. No: Lymphadenopathy Cardiovascular: Yes: Regular Rate and Rhythm, S1, S2 Respiratory: Yes: Regular, CTA Bilaterally. No: Rales Gastrointestinal: Yes: Normal Bowel Sounds, Soft. No: Tenderness ...Rectal Exam: Yes: Deferred Edema: No Neurological: Yes: Alert, Oriented (persons), Other (sensory and motor examination is symmetric, unchanged in UE/ LE/ face. Motor 4/5 in UE, 4-5/5 in LE) Labs: CBC, BMP 07/26/18 06:15 07/26/18 06:15 Imaging - Results Cat Scan: Report Reviewed Problem List - Problems (1) Cervical spine fracture Code(s): S12.9XXA - FRACTURE OF NECK, UNSPECIFIED, INITIAL ENCOUNTER (2) Fall Code(s): W19.XXXA - UNSPECIFIED FALL, INITIAL ENCOUNTER (3) Subtherapeutic anticoagulation Code(s): Z51.81 - ENCOUNTER FOR THERAPEUTIC DRUG LEVEL MONITORING; Z79.01 - [facility] (CURRENT) USE OF ANTICOAGULANTS (4) Myositis Code(s): M60.9 - MYOSITIS, UNSPECIFIED Qualifiers: Myositis type: other type Laterality: unspecified laterality (5) Weakness generalized Code(s): R53.1 - WEAKNESS (6) HTN (hypertension) Code(s): I10 - ESSENTIAL (PRIMARY) HYPERTENSION (7) Hyperlipidemia Code(s): E78.5 - HYPERLIPIDEMIA, UNSPECIFIED (8) Fecal impaction of colon Code(s): K56.41 - FECAL IMPACTION Assessment/Plan Neuro SX consult is appreciated; to order [place] or [place] collar Neck MRI Neuro consult Pain control; his is OK with Morphine (PRN) No Coumadin tonight AM labs Pt's condition and tratment was reviewed with his nurse
--- NOTE | 2018-07-26 11:39 | EKG ---
Test Reason : Blood Pressure : / mmHG Vent. Rate : 076 BPM Atrial Rate : 156 BPM P-R Int : 000 ms QRS Dur : 092 ms QT Int : 400 ms P-R-T Axes : 000 -04 -06 degrees QTc Int : 450 ms ATRIAL FIBRILLATION ABNORMAL ECG WHEN COMPARED WITH ECG OF 12-JUL-2018 12:56, T WAVE INVERSION NOW EVIDENT IN INFERIOR LEADS Confirmed by PALMIRA FOX, NIDHI ([id number]) on 07/26/2018 11:39:17 AM Referred By: Confirmed By:NIDHI CHAVIS MD
--- NOTE | 2018-07-26 12:43 | CON.CARD ---
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 Yesterday, reports she was transferring him to his walker after dinner when he lost his footing and fell backwards onto his head and neck. No LOC. He was able to tolerate the pain last night in his neck and did not want to come to the ED. This morning the neck pain was worse and pt went to see Dr. Melchor. Dr. Melchor ordered a CTH and CT neck which revealed an acute C5 fracture. Dr. Melchor recommended pt come to the ED and requests NSG c/s Dr. Guan. The patient has no other complaints at the time other than neck pain. C-collar placed on evaluation. The patient denies chest pain, shortness of breath, headache and dizziness, palpitations prior to the fall or recently. Denies fevers, chills, abd pain, LE edema, weakness or numbness. 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 Esophageal dysmotility), Other (colon polyp excised 2004) Hepatobiliary: Yes: Other (fatty liver) Renal/: Yes: BPH Psych: Yes: Depression, Other (dementia) Musculoskeletal: Yes: Chronic low back pain (required epidural injections) Rheumatology: Yes: Other (myositis, s/p IVIG infusion) - Past Surgical History Past Surgical History: Yes: Colectomy (sigmoid colectomy for intramucosal cancer 2001), Colonoscopy, Hernia Repair (recurrent RIH repair), Upper Endoscopy - Alcohol/Substance Use Hx Alcohol Use: No History of Substance Use: reports: None - Smoking History Smoking history: Never smoked Have you smoked in the past 12 months: No Aproximately how many cigarettes per day: 5 If you are a former smoker, when did you quit?: 50 years ago - Social History Usual Living Arrangement: With Spouse ADL: Family Assistance History of Recent Travel: No Home Medications - Allergies Allergies/Adverse Reactions: Allergies Allergy/AdvReac Type Severity Reaction Status Date / Time No Known Drug Allergies Allergy Verified 07/25/18 19:22 - Home Medications Home Medications: Ambulatory Orders Calcium Carbonate [Calcium] 1,000 mg PO DAILY 10/03/16 Memantine HCl [Namenda Xr] 21 mg PO DAILY 10/03/16 Multivit-Min/FA/Lycopen/Lutein [Centrum Silver Tablet] 1 each PO DAILY 10/03/16 [place]-3 Acid Ethyl Esters [Lovaza] 2 gm PO BID 10/03/16 Pantoprazole Sodium [Protonix -] 40 mg PO BID 10/03/16 Pramipexole Di-HCl [Mirapex] 0.25 mg PO HS 10/03/16 Tamsulosin HCl [Flomax -] 0.4 mg PO HS 10/03/16 Citalopram Hydrobromide [Celexa -] 40 mg PO DAILY tablet 03/22/18 Fluticasone Prop 0.05% Nasal [Flonase -] 1 - 2 spray NS BID 06/28/18 Rivastigmine [Exelon] 1 each TD DAILY 06/28/18 Warfarin Na [Coumadin -] 7.5 mg PO SUTUTHFRSA 06/28/18 Bisacodyl Suppository [Dulcolax Suppository -] 10 mg RC DAILY PRN 30 Days #30 supp.rect MDD 1 07/02/18 Atorvastatin Ca [Lipitor] 10 mg PO HS 07/05/18 Docusate Sodium [Colace] 200 mg PO PRN 07/05/18 Magnesium Oxide [Mag-Ox -] 400 mg PO DAILY #90 tablet MDD 1 07/13/18 Metoprolol Tartrate [Lopressor -] 25 mg PO BID #180 tablet MDD 2 07/13/18 clonazePAM [Klonopin -] 0.25 mg PO BID #30 tablet MDD 2 07/13/18 Losartan Potassium [Cozaar -] 25 mg PO DAILY 07/25/18 Family Disease History - Family Disease History Family Disease History: Heart Disease: Father ( [place]), Other: Mother ( in a fire) Review of Systems - Review of Systems Constitutional: reports: No Symptoms Eyes: reports: No Symptoms HENT: reports: No Symptoms Neck: reports: No Symptoms Cardiovascular: reports: No Symptoms Gastrointestinal: reports: No Symptoms Genitourinary: reports: No Symptoms Breasts: reports: No Symptoms Reported Musculoskeletal: reports: No Symptoms Integumentary: reports: No Symptoms Neurological: reports: No Symptoms Endocrine: reports: No Symptoms Hematology/Lymphatic: reports: No Symptoms Psychiatric: reports: No Symptoms Vital Signs: Vital Signs Temperature 97.9 F 07/26/18 10:00 Pulse Rate 100 H 07/26/18 10:00 Respiratory Rate 20 07/26/18 10:00 Blood Pressure 174/51 H 07/26/18 10:00 O2 Sat by Pulse Oximetry (%) 98 07/26/18 03:37 Constitutional: Yes: Well Nourished, No Distress, Calm Eyes: Yes: WNL, Conjunctiva Clear, EOM Intact HENT: Yes: WNL, Atraumatic, Normocephalic Neck: Yes: WNL, Supple, Trachea Midline Respiratory: Yes: WNL, Regular, CTA Bilaterally Gastrointestinal: Yes: WNL, Normal Bowel Sounds Renal/: Yes: WNL Cardiovascular: Yes: Pulse Irregular Musculoskeletal: Yes: WNL Extremities: Yes: WNL Integumentary: Yes: WNL Neurological: Yes: WNL, Alert, Oriented ...Motor Strength: WNL Psychiatric: Yes: WNL, Alert, Oriented - Other Data Labs, Other Data: CBC, BMP 07/26/18 06:15 07/26/18 06:15 INR, PTT INR 7.07 (0.83-1.09) H* 07/26/18 06:15 Imaging - Results Chest X-ray: Image Reviewed (no i/e) EKG: Image Reviewed (af rep abn) Problem List - Problems (1) Cervical spine fracture Code(s): S12.9XXA - FRACTURE OF NECK, UNSPECIFIED, INITIAL ENCOUNTER (2) Fall Code(s): W19.XXXA - UNSPECIFIED FALL, INITIAL ENCOUNTER (3) Neck pain Code(s): M54.2 - CERVICALGIA (4) ACS (acute coronary syndrome) Code(s): I24.9 - ACUTE ISCHEMIC HEART DISEASE, UNSPECIFIED (5) ALS (amyotrophic lateral sclerosis) Code(s): G12.21 - AMYOTROPHIC LATERAL SCLEROSIS (6) Abdominal pain Code(s): R10.9 - UNSPECIFIED ABDOMINAL PAIN Qualifiers: Abdominal location: lower abdomen, unspecified Qualified Code(s): R10.30 - Lower abdominal pain, unspecified (7) Abnormal cardiac enzyme level Code(s): R74.8 - ABNORMAL LEVELS OF OTHER SERUM ENZYMES (8) Abnormal head CT Code(s): R93.0 - ABNORMAL FINDINGS ON DX IMAGING OF SKULL AND HEAD, NEC (9) Abnormal liver function tests Code(s): R94.5 - ABNORMAL RESULTS OF LIVER FUNCTION STUDIES (10) Altered mental status Code(s): R41.82 - ALTERED MENTAL STATUS, UNSPECIFIED (11) Anxiety Code(s): F41.9 - ANXIETY DISORDER, UNSPECIFIED (12) Barretts esophagus Code(s): K22.70 - REGALADO'S ESOPHAGUS WITHOUT DYSPLASIA Qualifiers: Regalado's esophagus type: without dysplasia Qualified Code(s): K22.70 - Regalado's esophagus without dysplasia (13) Bradycardia Code(s): R00.1 - BRADYCARDIA, UNSPECIFIED (14) CAD (coronary artery disease) Code(s): I25.10 - ATHSCL HEART DISEASE OF [place] CORONARY ARTERY W/O ANG PCTRS (15) Chest pain Code(s): R07.9 - CHEST PAIN, UNSPECIFIED Qualifiers: Chest pain type: unspecified Qualified Code(s): R07.9 - Chest pain, unspecified (16) Colon polyp Code(s): K63.5 - POLYP OF COLON (17) Confusion Code(s): R41.0 - DISORIENTATION, UNSPECIFIED (18) Constipation Code(s): K59.00 - CONSTIPATION, UNSPECIFIED Qualifiers: Constipation type: slow transit constipation Qualified Code(s): K59.01 - Slow transit constipation (19) Dementia Code(s): F03.90 - UNSPECIFIED DEMENTIA WITHOUT BEHAVIORAL DISTURBANCE (20) Dizziness Code(s): R42 - DIZZINESS AND GIDDINESS (21) Dysphagia Code(s): R13.10 - DYSPHAGIA, UNSPECIFIED Qualifiers: Dysphagia type: oropharyngeal phase Qualified Code(s): R13.12 - Dysphagia, oropharyngeal phase (22) EKG abnormalities Code(s): R94.31 - ABNORMAL ELECTROCARDIOGRAM [ECG] [EKG] (23) Fatty liver Code(s): K76.0 - FATTY (CHANGE OF) LIVER, NOT ELSEWHERE CLASSIFIED (24) Fecal impaction of colon Code(s): K56.41 - FECAL IMPACTION (25) Gallbladder dilatation Code(s): K82.8 - OTHER SPECIFIED DISEASES OF GALLBLADDER (26) Hiatal hernia with GERD and esophagitis Code(s): K44.9 - DIAPHRAGMATIC HERNIA WITHOUT OBSTRUCTION OR GANGRENE; K21.0 - GASTRO-ESOPHAGEAL REFLUX DISEASE WITH ESOPHAGITIS (27) History of colon cancer Code(s): Z85.038 - PERSONAL HISTORY OF MALIGNANT NEOPLASM OF LARGE INTESTINE (28) Hypokalemia Code(s): E87.6 - HYPOKALEMIA (29) Hypomagnesemia Code(s): E83.42 - HYPOMAGNESEMIA (30) Hypotension Code(s): I95.9 - HYPOTENSION, UNSPECIFIED Qualifiers: Hypotension type: unspecified hypotension type Qualified Code(s): I95.9 - Hypotension, unspecified (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 - OTHER SPECIFIED MYOPATHIES (32) LUQ abdominal pain Code(s): R10.12 - LEFT UPPER QUADRANT PAIN (33) Myositis Code(s): M60.9 - MYOSITIS, UNSPECIFIED Qualifiers: Myositis type: other type Laterality: unspecified laterality (34) Nasal bleeding Code(s): R04.0 - EPISTAXIS (35) Polymyositis Code(s): M33.20 - POLYMYOSITIS, ORGAN INVOLVEMENT UNSPECIFIED (36) Shoulder pain, right Code(s): M25.511 - PAIN IN RIGHT SHOULDER Qualifiers: Chronicity: acute Qualified Code(s): M25.511 - Pain in right shoulder (37) Skin rash Code(s): R21 - RASH AND OTHER NONSPECIFIC SKIN ERUPTION (38) Sleep apnea Code(s): G47.30 - SLEEP APNEA, UNSPECIFIED (39) Subtherapeutic anticoagulation Code(s): Z51.81 - ENCOUNTER FOR THERAPEUTIC DRUG LEVEL MONITORING; Z79.01 - CROSSING WATCHMAN (CURRENT) USE OF ANTICOAGULANTS (40) Subtherapeutic international normalized ratio (INR) Code(s): R79.1 - ABNORMAL COAGULATION PROFILE (41) Supratherapeutic INR Code(s): R79.1 - ABNORMAL COAGULATION PROFILE (42) Tremor Code(s): R25.1 - TREMOR, UNSPECIFIED (43) Weakness generalized Code(s): R53.1 - WEAKNESS (44) Atrial fibrillation Code(s): I48.91 - UNSPECIFIED ATRIAL FIBRILLATION Qualifiers: Atrial fibrillation type: chronic Qualified Code(s): I48.2 - Chronic atrial fibrillation (45) HTN (hypertension) Code(s): I10 - ESSENTIAL (PRIMARY) HYPERTENSION (46) Hyperlipidemia Code(s): E78.5 - HYPERLIPIDEMIA, UNSPECIFIED Assessment/Plan Alzheimer's dementia, 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 elevated INR Plan r/o cervical spine fx hold coumadin until INR decreases bp control - restart meds will f/u
--- NOTE | 2018-07-26 21:51 | PN ---
Progress Note (short form) - Note Progress Note: Rapid response called at ~9:40 for a desaturation to 58%. Pt.s BP at that time was 190s/100s per covering nurse. Pt. had just come back form MRI and was unable to complete MRI. Pt. was placed on non-rebreather to good effect of 100% saturation and BP was rechecked and found to be 160/80s. On physical exam Pt. was found to be minimally responsive, opened eyes to command with right pupil reactive to light and left pupil sluggish in reactivity. Breath sounds equal b/l , nml s1, s2, RRR. 2+ dorsal pedal pulses and left radial. Pt. able to squeeze right hand however unable to squeeze left hand. Pt. able to wiggle toes, right more than left. CBC, BMP, cardiac profile, UA, EKG, troponins, Head CT, CXR and Telemetry orders were placed to rule out cardiac etiology vs. hemorragic stroke.
[2018-07-26 21:55] LABS: ARTERIAL BLOOD GAS pH 7.38 (7.35-7.45)
[2018-07-26 21:59] LABS: ALLENS TEST POSITIVE; ARTERIAL BLD GAS O2 SATURATION 98.7 % (90-98.9)
[2018-07-26 22:21] LABS: BASO % 0.4 % (0-2.0); EOS % 0.1 % (0-4.5); HEMATOCRIT 41.4 % (35.4-49); HEMOGLOBIN 14.6 GM/dL (11.7-16.9); LYMPH % 11.8 % (8-40); MCH 33.2 pg (25.7-33.7); MCHC 35.2 g/dl (32.0-35.9); MEAN CELL VOLUME 94.1 fl (80-96); MEAN PLT VOLUME 8.9 fl (7.5-11.1); MONO % 7.1 % (3.8-10.2); NEUT % 80.6 % (42.8-82.8); PLATELET COUNT 132 K/MM3 (134-434); WHITE BLOOD COUNT 6.4 K/mm3 (4.0-10.0)
[2018-07-26 22:37] LABS: PROTHROMBIN TIME (PATIENT) 81.8 SEC (9.7-13.0)
[2018-07-26 23:02] LABS: ALBUMIN 3.4 g/dl (3.4-5.0); ALK PHOS 58 U/L (45-117); ANION GAP 6 MMOL/L (8-16); BILIRUBIN,TOTAL 0.6 mg/dL (0.2-1); BLOOD UREA NITROGEN 12 mg/dL (7-18); CALCIUM 8.1 mg/dL (8.5-10.1); CHLORIDE 99 mmol/L (98-107); CO2 37 mmol/L (21-32); CREATININE 0.7 mg/dL (0.55-1.3); GLUCOSE,RANDOM 114 mg/dL (74-106); POTASSIUM 3.7 mmol/L (3.5-5.1); SGOT/AST 23 U/L (15-37); SGPT/ALT 23 U/L (13-61); SODIUM 142 mmol/L (136-145); TOT PROT 6.5 g/dl (6.4-8.2)
[2018-07-26] MEDS: TAMSULOSIN HCL 0.4 MG CAP PO SCH (23:40)
[2018-07-26] MEDS: ATORVASTATIN CA 10 MG TABLET (FP) PO SCH (23:40)
[2018-07-26] MEDS: PRAMIPEXOLE DIHYDROCHLORIDE 0.25 MG TABLET PO SCH (23:43)
[2018-07-27 00:35] LABS: INR 6.8 (0.83-1.09)
[2018-07-27] MEDS: PRAMIPEXOLE DIHYDROCHLORIDE 0.25 MG TABLET PO SCH ×2 (01:26→22:24)
[2018-07-27] MEDS ORDERED: MORPHINE SULFATE 2 MG/ML VIAL IVPUSH ONE (06:45)
[2018-07-27] MEDS: METOPROLOL TARTRATE 25 MG TABLET (FP) PO SCH ×2 (06:55→22:14)
[2018-07-27] MEDS: LOSARTAN POTASSIUM 25 MG TABLET PO SCH ×2 (06:55→10:13)
[2018-07-27 08:19] LABS: HEMATOCRIT 42.4 % (35.4-49); MCH 31.3 pg (25.7-33.7); MCHC 32.9 g/dl (32.0-35.9); MEAN CELL VOLUME 95.3 fl (80-96); MEAN PLT VOLUME 9.4 fl (7.5-11.1); PLATELET COUNT 114 K/MM3 (134-434); RBC 4.45 M/mm3 (4.00-5.60); RDW 14.9 % (11.9-15.9); WHITE BLOOD COUNT 6.7 K/mm3 (4.0-10.0)
[2018-07-27 08:22] LABS: PROTHROMBIN TIME (PATIENT) 74.8 SEC (9.7-13.0)
[2018-07-27 08:38] LABS: INR 6.22 (0.83-1.09)
[2018-07-27 09:17] LABS: ANION GAP 11 MMOL/L (8-16); BLOOD UREA NITROGEN 11 mg/dL (7-18); CALCIUM 8.4 mg/dL (8.5-10.1); CHLORIDE 99 mmol/L (98-107); CO2 34 mmol/L (21-32); CREATININE 0.6 mg/dL (0.55-1.3); GLUCOSE,RANDOM 79 mg/dL (74-106); POTASSIUM 3.4 mmol/L (3.5-5.1); SODIUM 144 mmol/L (136-145)
--- NOTE | 2018-07-27 09:37 | PN ---
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 Fell backwards onto his head and neck. No LOC. Less neck, R shoulder, R forearm pain. PE; AF, hypertensive; O2 sat 96%; more awake HEENT- NC/AT; Neck- in [place] J collar, more comfortable, pain worse with extension, but overall better; Cor- Irreg; Lungs- CTA; Abd- benign; Ext- no sign of DVT CN- non-focal; Motor- weak B prox UE Deltoids/supraspinatus 2/5; distal UE R 4/ 5 L 3/5; B LE 4 prox 4+ distal; Sensation- intact LT; DTR- hyporeflexic WBC 6.7, Hgb 14 CT Head- moderate atrophy with moderate periventricular small vessel dz; no fx, no bleed Repeat head CT- atrophy, petriventricular dz, no bleed CT C spine- extensive spondylosis and bridging osteophytes C4,5,6; fracture through anterior body/osteophyte C5 and slight widening of C5-6 disc space; no marked canal compromise MRI C spine (partial and with motion artifact)- anterior C5 and C6 vertebral/ osteophyte fracture, minimally if at all displaced; C5-6 discal injury, prevertebral swelling as expected C5-6 vertebral and discal injury s/p mechanical fall Short pulse of steroid for prevertebral edema and pain, though could exacerbate hypertension Encourage PO
[2018-07-27] MEDS: OMEGA-3 ACID ETHYL ESTERS (FATTY-ACIDS) 1 GM CAPSULE (FP) PO SCH ×2 (10:12→22:18)
[2018-07-27] MEDS: MAGNESIUM OXIDE 400 MG TABLET (FP) PO SCH (10:12)
[2018-07-27] MEDS: CALCIUM (OYSTER SHELL) 500 MG TABLET (FP) PO SCH (10:12)
[2018-07-27] MEDS: clonazePAM 0.5 MG TABLET PO SCH ×2 (10:13→22:16)
[2018-07-27] MEDS: PANTOPRAZOLE 40 MG TABLET (FP) PO SCH ×2 (10:13→22:14)
[2018-07-27] MEDS: CITALOPRAM HYDROBROMIDE 20 MG TABLET (FP) PO SCH (10:13)
[2018-07-27] MEDS: FLUTICASONE PROP 0.05% 16 GM NASAL SPRAY NS SCH ×2 (10:30→22:00)
--- NOTE | 2018-07-27 13:07 | PN ---
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 --Rapid response called, elevated SBP- restarted on losartan yesterday Objective: Vital Signs 07/27/18 07/27/18 07/27/18 06:00 09:00 10:00 Temperature 97.9 F 98.6 F Pulse Rate 77 79 Respiratory 20 20 20 Rate Blood Pressure 182/99 H 153/94 O2 Sat by Pulse 98 Oximetry (%) Gen: well appearing male sitting in supine position with neck collar Cardiac: irreg, irreg S1/S2 no murmurs Pulm: clear breath sounds Ext: WWP AP: #Afib; continue home metoprolol (hold for HR<50) --hold coumadin until INR reaches therapeutic range #HTN; increase losartan 25 to 50mg Management of pain and acute fracture per PMD and Neurosurgery Darnell Rainey MD
[2018-07-27] MEDS ORDERED: POTASSIUM CHLORIDE ORAL LIQUID 20 MEQ/15 ML PO ONE (14:28)
--- NOTE | 2018-07-27 14:28 | PN ---
Progress Note, Physician Chief Complaint: events over last night noted; pt did neck MRI then was lethargic increased BP and hypoxemic; seen by hospitalist; placed on O2 100% and transferred to telemetry; CE sent, trop borderline positive, seen by cardiology; INR still elevated now in telemetry, sleepy but responsive, BP controlled; at bedside said he was awake earlier and moving all extremities, but did not want to eat; d/w pt's aspiration PFX will start low dose IVF; d/w cardio covering spine MRI noted and d/w pt's ; pt seen by NS dr Guan; pt has neck collar on but said he does not llike it and was trying to remove it; d/w improtance to keep it on at all times; said she is watching him and she stayed at bedside 24h, d/w staff to allow her staying with pt. - Current Medication List Current Medications: Active Medications Acetaminophen (Tylenol -) 500 mg PO Q6H PRN PRN Reason: PAIN LEVEL 1-5 Atorvastatin Calcium (Lipitor -) 10 mg PO HS [facility] Last Admin: 07/26/18 23:40 Dose: 10 mg Bisacodyl (Dulcolax Suppository -) 10 mg RC DAILY PRN PRN Reason: CONSTIPATION Calcium Carbonate (Os-Surya 500mg -) 1,000 mg PO DAILY [facility] Last Admin: 07/27/18 10:12 Dose: Not Given Citalopram Hydrobromide (Celexa -) 40 mg PO DAILY [facility] Last Admin: 07/27/18 10:13 Dose: 40 mg Clonazepam (Klonopin -) 0.25 mg PO BID [facility] Last Admin: 07/27/18 10:13 Dose: 0.25 mg Dexamethasone Sodium Phosphate (Decadron Injection -) 2 mg IVPUSH Q6H-IV [place] Docusate Sodium (Colace -) 200 mg PO BID PRN PRN Reason: CONSTIPATION Fluticasone Propionate (Flonase -) 1 spray NS BID [facility] Last Admin: 07/27/18 10:30 Dose: Not Given Losartan Potassium (Cozaar -) 25 mg PO DAILY [facility] Last Admin: 07/27/18 10:13 Dose: 25 mg Losartan Potassium (Cozaar -) 25 mg PO DAILY [facility] Last Admin: 07/27/18 06:55 Dose: 25 mg Magnesium Oxide (Mag-Ox -) 400 mg PO DAILY [facility] Last Admin: 07/27/18 10:12 Dose: 400 mg Metoprolol Tartrate (Lopressor -) 25 mg PO BID [facility] Last Admin: 07/27/18 06:55 Dose: 25 mg Morphine Sulfate (Morphine Sulfate) 1 mg IVPUSH Q3H PRN PRN Reason: PAIN LEVEL 6-10 Last Admin: 07/26/18 20:08 Dose: 1 mg Non-Formulary Medication (Memantine Hcl [Namenda Xr]) 21 mg PO DAILY [facility] Non-Formulary Medication (Rivastigmine [Exelon]) 1 each TD DAILY [facility] Lullp-[id number] Ethyl Esters (Lovaza -) 2 gm PO BID [facility] Last Admin: 07/27/18 10:12 Dose: Not Given Pantoprazole Sodium (Protonix -) 40 mg PO BID [facility] Last Admin: 07/27/18 10:13 Dose: 40 mg Pramipexole Dihydrochloride (Mirapex -) 0.25 mg PO [facility] Last Admin: 07/26/18 23:43 Dose: Not Given Tamsulosin HCl (Flomax -) 0.4 mg PO [facility] Last Admin: 07/26/18 23:40 Dose: 0.4 mg - Objective Vital Signs: Vital Signs Temperature 98.6 F 07/27/18 10:00 Pulse Rate 79 07/27/18 10:00 Respiratory Rate 20 07/27/18 10:00 Blood Pressure 153/94 07/27/18 10:00 O2 Sat by Pulse Oximetry (%) 98 07/27/18 09:00 Constitutional: Yes: No Distress, Calm Eyes: Yes: Conjunctiva Clear HENT: Yes: Atraumatic Neck: Yes: Other (collar on) Respiratory: Yes: CTA Bilaterally Gastrointestinal: Yes: Soft. No: Tenderness Genitourinary: No: Hematuria Musculoskeletal: No: Joint Stiffness, Joint Swelling Extremities: No: Cold, Cool, Cyanosis Edema: No Integumentary: No: Rash, Venous Stasis Changes Neurological: Yes: Alert, Other (general weakness, moves weakly passivly extremities does not follow commands at this point.). No: Oriented Psychiatric: Yes: Alert. No: Oriented, Agitated Labs: CBC, BMP 07/27/18 06:50 07/27/18 06:50 INR, PTT INR 6.22 (0.83-1.09) H* 07/27/18 06:50 - ....Imaging MRI: Report Reviewed Assessment/Plan 77 YOM ASHD CHF AFib ALS with extremities wekaness, s/p fall admitted with coumadin toxicity and C6 vertebral fracture; s/p hyperTA and hypoxemia episode after neck MRI; borderline + troponins monitor in telemetry, BP control cardiology f/u NS f/u; steroids trial per NS; will ask neuro input also neck collar on f/u labs; INR; coumadin held s/p vit K prognosis guarded falls decubs aspiration PFX f/u BGM and gastric PFX while on steroids d/w pt's at bedside - prognosis guarded d/w staff; t time 40 min
[2018-07-27] MEDS: DEXAMETHASONE SOD PHOSPHATE 4 MG/1 ML VIAL IVPUSH SCH ×3 (15:39→22:15)
[2018-07-27] MEDS: DEXTROSE 5%-NORMAL SALINE 1,000 ML IV SCH (17:48)
[2018-07-27] MEDS: KCL 10 MEQ IVPB 10 MEQ/100 ML INFUS.BAG IVPB SCH ×2 (17:48→20:00)
--- NOTE | 2018-07-27 21:22 | EKG ---
Test Reason : Blood Pressure : / mmHG Vent. Rate : 091 BPM Atrial Rate : 115 BPM P-R Int : 000 ms QRS Dur : 096 ms QT Int : 394 ms P-R-T Axes : 000 -16 -50 degrees QTc Int : 484 ms POOR DATA QUALITY, INTERPRETATION MAY BE ADVERSELY AFFECTED ATRIAL FIBRILLATION WITH PREMATURE VENTRICULAR OR ABERRANTLY CONDUCTED COMPLEXES INFERIOR INFARCT , AGE UNDETERMINED ABNORMAL ECG Confirmed by PALMIRA FOX, NIDHI ([id number]) on 07/27/2018 9:21:47 PM Referred By: Confirmed By:NIDHI CHAVIS MD
[2018-07-27] MEDS: ATORVASTATIN CA 10 MG TABLET (FP) PO SCH (22:14)
[2018-07-27] MEDS: TAMSULOSIN HCL 0.4 MG CAP PO SCH (22:14)
[2018-07-28] MEDS: MORPHINE SULFATE 2 MG/ML VIAL IVPUSH PRN (02:17)
[2018-07-28] MEDS: DEXAMETHASONE SOD PHOSPHATE 4 MG/1 ML VIAL IVPUSH SCH ×4 (03:40→20:36)
[2018-07-28] MEDS: INSULIN SLIDING SCALE (NOVOLOG) 1 VIAL SQ SCH ×4 (07:00→22:00)
[2018-07-28 07:50] LABS: HEMATOCRIT 42.8 % (35.4-49); HEMOGLOBIN 14.9 GM/dL (11.7-16.9); LYMPH % 10.8 % (8-40); MCH 33.2 pg (25.7-33.7); MCHC 34.7 g/dl (32.0-35.9); MEAN CELL VOLUME 95.7 fl (80-96); MEAN PLT VOLUME 9.8 fl (7.5-11.1); MONO % 2.4 % (3.8-10.2); NEUT % 86.8 % (42.8-82.8); PLATELET COUNT 119 K/MM3 (134-434); RBC 4.48 M/mm3 (4.00-5.60); RDW 14.9 % (11.9-15.9); WHITE BLOOD COUNT 4.7 K/mm3 (4.0-10.0)
[2018-07-28 08:09] LABS: PROTHROMBIN TIME (PATIENT) 67.3 SEC (9.7-13.0)
[2018-07-28 08:52] LABS: INR 5.6 (0.83-1.09)
[2018-07-28 08:57] LABS: ALBUMIN 3.2 g/dl (3.4-5.0); ALK PHOS 54 U/L (45-117); ANION GAP 8 MMOL/L (8-16); BILIRUBIN,TOTAL 0.6 mg/dL (0.2-1); BLOOD UREA NITROGEN 18 mg/dL (7-18); CALCIUM 8.7 mg/dL (8.5-10.1); CHLORIDE 102 mmol/L (98-107); CO2 37 mmol/L (21-32); CREATININE 0.6 mg/dL (0.55-1.3); GLUCOSE,RANDOM 121 mg/dL (74-106); POTASSIUM 4.1 mmol/L (3.5-5.1); SGOT/AST 20 U/L (15-37); SGPT/ALT 24 U/L (13-61); SODIUM 147 mmol/L (136-145); TOT PROT 6.2 g/dl (6.4-8.2)
--- NOTE | 2018-07-28 09:05 | PN ---
Progress Note, Physician Chief Complaint: stable no new c/o more awake alert in better spirit; at bedside, said he wants to get OOB to go home, d/w pt and DO NOT GET OOB alone important will have swallow eval in am - Current Medication List Current Medications: Active Medications Acetaminophen (Tylenol -) 500 mg PO Q6H PRN PRN Reason: PAIN LEVEL 1-5 Atorvastatin Calcium (Lipitor -) 10 mg PO HS [facility] Last Admin: 07/27/18 22:14 Dose: Not Given Bisacodyl (Dulcolax Suppository -) 10 mg RC DAILY PRN PRN Reason: CONSTIPATION Calcium Carbonate (Os-Surya 500mg -) 1,000 mg PO DAILY [facility] Last Admin: 07/27/18 10:12 Dose: Not Given Citalopram Hydrobromide (Celexa -) 40 mg PO DAILY [facility] Last Admin: 07/27/18 10:13 Dose: 40 mg Clonazepam (Klonopin -) 0.25 mg PO BID [facility] Last Admin: 07/27/18 22:16 Dose: Not Given Dexamethasone Sodium Phosphate (Decadron Injection -) 2 mg IVPUSH Q6H-IV [facility] Last Admin: 07/28/18 03:40 Dose: 2 mg Docusate Sodium (Colace -) 200 mg PO BID PRN PRN Reason: CONSTIPATION Fluticasone Propionate (Flonase -) 1 spray NS BID [facility] Last Admin: 07/27/18 22:00 Dose: Not Given Dextrose/Sodium Chloride (D5-Ns -) 1,000 mls @ 50 mls/hr IV ASDIR [facility] Last Admin: 07/27/18 17:48 Dose: 50 mls/hr Insulin Aspart (Novolog Vial Sliding Scale -) 1 vial SQ ACHS [facility]; Protocol Losartan Potassium (Cozaar -) 25 mg PO DAILY [facility] Last Admin: 07/27/18 10:13 Dose: 25 mg Losartan Potassium (Cozaar -) 25 mg PO DAILY [facility] Last Admin: 07/27/18 06:55 Dose: 25 mg Magnesium Oxide (Mag-Ox -) 400 mg PO DAILY [facility] Last Admin: 07/27/18 10:12 Dose: 400 mg Metoprolol Tartrate (Lopressor -) 25 mg PO BID [facility] Last Admin: 07/27/18 22:14 Dose: Not Given Morphine Sulfate (Morphine Sulfate) 1 mg IVPUSH Q3H PRN PRN Reason: PAIN LEVEL 6-10 Last Admin: 07/28/18 02:17 Dose: 1 mg Non-Formulary Medication (Memantine Hcl [Namenda Xr]) 21 mg PO DAILY [facility] Non-Formulary Medication (Rivastigmine [Exelon]) 1 each TD DAILY [facility] [id number] Ethyl Esters (Lovaza -) 2 gm PO BID [facility] Last Admin: 07/27/18 22:18 Dose: Not Given Pantoprazole Sodium (Protonix -) 40 mg PO BID [facility] Last Admin: 07/27/18 22:14 Dose: Not Given Pramipexole Dihydrochloride (Mirapex -) 0.25 mg PO [facility] Last Admin: 07/27/18 22:24 Dose: Not Given Tamsulosin HCl (Flomax -) 0.4 mg PO [facility] Last Admin: 07/27/18 22:14 Dose: Not Given - Objective Vital Signs: Vital Signs Temperature 98 F 07/28/18 05:26 Pulse Rate 98 H 07/28/18 05:26 Respiratory Rate 20 07/28/18 05:26 Blood Pressure 139/87 07/28/18 05:26 O2 Sat by Pulse Oximetry (%) 95 07/27/18 20:36 Constitutional: Yes: No Distress, Calm Eyes: Yes: Conjunctiva Clear HENT: Yes: Atraumatic Neck: Yes: Supple Cardiovascular: Yes: Regular Rate and Rhythm Respiratory: Yes: CTA Bilaterally Gastrointestinal: Yes: Soft. No: Tenderness Genitourinary: No: Hematuria Musculoskeletal: No: Joint Stiffness, Joint Swelling Extremities: No: Cold, Cool Edema: No Integumentary: No: Rash, Venous Stasis Changes Neurological: Yes: Alert Psychiatric: Yes: Alert. No: Agitated Labs: CBC, BMP 07/28/18 06:32 07/28/18 06:32 INR, PTT INR 5.60 (0.83-1.09) H* 07/28/18 06:32 - ....Imaging Other: Report Reviewed Assessment/Plan 77 YOM ASHD CHF AFib ALS with extremities wekaness, s/p fall admitted with coumadin toxicity and C6 vertebral fracture; s/p hyperTA and hypoxemia episode after neck MRI; borderline + troponins monitor in telemetry, BP control cardiology f/u NS f/u; steroids trial per NS; neuro f/u neck collar on f/u labs; INR; coumadin held s/p vit K prognosis guarded falls decubs aspiration PFX; do not try to get OOB alone swallow eval f/u BGM and gastric PFX while on steroids d/w pt's at bedside - prognosis guarded
[2018-07-28] MEDS ORDERED: hydrALAZINE HCL 20 MG/ML VIAL IVPUSH ONE (10:15)
[2018-07-28] MEDS: FLUTICASONE PROP 0.05% 16 GM NASAL SPRAY NS SCH ×2 (10:16→21:26)
[2018-07-28] MEDS: LOSARTAN POTASSIUM 25 MG TABLET PO SCH ×2 (10:16→10:17)
[2018-07-28] MEDS: OMEGA-3 ACID ETHYL ESTERS (FATTY-ACIDS) 1 GM CAPSULE (FP) PO SCH ×2 (10:16→21:27)
[2018-07-28] MEDS: CITALOPRAM HYDROBROMIDE 20 MG TABLET (FP) PO SCH (10:16)
[2018-07-28] MEDS: CALCIUM (OYSTER SHELL) 500 MG TABLET (FP) PO SCH (10:16)
[2018-07-28] MEDS: clonazePAM 0.5 MG TABLET PO SCH ×2 (10:16→21:26)
[2018-07-28] MEDS: METOPROLOL TARTRATE 25 MG TABLET (FP) PO SCH ×2 (10:16→21:26)
[2018-07-28] MEDS: MAGNESIUM OXIDE 400 MG TABLET (FP) PO SCH (10:17)
[2018-07-28] MEDS: PANTOPRAZOLE 40 MG TABLET (FP) PO SCH ×2 (10:17→21:25)
--- NOTE | 2018-07-28 11:21 | PN ---
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 --Rapid response called, elevated SBP- restarted on losartan yesterday Objective: Vital Signs 07/28/18 05:26 Temperature 98 F Pulse Rate 98 H Respiratory 20 Rate Blood Pressure 139/87 Gen: well appearing male sitting in supine position with neck collar Cardiac: irreg, irreg S1/S2 no murmurs Pulm: clear breath sounds Ext: WWP. Laboratory Last Values WBC 4.7 K/mm3 (4.0-10.0) 07/28/18 06:32 RBC 4.48 M/mm3 (4.00-5.60) 07/28/18 06:32 Hgb 14.9 GM/dL (11.7-16.9) 07/28/18 06:32 Hct 42.8 % (35.4-49) 07/28/18 06:32 MCV 95.7 fl (80-96) 07/28/18 06:32 MCH 33.2 pg (25.7-33.7) 07/28/18 06:32 MCHC 34.7 g/dl (32.0-35.9) 07/28/18 06:32 RDW 14.9 % (11.9-15.9) 07/28/18 06:32 Plt Count 119 K/MM3 (134-434) L 07/28/18 06:32 MPV 9.8 fl (7.5-11.1) 07/28/18 06:32 Absolute Neuts (auto) 4.1 K/mm3 (1.5-8.0) 07/28/18 06:32 Neutrophils % 86.8 % (42.8-82.8) H 07/28/18 06:32 Lymphocytes % 10.8 % (8-40) 07/28/18 06:32 Monocytes % 2.4 % (3.8-10.2) L 07/28/18 06:32 Eosinophils % 0.0 % (0-4.5) D 07/28/18 06:32 Basophils % 0.0 % (0-2.0) 07/28/18 06:32 Nucleated RBC % 0 % (0-0) 07/28/18 06:32 PT with INR 67.30 SEC (9.7-13.0) H 07/28/18 06:32 INR 5.60 (0.83-1.09) H* 07/28/18 06:32 PTT (Actin FS) 54.4 SECONDS (25.2-36.5) H 07/25/18 22:27 Anticoagulation Therapy No Result Required. 07/26/18 21:45 Puncture Site Right radial 07/26/18 21:45 ABG pH 7.38 (7.35-7.45) 07/26/18 21:45 ABG pCO2 at Pt Temp 59.0 mmHg (35-45) H 07/26/18 21:45 ABG pO2 at Pt Temp 140.0 mmHg (70-100) H 07/26/18 21:45 ABG HCO3 33.9 meq/L (22-26) H 07/26/18 21:45 ABG O2 Sat (Measured) 98.7 % (90-98.9) 07/26/18 21:45 ABG O2 Content 20.9 % vol (15-22) 07/26/18 21:45 ABG Base Excess 7.0 meq/l (-2-2) H 07/26/18 21:45 Joe Test Positive 07/26/18 21:45 O2 Delivery Device Nonrebreather 07/26/18 21:45 Oxygen Flow Rate 100 07/26/18 21:45 Vent Mode No Result Required. 07/26/18 21:45 Vent Rate No Result Required. 07/26/18 21:45 Mechanical Rate No Result Required. 07/26/18 21:45 Pressure Support Vent No Result Required. 07/26/18 21:45 Sodium 147 mmol/L (136-145) H 07/28/18 06:32 Potassium 4.1 mmol/L (3.5-5.1) 07/28/18 06:32 Chloride 102 mmol/L (98-107) 07/28/18 06:32 Carbon Dioxide 37 mmol/L (21-32) H 07/28/18 06:32 Anion Gap 8 MMOL/L (8-16) 07/28/18 06:32 BUN 18 mg/dL (7-18) 07/28/18 06:32 Creatinine 0.6 mg/dL (0.55-1.3) 12 06:32 Creat Clearance w eGFR > 60 (>60) 07/28/18 06:32 POC Glucometer 118 UNITS (80-120) 07/26/18 21:39 Random Glucose 121 mg/dL (74-106) H 07/28/18 06:32 Lactic Acid 0.9 mmol/L (0.4-2.0) 07/26/18 22:00 Calcium 8.7 mg/dL (8.5-10.1) 07/28/18 06:32 Total Bilirubin 0.6 mg/dL (0.2-1) 07/28/18 06:32 AST 20 U/L (15-37) 07/28/18 06:32 ALT 24 U/L (13-61) 07/28/18 06:32 Alkaline Phosphatase 54 U/L (45-117) 07/28/18 06:32 Creatine Kinase 62 IU/L (26-308) 07/28/18 06:32 Troponin I 0.07 ng/ml (0.00-0.05) H 07/28/18 06:32 Total Protein 6.2 g/dl (6.4-8.2) L 07/28/18 06:32 Albumin 3.2 g/dl (3.4-5.0) L 07/28/18 06:32 Blood Type A POSITIVE 07/26/18 00:28 Antibody Screen Negative 07/25/18 22:27 AP: #Afib; continue home metoprolol (hold for HR<50) --hold coumadin until INR reaches therapeutic range #HTN; increase losartan 25 to 50mg Management of pain and acute fracture per PMD and Neurosurgery Darnell Rainey MD
[2018-07-28] MEDS ORDERED: ACETAMINOPHEN 1000 MG/100 ML VIAL (NON FORMULARY) IVPB ONE (12:15)
[2018-07-28] MEDS ORDERED: hydrALAZINE HCL 20 MG/ML VIAL IVPUSH PRN (13:16)
[2018-07-28 14:54] LABS: URINE APPEARANCE CLEAR; URINE BILIRUBIN NEGATIVE (<2.0 mg/dL); URINE COLOR DKYELLOW; URINE GLUCOSE (UA) NEGATIVE (NEGATIVE); URINE KETONE TRACE (NEGATIVE); URINE LEUK ESTERASE NEGATIVE (NEGATIVE); URINE NITRITE NEGATIVE (NEGATIVE); URINE PROTEIN 2+ (NEGATIVE); URINE UROBILINOGEN NEGATIVE mg/dL (0.2-1.0)
[2018-07-28 14:58] LABS: EPI CELLS RARE /HPF (FEW); URINE HYALINE CAST 5 /lpf; URINE MUCUS FEW
[2018-07-28 16:20] VITALS: BMI 23.4
--- NOTE | 2018-07-28 17:00 | CON.PULM ---
Consult Consult Specialty:: PULM/CCM Referred by:: PMLibby Reason for Consultation:: SOB - History of Present Illness Chief Complaint: SOB History of Present Illness: 77 M, Alzheimer's dementia, ALS, AFib on coumadin, HTN, and HLD. Admitted via the ER after a fall. Apparently he fell while transferring from his walker and fell backwards onto his head and neck. No reported LOC. Went to PMD, who ordered CT: revealed an acute C5 fracture. Placed in a hard collar. 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 Esophageal dysmotility), Other (colon polyp excised 2004) Hepatobiliary: Yes: Other (fatty liver) Renal/: Yes: BPH Psych: Yes: Depression, Other (dementia) Musculoskeletal: Yes: Chronic low back pain (required epidural injections) Rheumatology: Yes: Other (myositis, s/p IVIG infusion) - Past Surgical History Past Surgical History: Yes: Colectomy (sigmoid colectomy for intramucosal cancer 2001), Colonoscopy, Hernia Repair (recurrent RIH repair), Upper Endoscopy - Alcohol/Substance Use Hx Alcohol Use: No History of Substance Use: reports: None - Smoking History Smoking history: Never smoked Have you smoked in the past 12 months: No Aproximately how many cigarettes per day: 5 If you are a former smoker, when did you quit?: 50 years ago - Social History Usual Living Arrangement: With Spouse ADL: Family Assistance History of Recent Travel: No Home Medications - Allergies Allergies/Adverse Reactions: Allergies Allergy/AdvReac Type Severity Reaction Status Date / Time No Known Drug Allergies Allergy Verified 07/25/18 19:22 - Home Medications Home Medications: Ambulatory Orders Calcium Carbonate [Calcium] 1,000 mg PO DAILY 10/03/16 Memantine HCl [Namenda Xr] 21 mg PO DAILY 10/03/16 Multivit-Min/FA/Lycopen/Lutein [Centrum Silver Tablet] 1 each PO DAILY 10/03/16 [place]-3 Acid Ethyl Esters [Lovaza] 2 gm PO BID 10/03/16 Pantoprazole Sodium [Protonix -] 40 mg PO BID 10/03/16 Pramipexole Di-HCl [Mirapex] 0.25 mg PO HS 10/03/16 Tamsulosin HCl [Flomax -] 0.4 mg PO HS 10/03/16 Citalopram Hydrobromide [Celexa -] 40 mg PO DAILY tablet 03/22/18 Fluticasone Prop 0.05% Nasal [Flonase -] 1 - 2 spray NS BID 06/28/18 Rivastigmine [Exelon] 1 each TD DAILY 06/28/18 Warfarin Na [Coumadin -] 7.5 mg PO SUTUTHFRSA 06/28/18 Bisacodyl Suppository [Dulcolax Suppository -] 10 mg RC DAILY PRN 30 Days #30 supp.rect MDD 1 07/02/18 Atorvastatin Ca [Lipitor] 10 mg PO HS 07/05/18 Docusate Sodium [Colace] 200 mg PO PRN 07/05/18 Magnesium Oxide [Mag-Ox -] 400 mg PO DAILY #90 tablet MDD 1 07/13/18 Metoprolol Tartrate [Lopressor -] 25 mg PO BID #180 tablet MDD 2 07/13/18 clonazePAM [Klonopin -] 0.25 mg PO BID #30 tablet MDD 2 07/13/18 Losartan Potassium [Cozaar -] 25 mg PO DAILY 07/25/18 Family Disease History - Family Disease History Family Disease History: Heart Disease: Father ( [place]), Other: Mother ( in a fire) Review of Systems Unable to obtain ROS, reason: unable to provide Physical Exam Vital Sings: Vital Signs Temperature 99.0 F 07/28/18 14:00 Pulse Rate 129 H 07/28/18 14:00 Respiratory Rate 20 07/28/18 11:57 Blood Pressure 156/85 07/28/18 14:00 O2 Sat by Pulse Oximetry (%) 98 07/28/18 09:00 Constitutional: Yes: Mild Distress, Thin Eyes: Yes: Conjunctiva Clear, EOM Intact HENT: Yes: Atraumatic, Normocephalic Neck: Yes: Supple, Trachea Midline Cardiovascular: Yes: Pulse Irregular Respiratory: Yes: On Venti-Mask, Rhonchi, SOB, Tachypnea. No: Accessory Muscle Use, Rales, Wheezes ...Inspection: Yes: WNL ...Clubbing: No Gastrointestinal: Yes: Normal Bowel Sounds, Soft Musculoskeletal: Yes: WNL Extremities: Yes: WNL Edema: No Peripheral Pulses WNL: Yes Integumentary: Yes: WNL Neurological: Yes: Confusion Labs: CBC, BMP 07/28/18 06:32 07/28/18 06:32 ABG Results ABG pH 7.38 (7.35-7.45) 07/26/18 21:45 ABG pCO2 at Pt Temp 59.0 mmHg (35-45) H 07/26/18 21:45 ABG pO2 at Pt Temp 140.0 mmHg (70-100) H 07/26/18 21:45 ABG HCO3 33.9 meq/L (22-26) H 07/26/18 21:45 ABG O2 Sat (Measured) 98.7 % (90-98.9) 07/26/18 21:45 ABG O2 Content 20.9 % vol (15-22) 07/26/18 21:45 ABG Base Excess 7.0 meq/l (-2-2) H 07/26/18 21:45 Imaging - Results Chest X-ray: Report Reviewed, Image Reviewed Problem List - Problems (1) Cervical spine fracture Code(s): S12.9XXA - FRACTURE OF NECK, UNSPECIFIED, INITIAL ENCOUNTER (2) Fall Code(s): W19.XXXA - UNSPECIFIED FALL, INITIAL ENCOUNTER (3) Neck pain Code(s): M54.2 - CERVICALGIA (4) ALS (amyotrophic lateral sclerosis) Code(s): G12.21 - AMYOTROPHIC LATERAL SCLEROSIS (5) Anxiety Code(s): F41.9 - ANXIETY DISORDER, UNSPECIFIED (6) CAD (coronary artery disease) Code(s): I25.10 - ATHSCL HEART DISEASE OF [place] CORONARY ARTERY W/O ANG PCTRS (7) Constipation Code(s): K59.00 - CONSTIPATION, UNSPECIFIED Qualifiers: Constipation type: slow transit constipation Qualified Code(s): K59.01 - Slow transit constipation (8) Dementia Code(s): F03.90 - UNSPECIFIED DEMENTIA WITHOUT BEHAVIORAL DISTURBANCE (9) Atrial fibrillation Code(s): I48.91 - UNSPECIFIED ATRIAL FIBRILLATION Qualifiers: Atrial fibrillation type: chronic Qualified Code(s): I48.2 - Chronic atrial fibrillation (10) HTN (hypertension) Code(s): I10 - ESSENTIAL (PRIMARY) HYPERTENSION (11) Hyperlipidemia Code(s): E78.5 - HYPERLIPIDEMIA, UNSPECIFIED (12) Sleep apnea Code(s): G47.30 - SLEEP APNEA, UNSPECIFIED Assessment/Plan Previously diagnosed Mild OSAS based on an elevated RDI of 5 events per hour. Lowest desaturation was 82%. Patient not on treatment. Incentive Spirometry O2 as needed Pain control Do not suspect infection, so no indication for ABX VTE prophylaxis Hard collar per Neurosurgery Fall precautions Thank you. Dr Bautista
[2018-07-28] MEDS ORDERED: PT OWN MED DRAWER 7, Y5N ONE (21:23)
[2018-07-28] MEDS: TAMSULOSIN HCL 0.4 MG CAP PO SCH (21:25)
[2018-07-28] MEDS: PRAMIPEXOLE DIHYDROCHLORIDE 0.25 MG TABLET PO SCH (21:26)
[2018-07-28] MEDS: ATORVASTATIN CA 10 MG TABLET (FP) PO SCH (21:26)
[2018-07-29] MEDS: DEXTROSE 5%-NORMAL SALINE 1,000 ML IV SCH ×2 (00:12→18:32)
[2018-07-29] MEDS: DEXAMETHASONE SOD PHOSPHATE 4 MG/1 ML VIAL IVPUSH SCH (02:49)
[2018-07-29] MEDS: INSULIN SLIDING SCALE (NOVOLOG) 1 VIAL SQ SCH ×3 (06:42→18:30)
[2018-07-29] MEDS: MORPHINE SULFATE 2 MG/ML VIAL IVPUSH PRN (06:53)
[2018-07-29 07:33] LABS: BASO % 0.1 % (0-2.0); HEMATOCRIT 42.6 % (35.4-49); HEMOGLOBIN 13.6 GM/dL (11.7-16.9); LYMPH % 8.3 % (8-40); MCH 31.1 pg (25.7-33.7); MEAN CELL VOLUME 97.1 fl (80-96); MEAN PLT VOLUME 9.7 fl (7.5-11.1); MONO % 3.2 % (3.8-10.2); NEUT % 88.4 % (42.8-82.8); PLATELET COUNT 120 K/MM3 (134-434); RBC 4.38 M/mm3 (4.00-5.60); RDW 14.9 % (11.9-15.9); WHITE BLOOD COUNT 7.7 K/mm3 (4.0-10.0)
[2018-07-29 07:51] LABS: PROTHROMBIN TIME (PATIENT) 88.1 SEC (9.7-13.0)
[2018-07-29 08:09] LABS: INR 7.32 (0.83-1.09)
[2018-07-29 08:17] LABS: ALK PHOS 48 U/L (45-117); ANION GAP 4 MMOL/L (8-16); BILIRUBIN,TOTAL 0.7 mg/dL (0.2-1); BLOOD UREA NITROGEN 24 mg/dL (7-18); CALCIUM 8.8 mg/dL (8.5-10.1); CHLORIDE 107 mmol/L (98-107); CO2 39 mmol/L (21-32); CREATININE 0.6 mg/dL (0.55-1.3); GLUCOSE,RANDOM 136 mg/dL (74-106); POTASSIUM 3.9 mmol/L (3.5-5.1); SGOT/AST 22 U/L (15-37); SGPT/ALT 22 U/L (13-61); SODIUM 150 mmol/L (136-145); TOT PROT 5.9 g/dl (6.4-8.2)
--- NOTE | 2018-07-29 08:46 | PN ---
Progress Note (short form) - Note Progress Note: NEUROSURGERY On telemetry at bedside PE: AF, BP better; O2 sat 97% on 4 L; more awake HEENT- NC/AT; Neck- in [place] collar, more comfortable, pain worse with extension, but overall better; Cor- Irreg; Lungs- CTA; Abd- benign; Ext- no sign of DVT CN- non-focal; Motor- weak B prox UE Deltoids/supraspinatus 2/5; distal UE R 4/ 5 L 3/5; B LE 4 prox 4+ distal; Sensation- intact LT; DTR- hyporeflexic WBC 7.7, Hgb 13.6 CT Head- moderate atrophy with moderate periventricular small vessel dz; no fx, no bleed Repeat head CT- atrophy, petriventricular dz, no bleed CT C spine- extensive spondylosis and bridging osteophytes C4,5,6; fracture through anterior body/osteophyte C5 and slight widening of C5-6 disc space; no marked canal compromise MRI C spine (partial and with motion artifact)- anterior C5 and C6 vertebral/ osteophyte fracture, minimally if at all displaced; C5-6 discal injury, prevertebral swelling as expected CXR- bibasilar atelectasis C5-6 vertebral and discal injury s/p mechanical fall Collar adjusted Short pulse of steroid for prevertebral edema and pain, changed to po Incentive spirometry Encourage PO
--- NOTE | 2018-07-29 09:28 | CONSULT ---
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 Day prior to admission, reported she was transferring him to his walker after dinner when he lost his footing and fell backwards onto his head and neck. No LOC. Next morning the neck pain was worse and pt went to see Dr. Melchor. Dr. Melchor ordered a CTH and CT neck which revealed reported acute C5 fracture. Dr. Melchor recommended pt come to the ED and requested NSG c/s Dr. Guan. NSGY note reviewed, MRI compelted and reviewed. Patient in collar and stable over weekend. T and L spine CT reviewed. Some bulging in L spine with arthropathy but no significant pathology otherwise. Discussed with at bedside in detail. NSGY rec'd short course of pulse steroids. Active Medications Acetaminophen (Tylenol -) 500 mg PO Q6H PRN PRN Reason: PAIN LEVEL 1-5 Atorvastatin Calcium (Lipitor -) 10 mg PO HS [facility] Last Admin: 07/28/18 21:26 Dose: 10 mg Bisacodyl (Dulcolax Suppository -) 10 mg RC DAILY PRN PRN Reason: CONSTIPATION Calcium Carbonate (Os-Surya 500mg -) 1,000 mg PO DAILY [facility] Last Admin: 07/28/18 10:16 Dose: Not Given Citalopram Hydrobromide (Celexa -) 40 mg PO DAILY [facility] Last Admin: 07/28/18 10:16 Dose: Not Given Clonazepam (Klonopin -) 0.25 mg PO BID [facility] Last Admin: 07/28/18 21:26 Dose: 0.25 mg Dexamethasone (Decadron Liquid -) 2 mg PO QID [facility] Docusate Sodium (Colace -) 200 mg PO BID PRN PRN Reason: CONSTIPATION Fluticasone Propionate (Flonase -) 1 spray NS BID [facility] Last Admin: 07/28/18 21:26 Dose: 1 spray Hydralazine HCl (Apresoline Injection -) 10 mg IVPUSH Q6H PRN PRN Reason: HYPERTENSION Dextrose/Sodium Chloride (D5-Ns -) 1,000 mls @ 50 mls/hr IV ASDIR [facility] Last Admin: 07/29/18 00:12 Dose: 50 mls/hr Insulin Aspart (Novolog Vial Sliding Scale -) 1 vial SQ ACHS [facility]; Protocol Last Admin: 07/29/18 06:42 Dose: Not Given Losartan Potassium (Cozaar -) 25 mg PO DAILY [facility] Last Admin: 07/28/18 10:16 Dose: Not Given Losartan Potassium (Cozaar -) 25 mg PO DAILY [facility] Last Admin: 07/28/18 10:17 Dose: Not Given Magnesium Oxide (Mag-Ox -) 400 mg PO DAILY [facility] Last Admin: 07/28/18 10:17 Dose: Not Given Metoprolol Tartrate (Lopressor -) 25 mg PO BID [facility] Last Admin: 07/28/18 21:26 Dose: 25 mg Metoprolol Tartrate (Lopressor Injection -) 5 mg IVPUSH Q4H PRN PRN Reason: HYPERTENSION Morphine Sulfate (Morphine Sulfate) 1 mg IVPUSH Q3H PRN PRN Reason: PAIN LEVEL 6-10 Last Admin: 07/29/18 06:53 Dose: 1 mg Non-Formulary Medication (Memantine Hcl [Namenda Xr]) 21 mg PO DAILY [facility] Non-Formulary Medication (Rivastigmine [Exelon]) 1 each TD DAILY [facility] [id number] Ethyl Esters (Lovaza -) 2 gm PO BID [facility] Last Admin: 07/28/18 21:27 Dose: Not Given Pantoprazole Sodium (Protonix -) 40 mg PO BID [facility] Last Admin: 07/28/18 21:25 Dose: 40 mg Pramipexole Dihydrochloride (Mirapex -) 0.25 mg PO HS [facility] Last Admin: 07/28/18 21:26 Dose: 0.25 mg Tamsulosin HCl (Flomax -) 0.4 mg PO [facility] Last Admin: 07/28/18 21:25 Dose: 0.4 mg *Physical Exam Vital Signs Period Temp Pulse Resp BP Sys/Arguelles Pulse Ox Last 24 Hr 97.6 F-99.0 F 85-129 20-22 125-188/63-95 97 GENERAL: Awake, alert, oriented to name, in no acute distress HEAD: No signs of trauma EYES: PERRLA, EOMI, sclera anicteric, conjunctiva clear ENT: Auricles normal inspection, hearing grossly normal, nares patent, oropharynx clear without exudates. Moist mucosa NECK: c-collar in place LUNGS: Breath sounds equal, clear to auscultation bilaterally. No wheezes, and no crackles HEART: Regular rate and rhythm, normal S1 and S2, no murmurs, rubs or gallops ABDOMEN: Soft, nontender, normoactive bowel sounds. No guarding, no rebound. No masses EXTREMITIES: FROM, no edema. No cords, erythema, deformities or tenderness BACK: diffuse tenderness along thoracic and lumbar spine, although pt uncomfortable due to neck pain NEUROLOGICAL: Limited speech, cranial nerves intact. 4+/5 in UE, 5-/5 in LE, sensory intact diffusely, gait deferred SKIN: Warm, Dry, normal turgor, no rashes or lesions noted. CBCD WBC 7.7 K/mm3 (4.0-10.0) 07/29/18 05:30 RBC 4.38 M/mm3 (4.00-5.60) 07/29/18 05:30 Hgb 13.6 GM/dL (11.7-16.9) 07/29/18 05:30 Hct 42.6 % (35.4-49) 07/29/18 05:30 MCV 97.1 fl (80-96) H 07/29/18 05:30 MCHC 32.0 g/dl (32.0-35.9) 07/29/18 05:30 RDW 14.9 % (11.9-15.9) 07/29/18 05:30 Plt Count 120 K/MM3 (134-434) L 07/29/18 05:30 MPV 9.7 fl (7.5-11.1) 07/29/18 05:30 CMP Sodium 150 mmol/L (136-145) H 07/29/18 05:30 Potassium 3.9 mmol/L (3.5-5.1) 07/29/18 05:30 Chloride 107 mmol/L (98-107) 07/29/18 05:30 Carbon Dioxide 39 mmol/L (21-32) H 07/29/18 05:30 Anion Gap 4 MMOL/L (8-16) L 07/29/18 05:30 BUN 24 mg/dL (7-18) H 07/29/18 05:30 Creatinine 0.6 mg/dL (0.55-1.3) 07/29/18 05:30 Creat Clearance w eGFR > 60 (>60) 07/29/18 05:30 Random Glucose 136 mg/dL (74-106) H 07/29/18 05:30 Calcium 8.8 mg/dL (8.5-10.1) 07/29/18 05:30 Total Bilirubin 0.7 mg/dL (0.2-1) 07/29/18 05:30 AST 22 U/L (15-37) 07/29/18 05:30 ALT 22 U/L (13-61) 07/29/18 05:30 Alkaline Phosphatase 48 U/L (45-117) 07/29/18 05:30 Total Protein 5.9 g/dl (6.4-8.2) L 07/29/18 05:30 Albumin 3.0 g/dl (3.4-5.0) L 07/29/18 05:30 CARDIAC ENZYMES Creatine Kinase 62 IU/L (26-308) 07/28/18 06:32 Troponin I 0.07 ng/ml (0.00-0.05) H 07/28/18 06:32 Medical Decision Making 77 year old male presenting with family, with a significant past medical history of Alzheimer's dementia, 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 Day prior to admission, reported she was transferring him to his walker after dinner when he lost his footing and fell backwards onto his head and neck. No LOC. Next morning the neck pain was worse and pt went to see Dr. Melchor. Dr. Melchor ordered a CTH and CT neck which revealed reported acute C5 fracture. Dr. Melchor recommended pt come to the ED and requests NSG c/s Dr. Guan. NSGY note reviewed, recommended MRI. Patient in collar and looks stable. T and L spine CT reviewed. Some bulging in L spine with arthropathy but no significant pathology otherwise. Follow up Dr. Guan recommendation, continue collar. Defer to NSGY regarding risk/benefit of surgical intervention. Short course of steroids, per NSGY. Monitor sugar, maintain normal gylcemic range. No new focal deficits. Neurologically stable as compared to prior accident. Fall precautions needed, DVT ppx. Physical therapy, likely to require short term rehab.
--- NOTE | 2018-07-29 10:21 | CONSULT ---
Admitting History and Physical - Primary Care Physician PCP: Bobby Melchor - Admission History of Present Illness: 77 M, Alzheimer's dementia, ALS, AFib admitted following fall backwards onto his head and neck. No reported LOC. CT revealed an acute C5 fracture, now with hard collar. Known to me from February 2018 admission, with MBS, Sp/sw evaluation/treatment provided. Pt was on puree/ [place] thick liquid, with good tolerance. Order for pureed diet/thin liquids in EMR. Pt's reports that he has only had nectar thick liquid since admission, but nothing the last couple of days as he was SOB and restless. Pt's has Simply Thick thickener, that she mixes into his liquids and also into his Miralax which he takes daily at home. He also is given one Ensure plus at home daily, mixed with Simply thick. Made NPO 07/28. Desaturated, requiring NRB. 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 Esophageal dysmotility), Other (colon polyp excised 2004) Hepatobiliary: Yes: Other (fatty liver) Renal/: Yes: BPH Psych: Yes: Depression, Other (dementia) Musculoskeletal: Yes: Chronic low back pain (required epidural injections) Rheumatology: Yes: Other (myositis, s/p IVIG infusion) - Past Surgical History Past Surgical History: Yes: Colectomy (sigmoid colectomy for intramucosal cancer 2001), Colonoscopy, Hernia Repair (recurrent RIH repair), Upper Endoscopy - Smoking History Smoking history: Never smoked Have you smoked in the past 12 months: No Aproximately how many cigarettes per day: 5 If you are a former smoker, when did you quit?: 50 years ago - Alcohol/Substance Use Hx Alcohol Use: No History of Substance Use: reports: None - Social History ADL: Family Assistance History of Recent Travel: No History - Admission Reason For Visit: FRACTURE F CERVICAL VERTEBRA,FALL - Diagnostics X-ray: Report Reviewed CT Scan: Report Reviewed ( bibasilar atelectasis) Modified Barium Swallow: Report Reviewed (February 2018. Clinically, pt appears similar to February findings at bedside. Silent aspiration can not be r/o at bedside.) - General Mental Status: Awake and Alert, Able to Follow Commands, Confused Attention: Distractible, Mild Impairment Ability to Follow Directions: Fair Head/Neck Control: Fair (Hard cervical collar in place) - Hearing Hearing: Normal Hearing Aide: No With Patient: No Speech Evaluation - Communication Primary Language: DIVEHI Communication: Yes: Simple Responses - Speech Production Able to Make Needs Known: Yes: WNL Intelligibility: Yes: WNL - Speech Characteristics Voice Loudness: Normal Voice Pitch: Yes: Normal Voice Phonatory-based Quality: Yes: Normal Speech Pattern: Normal Speech Clarity: < 100% Nasal Resonance: Normal Articulation: Yes: Precise - Language/Auditory Comprehension Follows: Yes: 1 Stage Simple Commands - Swallow Evaluation/Bedside Assessment Current Nutritional Intake: Dysphagia Pureed, Thin Liquids Oral Secretions: Yes: WFL Dentition: Yes: Adequate Facial Symmetry at Rest: Symmetrical Facial Symmetry on Retraction: Symmetrical Sensation: Normal Against Resistance Opening: Normal Against Resistance Closing: Normal Pucker Lips: Normal Smile: Normal Lingual Movement: Normal, Symmetric Lingual Speed of Movement: Normal Lingual Movement Strgth Against Opposition: Normal Lingual Movement Characteristics: Normal Velopharyngeal Movement: Normal Laryngeal Movement: Reduced Excursion, Labored,delay initiation Rate of Intake: WFL Bolus Size: Small Labial Seal: WFL Oral Prep Time: WFL A-P Transit: WFL Timing of Swallow: Delayed Coughing/Throat Clear: No (Trial nectar thick liquid on tsp) Change in Voice: No Recommendations - Speech Evaluation, Impression/Plan Impression: Swallowing performance similar to February admission. Pt tolerating Dys puree/nectar thick liquid on a tsp at home well.Pt's recalls all compensatory swallowing strategies well with good tolerance. Now with hard cervical collar, which can adversely affect ability to use chin tuck technigue as compensatory swallowing strategy. - Dysphagia Impressions/Plan Swallowing Skills: Impaired Dysphagia Impressions: Mild Impairment *Silent aspiration: cannot be R/O at bedside Dysphagia Treatment Plan: Small Bites, Chin Tuck/Down (Can cervical collar be opened for meals, with allowance for slight head flexion? Pt with acute C5 fx.) , Clear Pocket Food, Safe Rate, Elevate HOB during feed, Other (Wait for swallow reflex before next bolus given) Recommendations: Modified Barium Swallow (if throat clearing, cough, congestion , fever.), Other (Pt's requesting Miralax, which she thickens with Simply thick.) - Recommendations Diet Consistency: Dysphagia Pureed Medication Administration: Crushed with applesauce Liquids: [place] Thick Supplement: Magic Cup, Ensure Pudding, Other (Ensure Compact)
[2018-07-29] MEDS ORDERED: PT OWN MED DRAWER 7, Y5N ONE ×2 (10:58→23:26)
--- NOTE | 2018-07-29 10:58 | PN ---
Progress Note, Physician History of Present Illness: pulmonary alert,no distress,-sob - Current Medication List Current Medications: Active Medications Acetaminophen (Tylenol -) 500 mg PO Q6H PRN PRN Reason: PAIN LEVEL 1-5 Atorvastatin Calcium (Lipitor -) 10 mg PO HS [facility] Last Admin: 07/28/18 21:26 Dose: 10 mg Bisacodyl (Dulcolax Suppository -) 10 mg RC DAILY PRN PRN Reason: CONSTIPATION Calcium Carbonate (Os-Surya 500mg -) 1,000 mg PO DAILY [facility] Last Admin: 07/28/18 10:16 Dose: Not Given Citalopram Hydrobromide (Celexa -) 40 mg PO DAILY [facility] Last Admin: 07/28/18 10:16 Dose: Not Given Clonazepam (Klonopin -) 0.25 mg PO BID [facility] Last Admin: 07/28/18 21:26 Dose: 0.25 mg Dexamethasone (Decadron -) 2 mg PO QID [facility] Docusate Sodium (Colace -) 200 mg PO BID PRN PRN Reason: CONSTIPATION Fluticasone Propionate (Flonase -) 1 spray NS BID [facility] Last Admin: 07/28/18 21:26 Dose: 1 spray Hydralazine HCl (Apresoline Injection -) 10 mg IVPUSH Q6H PRN PRN Reason: HYPERTENSION Dextrose/Sodium Chloride (D5-Ns -) 1,000 mls @ 50 mls/hr IV ASDIR [facility] Last Admin: 07/29/18 00:12 Dose: 50 mls/hr Insulin Aspart (Novolog Vial Sliding Scale -) 1 vial SQ ACHS [facility]; Protocol Last Admin: 07/29/18 06:42 Dose: Not Given Losartan Potassium (Cozaar -) 25 mg PO DAILY [facility] Last Admin: 07/28/18 10:16 Dose: Not Given Losartan Potassium (Cozaar -) 25 mg PO DAILY [facility] Last Admin: 07/28/18 10:17 Dose: Not Given Magnesium Oxide (Mag-Ox -) 400 mg PO DAILY [facility] Last Admin: 07/28/18 10:17 Dose: Not Given Metoprolol Tartrate (Lopressor -) 25 mg PO BID [facility] Last Admin: 07/28/18 21:26 Dose: 25 mg Metoprolol Tartrate (Lopressor Injection -) 5 mg IVPUSH Q4H PRN PRN Reason: HYPERTENSION Morphine Sulfate (Morphine Sulfate) 1 mg IVPUSH Q3H PRN PRN Reason: PAIN LEVEL 6-10 Last Admin: 07/29/18 06:53 Dose: 1 mg Non-Formulary Medication (Memantine Hcl [Namenda Xr]) 21 mg PO DAILY [facility] Non-Formulary Medication (Rivastigmine [Exelon]) 1 each TD DAILY [facility] [id number] Ethyl Esters (Lovaza -) 2 gm PO BID [facility] Last Admin: 07/28/18 21:27 Dose: Not Given Pantoprazole Sodium (Protonix -) 40 mg PO BID [facility] Last Admin: 07/28/18 21:25 Dose: 40 mg Pramipexole Dihydrochloride (Mirapex -) 0.25 mg PO [facility] Last Admin: 07/28/18 21:26 Dose: 0.25 mg Tamsulosin HCl (Flomax -) 0.4 mg PO [facility] Last Admin: 07/28/18 21:25 Dose: 0.4 mg - Objective Vital Signs: Vital Signs Temperature 97.9 F 07/29/18 06:04 Pulse Rate 85 07/29/18 06:04 Respiratory Rate 20 07/29/18 06:04 Blood Pressure 147/95 07/29/18 06:04 O2 Sat by Pulse Oximetry (%) 97 07/28/18 21:00 Constitutional: Yes: Well Nourished, Calm Eyes: Yes: WNL HENT: Yes: WNL Neck: Yes: Other (cervicle collar) Cardiovascular: Yes: Pulse Irregular, S1, S2 Respiratory: Yes: Diminished Gastrointestinal: Yes: Normal Bowel Sounds, Soft Extremities: Yes: WNL Edema: No Labs: CBC, BMP 07/29/18 05:30 07/29/18 05:30 INR, PTT INR 7.32 (0.83-1.09) H* 07/29/18 05:30 Assessment/Plan Problem List - Problems (1) Cervical spine fracture Code(s): S12.9XXA - FRACTURE OF NECK, UNSPECIFIED, INITIAL ENCOUNTER (2) Fall Code(s): W19.XXXA - UNSPECIFIED FALL, INITIAL ENCOUNTER (3) Neck pain Code(s): M54.2 - CERVICALGIA (4) ALS (amyotrophic lateral sclerosis) Code(s): G12.21 - AMYOTROPHIC LATERAL SCLEROSIS (5) Anxiety Code(s): F41.9 - ANXIETY DISORDER, UNSPECIFIED (6) CAD (coronary artery disease) Code(s): I25.10 - ATHSCL HEART DISEASE OF [place] CORONARY ARTERY W/O ANG PCTRS (7) Constipation Code(s): K59.00 - CONSTIPATION, UNSPECIFIED Qualifiers: Constipation type: slow transit constipation Qualified Code(s): K59.01 - Slow transit constipation (8) Dementia Code(s): F03.90 - UNSPECIFIED DEMENTIA WITHOUT BEHAVIORAL DISTURBANCE (9) Atrial fibrillation Code(s): I48.91 - UNSPECIFIED ATRIAL FIBRILLATION Qualifiers: Atrial fibrillation type: chronic Qualified Code(s): I48.2 - Chronic atrial fibrillation (10) HTN (hypertension) Code(s): I10 - ESSENTIAL (PRIMARY) HYPERTENSION (11) Hyperlipidemia Code(s): E78.5 - HYPERLIPIDEMIA, UNSPECIFIED (12) Sleep apnea Code(s): G47.30 - SLEEP APNEA, UNSPECIFIED Assessment/Plan Previously diagnosed Mild OSAS based on an elevated RDI of 5 events per hour. Lowest desaturation was 82%. Patient not on treatment. Incentive Spirometry O2 as needed Pain control VTE prophylaxis Hard collar per Neurosurgery Fall precautions DR LIZ
[2018-07-29] MEDS: CALCIUM (OYSTER SHELL) 500 MG TABLET (FP) PO SCH (11:26)
[2018-07-29] MEDS: PANTOPRAZOLE 40 MG TABLET (FP) PO SCH ×2 (11:27→23:43)
[2018-07-29] MEDS: DEXAMETHASONE 4 MG TABLET (FP) PO SCH ×4 (11:27→23:40)
[2018-07-29] MEDS: METOPROLOL TARTRATE 25 MG TABLET (FP) PO SCH ×2 (11:27→23:41)
[2018-07-29] MEDS: OMEGA-3 ACID ETHYL ESTERS (FATTY-ACIDS) 1 GM CAPSULE (FP) PO SCH ×2 (11:27→23:43)
[2018-07-29] MEDS: CITALOPRAM HYDROBROMIDE 20 MG TABLET (FP) PO SCH (11:27)
[2018-07-29] MEDS: LOSARTAN POTASSIUM 25 MG TABLET PO SCH ×2 (11:28→11:29)
[2018-07-29] MEDS: clonazePAM 0.5 MG TABLET PO SCH ×2 (11:28→23:41)
[2018-07-29] MEDS: MAGNESIUM OXIDE 400 MG TABLET (FP) PO SCH (11:28)
[2018-07-29] MEDS: FLUTICASONE PROP 0.05% 16 GM NASAL SPRAY NS SCH ×2 (11:29→23:59)
--- NOTE | 2018-07-29 11:56 | PN ---
Progress Note, Physician Chief Complaint: see by speech tx d/w no new c/o, started purree soft diet - Current Medication List Current Medications: Active Medications Acetaminophen (Tylenol -) 500 mg PO Q6H PRN PRN Reason: PAIN LEVEL 1-5 Atorvastatin Calcium (Lipitor -) 10 mg PO HS [facility] Last Admin: 07/28/18 21:26 Dose: 10 mg Bisacodyl (Dulcolax Suppository -) 10 mg RC DAILY PRN PRN Reason: CONSTIPATION Calcium Carbonate (Os-Surya 500mg -) 1,000 mg PO DAILY [facility] Last Admin: 07/29/18 11:26 Dose: 1,000 mg Citalopram Hydrobromide (Celexa -) 40 mg PO DAILY [facility] Last Admin: 07/29/18 11:27 Dose: 40 mg Clonazepam (Klonopin -) 0.25 mg PO BID [facility] Last Admin: 07/29/18 11:28 Dose: 0.25 mg Dexamethasone (Decadron -) 2 mg PO QID [facility] Last Admin: 07/29/18 11:27 Dose: 2 mg Docusate Sodium (Colace -) 200 mg PO BID PRN PRN Reason: CONSTIPATION Fluticasone Propionate (Flonase -) 1 spray NS BID [facility] Last Admin: 07/29/18 11:29 Dose: 1 spray Hydralazine HCl (Apresoline Injection -) 10 mg IVPUSH Q6H PRN PRN Reason: HYPERTENSION Dextrose/Sodium Chloride (D5-Ns -) 1,000 mls @ 50 mls/hr IV ASDIR [facility] Last Admin: 07/29/18 00:12 Dose: 50 mls/hr Insulin Aspart (Novolog Vial Sliding Scale -) 1 vial SQ ACHS [facility]; Protocol Last Admin: 07/29/18 06:42 Dose: Not Given Losartan Potassium (Cozaar -) 25 mg PO DAILY [facility] Last Admin: 07/29/18 11:28 Dose: 25 mg Losartan Potassium (Cozaar -) 25 mg PO DAILY [facility] Last Admin: 07/29/18 11:29 Dose: Not Given Magnesium Oxide (Mag-Ox -) 400 mg PO DAILY [facility] Last Admin: 07/29/18 11:28 Dose: 400 mg Metoprolol Tartrate (Lopressor -) 25 mg PO BID [facility] Last Admin: 07/29/18 11:27 Dose: 25 mg Metoprolol Tartrate (Lopressor Injection -) 5 mg IVPUSH Q4H PRN PRN Reason: HYPERTENSION Morphine Sulfate (Morphine Sulfate) 1 mg IVPUSH Q3H PRN PRN Reason: PAIN LEVEL 6-10 Last Admin: 07/29/18 06:53 Dose: 1 mg Non-Formulary Medication (Memantine Hcl [Namenda Xr]) 21 mg PO DAILY [facility] Non-Formulary Medication (Rivastigmine [Exelon]) 1 each TD DAILY [facility] [id number] Ethyl Esters (Lovaza -) 2 gm PO BID [facility] Last Admin: 07/29/18 11:27 Dose: 2 gm Pantoprazole Sodium (Protonix -) 40 mg PO BID [facility] Last Admin: 07/29/18 11:27 Dose: 40 mg Pramipexole Dihydrochloride (Mirapex -) 0.25 mg PO [facility] Last Admin: 07/28/18 21:26 Dose: 0.25 mg Tamsulosin HCl (Flomax -) 0.4 mg PO [facility] Last Admin: 07/28/18 21:25 Dose: 0.4 mg - Objective Vital Signs: Vital Signs Temperature 97.9 F 07/29/18 06:04 Pulse Rate 85 07/29/18 06:04 Respiratory Rate 20 07/29/18 06:04 Blood Pressure 147/95 07/29/18 06:04 O2 Sat by Pulse Oximetry (%) 97 07/28/18 21:00 Constitutional: Yes: No Distress, Calm Eyes: Yes: Conjunctiva Clear HENT: Yes: Atraumatic Neck: Yes: Supple Cardiovascular: Yes: Regular Rate and Rhythm Respiratory: Yes: CTA Bilaterally Gastrointestinal: Yes: Soft. No: Tenderness Genitourinary: No: Hematuria Musculoskeletal: No: Joint Stiffness, Joint Swelling Extremities: No: Cold, Cool Edema: No Integumentary: No: Rash, Venous Stasis Changes Neurological: Yes: Alert Psychiatric: Yes: Alert. No: Agitated Labs: CBC, BMP 07/29/18 05:30 07/29/18 05:30 INR, PTT INR 7.32 (0.83-1.09) H* 07/29/18 05:30 - ....Imaging Other: Report Reviewed Assessment/Plan 77 YOM ASHD CHF AFib ALS with extremities wekaness, s/p fall admitted with coumadin toxicity and C6 vertebral fracture; s/p hyperTA and hypoxemia episode after neck MRI; borderline + troponins monitor in telemetry, BP control cardiology f/u NS f/u; steroids trial per NS; neuro f/u neck collar on f/u labs; INR; coumadin held s/p vit K prognosis guarded falls decubs aspiration PFX; do not try to get OOB alone swallow f/u f/u BGM and gastric PFX while on steroids d/w pt's at bedside - prognosis guarded
--- NOTE | 2018-07-29 12:50 | PN ---
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 Yesterday, reports she was transferring him to his walker after dinner when he lost his footing and fell backwards onto his head and neck. No LOC. He was able to tolerate the pain last night in his neck and did not want to come to the ED. This morning the neck pain was worse and pt went to see Dr. Melchor. Dr. Melchor ordered a CTH and CT neck which revealed an acute C5 fracture. Dr. Melchor recommended pt come to the ED and [place] [facility] [place]. The patient has no other complaints at the time other than neck pain. C-collar placed on evaluation. The patient denies chest pain, shortness of breath, headache and dizziness, palpitations prior to the fall or recently. Denies fevers, chills, abd pain, LE edema, weakness or numbness. Allergies: None Past surgical history: Cardiac cath, inguinal hernia Social History: No alcohol, tobacco or drug use reported PMD: Dr Bobby Melchor - Current Medication List Current Medications: Active Medications Acetaminophen (Tylenol -) 500 mg PO Q6H PRN PRN Reason: PAIN LEVEL 1-5 Atorvastatin Calcium (Lipitor -) 10 mg PO HS [facility] Last Admin: 07/28/18 21:26 Dose: 10 mg Bisacodyl (Dulcolax Suppository -) 10 mg RC DAILY PRN PRN Reason: CONSTIPATION Calcium Carbonate (Os-Surya 500mg -) 1,000 mg PO DAILY [facility] Last Admin: 07/29/18 11:26 Dose: 1,000 mg Citalopram Hydrobromide (Celexa -) 40 mg PO DAILY [facility] Last Admin: 07/29/18 11:27 Dose: 40 mg Clonazepam (Klonopin -) 0.25 mg PO BID [facility] Last Admin: 07/29/18 11:28 Dose: 0.25 mg Dexamethasone (Decadron -) 2 mg PO QID [facility] Last Admin: 07/29/18 11:27 Dose: 2 mg Docusate Sodium (Colace -) 200 mg PO BID PRN PRN Reason: CONSTIPATION Fluticasone Propionate (Flonase -) 1 spray NS BID [facility] Last Admin: 07/29/18 11:29 Dose: 1 spray Hydralazine HCl (Apresoline Injection -) 10 mg IVPUSH Q6H PRN PRN Reason: HYPERTENSION Dextrose/Sodium Chloride (D5-Ns -) 1,000 mls @ 50 mls/hr IV ASDIR [facility] Last Admin: 07/29/18 00:12 Dose: 50 mls/hr Insulin Aspart (Novolog Vial Sliding Scale -) 1 vial SQ ACHS [facility]; Protocol Last Admin: 07/29/18 12:12 Dose: Not Given Losartan Potassium (Cozaar -) 25 mg PO DAILY [facility] Last Admin: 07/29/18 11:28 Dose: 25 mg Losartan Potassium (Cozaar -) 25 mg PO DAILY [facility] Last Admin: 07/29/18 11:29 Dose: Not Given Magnesium Oxide (Mag-Ox -) 400 mg PO DAILY [facility] Last Admin: 07/29/18 11:28 Dose: 400 mg Metoprolol Tartrate (Lopressor -) 25 mg PO BID [facility] Last Admin: 07/29/18 11:27 Dose: 25 mg Metoprolol Tartrate (Lopressor Injection -) 5 mg IVPUSH Q4H PRN PRN Reason: HYPERTENSION Morphine Sulfate (Morphine Sulfate) 1 mg IVPUSH Q3H PRN PRN Reason: PAIN LEVEL 6-10 Last Admin: 07/29/18 06:53 Dose: 1 mg Non-Formulary Medication (Memantine Hcl [Namenda Xr]) 21 mg PO DAILY [facility] Non-Formulary Medication (Rivastigmine [Exelon]) 1 each TD DAILY [facility] [id number]-5-[id number] Ethyl Esters (Lovaza -) 2 gm PO BID [facility] Last Admin: 07/29/18 11:27 Dose: 2 gm Pantoprazole Sodium (Protonix -) 40 mg PO BID [facility] Last Admin: 07/29/18 11:27 Dose: 40 mg Pramipexole Dihydrochloride (Mirapex -) 0.25 mg PO [facility] Last Admin: 07/28/18 21:26 Dose: 0.25 mg Tamsulosin HCl (Flomax -) 0.4 mg PO [facility] Last Admin: 07/28/18 21:25 Dose: 0.4 mg - Objective Vital Signs: Vital Signs Temperature 97.9 F 07/29/18 06:04 Pulse Rate 85 07/29/18 06:04 Respiratory Rate 20 07/29/18 06:04 Blood Pressure 147/95 07/29/18 06:04 O2 Sat by Pulse Oximetry (%) 97 07/28/18 21:00 Eyes: Yes: WNL, Conjunctiva Clear, EOM Intact HENT: Yes: WNL, Atraumatic, Normocephalic Neck: Yes: WNL, Supple, Trachea Midline Cardiovascular: Yes: Pulse Irregular, S1, S2 Respiratory: Yes: WNL, Regular, CTA Bilaterally Gastrointestinal: Yes: WNL, Normal Bowel Sounds Genitourinary: Yes: WNL Musculoskeletal: Yes: WNL Extremities: Yes: WNL Edema: No Integumentary: Yes: WNL Neurological: Yes: WNL, Alert, Oriented ...Motor Strength: WNL Psychiatric: Yes: WNL Labs: CBC, BMP 07/29/18 05:30 07/29/18 05:30 INR, PTT INR 7.32 (0.83-1.09) H* 07/29/18 05:30 Problem List - Problems (1) Cervical spine fracture Code(s): S12.9XXA - FRACTURE OF NECK, UNSPECIFIED, INITIAL ENCOUNTER (2) Fall Code(s): W19.XXXA - UNSPECIFIED FALL, INITIAL ENCOUNTER (3) Neck pain Code(s): M54.2 - CERVICALGIA (4) ACS (acute coronary syndrome) Code(s): I24.9 - ACUTE ISCHEMIC HEART DISEASE, UNSPECIFIED (5) ALS (amyotrophic lateral sclerosis) Code(s): G12.21 - AMYOTROPHIC LATERAL SCLEROSIS (6) Abdominal pain Code(s): R10.9 - UNSPECIFIED ABDOMINAL PAIN Qualifiers: Abdominal location: lower abdomen, unspecified Qualified Code(s): R10.30 - Lower abdominal pain, unspecified (7) Abnormal cardiac enzyme level Code(s): R74.8 - ABNORMAL LEVELS OF OTHER SERUM ENZYMES (8) Abnormal head CT Code(s): R93.0 - ABNORMAL FINDINGS ON DX IMAGING OF SKULL AND HEAD, NEC (9) Abnormal liver function tests Code(s): R94.5 - ABNORMAL RESULTS OF LIVER FUNCTION STUDIES (10) Altered mental status Code(s): R41.82 - ALTERED MENTAL STATUS, UNSPECIFIED (11) Anxiety Code(s): F41.9 - ANXIETY DISORDER, UNSPECIFIED (12) Barretts esophagus Code(s): K22.70 - BOSWELL'S ESOPHAGUS WITHOUT DYSPLASIA Qualifiers: Boswell's esophagus type: without dysplasia Qualified Code(s): K22.70 - Boswell's esophagus without dysplasia (13) Bradycardia Code(s): R00.1 - BRADYCARDIA, UNSPECIFIED (14) CAD (coronary artery disease) Code(s): I25.10 - ATHSCL HEART DISEASE OF [place] CORONARY ARTERY W/O ANG PCTRS (15) Chest pain Code(s): R07.9 - CHEST PAIN, UNSPECIFIED Qualifiers: Chest pain type: unspecified Qualified Code(s): R07.9 - Chest pain, unspecified (16) Colon polyp Code(s): K63.5 - POLYP OF COLON (17) Confusion Code(s): R41.0 - DISORIENTATION, UNSPECIFIED (18) Constipation Code(s): K59.00 - CONSTIPATION, UNSPECIFIED Qualifiers: Constipation type: slow transit constipation Qualified Code(s): K59.01 - Slow transit constipation (19) Dementia Code(s): F03.90 - UNSPECIFIED DEMENTIA WITHOUT BEHAVIORAL DISTURBANCE (20) Dizziness Code(s): R42 - DIZZINESS AND GIDDINESS (21) Dysphagia Code(s): R13.10 - DYSPHAGIA, UNSPECIFIED Qualifiers: Dysphagia type: oropharyngeal phase Qualified Code(s): R13.12 - Dysphagia, oropharyngeal phase (22) EKG abnormalities Code(s): R94.31 - ABNORMAL ELECTROCARDIOGRAM [ECG] [EKG] (23) Fatty liver Code(s): K76.0 - FATTY (CHANGE OF) LIVER, NOT ELSEWHERE CLASSIFIED (24) Fecal impaction of colon Code(s): K56.41 - FECAL IMPACTION (25) Gallbladder dilatation Code(s): K82.8 - OTHER SPECIFIED DISEASES OF GALLBLADDER (26) Hiatal hernia with GERD and esophagitis Code(s): K44.9 - DIAPHRAGMATIC HERNIA WITHOUT OBSTRUCTION OR GANGRENE; K21.0 - GASTRO-ESOPHAGEAL REFLUX DISEASE WITH ESOPHAGITIS (27) History of colon cancer Code(s): Z85.038 - PERSONAL HISTORY OF MALIGNANT NEOPLASM OF LARGE INTESTINE (28) Hypokalemia Code(s): E87.6 - HYPOKALEMIA (29) Hypomagnesemia Code(s): E83.42 - HYPOMAGNESEMIA (30) Hypotension Code(s): I95.9 - HYPOTENSION, UNSPECIFIED Qualifiers: Hypotension type: unspecified hypotension type Qualified Code(s): I95.9 - Hypotension, unspecified (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 - OTHER SPECIFIED MYOPATHIES (32) LUQ abdominal pain Code(s): R10.12 - LEFT UPPER QUADRANT PAIN (33) Myositis Code(s): M60.9 - MYOSITIS, UNSPECIFIED Qualifiers: Myositis type: other type Laterality: unspecified laterality (34) Nasal bleeding Code(s): R04.0 - EPISTAXIS (35) Polymyositis Code(s): M33.20 - POLYMYOSITIS, ORGAN INVOLVEMENT UNSPECIFIED (36) Shoulder pain, right Code(s): M25.511 - PAIN IN RIGHT SHOULDER Qualifiers: Chronicity: acute Qualified Code(s): M25.511 - Pain in right shoulder (37) Skin rash Code(s): R21 - RASH AND OTHER NONSPECIFIC SKIN ERUPTION (38) Sleep apnea Code(s): G47.30 - SLEEP APNEA, UNSPECIFIED (39) Subtherapeutic anticoagulation Code(s): Z51.81 - ENCOUNTER FOR THERAPEUTIC DRUG LEVEL MONITORING; Z79.01 - FREIGHT CONDUCTOR (CURRENT) USE OF ANTICOAGULANTS (40) Subtherapeutic international normalized ratio (INR) Code(s): R79.1 - ABNORMAL COAGULATION PROFILE (41) Supratherapeutic INR Code(s): R79.1 - ABNORMAL COAGULATION PROFILE (42) Tremor Code(s): R25.1 - TREMOR, UNSPECIFIED (43) Weakness generalized Code(s): R53.1 - WEAKNESS (44) Atrial fibrillation Code(s): I48.91 - UNSPECIFIED ATRIAL FIBRILLATION Qualifiers: Atrial fibrillation type: chronic Qualified Code(s): I48.2 - Chronic atrial fibrillation (45) HTN (hypertension) Code(s): I10 - ESSENTIAL (PRIMARY) HYPERTENSION (46) Hyperlipidemia Code(s): E78.5 - HYPERLIPIDEMIA, UNSPECIFIED Assessment/Plan Alzheimer's dementia, 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 elevated INR Plan r/o cervical spine fx hold coumadin until INR decreases bp control - restart meds will f/u d/c telemetry
[2018-07-29] MEDS: TAMSULOSIN HCL 0.4 MG CAP PO SCH (23:40)
[2018-07-29] MEDS: ATORVASTATIN CA 10 MG TABLET (FP) PO SCH (23:41)
[2018-07-30] MEDS: MORPHINE SULFATE 2 MG/ML VIAL IVPUSH PRN (00:08)
[2018-07-30] MEDS: INSULIN SLIDING SCALE (NOVOLOG) 1 VIAL SQ SCH ×5 (00:14→22:27)
[2018-07-30] MEDS: PRAMIPEXOLE DIHYDROCHLORIDE 0.25 MG TABLET PO SCH ×2 (02:22→22:19)
[2018-07-30] MEDS ORDERED: MORPHINE SULFATE 2 MG/ML VIAL IVPUSH PRN (07:33)
[2018-07-30] MEDS ORDERED: BISACODYL 10 MG SUPP.RECT RC PRN (07:33)
[2018-07-30] MEDS ORDERED: DOCUSATE SODIUM 100 MG CAPSULE (FP) PO PRN (07:33)
--- NOTE | 2018-07-30 08:16 | PN ---
Progress Note (short form) - Note Progress Note: NEUROSURGERY On telemetry at bedside, stated pt c/o neck and R shoulder/arm pain PE: Tmax 98.8, AF, VSS Resting comfortable in bed at the moment HEENT- NC/AT; Neck- in Rhea J collar, more comfortable, pain worse with extension, but overall better; Cor- Irreg; Lungs- CTA; Abd- benign; Ext- no sign of DVT CN- non-focal; Motor- weak B prox UE Deltoids/supraspinatus 2-3/5; distal UE R 4 /5 L 3/5; B LE 4 prox 4+ distal; Sensation- intact LT; DTR- hyporeflexic WBC 7.7, Hgb 13.6 CT Head- moderate atrophy with moderate periventricular small vessel dz; no fx, no bleed Repeat head CT- atrophy, petriventricular dz, no bleed CT C spine- extensive spondylosis and bridging osteophytes C4,5,6; fracture through anterior body/osteophyte C5 and slight widening of C5-6 disc space; no marked canal compromise MRI C spine (partial and with motion artifact)- anterior C5 and C6 vertebral/ osteophyte fracture, minimally if at all displaced; C5-6 discal injury, prevertebral swelling as expected CXR- bibasilar atelectasis C5-6 vertebral and discal injury s/p mechanical fall Collar x 10 weeks F/u C spine x-rays in 2 weeks to assess alignment Complete short pulse of po steroid Incentive spirometry Encourage PO/nutrition Add neurontin
[2018-07-30] MEDS ORDERED: PATIENT'S OWN MEDICATION (NON-FORMULARY) (Rivastigmine [Exelon] 1 EACH) TD SCH (10:00)
[2018-07-30] MEDS ORDERED: PATIENT'S OWN MEDICATION (NON-FORMULARY) (Memantine Hcl [Namenda Xr] 21 MG) PO SCH (10:00)
[2018-07-30] MEDS: clonazePAM 0.5 MG TABLET PO SCH ×2 (10:21→22:11)
[2018-07-30] MEDS: CALCIUM (OYSTER SHELL) 500 MG TABLET (FP) PO SCH (10:22)
[2018-07-30] MEDS: MAGNESIUM OXIDE 400 MG TABLET (FP) PO SCH (10:22)
[2018-07-30] MEDS: CITALOPRAM HYDROBROMIDE 20 MG TABLET (FP) PO SCH (10:22)
[2018-07-30] MEDS: PANTOPRAZOLE 40 MG TABLET (FP) PO SCH ×2 (10:23→22:15)
[2018-07-30] MEDS: OMEGA-3 ACID ETHYL ESTERS (FATTY-ACIDS) 1 GM CAPSULE (FP) PO SCH ×2 (10:23→22:17)
[2018-07-30] MEDS: LOSARTAN POTASSIUM 25 MG TABLET PO SCH (10:23)
[2018-07-30] MEDS: METOPROLOL TARTRATE 25 MG TABLET (FP) PO SCH ×2 (10:24→22:15)
[2018-07-30] MEDS: DEXAMETHASONE 4 MG TABLET (FP) PO SCH ×4 (10:24→22:14)
--- NOTE | 2018-07-30 10:38 | PN ---
Progress Note, Physician History of Present Illness: pulmonary alert,no resp distress,c/o neck and r shoulder and arm pain - Current Medication List Current Medications: Active Medications Acetaminophen (Tylenol -) 500 mg PO Q6H PRN PRN Reason: PAIN LEVEL 1-5 Atorvastatin Calcium (Lipitor -) 10 mg PO HS [facility] Bisacodyl (Dulcolax Suppository -) 10 mg RC DAILY PRN PRN Reason: CONSTIPATION Calcium Carbonate (Os-Surya 500mg -) 1,000 mg PO DAILY [facility] Citalopram Hydrobromide (Celexa -) 40 mg PO DAILY [facility] Clonazepam (Klonopin -) 0.25 mg PO BID [facility] Dexamethasone (Decadron -) 2 mg PO QID [facility] Last Admin: 07/29/18 23:40 Dose: 2 mg Docusate Sodium (Colace -) 200 mg PO BID PRN PRN Reason: CONSTIPATION Fluticasone Propionate (Flonase -) 1 spray NS BID [facility] Gabapentin (Neurontin Oral Liquid -) 100 mg PO TID [facility] Hydralazine HCl (Apresoline Injection -) 10 mg IVPUSH Q6H PRN PRN Reason: HYPERTENSION Dextrose/Sodium Chloride (D5-Ns -) 1,000 mls @ 50 mls/hr IV ASDIR [facility] Last Admin: 07/29/18 18:32 Dose: 50 mls/hr Insulin Aspart (Novolog Vial Sliding Scale -) 1 vial SQ ACHS [facility]; Protocol Last Admin: 07/30/18 06:21 Dose: Not Given Losartan Potassium (Cozaar -) 25 mg PO DAILY [facility] Magnesium Oxide (Mag-Ox -) 400 mg PO DAILY [facility] Metoprolol Tartrate (Lopressor -) 25 mg PO BID [facility] Last Admin: 07/29/18 23:41 Dose: 25 mg Metoprolol Tartrate (Lopressor Injection -) 5 mg IVPUSH Q4H PRN PRN Reason: HYPERTENSION Morphine Sulfate (Morphine Sulfate) 1 mg IVPUSH Q3H PRN PRN Reason: PAIN LEVEL 6-10 Non-Formulary Medication (Memantine Hcl [Namenda Xr]) 21 mg PO DAILY [facility] Non-Formulary Medication (Rivastigmine [Exelon]) 1 each TD DAILY [facility] [id number] Ethyl Esters (Lovaza -) 2 gm PO BID [facility] Pantoprazole Sodium (Protonix -) 40 mg PO BID [facility] Pramipexole Dihydrochloride (Mirapex -) 0.25 mg PO HS [facility] Tamsulosin HCl (Flomax -) 0.4 mg PO HS [facility] - Objective Vital Signs: Vital Signs Temperature 97.7 F 07/30/18 09:30 Pulse Rate 86 07/30/18 09:30 Respiratory Rate 20 07/30/18 09:30 Blood Pressure 141/91 07/30/18 09:30 O2 Sat by Pulse Oximetry (%) 98 07/29/18 21:00 Constitutional: Yes: Well Nourished, Calm Eyes: Yes: WNL HENT: Yes: WNL Neck: Yes: Other (hard neck collar) Cardiovascular: Yes: Pulse Irregular, S1, S2 Respiratory: Yes: Diminished Gastrointestinal: Yes: Normal Bowel Sounds, Soft Extremities: Yes: WNL Edema: No Labs: CBC, BMP 07/29/18 05:30 07/29/18 05:30 INR, PTT INR 7.32 (0.83-1.09) H* 07/29/18 05:30 Assessment/Plan Problem List - Problems (1) Cervical spine fracture Code(s): S12.9XXA - FRACTURE OF NECK, UNSPECIFIED, INITIAL ENCOUNTER (2) Fall Code(s): W19.XXXA - UNSPECIFIED FALL, INITIAL ENCOUNTER (3) Neck pain Code(s): M54.2 - CERVICALGIA (4) ALS (amyotrophic lateral sclerosis) Code(s): G12.21 - AMYOTROPHIC LATERAL SCLEROSIS (5) Anxiety Code(s): F41.9 - ANXIETY DISORDER, UNSPECIFIED (6) CAD (coronary artery disease) Code(s): I25.10 - ATHSCL HEART DISEASE OF [place] CORONARY ARTERY W/O ANG PCTRS (7) Constipation Code(s): K59.00 - CONSTIPATION, UNSPECIFIED Qualifiers: Constipation type: slow transit constipation Qualified Code(s): K59.01 - Slow transit constipation (8) Dementia Code(s): F03.90 - UNSPECIFIED DEMENTIA WITHOUT BEHAVIORAL DISTURBANCE (9) Atrial fibrillation Code(s): I48.91 - UNSPECIFIED ATRIAL FIBRILLATION Qualifiers: Atrial fibrillation type: chronic Qualified Code(s): I48.2 - Chronic atrial fibrillation (10) HTN (hypertension) Code(s): I10 - ESSENTIAL (PRIMARY) HYPERTENSION (11) Hyperlipidemia Code(s): E78.5 - HYPERLIPIDEMIA, UNSPECIFIED (12) Sleep apnea Code(s): G47.30 - SLEEP APNEA, UNSPECIFIED Assessment/Plan Previously diagnosed Mild OSAS based on an elevated RDI of 5 events per hour. Lowest desaturation was 82%. Patient not on treatment. Incentive Spirometry O2 as needed Pain control VTE prophylaxis Hard collar per Neurosurgery Fall precautions DR LIZ
[2018-07-30] MEDS: FLUTICASONE PROP 0.05% 16 GM NASAL SPRAY NS SCH ×2 (10:42→22:16)
--- NOTE | 2018-07-30 11:43 | PN ---
Progress Note, SUSTAINABILITY ENGINEER - Note Progress Note: Selected Entries 07/30/18 07/30/18 07/30/18 02:00 06:00 09:30 Breakfast Diet Tolerated Temperature 98.1 F 98.2 F 97.7 F 07/30/18 09:39 Breakfast 50% Diet Tolerated Fair Temperature Laboratory Tests 07/29/18 05:30 WBC 7.7 Tolerating diet. Request input from Dr. Guan- Can Cervical collar be opened safely to allow slight head flexion mealtime? Reviewed with nursing
--- NOTE | 2018-07-30 12:25 | PN ---
Progress Note, Physician Chief Complaint: Pt opens eyes, smiles. His is at bedside, and says he sometimes suddenly becomes anxious and wants to go home "so he won't lose his job". 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 Yesterday, reports she was transferring him to his walker after dinner when he lost his footing and fell backwards onto his head and neck. No LOC. He was able to tolerate the pain last night in his neck and did not want to come to the ED. This morning the neck pain was worse and pt went to see Dr. Melchor. Dr. Melchor ordered a CTH and CT neck which revealed an acute C5 fracture. Dr. Melchor recommended pt come to the ED and requests [facility] c/s Dr. Guan. The patient has no other complaints at the time other than neck pain. C-collar placed on evaluation. The patient denies chest pain, shortness of breath, headache and dizziness, palpitations prior to the fall or recently. Denies fevers, chills, abd pain, LE edema, weakness or numbness. Allergies: None Past surgical history: Cardiac cath, inguinal hernia Social History: No alcohol, tobacco or drug use reported PMD: Dr Bobby Melchor - Current Medication List Current Medications: Active Medications Acetaminophen (Tylenol -) 500 mg PO Q6H PRN PRN Reason: PAIN LEVEL 1-5 Atorvastatin Calcium (Lipitor -) 10 mg PO HS [facility] Bisacodyl (Dulcolax Suppository -) 10 mg RC DAILY PRN PRN Reason: CONSTIPATION Calcium Carbonate (Os-Surya 500mg -) 1,000 mg PO DAILY [facility] Last Admin: 07/30/18 10:22 Dose: 1,000 mg Citalopram Hydrobromide (Celexa -) 40 mg PO DAILY [facility] Last Admin: 07/30/18 10:22 Dose: 40 mg Clonazepam (Klonopin -) 0.25 mg PO BID [facility] Last Admin: 07/30/18 10:21 Dose: 0.25 mg Dexamethasone (Decadron -) 2 mg PO QID [facility] Last Admin: 07/30/18 10:24 Dose: 2 mg Docusate Sodium (Colace -) 200 mg PO BID PRN PRN Reason: CONSTIPATION Fluticasone Propionate (Flonase -) 1 spray NS BID [facility] Last Admin: 07/30/18 10:42 Dose: 1 spray Gabapentin (Neurontin Oral Liquid -) 100 mg PO TID [facility] Hydralazine HCl (Apresoline Injection -) 10 mg IVPUSH Q6H PRN PRN Reason: HYPERTENSION Dextrose/Sodium Chloride (D5-Ns -) 1,000 mls @ 50 mls/hr IV ASDIR [facility] Last Admin: 07/29/18 18:32 Dose: 50 mls/hr Insulin Aspart (Novolog Vial Sliding Scale -) 1 vial SQ ACHS [facility]; Protocol Last Admin: 07/30/18 11:24 Dose: Not Given Losartan Potassium (Cozaar -) 25 mg PO DAILY [facility] Last Admin: 07/30/18 10:23 Dose: 25 mg Magnesium Oxide (Mag-Ox -) 400 mg PO DAILY [facility] Last Admin: 07/30/18 10:22 Dose: 400 mg Metoprolol Tartrate (Lopressor -) 25 mg PO BID [facility] Last Admin: 07/30/18 10:24 Dose: 25 mg Metoprolol Tartrate (Lopressor Injection -) 5 mg IVPUSH Q4H PRN PRN Reason: HYPERTENSION Morphine Sulfate (Morphine Sulfate) 1 mg IVPUSH Q3H PRN PRN Reason: PAIN LEVEL 6-10 Non-Formulary Medication (Memantine Hcl [Namenda Xr]) 21 mg PO DAILY [facility] Non-Formulary Medication (Rivastigmine [Exelon]) 1 each TD DAILY [facility] [id number] Ethyl Esters (Lovaza -) 2 gm PO BID [facility] Last Admin: 07/30/18 10:23 Dose: 2 gm Pantoprazole Sodium (Protonix -) 40 mg PO BID [facility] Last Admin: 07/30/18 10:23 Dose: 40 mg Pramipexole Dihydrochloride (Mirapex -) 0.25 mg PO HS [facility] Tamsulosin HCl (Flomax -) 0.4 mg PO HS [facility] - Objective Vital Signs: Vital Signs Temperature 97.7 F 07/30/18 09:30 Pulse Rate 86 07/30/18 09:30 Respiratory Rate 20 07/30/18 09:30 Blood Pressure 141/91 07/30/18 09:30 O2 Sat by Pulse Oximetry (%) 98 07/29/18 21:00 Constitutional: Yes: Thin Labs: CBC, BMP 07/29/18 05:30 07/29/18 05:30 INR, PTT INR 7.32 (0.83-1.09) H* 07/29/18 05:30 Problem List - Problems (1) Neck pain Code(s): M54.2 - CERVICALGIA (2) ALS (amyotrophic lateral sclerosis) Assessment/Plan: f/u with neurologist. Code(s): G12.21 - AMYOTROPHIC LATERAL SCLEROSIS (3) Abnormal cardiac enzyme level Code(s): R74.8 - ABNORMAL LEVELS OF OTHER SERUM ENZYMES (4) Anxiety Code(s): F41.9 - ANXIETY DISORDER, UNSPECIFIED (5) Dementia Code(s): F03.90 - UNSPECIFIED DEMENTIA WITHOUT BEHAVIORAL DISTURBANCE (6) Weakness generalized Code(s): R53.1 - WEAKNESS (7) Atrial fibrillation Code(s): I48.91 - UNSPECIFIED ATRIAL FIBRILLATION Qualifiers: Atrial fibrillation type: chronic Qualified Code(s): I48.2 - Chronic atrial fibrillation (8) HTN (hypertension) Assessment/Plan: On metoproolol, losartan, hydralazine. F/u BUN/Cr, electrolytes. Code(s): I10 - ESSENTIAL (PRIMARY) HYPERTENSION
[2018-07-30] MEDS ORDERED: PT OWN MED DRAWER 7, Y5N ONE ×2 (13:48→22:18)
[2018-07-30] MEDS: POLYETHYLENE GLYCOL 3350 119 GM BTL PO SCH (14:06)
--- NOTE | 2018-07-30 15:39 | PN ---
Progress Note, Physician Chief Complaint: started with some puree diet thickened liquids; no BM per in 1 week; had duclolax and colace ordered prn; askwed for miralax also said she noticed some testicuar and pelvic rash and pt grimaced when she was cleaning his pelvic area; per he had patrick with GREY Harris but missed it; will call GREY here/ no other co; labs pending - Current Medication List Current Medications: Active Medications Acetaminophen (Tylenol -) 500 mg PO Q6H PRN PRN Reason: PAIN LEVEL 1-5 Atorvastatin Calcium (Lipitor -) 10 mg PO HS [facility] Bisacodyl (Dulcolax Suppository -) 10 mg RC DAILY PRN PRN Reason: CONSTIPATION Calcium Carbonate (Os-Surya 500mg -) 1,000 mg PO DAILY [facility] Last Admin: 07/30/18 10:22 Dose: 1,000 mg Citalopram Hydrobromide (Celexa -) 40 mg PO DAILY [facility] Last Admin: 07/30/18 10:22 Dose: 40 mg Clonazepam (Klonopin -) 0.25 mg PO BID [facility] Last Admin: 07/30/18 10:21 Dose: 0.25 mg Dexamethasone (Decadron -) 2 mg PO QID [facility] Last Admin: 07/30/18 14:06 Dose: 2 mg Docusate Sodium (Colace -) 200 mg PO BID PRN PRN Reason: CONSTIPATION Fluticasone Propionate (Flonase -) 1 spray NS BID [facility] Last Admin: 07/30/18 10:42 Dose: 1 spray Gabapentin (Neurontin Oral Liquid -) 100 mg PO TID [facility] Hydralazine HCl (Apresoline Injection -) 10 mg IVPUSH Q6H PRN PRN Reason: HYPERTENSION Dextrose/Sodium Chloride (D5-Ns -) 1,000 mls @ 50 mls/hr IV ASDIR [facility] Last Admin: 07/29/18 18:32 Dose: 50 mls/hr Insulin Aspart (Novolog Vial Sliding Scale -) 1 vial SQ ACHS [facility]; Protocol Last Admin: 07/30/18 11:24 Dose: Not Given Losartan Potassium (Cozaar -) 25 mg PO DAILY [facility] Last Admin: 07/30/18 10:23 Dose: 25 mg Magnesium Oxide (Mag-Ox -) 400 mg PO DAILY [facility] Last Admin: 07/30/18 10:22 Dose: 400 mg Metoprolol Tartrate (Lopressor -) 25 mg PO BID [facility] Last Admin: 07/30/18 10:24 Dose: 25 mg Metoprolol Tartrate (Lopressor Injection -) 5 mg IVPUSH Q4H PRN PRN Reason: HYPERTENSION Morphine Sulfate (Morphine Sulfate) 1 mg IVPUSH Q3H PRN PRN Reason: PAIN LEVEL 6-10 Non-Formulary Medication (Memantine Hcl [Namenda Xr]) 21 mg PO DAILY [facility] Non-Formulary Medication (Rivastigmine [Exelon]) 1 each TD DAILY [facility] [id number] Ethyl Esters (Lovaza -) 2 gm PO BID [facility] Last Admin: 07/30/18 10:23 Dose: 2 gm Pantoprazole Sodium (Protonix -) 40 mg PO BID [facility] Last Admin: 07/30/18 10:23 Dose: 40 mg Polyethylene Glycol (Miralax (For Daily Use) -) 17 gm PO DAILY [facility] Last Admin: 07/30/18 14:06 Dose: 17 gm Pramipexole Dihydrochloride (Mirapex -) 0.25 mg PO HS [facility] Tamsulosin HCl (Flomax -) 0.4 mg PO HS [facility] - Objective Vital Signs: Vital Signs Temperature 98.4 F 07/30/18 14:42 Pulse Rate 84 07/30/18 14:42 Respiratory Rate 20 07/30/18 14:42 Blood Pressure 164/87 07/30/18 14:42 O2 Sat by Pulse Oximetry (%) 95 07/30/18 09:00 Constitutional: Yes: No Distress Eyes: Yes: Conjunctiva Clear HENT: Yes: Atraumatic Neck: Yes: Supple Cardiovascular: Yes: Regular Rate and Rhythm Respiratory: Yes: CTA Bilaterally Gastrointestinal: Yes: Soft. No: Distention Genitourinary: No: Hematuria Musculoskeletal: No: Joint Stiffness, Joint Swelling Extremities: No: Cold, Cool, Cyanosis Edema: No Integumentary: Yes: Rash (pelvic fungic rash) Neurological: Yes: Alert. No: Oriented Psychiatric: Yes: Alert. No: Oriented, Agitated Labs: CBC, BMP 07/29/18 05:30 07/29/18 05:30 INR, PTT INR 7.32 (0.83-1.09) H* 07/29/18 05:30 - ....Imaging Chest X-ray: Report Reviewed Other: Report Reviewed Assessment/Plan 77 YOM ASHD CHF AFib ALS with extremities wekaness, s/p fall admitted with coumadin toxicity and C6 vertebral fracture; s/p hyperTA and hypoxemia episode after neck MRI; borderline + troponins monitor in telemetry, BP control cardiology f/u NS f/u; s/p steroids trial per NS; neurology f/u neck collar on per NS f/u labs; INR; coumadin held s/p vit K prognosis guarded falls decubs aspiration PFX; do not try to get OOB alone swallow f/u f/u BGM and gastric PFX while on steroids GREY murphy d/w pt's at bedside - prognosis guarded
[2018-07-30 16:13] LABS: INR 3.49 (0.83-1.09); PROTHROMBIN TIME (PATIENT) 41.7 SEC (9.7-13.0)
[2018-07-30 16:23] LABS: EOS % 0.2 % (0-4.5); HEMATOCRIT 43.4 % (35.4-49); HEMOGLOBIN 13.8 GM/dL (11.7-16.9); LYMPH % 5.7 % (8-40); MCH 31.1 pg (25.7-33.7); MCHC 31.8 g/dl (32.0-35.9); MEAN CELL VOLUME 97.8 fl (80-96); MEAN PLT VOLUME 9.6 fl (7.5-11.1); MONO % 3.1 % (3.8-10.2); PLATELET COUNT 108 K/MM3 (134-434); RBC 4.43 M/mm3 (4.00-5.60); RDW 15.6 % (11.9-15.9); WHITE BLOOD COUNT 8.4 K/mm3 (4.0-10.0)
[2018-07-30 16:47] LABS: ANION GAP 4 MMOL/L (8-16); BLOOD UREA NITROGEN 23 mg/dL (7-18); CALCIUM 8.3 mg/dL (8.5-10.1); CHLORIDE 107 mmol/L (98-107); CO2 40 mmol/L (21-32); CREATININE 0.5 mg/dL (0.55-1.3); GLUCOSE,RANDOM 119 mg/dL (74-106); POTASSIUM 3.6 mmol/L (3.5-5.1); SODIUM 150 mmol/L (136-145); TOT PROT 5.8 g/dl (6.4-8.2)
[2018-07-30 16:48] LABS: ALK PHOS 45 U/L (45-117); BILIRUBIN,TOTAL 0.7 mg/dL (0.2-1); SGOT/AST 16 U/L (15-37); SGPT/ALT 22 U/L (13-61)
[2018-07-30 17:12] LABS: PLATELET ESTIMATE DECREASED
--- NOTE | 2018-07-30 17:24 | CONSULT ---
Consult Consult Specialty:: UROLOGY Reason for Consultation:: Scrotal pain - History of Present Illness Chief Complaint: 77 Y/o Male patient with history of BPH, Alzheimer, ALS, A-fib and HT admitted because of recent fall and cervical spine injury, C/O scrotal discomfort and skin rash for last 3 days, he is voiding well. O/E soft lax abd no palpable bladder, both testicles WNL, scrotal skin rash. 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 Esophageal dysmotility), Other (colon polyp excised 2004) Hepatobiliary: Yes: Other (fatty liver) Renal/: Yes: BPH Psych: Yes: Depression, Other (dementia) Musculoskeletal: Yes: Chronic low back pain (required epidural injections) Rheumatology: Yes: Other (myositis, s/p IVIG infusion) - Past Surgical History Past Surgical History: Yes: Colectomy (sigmoid colectomy for intramucosal cancer 2001), Colonoscopy, Hernia Repair (recurrent RIH repair), Upper Endoscopy - Alcohol/Substance Use Hx Alcohol Use: No History of Substance Use: reports: None - Smoking History Smoking history: Never smoked Have you smoked in the past 12 months: No Aproximately how many cigarettes per day: 5 If you are a former smoker, when did you quit?: 50 years ago - Social History Usual Living Arrangement: With Spouse ADL: Family Assistance History of Recent Travel: No Home Medications - Allergies Allergies/Adverse Reactions: Allergies Allergy/AdvReac Type Severity Reaction Status Date / Time No Known Drug Allergies Allergy Verified 07/25/18 19:22 - Home Medications Home Medications: Ambulatory Orders Calcium Carbonate [Calcium] 1,000 mg PO DAILY 10/03/16 Memantine HCl [Namenda Xr] 21 mg PO DAILY 10/03/16 Multivit-Min/FA/Lycopen/Lutein [Centrum Silver Tablet] 1 each PO DAILY 10/03/16 Almo-3 Acid Ethyl Esters [Lovaza] 2 gm PO BID 10/03/16 Pantoprazole Sodium [Protonix -] 40 mg PO BID 10/03/16 Pramipexole Di-HCl [Mirapex] 0.25 mg PO HS 10/03/16 Tamsulosin HCl [Flomax -] 0.4 mg PO HS 10/03/16 Citalopram Hydrobromide [Celexa -] 40 mg PO DAILY tablet 03/22/18 Fluticasone Prop 0.05% Nasal [Flonase -] 1 - 2 spray NS BID 06/28/18 Rivastigmine [Exelon] 1 each TD DAILY 06/28/18 Warfarin Na [Coumadin -] 7.5 mg PO SUTUTHFRSA 06/28/18 Bisacodyl Suppository [Dulcolax Suppository -] 10 mg RC DAILY PRN 30 Days #30 supp.rect MDD 1 07/02/18 Atorvastatin Ca [Lipitor] 10 mg PO HS 07/05/18 Docusate Sodium [Colace] 200 mg PO PRN 07/05/18 Magnesium Oxide [Mag-Ox -] 400 mg PO DAILY #90 tablet MDD 1 07/13/18 Metoprolol Tartrate [Lopressor -] 25 mg PO BID #180 tablet MDD 2 07/13/18 clonazePAM [Klonopin -] 0.25 mg PO BID #30 tablet MDD 2 07/13/18 Losartan Potassium [Cozaar -] 25 mg PO DAILY 07/25/18 Family Disease History - Family Disease History Family Disease History: Heart Disease: Father ( [place]), Other: Mother ( in a fire) Physical Exam Vital Signs: Vital Signs Temperature 98.4 F 07/30/18 14:42 Pulse Rate 84 07/30/18 14:42 Respiratory Rate 20 07/30/18 14:42 Blood Pressure 164/87 07/30/18 14:42 O2 Sat by Pulse Oximetry (%) 95 07/30/18 09:00 Labs: CBC, BMP 07/30/18 14:45 07/30/18 15:30 Assessment/Plan Plan Lotrison cream apply TID Renal and pelvic U/S
[2018-07-30] MEDS: GABAPENTIN 250 MG/5 ML ORAL SOLUTION, 470 ML BOTTLE PO SCH ×2 (17:36→22:20)
[2018-07-30] MEDS: ATORVASTATIN CA 10 MG TABLET (FP) PO SCH (22:11)
[2018-07-30] MEDS: TAMSULOSIN HCL 0.4 MG CAP PO SCH (22:15)
[2018-07-30] MEDS: DEXTROSE 5%-NORMAL SALINE 1,000 ML IV SCH (22:16)
[2018-07-30] MEDS: NYSTATIN/TRIAMCINOLONE TOPICAL OINTMENT 15 GM TUBE TP SCH (22:19)
[2018-07-31] MEDS: GABAPENTIN 250 MG/5 ML ORAL SOLUTION, 470 ML BOTTLE PO SCH ×4 (06:18→22:44)
[2018-07-31] MEDS: INSULIN SLIDING SCALE (NOVOLOG) 1 VIAL SQ SCH ×4 (06:23→22:44)
--- NOTE | 2018-07-31 06:55 | PN ---
Progress Note, Physician Chief Complaint: in better spirits; no BM yet, is on 3 stools softeners prn consults appreciated, d/w at bedside - Current Medication List Current Medications: Active Medications Acetaminophen (Tylenol -) 500 mg PO Q6H PRN PRN Reason: PAIN LEVEL 1-5 Atorvastatin Calcium (Lipitor -) 10 mg PO HS [facility] Last Admin: 07/30/18 22:11 Dose: 10 mg Bisacodyl (Dulcolax Suppository -) 10 mg RC DAILY PRN PRN Reason: CONSTIPATION Calcium Carbonate (Os-Surya 500mg -) 1,000 mg PO DAILY [facility] Last Admin: 07/30/18 10:22 Dose: 1,000 mg Citalopram Hydrobromide (Celexa -) 40 mg PO DAILY [facility] Last Admin: 07/30/18 10:22 Dose: 40 mg Clonazepam (Klonopin -) 0.25 mg PO BID [facility] Last Admin: 07/30/18 22:11 Dose: 0.25 mg Dexamethasone (Decadron -) 2 mg PO QID [facility] Last Admin: 07/30/18 22:14 Dose: 2 mg Docusate Sodium (Colace -) 200 mg PO BID PRN PRN Reason: CONSTIPATION Fluticasone Propionate (Flonase -) 1 spray NS BID [facility] Last Admin: 07/30/18 22:16 Dose: 1 spray Gabapentin (Neurontin Oral Liquid -) 100 mg PO TID [facility] Last Admin: 07/31/18 06:18 Dose: 100 mg Hydralazine HCl (Apresoline Injection -) 10 mg IVPUSH Q6H PRN PRN Reason: HYPERTENSION Dextrose/Sodium Chloride (D5-Ns -) 1,000 mls @ 50 mls/hr IV ASDIR [facility] Last Admin: 07/30/18 22:16 Dose: 50 mls/hr Insulin Aspart (Novolog Vial Sliding Scale -) 1 vial SQ ACHS [facility]; Protocol Last Admin: 07/31/18 06:23 Dose: Not Given Losartan Potassium (Cozaar -) 25 mg PO DAILY [facility] Last Admin: 07/30/18 10:23 Dose: 25 mg Magnesium Oxide (Mag-Ox -) 400 mg PO DAILY [facility] Last Admin: 07/30/18 10:22 Dose: 400 mg Metoprolol Tartrate (Lopressor -) 25 mg PO BID [facility] Last Admin: 07/30/18 22:15 Dose: 25 mg Metoprolol Tartrate (Lopressor Injection -) 5 mg IVPUSH Q4H PRN PRN Reason: HYPERTENSION Morphine Sulfate (Morphine Sulfate) 1 mg IVPUSH Q3H PRN PRN Reason: PAIN LEVEL 6-10 Non-Formulary Medication (Memantine Hcl [Namenda Xr]) 21 mg PO DAILY [facility] Non-Formulary Medication (Rivastigmine [Exelon]) 1 each TD DAILY [facility] Nystatin/Triamcinolone Acetonide (Mycolog Ii Ointment -) 1 applic TP BID [facility] Last Admin: 07/30/18 22:19 Dose: 1 applic [id number] Ethyl Esters (Lovaza -) 2 gm PO BID [facility] Last Admin: 07/30/18 22:17 Dose: Not Given Pantoprazole Sodium (Protonix -) 40 mg PO BID [facility] Last Admin: 07/30/18 22:15 Dose: 40 mg Polyethylene Glycol (Miralax (For Daily Use) -) 17 gm PO DAILY [facility] Last Admin: 07/30/18 14:06 Dose: 17 gm Pramipexole Dihydrochloride (Mirapex -) 0.25 mg PO HS [facility] Last Admin: 07/30/18 22:19 Dose: 0.25 mg Tamsulosin HCl (Flomax -) 0.4 mg PO HS [facility] Last Admin: 07/30/18 22:15 Dose: 0.4 mg - Objective Vital Signs: Vital Signs Temperature 97.2 F L 07/31/18 06:00 Pulse Rate 86 07/31/18 06:00 Respiratory Rate 20 07/31/18 06:00 Blood Pressure 160/90 07/31/18 06:00 O2 Sat by Pulse Oximetry (%) 95 07/30/18 21:00 Constitutional: Yes: No Distress, Calm Eyes: Yes: Conjunctiva Clear HENT: Yes: Atraumatic Neck: Yes: Supple Cardiovascular: Yes: Regular Rate and Rhythm Respiratory: Yes: CTA Bilaterally Gastrointestinal: Yes: Soft. No: Distention Genitourinary: No: CVA Tenderness - Left, CVA Tenderness - Right, Hematuria Musculoskeletal: No: Joint Stiffness, Joint Swelling Extremities: No: Cold, Cool, Cyanosis Edema: No Integumentary: No: Rash, Venous Stasis Changes Neurological: Yes: WNL, Alert. No: Oriented ...Motor Strength: WNL Psychiatric: Yes: WNL, Alert. No: Oriented, Agitated, Suicidal Ideation Labs: CBC, BMP 07/30/18 14:45 07/30/18 15:30 INR, PTT INR 3.49 (0.83-1.09) H 07/30/18 14:45 - ....Imaging Other: Report Reviewed Assessment/Plan 77 YOM ASHD CHF AFib ALS with extremities wekaness, s/p fall admitted with coumadin toxicity and C6 vertebral fracture; s/p hyperTA and hypoxemia episode after neck MRI; borderline + troponins monitor in telemetry, BP control cardiology f/u NS f/u; s/p steroids trial per NS; neurology f/u neck collar on per NS f/u labs; INR 2.0 now, restart coumadin at lower dose (was on 7.5 mg/day at home , to start 5 mg/day and adjust INR). prognosis guarded falls decubs aspiration PFX; do not try to get OOB alone swallow f/u f/u BGM and gastric PFX while on steroids f/u d/w pt's at bedside - prognosis guarded
[2018-07-31] MEDS ORDERED: GABAPENTIN 100 MG CAPSULE (FP) PO SCH (07:30)
[2018-07-31 07:35] LABS: WHITE BLOOD COUNT 8.2 K/mm3 (4.0-10.0)
[2018-07-31 07:36] LABS: HEMATOCRIT 44.1 % (35.4-49); HEMOGLOBIN 14.2 GM/dL (11.7-16.9); LYMPH % 9.6 % (8-40); MCH 31.3 pg (25.7-33.7); MCHC 32.3 g/dl (32.0-35.9); MEAN CELL VOLUME 96.8 fl (80-96); MONO % 5.5 % (3.8-10.2); NEUT % 84.9 % (42.8-82.8); PLATELET COUNT 102 K/MM3 (134-434); RBC 4.56 M/mm3 (4.00-5.60)
--- NOTE | 2018-07-31 07:54 | PN ---
Progress Note (short form) - Note Progress Note: NEUROSURGERY On telemetry at bedside In somewhat less pain Ordered front panel collar off for meals PE: AF, VS HEENT- NC/AT; Neck- in [place] J collar, more comfortable, pain worse with extension, but overall better; Cor- Irreg; Lungs- CTA; Abd- benign; Ext- no sign of DVT CN- non-focal; Motor- weak B prox UE Deltoids/supraspinatus 2-3/5; distal UE R 4 /5 L 3/5; B LE 4 prox 4+ distal; Sensation- intact LT; DTR- hyporeflexic C5-6 vertebral and discal injury s/p mechanical fall Collar x 10 weeks total F/u C spine x-rays in 2 weeks to assess alignment Complete short pulse of po steroid; decreased to 2 mg tid Incentive spirometry Encourage PO/nutrition
[2018-07-31 08:04] LABS: ALK PHOS 46 U/L (45-117); ANION GAP 4 MMOL/L (8-16); BLOOD UREA NITROGEN 17 mg/dL (7-18); CALCIUM 8.3 mg/dL (8.5-10.1); CHLORIDE 105 mmol/L (98-107); CO2 40 mmol/L (21-32); CREATININE 0.5 mg/dL (0.55-1.3); GLUCOSE,RANDOM 107 mg/dL (74-106); POTASSIUM 3.5 mmol/L (3.5-5.1); SGOT/AST 17 U/L (15-37); SGPT/ALT 22 U/L (13-61); SODIUM 148 mmol/L (136-145); TOT PROT 5.6 g/dl (6.4-8.2)
[2018-07-31 08:15] LABS: INR 2.09 (0.83-1.09); PROTHROMBIN TIME (PATIENT) 24.9 SEC (9.7-13.0)
--- NOTE | 2018-07-31 08:58 | PN ---
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 Day prior to admission, reported she was transferring him to his walker after dinner when he lost his footing and fell backwards onto his head and neck. No LOC. Next morning the neck pain was worse and pt went to see Dr. Melchor. Dr. Melchor ordered a CTH and CT neck which revealed reported acute C5 fracture. Dr. Melchor recommended pt come to the ED and requested NSG c/s Dr. Guan. NSGY note reviewed, MRI compelted and reviewed. Patient in collar and stable. T and L spine CT reviewed. Some bulging in L spine with arthropathy but no significant pathology otherwise. NSGY follow up reviewed, short course steroids. No surgical intervention. Gabapentin also added. communicated not wanting to go to rehab. Active Medications Acetaminophen (Tylenol -) 500 mg PO Q6H PRN PRN Reason: PAIN LEVEL 1-5 Atorvastatin Calcium (Lipitor -) 10 mg PO HS [facility] Last Admin: 07/30/18 22:11 Dose: 10 mg Bisacodyl (Dulcolax Suppository -) 10 mg RC DAILY PRN PRN Reason: CONSTIPATION Calcium Carbonate (Os-Surya 500mg -) 1,000 mg PO DAILY [facility] Last Admin: 07/30/18 10:22 Dose: 1,000 mg Citalopram Hydrobromide (Celexa -) 40 mg PO DAILY [facility] Last Admin: 07/30/18 10:22 Dose: 40 mg Clonazepam (Klonopin -) 0.25 mg PO BID [facility] Last Admin: 07/30/18 22:11 Dose: 0.25 mg Dexamethasone (Decadron -) 2 mg PO TID [facility] Docusate Sodium (Colace -) 200 mg PO BID PRN PRN Reason: CONSTIPATION Fluticasone Propionate (Flonase -) 1 spray NS BID [facility] Last Admin: 07/30/18 22:16 Dose: 1 spray Gabapentin (Neurontin Oral Liquid -) 100 mg PO TID [facility] Hydralazine HCl (Apresoline Injection -) 10 mg IVPUSH Q6H PRN PRN Reason: HYPERTENSION Dextrose/Sodium Chloride (D5-Ns -) 1,000 mls @ 50 mls/hr IV ASDIR [facility] Last Admin: 07/30/18 22:16 Dose: 50 mls/hr Insulin Aspart (Novolog Vial Sliding Scale -) 1 vial SQ ACHS [facility]; Protocol Last Admin: 07/31/18 06:23 Dose: Not Given Losartan Potassium (Cozaar -) 25 mg PO DAILY [facility] Last Admin: 07/30/18 10:23 Dose: 25 mg Magnesium Oxide (Mag-Ox -) 400 mg PO DAILY [facility] Last Admin: 07/30/18 10:22 Dose: 400 mg Metoprolol Tartrate (Lopressor -) 25 mg PO BID [facility] Last Admin: 07/30/18 22:15 Dose: 25 mg Metoprolol Tartrate (Lopressor Injection -) 5 mg IVPUSH Q4H PRN PRN Reason: HYPERTENSION Morphine Sulfate (Morphine Sulfate) 1 mg IVPUSH Q3H PRN PRN Reason: PAIN LEVEL 6-10 Non-Formulary Medication (Memantine Hcl [Namenda Xr]) 21 mg PO DAILY [facility] Non-Formulary Medication (Rivastigmine [Exelon]) 1 each TD DAILY [facility] Nystatin/Triamcinolone Acetonide (Mycolog Ii Ointment -) 1 applic TP BID [facility] Last Admin: 07/30/18 22:19 Dose: 1 applic [id number] Ethyl Esters (Lovaza -) 2 gm PO BID [facility] Last Admin: 07/30/18 22:17 Dose: Not Given Pantoprazole Sodium (Protonix -) 40 mg PO BID [facility] Last Admin: 07/30/18 22:15 Dose: 40 mg Polyethylene Glycol (Miralax (For Daily Use) -) 17 gm PO DAILY [facility] Last Admin: 07/30/18 14:06 Dose: 17 gm Pramipexole Dihydrochloride (Mirapex -) 0.25 mg PO HS [facility] Last Admin: 07/30/18 22:19 Dose: 0.25 mg Tamsulosin HCl (Flomax -) 0.4 mg PO HS [facility] Last Admin: 07/30/18 22:15 Dose: 0.4 mg *Physical Exam Vital Signs Period Temp Pulse Resp BP Sys/Arguelles Pulse Ox Last 24 Hr 91.6 F-98.4 F 84-87 18-20 141-168/87-96 95-95 GENERAL: Awake, alert, oriented to name, in no acute distress HEAD: No signs of trauma EYES: PERRLA, EOMI, sclera anicteric, conjunctiva clear ENT: Auricles normal inspection, hearing grossly normal, nares patent, oropharynx clear without exudates. Moist mucosa NECK: c-collar in place LUNGS: Breath sounds equal, clear to auscultation bilaterally. No wheezes, and no crackles HEART: Regular rate and rhythm, normal S1 and S2, no murmurs, rubs or gallops ABDOMEN: Soft, nontender, normoactive bowel sounds. No guarding, no rebound. No masses EXTREMITIES: FROM, no edema. No cords, erythema, deformities or tenderness BACK: diffuse tenderness along thoracic and lumbar spine, although pt uncomfortable due to neck pain NEUROLOGICAL: Limited speech, cranial nerves intact. 4+/5 in UE, 5-/5 in LE, sensory intact diffusely, gait deferred SKIN: Warm, Dry, normal turgor, no rashes or lesions noted. CBCD WBC 8.2 K/mm3 (4.0-10.0) 07/31/18 06:40 RBC 4.56 M/mm3 (4.00-5.60) 07/31/18 06:40 Hgb 14.2 GM/dL (11.7-16.9) 07/31/18 06:40 Hct 44.1 % (35.4-49) 07/31/18 06:40 MCV 96.8 fl (80-96) H 07/31/18 06:40 MCHC 32.3 g/dl (32.0-35.9) 07/31/18 06:40 RDW 15.0 % (11.9-15.9) 07/31/18 06:40 Plt Count 102 K/MM3 (134-434) L 07/31/18 06:40 MPV 9.0 fl (7.5-11.1) 07/31/18 06:40 CMP Sodium 148 mmol/L (136-145) H 07/31/18 06:40 Potassium 3.5 mmol/L (3.5-5.1) 07/31/18 06:40 Chloride 105 mmol/L (98-107) 07/31/18 06:40 Carbon Dioxide 40 mmol/L (21-32) H 07/31/18 06:40 Anion Gap 4 MMOL/L (8-16) L 07/31/18 06:40 BUN 17 mg/dL (7-18) 07/31/18 06:40 Creatinine 0.5 mg/dL (0.55-1.3) L 07/31/18 06:40 Creat Clearance w eGFR > 60 (>60) 07/31/18 06:40 Random Glucose 107 mg/dL (74-106) H 07/31/18 06:40 Calcium 8.3 mg/dL (8.5-10.1) L 07/31/18 06:40 Total Bilirubin 1.0 mg/dL (0.2-1) 07/31/18 06:40 AST 17 U/L (15-37) 07/31/18 06:40 ALT 22 U/L (13-61) 07/31/18 06:40 Alkaline Phosphatase 46 U/L (45-117) 07/31/18 06:40 Total Protein 5.6 g/dl (6.4-8.2) L 07/31/18 06:40 Albumin 3.0 g/dl (3.4-5.0) L 07/31/18 06:40 CARDIAC ENZYMES Creatine Kinase 62 IU/L (26-308) 07/28/18 06:32 Troponin I 0.07 ng/ml (0.00-0.05) H 07/28/18 06:32 Medical Decision Making 77 year old male presenting with family, with a significant past medical history of Alzheimer's dementia, 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 Day prior to admission, reported she was transferring him to his walker after dinner when he lost his footing and fell backwards onto his head and neck. No LOC. Next morning the neck pain was worse and pt went to see Dr. Melchor. Dr. Melchor ordered a CTH and CT neck which revealed reported acute C5 fracture. Dr. Androne recommended pt come to the ED and requests NSG c/s Dr. Guan. NSGY note reviewed, recommended MRI. Patient in collar and looks stable. T and L spine CT reviewed. Some bulging in L spine with arthropathy but no significant pathology otherwise. Follow up Dr. Guan recommendation, continue collar. Defer to NSGY regarding risk/benefit of surgical intervention. Short course of steroids, per NSGY. Gabapentin also added. No side effects. Monitor sugar, maintain normal gylcemic range. No new focal deficits. Neurologically stable as compared to prior accident. Fall precautions needed, DVT ppx. Physical therapy, did not want patient going to alf.
[2018-07-31] MEDS: POLYETHYLENE GLYCOL 3350 119 GM BTL PO SCH (09:22)
[2018-07-31] MEDS: CITALOPRAM HYDROBROMIDE 20 MG TABLET (FP) PO SCH (09:23)
[2018-07-31] MEDS: MAGNESIUM OXIDE 400 MG TABLET (FP) PO SCH (09:23)
[2018-07-31] MEDS: CALCIUM (OYSTER SHELL) 500 MG TABLET (FP) PO SCH (09:23)
[2018-07-31] MEDS: clonazePAM 0.5 MG TABLET PO SCH ×2 (09:24→22:42)
[2018-07-31] MEDS: OMEGA-3 ACID ETHYL ESTERS (FATTY-ACIDS) 1 GM CAPSULE (FP) PO SCH ×2 (09:24→22:43)
[2018-07-31] MEDS: LOSARTAN POTASSIUM 25 MG TABLET PO SCH (09:24)
[2018-07-31] MEDS: METOPROLOL TARTRATE 25 MG TABLET (FP) PO SCH ×2 (09:24→22:43)
[2018-07-31] MEDS: NYSTATIN/TRIAMCINOLONE TOPICAL OINTMENT 15 GM TUBE TP SCH ×2 (09:25→22:51)
[2018-07-31] MEDS: FLUTICASONE PROP 0.05% 16 GM NASAL SPRAY NS SCH ×2 (09:25→22:51)
[2018-07-31] MEDS: PANTOPRAZOLE 40 MG TABLET (FP) PO SCH ×2 (09:29→22:43)
--- NOTE | 2018-07-31 10:23 | PN ---
Progress Note, Physician History of Present Illness: PULMONARY ALERT,NO DISTRESS,-SOB,LESS PAIN - Current Medication List Current Medications: Active Medications Acetaminophen (Tylenol -) 500 mg PO Q6H PRN PRN Reason: PAIN LEVEL 1-5 Atorvastatin Calcium (Lipitor -) 10 mg PO HS [facility] Last Admin: 07/30/18 22:11 Dose: 10 mg Bisacodyl (Dulcolax Suppository -) 10 mg RC DAILY PRN PRN Reason: CONSTIPATION Calcium Carbonate (Os-Surya 500mg -) 1,000 mg PO DAILY [facility] Last Admin: 07/31/18 09:23 Dose: 1,000 mg Citalopram Hydrobromide (Celexa -) 40 mg PO DAILY [facility] Last Admin: 07/31/18 09:23 Dose: 40 mg Clonazepam (Klonopin -) 0.25 mg PO BID [facility] Last Admin: 07/31/18 09:24 Dose: 0.25 mg Dexamethasone (Decadron -) 2 mg PO TID [facility] Docusate Sodium (Colace -) 200 mg PO BID PRN PRN Reason: CONSTIPATION Fluticasone Propionate (Flonase -) 1 spray NS BID [facility] Last Admin: 07/31/18 09:25 Dose: 1 spray Gabapentin (Neurontin Oral Liquid -) 100 mg PO TID [facility] Last Admin: 07/31/18 09:24 Dose: 100 mg Hydralazine HCl (Apresoline Injection -) 10 mg IVPUSH Q6H PRN PRN Reason: HYPERTENSION Dextrose/Sodium Chloride (D5-Ns -) 1,000 mls @ 50 mls/hr IV ASDIR [facility] Last Admin: 07/30/18 22:16 Dose: 50 mls/hr Insulin Aspart (Novolog Vial Sliding Scale -) 1 vial SQ ACHS [facility]; Protocol Last Admin: 07/31/18 06:23 Dose: Not Given Losartan Potassium (Cozaar -) 25 mg PO DAILY [facility] Last Admin: 07/31/18 09:24 Dose: 25 mg Magnesium Oxide (Mag-Ox -) 400 mg PO DAILY [facility] Last Admin: 07/31/18 09:23 Dose: 400 mg Metoprolol Tartrate (Lopressor -) 25 mg PO BID [facility] Last Admin: 07/31/18 09:24 Dose: 25 mg Metoprolol Tartrate (Lopressor Injection -) 5 mg IVPUSH Q4H PRN PRN Reason: HYPERTENSION Morphine Sulfate (Morphine Sulfate) 1 mg IVPUSH Q3H PRN PRN Reason: PAIN LEVEL 6-10 Non-Formulary Medication (Memantine Hcl [Namenda Xr]) 21 mg PO DAILY [facility] Non-Formulary Medication (Rivastigmine [Exelon]) 1 each TD DAILY [facility] Nystatin/Triamcinolone Acetonide (Mycolog Ii Ointment -) 1 applic TP BID [facility] Last Admin: 07/31/18 09:25 Dose: 1 applic [id number] Ethyl Esters (Lovaza -) 2 gm PO BID [facility] Last Admin: 07/31/18 09:24 Dose: 2 gm Pantoprazole Sodium (Protonix -) 40 mg PO BID [facility] Last Admin: 07/31/18 09:29 Dose: 40 mg Polyethylene Glycol (Miralax (For Daily Use) -) 17 gm PO DAILY [facility] Last Admin: 07/31/18 09:22 Dose: 17 gm Pramipexole Dihydrochloride (Mirapex -) 0.25 mg PO HS [facility] Last Admin: 07/30/18 22:19 Dose: 0.25 mg Tamsulosin HCl (Flomax -) 0.4 mg PO HS [facility] Last Admin: 07/30/18 22:15 Dose: 0.4 mg - Objective Vital Signs: Vital Signs Temperature 97.2 F L 07/31/18 06:00 Pulse Rate 86 07/31/18 06:00 Respiratory Rate 20 07/31/18 06:00 Blood Pressure 160/90 07/31/18 06:00 O2 Sat by Pulse Oximetry (%) 95 07/30/18 21:00 Constitutional: Yes: Well Nourished, No Distress Eyes: Yes: WNL HENT: Yes: WNL Neck: Yes: Other (HARD COLAR) Cardiovascular: Yes: Pulse Irregular, S1, S2 Extremities: Yes: WNL Edema: No Labs: CBC, BMP 07/31/18 06:40 07/31/18 06:40 INR, PTT INR 2.09 (0.83-1.09) H 07/31/18 06:40 Assessment/Plan Problem List - Problems (1) Cervical spine fracture Code(s): S12.9XXA - FRACTURE OF NECK, UNSPECIFIED, INITIAL ENCOUNTER (2) Fall Code(s): W19.XXXA - UNSPECIFIED FALL, INITIAL ENCOUNTER (3) Neck pain Code(s): M54.2 - CERVICALGIA (4) ALS (amyotrophic lateral sclerosis) Code(s): G12.21 - AMYOTROPHIC LATERAL SCLEROSIS (5) Anxiety Code(s): F41.9 - ANXIETY DISORDER, UNSPECIFIED (6) CAD (coronary artery disease) Code(s): I25.10 - ATHSCL HEART DISEASE OF [place] CORONARY ARTERY W/O ANG PCTRS (7) Constipation Code(s): K59.00 - CONSTIPATION, UNSPECIFIED Qualifiers: Constipation type: slow transit constipation Qualified Code(s): K59.01 - Slow transit constipation (8) Dementia Code(s): F03.90 - UNSPECIFIED DEMENTIA WITHOUT BEHAVIORAL DISTURBANCE (9) Atrial fibrillation Code(s): I48.91 - UNSPECIFIED ATRIAL FIBRILLATION Qualifiers: Atrial fibrillation type: chronic Qualified Code(s): I48.2 - Chronic atrial fibrillation (10) HTN (hypertension) Code(s): I10 - ESSENTIAL (PRIMARY) HYPERTENSION (11) Hyperlipidemia Code(s): E78.5 - HYPERLIPIDEMIA, UNSPECIFIED (12) Sleep apnea Code(s): G47.30 - SLEEP APNEA, UNSPECIFIED Assessment/Plan Previously diagnosed Mild OSAS based on an elevated RDI of 5 events per hour. Lowest desaturation was 82%. Patient not on treatment. Incentive Spirometry O2 as needed Pain control VTE prophylaxis Hard collar per Neurosurgery Fall precautions DR LIZ
--- NOTE | 2018-07-31 11:15 | PN ---
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 Yesterday, reports she was transferring him to his walker after dinner when he lost his footing and fell backwards onto his head and neck. No LOC. He was able to tolerate the pain last night in his neck and did not want to come to the ED. This morning the neck pain was worse and pt went to see Dr. Melchor. Dr. Melchor ordered a CTH and CT neck which revealed an acute C5 fracture. Dr. Melchor recommended pt come to the ED and requests [facility] Dr. Guan. The patient has no other complaints at the time other than neck pain. C-collar placed on evaluation. The patient denies chest pain, shortness of breath, headache and dizziness, palpitations prior to the fall or recently. Denies fevers, chills, abd pain, LE edema, weakness or numbness. Allergies: None Past surgical history: Cardiac cath, inguinal hernia Social History: No alcohol, tobacco or drug use reported PMD: Dr Bobby Melchor - Current Medication List Current Medications: Active Medications Acetaminophen (Tylenol -) 500 mg PO Q6H PRN PRN Reason: PAIN LEVEL 1-5 Atorvastatin Calcium (Lipitor -) 10 mg PO HS [facility] Last Admin: 07/30/18 22:11 Dose: 10 mg Bisacodyl (Dulcolax Suppository -) 10 mg RC DAILY PRN PRN Reason: CONSTIPATION Calcium Carbonate (Os-Surya 500mg -) 1,000 mg PO DAILY [facility] Last Admin: 07/31/18 09:23 Dose: 1,000 mg Citalopram Hydrobromide (Celexa -) 40 mg PO DAILY [facility] Last Admin: 07/31/18 09:23 Dose: 40 mg Clonazepam (Klonopin -) 0.25 mg PO BID [facility] Last Admin: 07/31/18 09:24 Dose: 0.25 mg Dexamethasone (Decadron -) 2 mg PO TID [facility] Docusate Sodium (Colace -) 200 mg PO BID PRN PRN Reason: CONSTIPATION Fluticasone Propionate (Flonase -) 1 spray NS BID [facility] Last Admin: 07/31/18 09:25 Dose: 1 spray Gabapentin (Neurontin Oral Liquid -) 100 mg PO TID [facility] Last Admin: 07/31/18 09:24 Dose: 100 mg Hydralazine HCl (Apresoline Injection -) 10 mg IVPUSH Q6H PRN PRN Reason: HYPERTENSION Dextrose/Sodium Chloride (D5-Ns -) 1,000 mls @ 50 mls/hr IV ASDIR [facility] Last Admin: 07/30/18 22:16 Dose: 50 mls/hr Insulin Aspart (Novolog Vial Sliding Scale -) 1 vial SQ ACHS [facility]; Protocol Last Admin: 07/31/18 06:23 Dose: Not Given Losartan Potassium (Cozaar -) 25 mg PO DAILY [facility] Last Admin: 07/31/18 09:24 Dose: 25 mg Magnesium Oxide (Mag-Ox -) 400 mg PO DAILY [facility] Last Admin: 07/31/18 09:23 Dose: 400 mg Metoprolol Tartrate (Lopressor -) 25 mg PO BID [facility] Last Admin: 07/31/18 09:24 Dose: 25 mg Metoprolol Tartrate (Lopressor Injection -) 5 mg IVPUSH Q4H PRN PRN Reason: HYPERTENSION Morphine Sulfate (Morphine Sulfate) 1 mg IVPUSH Q3H PRN PRN Reason: PAIN LEVEL 6-10 Non-Formulary Medication (Memantine Hcl [Namenda Xr]) 21 mg PO DAILY [facility] Non-Formulary Medication (Rivastigmine [Exelon]) 1 each TD DAILY [facility] Nystatin/Triamcinolone Acetonide (Mycolog Ii Ointment -) 1 applic TP BID [facility] Last Admin: 07/31/18 09:25 Dose: 1 applic [id number] Ethyl Esters (Lovaza -) 2 gm PO BID [facility] Last Admin: 07/31/18 09:24 Dose: 2 gm Pantoprazole Sodium (Protonix -) 40 mg PO BID [facility] Last Admin: 07/31/18 09:29 Dose: 40 mg Polyethylene Glycol (Miralax (For Daily Use) -) 17 gm PO DAILY [facility] Last Admin: 07/31/18 09:22 Dose: 17 gm Pramipexole Dihydrochloride (Mirapex -) 0.25 mg PO HS [facility] Last Admin: 07/30/18 22:19 Dose: 0.25 mg Tamsulosin HCl (Flomax -) 0.4 mg PO [facility] Last Admin: 07/30/18 22:15 Dose: 0.4 mg - Objective Vital Signs: Vital Signs Temperature 98.3 F 07/31/18 10:00 Pulse Rate 81 07/31/18 10:00 Respiratory Rate 20 07/31/18 10:00 Blood Pressure 151/97 07/31/18 10:00 O2 Sat by Pulse Oximetry (%) 95 07/30/18 21:00 Eyes: Yes: WNL, Conjunctiva Clear, EOM Intact HENT: Yes: WNL, Atraumatic, Normocephalic Neck: Yes: WNL, Supple, Trachea Midline Cardiovascular: Yes: Pulse Irregular, S1, S2 Respiratory: Yes: WNL, Regular, CTA Bilaterally Gastrointestinal: Yes: WNL, Normal Bowel Sounds Genitourinary: Yes: WNL Musculoskeletal: Yes: WNL Extremities: Yes: WNL Edema: No Integumentary: Yes: WNL Neurological: Yes: WNL, Alert, Oriented ...Motor Strength: WNL Psychiatric: Yes: WNL Labs: CBC, BMP 07/31/18 06:40 07/31/18 06:40 INR, PTT INR 2.09 (0.83-1.09) H 07/31/18 06:40 Problem List - Problems (1) Cervical spine fracture Code(s): S12.9XXA - FRACTURE OF NECK, UNSPECIFIED, INITIAL ENCOUNTER (2) Fall Code(s): W19.XXXA - UNSPECIFIED FALL, INITIAL ENCOUNTER (3) Neck pain Code(s): M54.2 - CERVICALGIA (4) ACS (acute coronary syndrome) Code(s): I24.9 - ACUTE ISCHEMIC HEART DISEASE, UNSPECIFIED (5) ALS (amyotrophic lateral sclerosis) Code(s): G12.21 - AMYOTROPHIC LATERAL SCLEROSIS (6) Abdominal pain Code(s): R10.9 - UNSPECIFIED ABDOMINAL PAIN Qualifiers: Abdominal location: lower abdomen, unspecified Qualified Code(s): R10.30 - Lower abdominal pain, unspecified (7) Abnormal cardiac enzyme level Code(s): R74.8 - ABNORMAL LEVELS OF OTHER SERUM ENZYMES (8) Abnormal head CT Code(s): R93.0 - ABNORMAL FINDINGS ON DX IMAGING OF SKULL AND HEAD, NEC (9) Abnormal liver function tests Code(s): R94.5 - ABNORMAL RESULTS OF LIVER FUNCTION STUDIES (10) Altered mental status Code(s): R41.82 - ALTERED MENTAL STATUS, UNSPECIFIED (11) Anxiety Code(s): F41.9 - ANXIETY DISORDER, UNSPECIFIED (12) Barretts esophagus Code(s): K22.70 - BOSWELL'S ESOPHAGUS WITHOUT DYSPLASIA Qualifiers: Boswell's esophagus type: without dysplasia Qualified Code(s): K22.70 - Boswell's esophagus without dysplasia (13) Bradycardia Code(s): R00.1 - BRADYCARDIA, UNSPECIFIED (14) CAD (coronary artery disease) Code(s): I25.10 - ATHSCL HEART DISEASE OF [place] CORONARY ARTERY W/O ANG PCTRS (15) Chest pain Code(s): R07.9 - CHEST PAIN, UNSPECIFIED Qualifiers: Chest pain type: unspecified Qualified Code(s): R07.9 - Chest pain, unspecified (16) Colon polyp Code(s): K63.5 - POLYP OF COLON (17) Confusion Code(s): R41.0 - DISORIENTATION, UNSPECIFIED (18) Constipation Code(s): K59.00 - CONSTIPATION, UNSPECIFIED Qualifiers: Constipation type: slow transit constipation Qualified Code(s): K59.01 - Slow transit constipation (19) Dementia Code(s): F03.90 - UNSPECIFIED DEMENTIA WITHOUT BEHAVIORAL DISTURBANCE (20) Dizziness Code(s): R42 - DIZZINESS AND GIDDINESS (21) Dysphagia Code(s): R13.10 - DYSPHAGIA, UNSPECIFIED Qualifiers: Dysphagia type: oropharyngeal phase Qualified Code(s): R13.12 - Dysphagia, oropharyngeal phase (22) EKG abnormalities Code(s): R94.31 - ABNORMAL ELECTROCARDIOGRAM [ECG] [EKG] (23) Fatty liver Code(s): K76.0 - FATTY (CHANGE OF) LIVER, NOT ELSEWHERE CLASSIFIED (24) Fecal impaction of colon Code(s): K56.41 - FECAL IMPACTION (25) Gallbladder dilatation Code(s): K82.8 - OTHER SPECIFIED DISEASES OF GALLBLADDER (26) Hiatal hernia with GERD and esophagitis Code(s): K44.9 - DIAPHRAGMATIC HERNIA WITHOUT OBSTRUCTION OR GANGRENE; K21.0 - GASTRO-ESOPHAGEAL REFLUX DISEASE WITH ESOPHAGITIS (27) History of colon cancer Code(s): Z85.038 - PERSONAL HISTORY OF MALIGNANT NEOPLASM OF LARGE INTESTINE (28) Hypokalemia Code(s): E87.6 - HYPOKALEMIA (29) Hypomagnesemia Code(s): E83.42 - HYPOMAGNESEMIA (30) Hypotension Code(s): I95.9 - HYPOTENSION, UNSPECIFIED Qualifiers: Hypotension type: unspecified hypotension type Qualified Code(s): I95.9 - Hypotension, unspecified (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 - OTHER SPECIFIED MYOPATHIES (32) LUQ abdominal pain Code(s): R10.12 - LEFT UPPER QUADRANT PAIN (33) Myositis Code(s): M60.9 - MYOSITIS, UNSPECIFIED Qualifiers: Myositis type: other type Laterality: unspecified laterality (34) Nasal bleeding Code(s): R04.0 - EPISTAXIS (35) Polymyositis Code(s): M33.20 - POLYMYOSITIS, ORGAN INVOLVEMENT UNSPECIFIED (36) Shoulder pain, right Code(s): M25.511 - PAIN IN RIGHT SHOULDER Qualifiers: Chronicity: acute Qualified Code(s): M25.511 - Pain in right shoulder (37) Skin rash Code(s): R21 - RASH AND OTHER NONSPECIFIC SKIN ERUPTION (38) Sleep apnea Code(s): G47.30 - SLEEP APNEA, UNSPECIFIED (39) Subtherapeutic anticoagulation Code(s): Z51.81 - ENCOUNTER FOR THERAPEUTIC DRUG LEVEL MONITORING; Z79.01 - [facility] (CURRENT) USE OF ANTICOAGULANTS (40) Subtherapeutic international normalized ratio (INR) Code(s): R79.1 - ABNORMAL COAGULATION PROFILE (41) Supratherapeutic INR Code(s): R79.1 - ABNORMAL COAGULATION PROFILE (42) Tremor Code(s): R25.1 - TREMOR, UNSPECIFIED (43) Weakness generalized Code(s): R53.1 - WEAKNESS (44) Atrial fibrillation Code(s): I48.91 - UNSPECIFIED ATRIAL FIBRILLATION Qualifiers: Atrial fibrillation type: chronic Qualified Code(s): I48.2 - Chronic atrial fibrillation (45) HTN (hypertension) Code(s): I10 - ESSENTIAL (PRIMARY) HYPERTENSION (46) Hyperlipidemia Code(s): E78.5 - HYPERLIPIDEMIA, UNSPECIFIED Assessment/Plan Alzheimer's dementia, 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 elevated INR Plan r/o cervical spine fx restart coumadin tonight if ok with neurology and neurosurgery -INR 2.09 bp control - restart meds will f/u d/c telemetry
[2018-07-31] MEDS: DEXTROSE 5%-NORMAL SALINE 1,000 ML IV SCH (11:31)
[2018-07-31] MEDS: ACETAMINOPHEN 500 MG TABLET (FP) PO PRN ×2 (13:00→19:56)
--- NOTE | 2018-07-31 13:27 | PN ---
Progress Note, HR GENERALIST - Note Progress Note: Neurosx ordered front panel collar off for meals. Selected Entries 07/30/18 07/30/18 07/30/18 02:00 06:00 09:30 Breakfast Lunch Supper Temperature 98.1 F 98.2 F 97.7 F 07/30/18 07/30/18 07/30/18 09:39 12:49 14:42 Breakfast 25% Lunch 25% Supper Temperature 98.4 F 07/30/18 07/30/18 07/30/18 18:19 21:37 22:00 Breakfast Lunch Supper 25% Temperature 98.2 F 91.6 F L 07/31/18 07/31/18 07/31/18 02:00 06:00 10:00 Breakfast Lunch Supper Temperature 97.9 F 97.2 F L 98.3 F 07/31/18 11:27 Breakfast 25% Lunch Supper Temperature Laboratory Tests 07/31/18 06:40 WBC 8.2 Case reviewed with who reports better swallow with gentle chin tuck/collar open. Limited PO acceptance but tolerating diet. Pt dislikes Magic cup. Suggest f/u RD re: ensure compact, maybe Ensure clear with added Simply thick, pudding? egg custard>?
[2018-07-31] MEDS: DEXAMETHASONE 4 MG TABLET (FP) PO SCH ×2 (14:12→22:43)
[2018-07-31] MEDS ORDERED: WARFARIN NA 5 MG TABLET (UD) PO SCH (18:00)
[2018-07-31] MEDS: METOPROLOL TARTRATE 5 MG/5 ML VIAL IVPUSH PRN (19:57)
[2018-07-31] MEDS ORDERED: PT OWN MED DRAWER 7, Y5N ONE (22:00)
[2018-07-31] MEDS: TAMSULOSIN HCL 0.4 MG CAP PO SCH (22:43)
[2018-07-31] MEDS: ATORVASTATIN CA 10 MG TABLET (FP) PO SCH (22:43)
[2018-07-31] MEDS ORDERED: MORPHINE SULFATE 2 MG/ML VIAL IVPUSH PRN (22:44)
[2018-07-31] MEDS: PRAMIPEXOLE DIHYDROCHLORIDE 0.25 MG TABLET PO SCH (22:44)
[2018-07-31] MEDS ORDERED: VANCOMYCIN 1 GRAM (PRE-DOCKED) 1,000 MG/250 ML BAG IVPB ONE (23:50)
[2018-08-01] MEDS ORDERED: DEXTROSE 5%-WATER - 50 ML IVPB ONE (00:26)
[2018-08-01] MEDS ORDERED: PIPERACILLIN/TAZOBACTAM 3.375 GM VIAL IVPB ONE (00:26)
[2018-08-01] MEDS ORDERED: PIPERACILLIN/TAZOB 3.375 GM 3.375 GM in DEXTROSE 5%-WATER - 50 ML IVPB SCH (02:00)
[2018-08-01] MEDS: METOPROLOL TARTRATE 5 MG/5 ML VIAL IVPUSH PRN (02:34)
[2018-08-01 02:47] VITALS: BP 182/111; PULSE 100
[2018-08-01 02:56] VITALS: TEMP 100.1
--- NOTE | 2018-08-01 03:08 | RAPID ---
Physical Examination Vital Signs: Vital Signs Temperature 100.1 F H 08/01/18 02:00 Pulse Rate 100 H 08/01/18 02:34 Respiratory Rate 20 08/01/18 02:00 Blood Pressure 182/111 H 08/01/18 02:34 O2 Sat by Pulse Oximetry (%) 96 07/31/18 21:00 Labs: CBC, BMP 07/31/18 06:40 07/31/18 06:40 Rapid Response - Rapid Response Assessment: Rapid Response called at 2:51 am. Arrived to evaluate pt with present in the room. Pt found to be desaturating to the 30's and 40's, on nonrebreather on arrival, with labile blood pressure and intermittent bradycardia. verified that pt is a DNR/DNI. Discussed with (healthcare proxy) care options and goals of care. She expressed interest in making the patient comfort care. Did not want any further life supporting measures including external pacing, mechanical ventilator support, etc. Events and conversations witnessed by Nursing staff. Exam on arrival Irregular heart rhythm, regular rate with occasional bradycardia Lungs clear Abdomen soft with noted abdominal work of breathing A/P Morphine drip ordered Scopolamine patch Ativan 1 mg Q30M Will monitor closely
[2018-08-01] MEDS ORDERED: SCOPOLAMINE HYDROBROMIDE 1 PATCH PATCH.TD72 TD SCH (03:15)
[2018-08-01] MEDS ORDERED: MORPHINE 100 MG in SODIUM CHLORIDE 98 ML IVPB SCH (03:15)
--- NOTE | 2018-08-01 03:20 | HOSP ---
Subjective - Review of Symptoms Subjective: Noted that the patient was in asystole on telemetry. Patient verified DNR/DNI as noted in previous rapid response note. Patient was unresponsive to auditory and painful stimuli. Pupils fixed and dilated. No breath sounds or heart sounds heard after one minute of auscultation. Radial pulses were not palpable. Patient was pronounced at 03:07 on 08/01/2018. Visit type - Emergency Visit Emergency Visit: Yes ED Registration Date: 07/26/18 Care time: The patient presented to the Emergency Department on the above date and was hospitalized for further evaluation of their emergent condition. - New Patient This patient is new to me today: Yes Date on this admission: 08/01/18 - Critical Care Critical Care patient: No
--- NOTE | 2018-08-02 06:50 | DS ---
Physical Examination Vital Signs: Vital Signs Temperature 100.1 F H 08/01/18 02:00 Pulse Rate 100 H 08/01/18 02:34 Respiratory Rate 20 08/01/18 02:00 Blood Pressure 182/111 H 08/01/18 02:34 O2 Sat by Pulse Oximetry (%) 96 07/31/18 21:00 Findings/Remarks: events noted; on 08/01/18 around 3 am, pt went into bradycardia - asystole on telemetry and desaturated, rapid respone hospitalist called - Shirin HCP was present at bedside, she expressed DNR DNI and comfort care; pt . Of note, the previous day 07/31 the pt's nurse informed me that cardiology ordered to DC telemetry and to transfer to regular floor; pt was still on telemetry 4w during 07/31-08/01 night awaiting for a regular bed; during the evening pt;s nurse noted one sided cheek swelling and called me, facial CT scan done c/w parotitis, pt received 1 dose ATB zosyn and vancomycin during the evening, and per pt's nurse he was stable and in NAD at that time. Then see events around 3 am. Labs: CBC, BMP 07/31/18 06:40 07/31/18 06:40 Discharge Summary Reason For Visit: FRACTURE F CERVICAL VERTEBRA,FALL s/p fall, C6 vertebral fracture; coumadin toxicity Procedures: Principal: admitted to telemetry, seen by cardiology, neurosurgery, neurology and pulmonary Other Procedures: positive troponins; telemetry monitored; cardiology management ; NS and neurology. hypoxemia seen by pulmonary; O2, incentive spirometry done as per pulmonary. HCP signed DNR DNI, comfort care Hospital Course: coumadin held until INR 2.0; management per cardiology and NS/neurology developed one side parotitis started on antibiotics; developed bradycardia asystole and hypoxemia; DNR DNI comfort care per HCP ; pt . Condition: - Instructions Referrals: Bobby Melchor MD [Primary Care Provider] - Disposition: - Home Medications Comprehensive Discharge Medication List: Ambulatory Orders Calcium Carbonate [Calcium] 1,000 mg PO DAILY 10/03/16 Memantine HCl [Namenda Xr] 21 mg PO DAILY 10/03/16 Multivit-Min/FA/Lycopen/Lutein [Centrum Silver Tablet] 1 each PO DAILY 10/03/16 [place]-3 Acid Ethyl Esters [Lovaza] 2 gm PO BID 10/03/16 Pantoprazole Sodium [Protonix -] 40 mg PO BID 10/03/16 Pramipexole Di-HCl [Mirapex] 0.25 mg PO HS 10/03/16 Tamsulosin HCl [Flomax -] 0.4 mg PO HS 10/03/16 Citalopram Hydrobromide [Celexa -] 40 mg PO DAILY tablet 03/22/18 Fluticasone Prop 0.05% Nasal [Flonase -] 1 - 2 spray NS BID 06/28/18 Rivastigmine [Exelon] 1 each TD DAILY 06/28/18 Warfarin Na [Coumadin -] 7.5 mg PO SUTUTHFRSA 06/28/18 Bisacodyl Suppository [Dulcolax Suppository -] 10 mg RC DAILY PRN 30 Days #30 supp.rect MDD 1 07/02/18 Atorvastatin Ca [Lipitor] 10 mg PO HS 07/05/18 Docusate Sodium [Colace] 200 mg PO PRN 07/05/18 Magnesium Oxide [Mag-Ox -] 400 mg PO DAILY #90 tablet MDD 1 07/13/18 Metoprolol Tartrate [Lopressor -] 25 mg PO BID #180 tablet MDD 2 07/13/18 clonazePAM [Klonopin -] 0.25 mg PO BID #30 tablet MDD 2 07/13/18 Losartan Potassium [Cozaar -] 25 mg PO DAILY 07/25/18
== END 2018-08-01 04:07 | disposition expired | DRG 57 ==
LOC: JER 18:16 → JERBED 07-26 00:01 → J8W 07-26 02:43 → J4W 07-26 23:27 → JERBED 07-30 00:39 → J4W 07-30 00:40
PROVIDERS: ADMIT Specialist; ATTEND Specialist
DX: G12.21 Amyotrophic lateral sclerosis (principal); S12.500A Unspecified displaced fracture of sixth cervical vertebra, initial encounter for closed fracture; J98.11 Atelectasis; S12.400A Unspecified displaced fracture of fifth cervical vertebra, initial encounter for closed fracture; G30.9 Alzheimer's disease, unspecified; T45.515A Adverse effect of anticoagulants, initial encounter; I10 Essential (primary) hypertension; M60.9 Myositis, unspecified; R09.02 Hypoxemia; E78.5 Hyperlipidemia, unspecified; K56.41 Fecal impaction; W19.XXXA Unspecified fall, initial encounter; Y93.9 Activity, unspecified; Y92.89 Other specified places as the place of occurrence of the external cause; Y99.9 Unspecified external cause status; F02.80 Dementia in other diseases classified elsewhere, unspecified severity, without behavioral disturbance, psychotic disturbance, mood disturbance, and anxiety; N40.0 Benign prostatic hyperplasia without lower urinary tract symptoms; I48.2 Chronic atrial fibrillation; I25.10 Atherosclerotic heart disease of native coronary artery without angina pectoris; I46.2 Cardiac arrest due to underlying cardiac condition
CPT/HCPCS: 36415; 36600; 70450-TC; 70486-TC; 71045-TC-FY; 71046-TC-FY; 72125-TC; 72128-TC; 72131-TC; 72141-TC; 80048; 80053; 81003; 81015; 82550; 82803; 82962; 83605; 84484; 85025; 85027; 85610; 85730; 86850; 86900; 86901; 93005; 93010; 97116-GP; 97161-GP; 99284-25; J0131; J7030